=== PATIENT | female | born 1955 | race Caucasian/White ===

== ENCOUNTER 2016-05-02 14:08 | Outpatient (RCR) | payer MEDICARE, MEDICAID ==
--- OUTSIDE RECORDS SUMMARY | 2016-04-11 14:13 | XMS REPORT ---
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 Problem Chest pain, unspecified R07.9 Active Problem Dislocation of left elbow, subsequent encounter V58.89 Active Problem Counseling on substance use and abuse Z71.89 Active Problem Obstructive chronic bronchitis J44.9 Active Medications Medication Code System Code Instructions Start Date End Date Status Dosage Omeprazole [facility] [address]-32 20 MG Orally Once a day May 16, 2015 1 tablet Symbicort [facility] 50133191055 160-4.5 Twice a day INHALE TWO PUFFS BY MOUTH TWICE A DAY IN THE MORNING AND EVENING Sertraline HCl [facility] 27114987739 50 TAKE ONE TABLET BY MOUTH DAILY Aspirin [facility] [address]-93 81 MG Orally Once a day 1 tablet Singulair [facility] 31168193121 10 TAKE ONE TABLET BY MOUTH DAILY Albuterol Sulfate [facility] [address]-14 (2.5 MG/3ML) 0.083% Inhalation Three times a day September 19, 2015 3 ml Ventolin HFA [facility] [address]-82 108 (90 Base) MCG/ACT Inhalation every 4 hrs September 19, 2015 2 puffs as needed Zyrtec Allergy [facility] [address]-43 10 mg Orally Once a day October 24, 2015 1 tablet Procedures Procedure Coding System Code Date Office Visit, Est Pt., Level 3 CPT-4 37140 October 24, 2015 [facility] VISIT ESTABLISHED PATIENT CPT-4 G0467 October 24, 2015 Vital Signs Date/Time: October 24, 2015 Cardiac Monitoring Heart Rate 100 bpm Weight 147 lbs Height 65 in BMI 24.46 Index Blood Pressure Diastolic 70 mmHg Blood Pressure Systolic 100 mmHg Results No Known Results Summary Purpose eClinicalWorks Submission
[~2016-05-02 14:08] MED LIST: AC500T PO; ALB0.5V INH; ALBU0.632 IH; ASP81TEC PO; BENZ200C3 PO; BUDE6HFA IH; CEFD300C3 PO; DOXY100C2 PO; ESTR0.5T PO; FLC150T PO; FLUT1DIS26 IH; GFN600TCR PO; HYDR-3874 PO; LEVO750T6 PO; LORA10CA PO; MNTL10T PO; PRD10T PO; PRD20T PO; PRD50T PO; PREDNISONE; RT-COMBINH IH; SERT100T8 PO; SERT25TA PO; SERT50TA PO; TIOT18CA IH
== END 2016-05-21 09:38 | disposition home or self-care (01) ==
PROVIDERS: ATTEND Nurse Practitioner
DX: M75.42 Impingement syndrome of left shoulder (principal)

== ENCOUNTER 2017-01-08 21:35 | Inpatient (IN) | payer MEDICARE, MEDICAID ==
[~2017-01-08] VITALS: Ht 165.1 cm; Wt 66.3 kg
[2017-01-08] MEDS ORDERED: RT-SODIUM CHL INHALATION 3 ML VIAL ONE (21:37)
[2017-01-08] MEDS ORDERED: RT-ALBUTEROL SULF 2.5 MG/3 ML PRE-MIX VIAL ONE (21:37)
[2017-01-08] MEDS ORDERED: RT-ALBUTEROL SULF 2.5 MG/3 ML PRE-MIX VIAL INH STA (21:42)
[2017-01-08] MEDS ORDERED: NS IV 500 ML 500 ML IV ONE (21:42)
[2017-01-08] MEDS ORDERED: methylPREDNISolone 125 MG (Solu-MEDROL) VIAL IVP ONE (21:45)
[2017-01-08] MEDS ORDERED: AZITHROMYCIN INJECTION 500 MG in NS (IVPB) 250 ML IV ONE (21:45)
[2017-01-08 21:54] LABS: BASOPHILS % (AUTO) 0 % (0-10); EOSINOPHILS # (AUTO) 0.4 10^3/uL (0.0-0.3); EOSINOPHILS % (AUTO) 5 % (0-10); LYMPHOCYTES # (AUTO) 4.5 X 10^3 (1.0-4.0); LYMPHOCYTES % (AUTO) 59 % (12-44); MEAN CORPUSCULAR HEMOGLOBIN 35 PG (25-34); MEAN CORPUSCULAR HGB CONC 35 G/DL (32-36); MEAN CORPUSCULAR VOLUME 99 FL (80-99); MONOCYTES # (AUTO) 0.5 X 10^3 (0.0-1.0); MONOCYTES % (AUTO) 7 % (0-12); NEUTROPHILS # (AUTO) 2.2 X 10^3 (1.8-7.8); NEUTROPHILS % (AUTO) 29 % (42-75); PLATELET COUNT 258 10^3/uL (130-400); RED BLOOD COUNT 4.06 10^6/uL (4.35-5.85); RED CELL DISTRIBUTION WIDTH 13.4 % (10.0-14.5); WHITE BLOOD COUNT 7.6 10^3/uL (4.3-11.0)
--- NOTE | 2017-01-08 21:54 | ED Respiratory ---
General Stated Complaint: RESPIRATORY DISTRESS Source: patient, EMS Exam Limitations: no limitations History of Present Illness Time seen by provider: 21:35 Initial Comments Patient presents to ER by EMS with a chief complaint of shortness of breath presently worsening over the past 3 days. She has a history of asthma, COPD, emphysema. She still smokes a pack-a-day. She's had no fever but she has had some hot flashes recently. She has been coughing and does not recall the last time she had have antibiotics or steroids. She is very short of breath wearing 2 L per nasal cannula 94% at home per EMS and 92-93% on room air after arrival. She's had no nausea vomiting chest pain, diarrhea or rash. No sick contacts. Allergies and Home Medications Allergies Coded Allergies: codeine (Verified Allergy, Severe, Hives and swelling., 09/22/12) Home Medications Albuterol 2.5 Mg/0.5 Ml Nebu, 2.5 MG INH Q4H PRN, (Reported) PRN SOB Aspirin 81 Mg Tabec, 81 MG PO DAILY, (Reported) Budesonide/Formoterol Fumarate 10.2 Gm Hfa.aer.ad, 2 PUFF IH BID, (Reported) Hydrocodone/Acetaminophen 1 Each Tablet, 1-2 EACH PO Q6H PRN for PAIN, #14 Ref 0 Prescribed by: DEJA PERDOMO on 10/05/14 0300 Montelukast Sodium 10 Mg Tab, 10 MG PO HS, (Reported) Sertraline Hcl 25 Mg Tablet, 50 MG PO DAILY, (Reported) Constitutional: No chills, No diaphoresis, No fever EENTM: No ear discharge, No ear pain, No eye pain Respiratory: cough, phlegm, short of breath, No stridor, wheezing Cardiovascular: No chest pain, No palpitations Gastrointestinal: No abdominal pain, No constipation, No diarrhea, No nausea, No vomiting Genitourinary: No discharge, No dysuria : No Musculoskeletal: No back pain, No joint pain Skin: No pruritus, No rash Psychiatric/Neurological: Denies Headache, Denies Numbness, Denies Paresthesia Past Fgjmsvu-Jzxjui-Uwisdk Hx Patient Social History Alcohol Use: Denies Use Smoking Status: Current Everyday Smoker Type Used: Cigarettes (1 ppd) Immunizations Up To Date Tetanus Booster (TDap): Unknown PED Vaccines UTD: No Date of Pneumonia Vaccine: Dec 14, 2009 Date of Influenza Vaccine: Jan 10, 2012 Respiratory Respiratory Disorders: Asthma, COPD Reproductive System Hx Reproductive Disorders: No Musculoskeletal Musculoskeletal Disorders: Arthritis HEENT HEENT Disorders: Cataract Psychosocial Behavioral Health Disorders: Anxiety, Depression Family Medical History Significant Family History: No Pertinent Family Hx Physical Exam Vital Signs Vital Sign - Last 12Hours 01/08/17 01/08/17 21:35 21:50 Temp 96.4 Pulse 83 Resp 20 B/P (MAP) 107/63 Pulse Ox 91 O2 Delivery Room Air O2 Flow Rate 1.50 Capillary Refill : General Appearance: moderate distress, thin Eyes: Bilateral Eye Normal Inspection, Bilateral Eye PERRL, Bilateral Eye EOMI HEENT: PERRL/EOMI, normal ENT inspection, TMs normal, pharyngeal erythema Neck: non-tender, full range of motion, supple Respiratory: chest non-tender, respiratory distress (moderate), decreased breath sounds, accessory muscle use, crackles (bilateral), rales, rhonchi, wheezing, expiration Cardiovascular: normal peripheral pulses, regular rate, rhythm, no edema, no JVD Gastrointestinal: normal bowel sounds, non tender, soft Extremities: non-tender, normal inspection, no pedal edema, no calf tenderness , normal capillary refill Neurologic/Psychiatric: no motor/sensory deficits, alert, normal mood/affect, oriented x 3 Skin: normal color, warm/dry Patient Education: Explained Benefits, Explained Risks Breath Sounds per Auscultation: Clear Heart Sounds per Auscultation: Regular Airway Exam: Mouth opens >2 fingers, Neck Full Range of Motion, Visulation of Uvula Sedation Adminstration Time: 0220 Re-examination Time: 024 Progress/Results/Core Measures Results/Orders Lab Results Laboratory Tests Test 01/08/17 21:45 Range/Units White Blood Count 7.6 4.3-11.0 10^3/uL Red Blood Count 4.06 L 4.35-5.85 10^6/uL Hemoglobin 14.2 11.5-16.0 G/DL Hematocrit 40 35-52 % Mean Corpuscular Volume 99 80-99 FL Mean Corpuscular Hemoglobin 35 H 25-34 PG Mean Corpuscular Hemoglobin Concent 35 32-36 G/DL Red Cell Distribution Width 13.4 10.0-14.5 % Platelet Count 258 130-400 10^3/uL Mean Platelet Volume 10.0 7.4-10.4 FL Neutrophils (%) (Auto) 29 L 42-75 % Lymphocytes (%) (Auto) 59 H 12-44 % Monocytes (%) (Auto) 7 0-12 % Eosinophils (%) (Auto) 5 0-10 % Basophils (%) (Auto) 0 0-10 % Neutrophils # (Auto) 2.2 1.8-7.8 X 10^3 Lymphocytes # (Auto) 4.5 H 1.0-4.0 X 10^3 Monocytes # (Auto) 0.5 0.0-1.0 X 10^3 Eosinophils # (Auto) 0.4 H 0.0-0.3 10^3/uL Basophils # (Auto) 0.0 0.0-0.1 10^3/uL My Orders Orders - GOVIND PALAFOX Sodium Chl Inhalation (Rt-Sodium Chl Inh (01/08/17 21:37) Albuterol Pre-Mix Nebs (Rt) (Proventil P (01/08/17 21:37) Cbc With Automated Diff (01/08/17 21:42) Comprehensive Metabolic Panel (01/08/17 21:42) Lactic Acid Analyzer (01/08/17 21:42) Magnesium (01/08/17 21:42) Rapid Strep A Screen (01/08/17 21:42) Troponin I (01/08/17 21:42) Ua Culture If Indicated (01/08/17 21:42) Blood Culture (01/08/17 21:42) Influenza A And B Antigens (01/08/17 21:42) Sputum Culture (01/08/17 21:42) Chest 1 View, Ap/Pa Only (01/08/17 21:42) Albuterol Pre-Mix Nebs (Rt) (Proventil P (01/08/17 21:42) Saline Lock/Iv-Start (01/08/17 21:42) Ns Iv 500 Ml (Sodium Chloride 0.9%) (01/08/17 21:42) Methylprednisolone Sod Succ (Solu-Medrol (01/08/17 21:45) Azithromycin Injection (Zithromax Inject (01/08/17 21:45) Svn Sm Volume Nebulizer Rt-Rfs (01/08/17 21:42) Ekg Tracing (01/08/17 21:56) Medications Given in ED Current Medications Medications Dose Ordered Sig/Antwon Route Start Time Stop Time Status Last Admin Dose Admin Sodium Chloride 3 ml STK-MED ONCE .ROUTE 01/08/17 21:37 01/08/17 21:46 DC 01/08/17 21:53 3 ML Vital Signs/I&O Vital Sign - Last 12Hours 01/08/17 01/08/17 21:35 21:50 Temp 96.4 Pulse 83 Resp 20 B/P (MAP) 107/63 Pulse Ox 91 93 O2 Delivery Room Air Nasal Cannula O2 Flow Rate 1.50 Progress Note : Time: 21:54 Progress Note Blood and sputum cultures, lactate, chest x-ray, azithromycin 500 mg IV, Solu- Medrol 125 mg IV, one hour, 15 mg albuterol in addition to the EMSs DuoNeb 1. Diagnostic Imaging Diagonstic Imaging: Xray Plain Films/CT/US/NM/MRI: chest Comments No acute cardiopulmonary processes. COPD evident. Reviewed: Reviewed by Me Departure Communication (Admissions) Time/Spoke to Admitting Phy: 22:[address] Britt Hernandez discussed the clinical findings, imaging and laboratory and she is okay with admitting the patient for rest for distress and COPD exacerbation. She'll see the patient the morning. Impression Impression: Primary Impression: Acute exacerbation of COPD with asthma Additional Impression: Acute respiratory distress Disposition: ADMITTED INPATIENT Condition: Stable Admissions Decision to Admit Reason: Admit from ER (General) Decision to Admit/Date: Jan 08, 2017 Time/Decision to Admit Time: 22:19 Departure-Patient Inst. Referrals: ALMA ALLEN (PCP) Primary Care Physician [facility] (Family) Primary Care Physician Copy Copies To 1: SHIRA MOSES TITUS J Jan 08, 2017 21:54
[2017-01-08 22:19] LABS: ALANINE AMINOTRANSFERASE 19 U/L (0-55); ALBUMIN 4.2 GM/DL (3.2-4.5); ANION GAP 13 MMOL/L (5-14); ASPARTATE AMINO TRANSFERASE 24 U/L (5-34); BILIRUBIN,TOTAL 0.3 MG/DL (0.1-1.0); BLOOD UREA NITROGEN 6 MG/DL (7-18); BUN/CREATININE RATIO 9; CALCIUM 8.8 MG/DL (8.5-10.1); CARBON DIOXIDE 19 MMOL/L (21-32); CHLORIDE 102 MMOL/L (98-107); CREATININE SERUM 0.64 MG/DL (0.60-1.30); GFR ESTIMATED > 60; GLUCOSE 67 MG/DL (70-105); MAGNESIUM 2.6 MG/DL (1.8-2.4); POTASSIUM 3.8 MMOL/L (3.6-5.0); SODIUM 134 MMOL/L (135-145); TOTAL PROTEIN 7.7 GM/DL (6.4-8.2)
[2017-01-08 22:26] LABS: TROPONIN I < 0.30 NG/ML (<0.30)
--- OUTSIDE RECORDS SUMMARY | 2017-01-08 23:03 | XMS REPORT ---
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 360699213 Problem Counseling on substance use and abuse Z71.89 Active 375277085 Problem Obstructive chronic bronchitis J44.9 Active 046134176 Problem H/O esophageal reflux Z87.19 Active 937761561 Problem H/O benign neoplasm of colon Z86.018 Active 280984963 ALLERGIES No Known Allergies SOCIAL HISTORY No smoking Hx information available PLAN OF CARE Activity Details Follow Up 8 weeks Reason: VITAL SIGNS Height 65 in 2016-03-22 Blood pressure systolic 112 mmHg 2016-03-22 Blood pressure diastolic 70 mmHg 2016-03-22 MEDICATIONS No Known Medications RESULTS No Results PROCEDURES Procedure Date Ordered Related Diagnosis Body Site [facility] VISIT ESTABLISHED PATIENT Mar 22, 2016 Office Visit, Est Pt., Level 3 Mar 22, 2016 IMMUNIZATIONS No Known Immunizations
--- OUTSIDE RECORDS SUMMARY | 2017-01-08 23:03 | XMS REPORT ---
Author ANDRES Andino [facility] eClinicalWorks Address Unknown Phone Unavailable Care Team Providers Care Cook Restaurant Name Role Phone ANDRES KAUFFMAN CP Unavailable [...] Start Date End Date Status Dosage Omeprazole [facility] [address]-95 20 MG Orally Once a day May 16, [address] [facility] 25412583414 160-4.5 Twice a day INHALE TWO PUFFS BY MOUTH TWICE A DAY IN THE MORNING AND EVENING Sertraline HCl [facility] 80886454726 50 TAKE ONE TABLET BY MOUTH DAILY Aspirin [facility] [address]-77 81 MG Orally Once a day [address] [facility] 72265289608 10 TAKE ONE TABLET BY MOUTH DAILY Albuterol Sulfate [facility] [address]-82 (2.5 MG/3ML) 0.083% Inhalation Three times a day September 19, 2015 3 ml Ventolin HFA [facility] [address]-78 108 (90 Base) MCG/ACT Inhalation every 4 hrs September 19, 2015 2 puffs as needed Zyrtec Allergy [facility] [address]-29 10 mg Orally Once a day October 24, 2015 1 tablet Procedures Procedure Coding System Code Date Office Visit, Est Pt., Level 3 CPT-4 62688 October 24, 2015 [facility] VISIT ESTABLISHED PATIENT CPT-4 G0467 October 24, 2015 Vital Signs Date/Time: October 24, 2015 Cardiac Monitoring Heart Rate 100 bpm Weight 147 lbs Height 65 in BMI 24.46 Index Blood Pressure Diastolic 70 mmHg Blood Pressure Systolic 100 mmHg Results No Known Results Summary Purpose eClinicalWorks Submission
--- OUTSIDE RECORDS SUMMARY | 2017-01-08 23:03 | XMS REPORT ---
Author Author ANDRES KAUFFMAN [facility] eClinicalWorks Address Unknown Phone Unavailable Care Team Providers Care Warehouse Team Leader Name Role Phone ANDRES KAUFFMAN Unavailable Allergies, Adverse Reactions, Alerts Substance Reaction Event Type Codeine Sulfate Info Not Available Drug Allergy Problems Problem Type Condition Code Onset Dates Condition Status Assessment Left arm pain M79.602 Active Assessment Acute pain of left shoulder M25.512 Active Problem H/O esophageal reflux Z87.19 Active [...] Instructions Start Date End Date Status Dosage Zyrtec Allergy [facility] [place] [address]-40 10 mg Orally Once a day October 24, 2015 1 tablet Zanaflex [facility] [place] [place] [address]-88 2 MG Orally Once a day at bedtime Jan 26, 2016 1 capsule as needed Ventolin HFA [facility] [place] [address]-39 108 (90 Base) MCG/ACT Inhalation every 4 hrs September 19, 2015 2 puffs as needed Albuterol Sulfate [facility] [place] [address]-72 (2.5 MG/3ML) 0.083% Inhalation Three times a day September 19, 2015 3 ml Sertraline HCl [facility] [place] 72030646097 50 TAKE ONE TABLET BY MOUTH DAILY Aspirin [facility] [place] [address]-14 81 MG Orally Once a day 1 tablet Singulair [facility] [place] [place] 86122521004 10 TAKE ONE TABLET BY MOUTH DAILY Symbicort [facility] [place] 55058085905 160-4.5 Twice a day INHALE TWO PUFFS BY MOUTH TWICE A DAY IN THE MORNING AND EVENING Procedures Procedure Coding System Code Date X-RAY EXAM OF SHOULDER CPT-4 74649 Jan 26, 2016 [facility] VISIT ESTABLISHED PATIENT CPT-4 G0467 Jan 26, 2016 X-RAY EXAM OF HUMERUS CPT-4 60878 Jan 26, 2016 Office Visit, Est Pt., Level 3 CPT-4 25817 Jan 26, 2016 Vital Signs Date/Time: Jan 26, 2016 Cardiac Monitoring Heart Rate 88 bpm Weight 145.9 lbs Height 65 in BMI 24.28 Index Blood Pressure Diastolic 62 mmHg Blood Pressure Systolic 90 mmHg Results Name Result Date Reference Range Unit Abnormality Flag Xray : Shoulder, Left 2 view (IN HOUSE) Xray : Humerus, Left (IN HOUSE) Summary Purpose eClinicalWorks Submission
--- OUTSIDE RECORDS SUMMARY | 2017-01-08 23:04 | XMS REPORT ---
Author MARIA FERNANDA [facility] eClinicalWorks Address Unknown Phone Unavailable Care Team Providers Care Dean Of Men Name Role Phone MARIA FERNANDA SORIA CP Unavailable Allergies, Adverse Reactions, Alerts Substance Reaction Event Type Codeine Sulfate Info Not Available Drug Allergy Problems Problem Type Condition Code Onset Dates Condition Status Assessment Muscle spasm M62.838 Active Assessment Cervicalgia M54.2 Active Problem H/O esophageal reflux Z87.19 Active [...] Start Date End Date Status Dosage Omeprazole [facility] [address]-48 20 MG Orally Once a day May 16, 2015 1 tablet Sertraline HCl [facility] 06320633355 50 TAKE ONE TABLET BY MOUTH DAILY Zyrtec Allergy [facility] [address]-98 10 mg Orally Once a day October 24, 2015 1 tablet Symbicort [facility] 86390412647 160-4.5 Twice a day INHALE TWO PUFFS BY MOUTH TWICE A DAY IN THE MORNING AND EVENING Ventolin HFA [facility] [address]-86 108 (90 Base) MCG/ACT Inhalation every 4 hrs September 19, 2015 2 puffs as needed Singulair [facility] 15688914406 10 TAKE ONE TABLET BY MOUTH DAILY Albuterol Sulfate [facility] [address]-47 (2.5 MG/3ML) 0.083% Inhalation Three times a day September 19, 2015 3 ml PredniSONE [facility] [address]-70 20 mg Orally Once a day Dec 17, 2015Dec 1 tablet Cyclobenzaprine HCl [facility] [address]-34 10 mg Orally 2 times a day prn Dec 17, 2015 Dec 20, 2015 1 tablet Aspirin [facility] [address]-16 81 MG Orally Once a day 1 tablet Procedures Procedure Coding System Code Date Office Visit, Est Pt., Level 3 CPT-4 43149 Dec 17, 2015 [facility] VISIT ESTABLISHED PATIENT CPT-4 G0467 Dec 17, 2015 Vital Signs Date/Time: Dec 17, 2015 Cardiac Monitoring Heart Rate 88 bpm Weight 153 lbs Height 65 in BMI 25.46 Index Blood Pressure Diastolic 62 mmHg Blood Pressure Systolic 98 mmHg Results No Known Results Summary Purpose eClinicalWorks Submission
--- OUTSIDE RECORDS SUMMARY | 2017-01-08 23:04 | XMS REPORT ---
Author SHIRA [facility] eClinicalWorks Address Unknown Phone Unavailable Care Team Providers Care Senior Hydrogeologist Name Role Phone SHIRA MOSES CP Unavailable Allergies, Adverse Reactions, Alerts Substance Reaction Event Type Codeine Sulfate Info Not Available Drug Allergy Problems Problem Type Condition Code Onset Dates Condition Status Assessment Sebaceous cyst L72.3 Active Problem H/O esophageal reflux Z87.19 Active [...] Instructions Start Date End Date Status Dosage Albuterol Sulfate [facility] [address]-55 2.5 mg /3 mL (0.083 %) Apr 28, 2013 1 Each by Inhalation route every 6 hours for cough and wheeze PRN for wheezing or cough Sertraline HCl [facility] 74219044750 50 Once a day TAKE ONE TABLET BY MOUTH DAILY Symbicort [facility] 62787550067 160-4.5 Twice a day INHALE TWO PUFFS BY MOUTH TWICE A DAY IN THE MORNING AND EVENING Singulair [facility] [address]-23 10 mg 1 TAB orally once a day (in the evening) Jun 02, 2014 1 tablet by Oral route 1 time per day Procedures Procedure Coding System Code Date DRAINAGE OF SKIN ABSCESS CPT-4 12367 Mar 21, 2015 Vital Signs Date/Time: Mar 21, 2015 Temperature 97.4 F Weight 150.3 lbs Height 65 in BMI 25.01 Index Blood Pressure Diastolic 64 mmHg Blood Pressure Systolic 110 mmHg Cardiac Monitoring Heart Rate 76 bpm Results Name Result Date Reference Range Unit Abnormality Flag I/D SIMPLE ABSCESS Summary Purpose eClinicalWorks Submission
--- OUTSIDE RECORDS SUMMARY | 2017-01-08 23:04 | XMS REPORT | Continuity of Care Document ---
Author Author [facility] Organization [facility] Address [facility] [address] [place] [address] Phone Unavailable Care Team Providers Care Microelectronics Assembler Name Role Phone Katlyn Grullon M.D. PCP Insurance Providers Payer Name Policy Number Subscriber Name Relationship Medicare [id number] Char Juarez 18 Self / Same As Patient Medicaid [id number] Char Juarez 18 Self / Same As Patient Advance Directives Directive Response Recorded Date/Time Do you have an Advanced Directive? No 07/09/99 9:56pm Advance Directives No 08/19/07 12:57pm Living Will No 08/19/07 12:57pm Power of Landscape Artist for Health Care No 08/19/07 12:57pm Organ, Tissue, or Eye Donor No 08/19/07 12:57pm Do you have a signed organ donor card? No 07/09/99 9:56pm Chief Complaint and Reason for Visit Chief Complaint RESPIRATORY DISTRESS Reason for Visit [id number] Bronchitis Problems Active Problems Medical Problem Onset Date Status Bronchitis Unknown Acute COPD (chronic obstructive pulmonary disease) Unknown Acute Medications Current Home Medications Medication Dose Units Route Directions Days/Qty Instructions Start Date Budesonide/Formoterol Fumarate 6 Gm 2 Puff Inhalation Twice A Day Albuterol Sulfate (Proair Hfa) 8.5 Gm 1-2 Puff Inhalation Every 4-6 Hours As Needed 10/01/14 Montelukast Sodium 10 Mg 10 Mg Oral Daily 30 10/01/14 Sertraline Hcl 50 Mg 50 Mg Oral Daily 30 10/01/14 Aspirin 81 Mg 81 Mg Oral Daily 30 10/01/14 Azithromycin 500 Mg 500 Mg Oral Daily 5 10/01/14 Benzonatate 100 Mg 100-200 Mg Oral Three Times Daily As Needed as needed for Cough 30 as needed for cough. 10/01/14 Social History No social history. Hospital Discharge Instructions No hospital discharge instructions. Plan of Care Discharge Date 10/01/14 2:46am Condition at Discharge Stable Instructions/Education Provided Acute Bronchitis (ED) Prescriptions See Medication Section Functional Status Query Response Date Recorded Manjit Coma Scale Total 15 October 01, 2014 1:30am Patient Behavior Cooperative Appropriate October 01, 2014 1:10am Allergies, Adverse Reactions, Alerts Allergen Type Severity Reaction Status Last Updated Codeine Allergy Unknown Active 10/01/14 Ibuprofen Allergy Unknown Active 10/01/14 Immunizations Name Given Type Hx Diphtheria, Pertussis, Tetanus Vaccination Patient staes "doesnt remember" Historical Hx Influenza Vaccination N PT states doesnt remember Historical Vital Signs Acute Vital Signs Vital Response Date/Time Temperature (Fahrenheit) 100.0 degrees F (97.6 - 99.5) 10/01/2014 1:10am Temperature Source Temporal Artery 10/01/2014 1:10am Pulse Rate (adult) 76 bpm (60 - 90) 10/01/2014 2:30am Respiratory Rate 16 bpm (12 - 24) 10/01/2014 2:30am Blood Pressure 107/51 mm Hg 10/01/2014 2:30am O2 Sat by Pulse Oximetry 94 % (90 - 100) 10/01/2014 2:30am Oxygen Delivery Method 10/01/2014 2:30am Oxygen Flow Rate 2 L/min 10/01/2014 2:07am Pain Intensity 6 10/01/2014 2:46am Height 5 ft 4 in Weight 152 lb Body Mass Index 26.0 kg/m^2 Results Laboratory Results Test Name Result Units Flags Reference Collection Date/Time Result Date/ Time Comments White Blood Count 8.2 K/uL 4.8-10.8 10/01/2014 12:45am 10/01/2014 1: 30am Red Blood Count 4.32 M/uL 4.20-5.40 10/01/2014 12:45am 10/01/2014 1: 30am Hemoglobin 14.5 gm/dL 12.0-16.0 10/01/2014 12:10/01/2014 1:30am Hematocrit 42.4 % 37.0-47.0 10/01/2014 12:10/01/2014 1:30am Mean Corpuscular Volume 98.3 fL 81.0-99.0 10/01/2014 12:2014 1:30am Mean Corpuscular Hemoglobin 33.6 pg H 27.0-31.0 10/01/2014 12:10/01 1:30am Mean Corpuscular Hemoglobin Concent 34.2 g/dL 30.0-37.0 10/01/2014 12: 10/01/2014 1:30am Red Cell Distribution Width 13.2 % 11.5-14.5 10/01/2014 12:2014 1:30am Platelet Count 251 K/uL 130-400 10/01/2014 12:10/01/2014 1:30am Mean Platelet Volume 7.8 fL 7.4-10.4 10/01/2014 12:10/01/2014 1: 30am Neutrophils (%) (Auto) 62.9 % 42.2-75.2 10/01/2014 12:10/01/2014 1 :30am Lymphocytes (%) (Auto) 29.4 % 20.5-51.1 10/01/2014 12:10/01/2014 1 :30am Monocytes (%) (Auto) 4.8 % 1.7-9.3 10/01/2014 12:10/01/2014 1: 30am Eosinophils (%) (Auto) 2.7 % 0-3 10/01/2014 12:10/01/2014 1:30am Basophils (%) (Auto) 0.3 % 0.0-1.0 10/01/2014 12:10/01/2014 1: 30am Neutrophils # (Auto) 5.2 K/uL 2.0-6.9 10/01/2014 12:10/01/2014 1: 30am Lymphocytes # (Auto) 2.4 K/uL 1.2-3.4 10/01/2014 12:10/01/2014 1: 30am Monocytes # (Auto) 0.4 K/uL 0.1-0.6 10/01/2014 12:45am 10/01/2014 1: 30am Eosinophils # (Auto) 0.2 K/uL 0.0-0.7 10/01/2014 12:45am 10/01/2014 1: 30am Basophils # (Auto) 0.0 K/uL 0.0-0.2 10/01/2014 12:45am 10/01/2014 1: 30am Random Glucose 105 mg/dL 70-110 10/01/2014 12:45am 10/01/2014 1:29am Blood Urea Nitrogen 15 mg/dL 7-18 10/01/2014 12:45am 10/01/2014 1:29am Creatinine 0.8 mg/dL 0.6-1.0 10/01/2014 12:45am 10/01/2014 1:29am Sodium Level 139 mEq/L 136-145 10/01/2014 12:45am 10/01/2014 1:29am Potassium Level 3.8 mEq/L 3.5-5.0 10/01/2014 12:45am 10/01/2014 1:29am Chloride Level 102 mEq/L 98-107 10/01/2014 12:45am 10/01/2014 1:29am Carbon Dioxide Level 25.7 mEq/L 21-32 10/01/2014 12:45am 10/01/2014 1: 29am Calcium Level 8.5 mg/dL L 8.8-10.5 10/01/2014 12:45am 10/01/2014 1:29am Glomerular Filtration Rate Calc 77.8 mL/min 10/01/2014 12:45am 2014 1:29am Procedures Procedure Status Date Provider(s) Portable x-ray of chest Completed 10/01/14 ROMI DUMONT D.O. Encounters Encounter Location Arrival/Admit Date Discharge/Depart Date Attending Provider Departed Emergency Room [place] 10/01/14 1:09am 10/01/14 2:46am ROMI DUMONT D.O. Recent Diagnosis
--- OUTSIDE RECORDS SUMMARY | 2017-01-08 23:04 | XMS REPORT ---
Author ANDRES Andino Organization [employer] Address Unknown Phone Unavailable Care Team Providers Care Soda Dialyzer Name Role Phone ANDRES KAUFFMAN CP Unavailable Allergies, Adverse Reactions, Alerts Substance Reaction Event Type Codeine Sulfate Info Not Available Drug Allergy Problems Problem Type Condition Code Onset Dates Condition Status Assessment Screening, lipid Z13.220 Active Problem H/O esophageal reflux Z87.19 Active [...] Instructions Start Date End Date Status Dosage Sertraline HCl [facility] 90829251223 50 Once a day TAKE ONE TABLET BY MOUTH DAILY Albuterol Sulfate [facility] [address]-14 2.5 mg /3 mL (0.083 %) Apr 28, 2013 1 Each by Inhalation route every 6 hours for cough and wheeze PRN for wheezing or cough Symbicort [facility] 31201249150 160-4.5 Twice a day INHALE TWO PUFFS BY MOUTH TWICE A DAY IN THE MORNING AND EVENING Singulair [facility] [address]-55 10 mg 1 TAB orally once a day (in the evening) Jun 02, 2014 1 tablet by Oral route 1 time per day Procedures Procedure Coding System Code Date Office Visit, Est Pt., Level 2 CPT-4 25013 Mar 22, 2015 COUNTS INCLUDE 234 BEDS AT THE [facility] VISIT ESTABLISHED PATIENT CPT-4 G0467 Mar 22, 2015 Vital Signs Date/Time: Mar 22, 2015 Temperature 98.1 F Weight 149.4 lbs Height 65 in BMI 24.86 Index Blood Pressure Diastolic 68 mmHg Blood Pressure Systolic 98 mmHg Cardiac Monitoring Heart Rate 96 bpm Results No Known Results Summary Purpose [employer] Submission
--- OUTSIDE RECORDS SUMMARY | 2017-01-08 23:04 | XMS REPORT ---
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 697205246 Problem Dislocation of left elbow, subsequent encounter V58.89 Active 006030139 Problem Chronic obstructive pulmonary disease, unspecified COPD type J44.9 Active 55820729 Problem Counseling on substance use and abuse Z71.89 Active 965868117 Problem Obstructive chronic bronchitis J44.9 Active 319289904 Problem Chest pain, unspecified R07.9 Active 94569249 Problem H/O esophageal reflux Z87.19 Active 298539959 Problem H/O benign neoplasm of colon Z86.018 Active 974477439 ALLERGIES No Information SOCIAL HISTORY Never Assessed PLAN OF CARE Activity Details Follow Up prn Reason: VITAL SIGNS Height 65 in 2016-05-17 Blood pressure systolic 110 mmHg 2016-05-17 Blood pressure diastolic 74 mmHg 2016-05-17 MEDICATIONS No Known Medications RESULTS No Results PROCEDURES Procedure Date Ordered Result Body Site [facility] VISIT ESTABLISHED PATIENT May 17, 2016 IMMUNIZATIONS No Known Immunizations MEDICAL (GENERAL) HISTORY Type Description Date Medical History Fx dislocation of left elbow 09/2014 Medical History Dislocation of left elbow, subsequent encounter Medical History COPD Surgical History c- section x 4 Surgical History left ear surgery 1971 Hospitalization History copd Hospitalization History collapsed right lung
--- OUTSIDE RECORDS SUMMARY | 2017-01-08 23:04 | XMS REPORT ---
Author ANDRES Andino Organization [employer] Address Unknown Phone Unavailable Care Team Providers Care Orchestra Musician Name Role Phone ANDRES KAUFFMAN CP Unavailable Allergies No Known Allergies Problems Problem Type Condition Code Onset Dates Condition Status Problem H/O esophageal reflux Z87.19 Active Problem [...] Instructions Start Date End Date Status Dosage Tizanidine HCl [facility] [address]-07 2 MG Orally Once a day at Jan 27, 2016 1 tablet as needed Results No Known Results Summary Purpose [employer] Submission
--- OUTSIDE RECORDS SUMMARY | 2017-01-08 23:04 | XMS REPORT ---
Author ANDRES Andino Organization [employer] Address Unknown Phone Unavailable Care Team Providers Care Boat Canvas Installer Name Role Phone ANDRES KAUFFMAN CP Unavailable Allergies, Adverse Reactions, Alerts Substance Reaction Event Type Codeine Sulfate Info Not Available Drug Allergy Problems Problem Type Condition Code Onset Dates Condition Status Assessment Encounter for immunization Z23 Active Assessment Left arm pain M79.602 Active Assessment Breast cancer screening Z12.39 Active Assessment Lipid screening Z13.220 Active Assessment Chronic obstructive pulmonary disease, unspecified COPD type J44.9 Active Assessment Gastroesophageal reflux disease, esophagitis presence not specified K21.9 Active Medications Medication Code System Code Instructions Start Date End Date Status Dosage Sertraline HCl [facility] 82365973550 50 Once a day TAKE ONE TABLET BY MOUTH DAILY Singulair [facility] [address]-37 10 mg 1 TAB orally once a day (in the evening) Jun 02, 2014 1 tablet by Oral route 1 time per day Symbicort [facility] 93082508951 160-4.5 Twice a day INHALE TWO PUFFS BY MOUTH TWICE A DAY IN THE MORNING AND EVENING Albuterol Sulfate [facility] [address]-26 2.5 mg /3 mL (0.083 %) Apr 28, 2013 1 Each by Inhalation route every 6 hours for cough and wheeze PRN for wheezing or cough Procedures Procedure Coding System Code Date Office Visit, Est Pt., Level 4 CPT-4 93004 Mar 08, 2015 FLUARIX QUAD (3 & UP)-GSK-2014 CPT-4 28491 Mar 08, 2015 [facility] VISIT ESTABLISHED PATIENT CPT-4 G0467 Mar 08, 2015 SINGLE IMMUNIZATION ADMIN CPT-4 42236 Mar 08, 2015 TDAP (BOOSTRIX) CPT-4 69928 Mar 08, 2015 IMMUNIZATION ADMIN, EACH ADD (please include units) CPT-4 37396 Mar 08, 2015 Vital Signs Date/Time: Mar 08, 2015 Temperature 98.5 F Weight 154.2 lbs Height 65 in BMI 25.66 Index Blood Pressure Diastolic 74 mmHg Blood Pressure Systolic 130 mmHg Cardiac Monitoring Heart Rate 78 bpm Results No Known Results Immunizations Vaccine Administration Date FLUARIX QUAD (3 & UP)-GSK-2014Mar 08, 2015 TDAP (BOOSTRIX) Mar 08, 2015 Summary Purpose [employer] Submission
--- OUTSIDE RECORDS SUMMARY | 2017-01-08 23:04 | XMS REPORT ---
Author Author ANDRES KAUFFMAN [facility] [employer] Address Unknown Phone Unavailable Care Team Providers Care Credit Union Manager Name Role Phone ANDRES KAUFFMAN CP Unavailable Allergies, Adverse Reactions, Alerts Substance Reaction Event Type Codeine Sulfate Info Not Available Drug Allergy Problems Problem Type Condition Code Onset Dates Condition Status Assessment Left arm pain M79.602 Active Problem H/O esophageal reflux Z87.19 Active [...] Instructions Start Date End Date Status Dosage Aspirin [facility] [address]-70 81 MG Orally Once a day 1 tablet Singulair [facility] 65320602074 10 TAKE ONE TABLET BY MOUTH DAILY Zyrtec Allergy [facility] [address]-00 10 mg Orally Once a day October 24, 2015 1 tablet Sertraline HCl [facility] 11714682553 50 TAKE ONE TABLET BY MOUTH DAILY Symbicort [facility] 59460922684 160-4.5 Twice a day INHALE TWO PUFFS BY MOUTH TWICE A DAY IN THE MORNING AND EVENING Albuterol Sulfate [facility] [address]-13 (2.5 MG/3ML) 0.083% Inhalation Three times a day September 19, 2015 3 ml Ventolin HFA [facility] [address]-65 108 (90 Base) MCG/ACT Inhalation every 4 hrs September 19, 2015 2 puffs as needed Procedures Procedure Coding System Code Date Office Visit, Est Pt., Level 2 CPT-4 44081 Feb 20, 2016 [facility] ESTABL[facility] PATIENT CPT-4 G0467 Feb 20, 2016 Vital Signs Date/Time: Feb 20, 2016 Cardiac Monitoring Heart Rate 86 bpm Weight 145.4 lbs Height 65 in BMI 24.19 Index Blood Pressure Diastolic 68 mmHg Blood Pressure Systolic 112 mmHg Results No Known Results Summary Purpose [employer] Submission
--- OUTSIDE RECORDS SUMMARY | 2017-01-08 23:04 | XMS REPORT ---
Author DARRELL Napier [facility] [employer] Address Unknown Phone Unavailable Care Team Providers Care Track Subway Repair Supervisor Name Role Phone DARRELL GOLDBERG Unavailable Allergies, Adverse Reactions, Alerts Substance Reaction Event Type Codeine Sulfate Info Not Available Drug Allergy Problems Problem Type Condition Code Onset Dates Condition Status Assessment History of chest pain Z87.898 Active Assessment Well woman exam Z01.419 Active Assessment Depression F32.9 Active Problem H/O esophageal reflux Z87.19 Active Problem H/O benign neoplasm of colon Z86.018 Active Problem 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 Problem Chest pain, unspecified R07.9 Active Assessment Encounter for screening for malignant neoplasm of cervix Z12.4 Active Problem Counseling on substance use and abuse Z71.89 Active Problem Obstructive chronic bronchitis J44.9 Active Assessment Vaginal lesion N89.8 Active Assessment Lipid screening Z13.220 Active Assessment Dense breast tissue R92.2 Active Assessment BMI 25.0-25.9,adult Z68.25 Active Medications Medication Code System Code Instructions Start Date End Date Status Dosage Albuterol Sulfate [facility] [address]-27 2.5 mg /3 mL (0.083 %) Apr 28, 2013 1 Each by Inhalation route every 6 hours for cough and wheeze PRN for wheezing or cough Symbicort [facility] 04726691543 160-4.5 Twice a day INHALE TWO PUFFS BY MOUTH TWICE A DAY IN THE MORNING AND EVENING Sertraline HCl [facility] 97994980990 50 Once a day TAKE ONE TABLET BY MOUTH DAILY Singulair [facility] [address]-91 10 mg 1 TAB orally once a day (in the evening) Jun 02, 2014 1 tablet by Oral route 1 time per day Procedures Procedure Coding System Code Date SPECIMEN HANDLING CPT-4 92577 Mar 14, 2015 LAB NOT BILLED BY [facility] CPT-4 NOBLL Mar 14, 2015 GLYCATED HEMOGLOBIN TEST CPT-4 15357 Mar 14, 2015 Preventive Care Est Pt. Age 40-64 CPT-4 12316 Mar 14, 2015 VENIPUNCT, ROUTINE* CPT-4 89387 Mar 14, 2015 Vital Signs Date/Time: Mar 14, 2015 Temperature 97.6 F Weight 152.2 lbs Height 65 in BMI 25.32 Index Blood Pressure Diastolic 76 mmHg Blood Pressure Systolic 112 mmHg Cardiac Monitoring Heart Rate 74 bpm Results No Known Results Summary Purpose [employer] Submission
--- OUTSIDE RECORDS SUMMARY | 2017-01-08 23:05 | XMS REPORT | Continuity of Care Document ---
Author Author [facility] Address Unknown Phone Unavailable Allergies Active Description Code Type Severity Reaction Onset Reported/Identified Relationship to Patient Clinical Status Yes codeine Drug Allergy 10/11/2008 Yes codeine Drug Allergy N/A N/A 10/11/2008 Yes codeine [id number] Drug Allergy Severe Hives and swell 09/22/2012 Medications Problems Date Dx Coded Attending Type Code Diagnosis Diagnosed By 10/11/2008 PAULINA URBINA MD 300.4 DYSTHYMIC DISORDER 10/11/2008 PAULINA URBINA MD 49Enrique CHRONIC OBSTRUCTIVE PULMONARY DISEASE 10/11/2008 PAULINA URBINA MD 300.4 DYSTHYMIC DISORDER 10/11/2008 PAULINA URBINA MD 49Enrique CHRONIC OBSTRUCTIVE PULMONARY DISEASE 10/11/2008 300.4 DYSTHYMIC DISORDER 10/11/2008 496 CHRONIC OBSTRUCTIVE PULMONARY DISEASE 10/11/2008 300.4 DYSTHYMIC DISORDER 10/11/2008 496 CHRONIC OBSTRUCTIVE PULMONARY DISEASE 10/11/2008 PAULINA URBINA MD 300.4 DYSTHYMIC DISORDER 10/11/2008 PAULINA URBINA MD 49Enrique CHRONIC OBSTRUCTIVE PULMONARY DISEASE 10/11/2008 GRICEL KAUFFMAN APRNA S 300.4 DYSTHYMIC DISORDER 10/11/2008 FRANSISCO KAUFFMAN APRNNDA S 496 CHRONIC OBSTRUCTIVE PULMONARY DISEASE 10/11/2008 FRANSISCO KAUFFMAN APRNNDA S 300.4 DYSTHYMIC DISORDER 10/11/2008 JAMARI HACK SAW OPERATOR, ANDRES S 496 CHRONIC OBSTRUCTIVE PULMONARY DISEASE 10/11/2008 NELLY HACK SAW OPERATOR, BARBARA A 300.4 DYSTHYMIC DISORDER 10/11/2008 NELLY HACK SAW OPERATOR, BARBARA A 496 CHRONIC OBSTRUCTIVE PULMONARY DISEASE 10/11/2008 FRANSISCO KAUFFMAN APRNNDA S 300.4 DYSTHYMIC DISORDER 10/11/2008 JAMARI LOZA ANDRES S 496 CHRONIC OBSTRUCTIVE PULMONARY DISEASE 10/11/2008 FRANSISCO KAUFFMAN APRNNDA S 300.4 DYSTHYMIC DISORDER 10/11/2008 JAMARI HACK SAW OPERATOR, ANDRES S 496 CHRONIC OBSTRUCTIVE PULMONARY DISEASE 10/11/2008 JAMARI HACK SAW OPERATOR, ANDRES S 300.4 DYSTHYMIC DISORDER 10/11/2008 JAMARI HACK SAW OPERATOR, ANDRES S 496 CHRONIC OBSTRUCTIVE PULMONARY DISEASE 10/11/2008 JAMARI HACK SAW OPERATOR, ANDRES S 300.4 DYSTHYMIC DISORDER 10/11/2008 JAMARI HACK SAW OPERATOR, ANDRES S 496 CHRONIC OBSTRUCTIVE PULMONARY DISEASE 01/11/2009 PAULINA URBINA MD 372.00 Acute Conjunctivitis Unspecified 01/11/2009 PAULINA URBINA MD 372.00 Acute Conjunctivitis Unspecified 01/11/2009 372.00 Acute Conjunctivitis Unspecified 01/11/2009 372.00 Acute Conjunctivitis Unspecified 01/11/2009 PAULINA URBINA MD 372.00 Acute Conjunctivitis Unspecified 01/11/2009 JAMARI HACK SAW OPERATOR, ANDRES S 372.00 Acute Conjunctivitis Unspecified 01/11/2009 JAMARI HACK SAW OPERATOR, ANDRES S 372.00 Acute Conjunctivitis Unspecified 01/11/2009 NELLY HACK SAW OPERATOR, BARBARA A 372.00 Acute Conjunctivitis Unspecified 01/11/2009 JAMARI HACK SAW OPERATOR, ANDRES S 372.00 Acute Conjunctivitis Unspecified 01/11/2009 JAMARI TEEN, ANDRES S 372.00 Acute Conjunctivitis Unspecified 01/11/2009 JAMARI HACK SAW OPERATOR, ANDRES S 372.00 Acute Conjunctivitis Unspecified 01/11/2009 JAMARI HACK SAW OPERATOR, ANDRES S 372.00 Acute Conjunctivitis Unspecified 01/26/2009 PAULINA URBINA MD 272.4 HYPERLIPIDEMIA HYPERLIPOPROTEINEMIAS (Old Classification) 01/26/2009 PAULINA URBINA MD 300.9 Psychiatric Disorder Requiring Hospitalization 01/26/2009 PAULINA URBINA MD 477.0 Allergic Rhinitis - Pollen 01/26/2009 PAULINA URBINA MD 494.0 Bronchiectasis 01/26/2009 PAULINA URBINA MD 272.4 HYPERLIPIDEMIA HYPERLIPOPROTEINEMIAS (Old Classification) 01/26/2009 PAULINA URBINA MD 300.9 Psychiatric Disorder Requiring Hospitalization 01/26/2009 PAULINA URBINA MD 477.0 Allergic Rhinitis - Pollen 01/26/2009 PAULINA URBINA MD 494.0 Bronchiectasis 01/26/2009 272.4 HYPERLIPIDEMIA HYPERLIPOPROTEINEMIAS (Old Classification) 01/26/2009 300.9 Psychiatric Disorder Requiring Hospitalization 01/26/2009 477.0 Allergic Rhinitis - Pollen 01/26/2009 494.0 Bronchiectasis 01/26/2009 272.4 HYPERLIPIDEMIA HYPERLIPOPROTEINEMIAS (Old Classification) 01/26/2009 300.9 Psychiatric Disorder Requiring Hospitalization 01/26/2009 477.0 Allergic Rhinitis - Pollen 01/26/2009 494.0 Bronchiectasis 01/26/2009 PAULINA URBINA MD 272.4 HYPERLIPIDEMIA HYPERLIPOPROTEINEMIAS (Old Classification) 01/26/2009 PAULINA URBINA MD 300.9 Psychiatric Disorder Requiring Hospitalization 01/26/2009 PAULINA URBINA MD 477.0 Allergic Rhinitis - Pollen 01/26/2009 PAULINA URBINA MD 494.0 Bronchiectasis 01/26/2009 JAMARI HACK SAW OPERATOR, ANDRES S 272.4 HYPERLIPIDEMIA HYPERLIPOPROTEINEMIAS ( Old Classification) 01/26/2009 JAMARI LOZA ANDRES S 300.9 Psychiatric Disorder Requiring Hospitalization 01/26/2009 JAMARI LOZA, ANDRES S 477.0 Allergic Rhinitis - Pollen 01/26/2009 JAMARITESFAYE LOZA, ANDRES S 494.0 Bronchiectasis 01/26/2009 JAMARI LOZA, ANDRES S 272.4 HYPERLIPIDEMIA HYPERLIPOPROTEINEMIAS ( Old Classification) 01/26/2009 JAMARI HACK SAW OPERATOR, ANDRES S 300.9 Psychiatric Disorder Requiring Hospitalization 01/26/2009 JAMARI HACK SAW OPERATOR, ANDRES S 477.0 Allergic Rhinitis - Pollen 01/26/2009 JAMARI HACK SAW OPERATOR, ANDRES S 494.0 Bronchiectasis 01/26/2009 NELLY HACK SAW OPERATOR, BARBARA A 272.4 HYPERLIPIDEMIA HYPERLIPOPROTEINEMIAS (Old Classification) 01/26/2009 NELLY HACK SAW OPERATOR, BARBARA A 300.9 Psychiatric Disorder Requiring Hospitalization 01/26/2009 NELLY HACK SAW OPERATOR, BARBARA A 477.0 Allergic Rhinitis - Pollen 01/26/2009 NELLY HACK SAW OPERATOR, BARBARA A 494.0 Bronchiectasis 01/26/2009 JAMARITESFAYE TEEN, ANDRES S 272.4 HYPERLIPIDEMIA HYPERLIPOPROTEINEMIAS ( Old Classification) 01/26/2009 JAMARI HACK SAW OPERATOR, ANDRES S 300.9 Psychiatric Disorder Requiring Hospitalization 01/26/2009 JAMARI HACK SAW OPERATOR, ANDRES S 477.0 Allergic Rhinitis - Pollen 01/26/2009 JAMARI HACK SAW OPERATOR, ANDRES S 494.0 Bronchiectasis 01/26/2009 JAMARI HACK SAW OPERATOR, ANDRES S 272.4 HYPERLIPIDEMIA HYPERLIPOPROTEINEMIAS ( Old Classification) 01/26/2009 JAMARI HACK SAW OPERATOR, ANDRES S 300.9 Psychiatric Disorder Requiring Hospitalization 01/26/2009 JAMARI HACK SAW OPERATOR, ANDRES S 477.0 Allergic Rhinitis - Pollen 01/26/2009 JAMARI HACK SAW OPERATOR, ANDRES S 494.0 Bronchiectasis 01/26/2009 JAMARI HACK SAW OPERATOR, ANDRES S 272.4 HYPERLIPIDEMIA HYPERLIPOPROTEINEMIAS ( Old Classification) 01/26/2009 JAMARI HACK SAW OPERATOR, ANDRES S 300.9 Psychiatric Disorder Requiring Hospitalization 01/26/2009 JAMARI HACK SAW OPERATOR, ANDRES S 477.0 Allergic Rhinitis - Pollen 01/26/2009 JAMARI HACK SAW OPERATOR, ANDRES S 494.0 Bronchiectasis 01/26/2009 JAMARI HACK SAW OPERATOR, ANDRES S 272.4 HYPERLIPIDEMIA HYPERLIPOPROTEINEMIAS ( Old Classification) 01/26/2009 JAMARI HACK SAW OPERATOR, ANDRES S 300.9 Psychiatric Disorder Requiring Hospitalization 01/26/2009 JAMARI HACK SAW OPERATOR, ANDRES S 477.0 Allergic Rhinitis - Pollen 01/26/2009 JAMARI HACK SAW OPERATOR, ANDRES S 494.0 Bronchiectasis 08/29/2009 PAULINA URBINA MD 692.6 Contact Dermatitis And Other Eczema, Due To Plants [except Food] 08/29/2009 PAULINA URBINA MD 692.6 Contact Dermatitis And Other Eczema, Due To Plants [except Food] 08/29/2009 692.6 Contact Dermatitis And Other Eczema, Due To Plants [except Food] 08/29/2009 692.6 Contact Dermatitis And Other Eczema, Due To Plants [except Food] 08/29/2009 PAULINA URBINA MD 692.6 Contact Dermatitis And Other Eczema, Due To Plants [except Food] 08/29/2009 FRANSISCO KAUFFMAN APRNNDA S 692.6 Contact Dermatitis And Other Eczema, Due To Plants [except Food] 08/29/2009 JAMARI HACK SAW OPERATOR, ANDRES S 692.6 Contact Dermatitis And Other Eczema, Due To Plants [except Food] 08/29/2009 NOEMY VILLEGAS APRNIDI A 692.6 Contact Dermatitis And Other Eczema, Due To Plants [except Food] 08/29/2009 JAMARI HACK SAW OPERATOR, ANDRES S 692.6 Contact Dermatitis And Other Eczema, Due To Plants [except Food] 08/29/2009 JAMARI HACK SAW OPERATOR, ANDRES S 692.6 Contact Dermatitis And Other Eczema, Due To Plants [except Food] 08/29/2009 JAMARI HACK SAW OPERATOR, ANDRES S 692.6 Contact Dermatitis And Other Eczema, Due To Plants [except Food] 08/29/2009 JAMARI HACK SAW OPERATOR, ANDRES S 692.6 Contact Dermatitis And Other Eczema, Due To Plants [except Food] 10/19/2009 PAULINA URBINA MD V70.0 General Medical Exam, Routine, At Health Care Facility 10/19/2009 PAULINA URBINA MD V70.0 General Medical Exam, Routine, At Health Care Facility 10/19/2009 V70.0 General Medical Exam, Routine, At Health Care Facility 10/19/2009 V70.0 General Medical Exam, Routine, At Health Care Facility 10/19/2009 PAULINA URBINA MD V70.0 General Medical Exam, Routine, At Health Care Facility 10/19/2009 FRANSISCO KAUFFMAN APRNNDA S V70.0 General Medical Exam, Routine, At Health Care Facility 10/19/2009 JAMARI HACK SAW OPERATOR, ANDRES S V70.0 General Medical Exam, Routine, At Health Care Facility 10/19/2009 NOEMY VILLEGAS APRNIDI A V70.0 General Medical Exam, Routine, At Health Care Facility 10/19/2009 JAMARI HACK SAW OPERATOR, ANDRES S V70.0 General Medical Exam, Routine, At Health Care Facility 10/19/2009 JAMARI HACK SAW OPERATOR, ANDRES S V70.0 General Medical Exam, Routine, At Health Care Facility 10/19/2009 JAMARI HACK SAW OPERATOR, ANDRES S V70.0 General Medical Exam, Routine, At Health Care Facility 10/19/2009 JAMARI HACK SAW OPERATOR, ANDRES S V70.0 General Medical Exam, Routine, At Health Care Facility 07/10/2010 Ot 491.21 07/10/2010 Ot 790.29 07/10/2010 Ot 799.02 07/10/2010 Ot E932.0 07/10/2010 Ot V15.82 07/10/2010 Ot V46.2 07/17/2010 CARLITOS COON, PAULINA 726.32 Epicondylitis 07/17/2010 CARLITOS COON, PAULINA 726.32 Epicondylitis 07/17/2010 726.32 Epicondylitis 07/17/2010 726.32 Epicondylitis 07/17/2010 CARLITOS COON, PAULINA 726.32 Epicondylitis 07/17/2010 JAMARI LOZA ANDRES S 726.32 Epicondylitis 07/17/2010 JAMARI LOZA ANDRES S 726.32 Epicondylitis 07/17/2010 BARBARA VILLEGAS APRN A 726.32 Epicondylitis 07/17/2010 JAMARI LOZA ANDRES S 726.32 Epicondylitis 07/17/2010 JAMARI LOZA ANDRES S 726.32 Epicondylitis 07/17/2010 JAMARI LOZA ANDRES S 726.32 Epicondylitis 07/17/2010 JAMARI LOZA ANDRES S 726.32 Epicondylitis 10/30/2010 PAULINA URBINA MD V74.1 Screening Examination For Pulmonary Tuberculosis 10/30/2010 PAULINA URBINA MD V74.1 Screening Examination For Pulmonary Tuberculosis 10/30/2010 V74.1 Screening Examination For Pulmonary Tuberculosis 10/30/2010 V74.1 Screening Examination For Pulmonary Tuberculosis 10/30/2010 PAULINA URBINA MD V74.1 Screening Examination For Pulmonary Tuberculosis 10/30/2010 GRICEL KAUFFMAN APRNA S V74.1 Screening Examination For Pulmonary Tuberculosis 10/30/2010 FRANSISCO KAUFFMAN APRNNDA S V74.1 Screening Examination For Pulmonary Tuberculosis 10/30/2010 BARBARA VILLEGAS APRN A V74.1 Screening Examination For Pulmonary Tuberculosis 10/30/2010 GRICEL KAUFFMAN APRNA S V74.1 Screening Examination For Pulmonary Tuberculosis 10/30/2010 FRANSISCO KAUFFMAN APRNNDA S V74.1 Screening Examination For Pulmonary Tuberculosis 10/30/2010 JAMARI HACK SAW OPERATOR, ANDRES S V74.1 Screening Examination For Pulmonary Tuberculosis 10/30/2010 JAMARI HACK SAW OPERATOR, ANDRES S V74.1 Screening Examination For Pulmonary Tuberculosis 11/08/2010 CARLITOS COON, PAULINA V70.3 Sports/school Exam 11/08/2010 CARLITOS COON, PAULINA V70.3 Sports/school Exam 11/08/2010 V70.3 Sports/school Exam 11/08/2010 V70.3 Sports/school Exam 11/08/2010 CARLITOS COON, PAULINA V70.3 Sports/school Exam 11/08/2010 JAMARI HACK SAW OPERATOR, ANDRES S V70.3 Sports/school Exam 11/08/2010 JAMARI HACK SAW OPERATOR, ANDRES S V70.3 Sports/school Exam 11/08/2010 BARBARA VILLEGAS APRN A V70.3 Sports/school Exam 11/08/2010 JAMARI HACK SAW OPERATOR, ANDRES S V70.3 Sports/school Exam 11/08/2010 JAMARI LOZA, ANDRES S V70.3 Sports/school Exam 11/08/2010 JAMARI HACK SAW OPERATOR, ANDRES S V70.3 Sports/school Exam 11/08/2010 JAMARI HACK SAW OPERATOR, ANDRES S V70.3 Sports/school Exam 11/20/2010 Ot 373.11 HORDEOLUM EXTERNUM 11/20/2010 Ot 379.91 PAIN IN OR AROUND EYE 11/30/2010 CARLITOS COON, PAULINA V72.31 Rod Finisher Exam, Routine 11/30/2010 PAULINA URBINA MD V72.31 Rod Finisher Exam, Routine 11/30/2010 V72.31 Rod Finisher Exam, Routine 11/30/2010 V72.31 Rod Finisher Exam, Routine 11/30/2010 PAULINA URBINA MD V72.31 Rod Finisher Exam, Routine 11/30/2010 JAMARI LOZA ANDRES S V72.31 Rod Finisher Exam, Routine 11/30/2010 JAMARI LOZA ANDRES S V72.31 Rod Finisher Exam, Routine 11/30/2010 BARBARA VILLEGAS APRN A V72.31 Rod Finisher Exam, Routine 11/30/2010 JAMARI LOZA ANDRES S V72.31 Rod Finisher Exam, Routine 11/30/2010 JAMARI LOZA ANDRES S V72.31 Rod Finisher Exam, Routine 11/30/2010 ANDRES KAUFFMAN APRN S V72.31 Rod Finisher Exam, Routine 11/30/2010 ANDRES KAUFFMAN APRN S V72.31 Rod Finisher Exam, Routine 03/22/2011 Ot 112.0 THRUSH 03/22/2011 Ot 305.1 TOBACCO USE DISORDER 03/22/2011 Ot 491.21 OBSTR CHRONIC BRONCHITIS, W (ACUTE) EXAC 03/22/2011 Ot 799.02 HYPOXEMIA 03/29/2011 PAULINA URBINA MD 305.1 NONDEPENDENT TOBACCO USE DISORDER 03/29/2011 PAULINA URBINA MD 305.1 NONDEPENDENT TOBACCO USE DISORDER 03/29/2011 305.1 NONDEPENDENT TOBACCO USE DISORDER 03/29/2011 305.1 NONDEPENDENT TOBACCO USE DISORDER 03/29/2011 PAULINA URBINA MD 305.1 NONDEPENDENT TOBACCO USE DISORDER 03/29/2011 GRICEL KAUFFMAN APRNA S 305.1 NONDEPENDENT TOBACCO USE DISORDER 03/29/2011 GRICEL KAUFFMAN APRNA S 305.1 NONDEPENDENT TOBACCO USE DISORDER 03/29/2011 NELLY LOZA BARBARA A 305.1 NONDEPENDENT TOBACCO USE DISORDER 03/29/2011 GRICEL KAUFFMAN APRNA S 305.1 NONDEPENDENT TOBACCO USE DISORDER 03/29/2011 GRICEL KAUFFMAN APRNA S 305.1 NONDEPENDENT TOBACCO USE DISORDER 03/29/2011 GRICEL KAUFFMAN APRNA S 305.1 NONDEPENDENT TOBACCO USE DISORDER 03/29/2011 GRICEL KAUFFMAN APRNA S 305.1 NONDEPENDENT TOBACCO USE DISORDER 06/07/2011 Ot 300.00 ANXIETY STATE NOS 06/07/2011 Ot 305.1 TOBACCO USE DISORDER 06/07/2011 Ot 311 DEPRESSIVE DISORDER NEC 06/07/2011 Ot 491.21 OBSTR CHRONIC BRONCHITIS, W (ACUTE) EXAC 06/07/2011 Ot 799.02 HYPOXEMIA 06/07/2011 Ot V46.2 SUPPLEMENTAL OXYGEN 06/14/2011 PAULINA URBINA MD 307.42 PERSISTENT DISORDER OF INITIATING OR MAINTAINING SLEEP 06/14/2011 PAULINA URBINA MD 530.81 ESOPHAGEAL REFLUX 06/14/2011 PAULINA URBINA MD 786.2 COUGH 06/14/2011 PAULINA URBINA MD 307.42 PERSISTENT DISORDER OF INITIATING OR MAINTAINING SLEEP 06/14/2011 PAULINA URBINA MD 530.81 ESOPHAGEAL REFLUX 06/14/2011 PAULINA URBINA MD 786.2 COUGH 06/14/2011 307.42 PERSISTENT DISORDER OF INITIATING OR MAINTAINING SLEEP 06/14/2011 530.81 ESOPHAGEAL REFLUX 06/14/2011 786.2 COUGH 06/14/2011 307.42 PERSISTENT DISORDER OF INITIATING OR MAINTAINING SLEEP 06/14/2011 530.81 ESOPHAGEAL REFLUX 06/14/2011 786.2 COUGH 06/14/2011 PAULINA URBINA MD 307.42 PERSISTENT DISORDER OF INITIATING OR MAINTAINING SLEEP 06/14/2011 PAULINA URBINA MD 530.81 ESOPHAGEAL REFLUX 06/14/2011 PAULINA URBINA MD 786.2 COUGH 06/14/2011 JAMARI HACK SAW OPERATOR, ANDRES S 307.42 PERSISTENT DISORDER OF INITIATING OR MAINTAINING SLEEP 06/14/2011 JAMARI HACK SAW OPERATOR, ANDRES S 530.81 ESOPHAGEAL REFLUX 06/14/2011 JAMARI LOZA, ANDRES S 786.2 COUGH 06/14/2011 JAMARI HACK SAW OPERATOR, ANDRES S 307.42 PERSISTENT DISORDER OF INITIATING OR MAINTAINING SLEEP 06/14/2011 JAMARI LOZA, ANDRES S 530.81 ESOPHAGEAL REFLUX 06/14/2011 JAMARI LOZA, ANDRES S 786.2 COUGH 06/14/2011 NELLY HACK SAW OPERATOR, BARBARA A 307.42 PERSISTENT DISORDER OF INITIATING OR MAINTAINING SLEEP 06/14/2011 NELLY HACK SAW OPERATOR, BARBARA A 530.81 ESOPHAGEAL REFLUX 06/14/2011 NELLY HACK SAW OPERATOR, BARBARA A 786.2 COUGH 06/14/2011 JAMARI HACK SAW OPERATOR, ANDRES S 307.42 PERSISTENT DISORDER OF INITIATING OR MAINTAINING SLEEP 06/14/2011 JAMARI HACK SAW OPERATOR, ANDRES S 530.81 ESOPHAGEAL REFLUX 06/14/2011 JAMARI HACK SAW OPERATOR, ANDRES S 786.2 COUGH 06/14/2011 JAMARI HACK SAW OPERATOR, ANDRES S 307.42 PERSISTENT DISORDER OF INITIATING OR MAINTAINING SLEEP 06/14/2011 JAMARI HACK SAW OPERATOR, ANDRES S 530.81 ESOPHAGEAL REFLUX 06/14/2011 JAMARI HACK SAW OPERATOR, ANDRES S 786.2 COUGH 06/14/2011 JAMARI HACK SAW OPERATOR, ANDRES S 307.42 PERSISTENT DISORDER OF INITIATING OR MAINTAINING SLEEP 06/14/2011 JAMARI LOZA, ANDRES S 530.81 ESOPHAGEAL REFLUX 06/14/2011 ANDRES KAUFFMAN APRN S 786.2 COUGH 06/14/2011 ANDRES KAUFFMAN APRN S 307.42 PERSISTENT DISORDER OF INITIATING OR MAINTAINING SLEEP 06/14/2011 GRICEL KAUFFMAN APRNA S 530.81 ESOPHAGEAL REFLUX 06/14/2011 ANDRES KAUFFMAN APRN S 786.2 COUGH 08/28/2011 Ot 300.00 ANXIETY STATE NOS 08/28/2011 Ot 311 DEPRESSIVE DISORDER NEC 08/28/2011 Ot 491.21 OBSTR CHRONIC BRONCHITIS, W (ACUTE) EXAC 08/28/2011 Ot 786.59 CHEST PAIN NEC 08/28/2011 Ot 799.02 HYPOXEMIA 08/28/2011 Ot V12.69 PERSONAL HISTORY, OTHER DISEASES OF RESP 08/28/2011 Ot V15.82 HISTORY OF TOBACCO USE 09/12/2011 Ot 300.00 ANXIETY STATE NOS 09/12/2011 Ot 305.1 TOBACCO USE DISORDER 09/12/2011 Ot 311 DEPRESSIVE DISORDER NEC 09/12/2011 Ot 491.21 OBSTR CHRONIC BRONCHITIS, W (ACUTE) EXAC 09/12/2011 Ot 799.02 HYPOXEMIA 09/12/2011 Ot V15.81 HX OF PAST NONCOMPLIANCE 01/02/2012 Ot 491.21 OBSTR CHRONIC BRONCHITIS, W (ACUTE) EXAC 01/02/2012 Ot 786.05 SHORTNESS OF BREATH 01/02/2012 Ot V15.82 HISTORY OF TOBACCO USE 01/13/2012 Ot 300.00 ANXIETY STATE NOS 01/13/2012 Ot 311 DEPRESSIVE DISORDER NEC 01/13/2012 Ot 491.21 OBSTR CHRONIC BRONCHITIS, W (ACUTE) EXAC 01/13/2012 Ot V04.81 ND FOR PROPHYLACTIC VACCIN AND INOCULATI 02/12/2012 PAULINA URBINA MD 491.21 CHRONIC BRONCHITIS - WITH ACUTE EXACERBATION 02/12/2012 PAULINA URBINA MD 786.50 chest pain or discomfort 02/12/2012 PAULINA URBINA MD 491.21 CHRONIC BRONCHITIS - WITH ACUTE EXACERBATION 02/12/2012 PAULINA URBINA MD 786.50 chest pain or discomfort 02/12/2012 491.21 CHRONIC BRONCHITIS - WITH ACUTE EXACERBATION 02/12/2012 786.50 chest pain or discomfort 02/12/2012 491.21 CHRONIC BRONCHITIS - WITH ACUTE EXACERBATION 02/12/2012 786.50 chest pain or discomfort 02/12/2012 PAULINA URBINA MD 491.21 CHRONIC BRONCHITIS - WITH ACUTE EXACERBATION 02/12/2012 PAULINA URBINA MD 786.50 chest pain or discomfort 02/12/2012 GRICEL KAUFFMAN APRNA S 491.21 CHRONIC BRONCHITIS - WITH ACUTE EXACERBATION 02/12/2012 FRANSISCO KAUFFMAN APRNNDA S 786.50 chest pain or discomfort 02/12/2012 GRICEL KAUFFMAN APRNA S 491.21 CHRONIC BRONCHITIS - WITH ACUTE EXACERBATION 02/12/2012 FRANSISCO KAUFFMAN APRNNDA S 786.50 CHEST PAIN OR DISCOMFORT 02/12/2012 NELLY HACK SAW OPERATOR, BARBARA A 491.21 CHRONIC BRONCHITIS - WITH ACUTE EXACERBATION 02/12/2012 NELLY APRN, BARBARA A 786.50 CHEST PAIN OR DISCOMFORT 02/12/2012 FRANSISCO KAUFFMAN APRNNDA S 491.21 CHRONIC BRONCHITIS - WITH ACUTE EXACERBATION 02/12/2012 FRANSISCO KAUFFMAN APRNNDA S 786.50 CHEST PAIN OR DISCOMFORT 02/12/2012 FRANSISCO KAUFFMAN APRNNDA S 491.21 CHRONIC BRONCHITIS - WITH ACUTE EXACERBATION 02/12/2012 FRANSISCO KAUFFMAN APRNNDA S 786.50 CHEST PAIN OR DISCOMFORT 02/12/2012 FRANSISCO KAUFFMAN APRNNDA S 491.21 CHRONIC BRONCHITIS - WITH ACUTE EXACERBATION 02/12/2012 FRANSISCO KAUFFMAN APRNNDA S 786.50 CHEST PAIN OR DISCOMFORT 02/12/2012 FRANSISCO KAUFFMAN APRNNDA S 491.21 CHRONIC BRONCHITIS - WITH ACUTE EXACERBATION 02/12/2012 FRANSISCO KAUFFMAN APRNNDA S 786.50 CHEST PAIN OR DISCOMFORT 02/15/2012 Ot 296.90 UNSPECIFIED EPISODIC MOOD DISORDER 02/15/2012 Ot 447.1 STRICTURE OF ARTERY 02/15/2012 Ot 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 ASTHMA, W (ACUTE) EX 02/15/2012 Ot 786.59 CHEST PAIN NEC 02/15/2012 Ot V15.82 HISTORY OF TOBACCO USE 02/15/2012 Ot V46.2 SUPPLEMENTAL OXYGEN 04/15/2012 Ot 496 CHR AIRWAY OBSTRUCT NEC 08/05/2012 V74.1 TB SCREENING 08/05/2012 PAULINA URBINA MD V74.1 TB SCREENING 08/05/2012 JAMARI HACK SAW OPERATOR, ANDRES S V74.1 TB SCREENING 08/05/2012 FRANSISCO KAUFFMAN APRNNDA S V74.1 TB SCREENING 08/05/2012 NOEMY VILLEGAS APRNIDI A V74.1 TB SCREENING 08/05/2012 FRANSISCO KAUFFMAN APRNNDA S V74.1 TB SCREENING 08/05/2012 FRANSISCO KAUFFMAN APRNNDA S V74.1 TB SCREENING 08/05/2012 FRANSISCO KAUFFMAN APRNNDA S V74.1 TB SCREENING 08/05/2012 FRANSISCO KAUFFMAN APRNNDA S V74.1 TB SCREENING 08/13/2012 Ot 496 CHR AIRWAY OBSTRUCT NEC 09/24/2012 MATT COON, MARTINE Escobar Ot 311 DEPRESSIVE DISORDER NEC 09/24/2012 MATT COON, MARTINE Escobar Ot 491.21 OBSTR CHRONIC BRONCHITIS, W (ACUTE) EXAC 09/24/2012 MATT COON, MARTINE Escobar Ot V15.82 HISTORY OF TOBACCO USE 04/28/2013 FRANSISCO KAUFFMAN APRNNDA S V04.81 FLU SHOT 04/28/2013 GRICEL KAUFFMAN APRNA S V04.81 FLU SHOT 04/28/2013 NELLY LOZA BARBARA A V04.81 FLU SHOT 04/28/2013 FRANSISCO KAUFFMAN APRNNDA S V04.81 FLU SHOT 04/28/2013 FRANSISCO KAUFFMAN APRNNDA S V04.81 FLU SHOT 04/28/2013 FRANSISCO KAUFFMAN APRNNDA S V04.81 FLU SHOT 04/28/2013 FRANSISCO KAUFFMAN APRNNDA S V04.81 FLU SHOT 01/05/2014 NELLY LOZA BARBARA A V65.42 COUNSELING - SMOKING CESSATION 01/05/2014 BARBARA VILLEGAS APRN A V65.49 OTHER SPECIFIED COUNSELING 01/05/2014 NELLY LOZA BARBARA A V72.31 HAT SIZER EXAM, ROUTINE 01/05/2014 NELLY LOZA BARBARA A V76.10 BREAST CANCER SCREENING 01/05/2014 NOEMY VILLEGAS APRNIDI A V76.51 COLON CANCER SCREENING 01/05/2014 GRICEL KAUFFMAN APRNA S V65.42 COUNSELING - SMOKING CESSATION 01/05/2014 JAMARI HACK SAW OPERATOR, ANDRES S V65.49 OTHER SPECIFIED COUNSELING 01/05/2014 JAMARI HACK SAW OPERATOR, ANDRES S V72.31 HAT SIZER EXAM, ROUTINE 01/05/2014 JAMARI HACK SAW OPERATOR, ANDRES S V76.10 BREAST CANCER SCREENING 01/05/2014 JAMARI HACK SAW OPERATOR, ANDRES S V76.51 COLON CANCER SCREENING 01/05/2014 JAMARI HACK SAW OPERATOR, ANDRES S V65.42 COUNSELING - SMOKING CESSATION 01/05/2014 JAMARI HACK SAW OPERATOR, ANDRES S V65.49 OTHER SPECIFIED COUNSELING 01/05/2014 JAMARI HACK SAW OPERATOR, ANDRES S V72.31 HAT SIZER EXAM, ROUTINE 01/05/2014 JAMARI HACK SAW OPERATOR, ANDRES S V76.10 BREAST CANCER SCREENING 01/05/2014 JAMARI HACK SAW OPERATOR, ANDRES S V76.51 COLON CANCER SCREENING 01/05/2014 JAMARI HACK SAW OPERATOR, ANDRES S V65.42 COUNSELING - SMOKING CESSATION 01/05/2014 JAMARI HACK SAW OPERATOR, ANDRES S V65.49 OTHER SPECIFIED COUNSELING 01/05/2014 JAMARI HACK SAW OPERATOR, ANDRES S V72.31 HAT SIZER EXAM, ROUTINE 01/05/2014 JAMARI HACK SAW OPERATOR, ANDRES S V76.10 BREAST CANCER SCREENING 01/05/2014 JAMARI HACK SAW OPERATOR, ANDRES S V76.51 COLON CANCER SCREENING 01/05/2014 JAMARI HACK SAW OPERATOR, ANDRES S V65.42 COUNSELING - SMOKING CESSATION 01/05/2014 JAMARI HACK SAW OPERATOR, ANDRES S V65.49 OTHER SPECIFIED COUNSELING 01/05/2014 JAMARI HACK SAW OPERATOR, ANDRES S V72.31 HAT SIZER EXAM, ROUTINE 01/05/2014 JAMARI HACK SAW OPERATOR, ANDRES S V76.10 BREAST CANCER SCREENING 01/05/2014 JAMARI HACK SAW OPERATOR, ANDRES S V76.51 COLON CANCER SCREENING 03/01/2014 JAMARI HACK SAW OPERATOR, ANDRES S 211.9 POLYP- GI 03/01/2014 JAMARI HACK SAW OPERATOR, ANDRES S 211.9 POLYP- GI 03/01/2014 JAMARI HACK SAW OPERATOR, ANDRES S 211.9 POLYP- GI 03/01/2014 JESSICA COON, KWAKU Mcguire Ot 211.3 BENIGN NEOPLASM LG BOWEL 03/01/2014 JESSICA COON, KWAKU Mcguire Ot 211.4 BENIGN NEOPL RECTUM/ANUS 03/03/2014 BARBARA VILLEGAS APRN Ot V76.12 06/02/2014 ANDRES KAUFFMAN APRN 465.9 UPPER RESPIRATORY INFECTION 10/05/2014 DEJA PERDOMO MD Ot 305.00 ALCOHOL ABUSE-UNSPEC 10/05/2014 DEJA PERDOMO MD Ot 496 CHR AIRWAY OBSTRUCT NEC 10/05/2014 DEJA PERDOMO MD Ot 832.00 DISLOCAT ELBOW NOS-CLOSE 10/05/2014 DEJA PERDOMO MD Ot 959.3 ELB/FOREARM/WRST INJ NOS 10/05/2014 DEJA PERDOMO MD Ot E000.8 OTHER EXTERNAL CAUSE STATUS 10/05/2014 DEJA PERDOMO MD Ot E849.0 ACCIDENT IN HOME 10/05/2014 DEJA PERDOMO MD Ot E885.9 FALL FROM SLIPPING, TRIPPING, OR STUMBLI 03/22/2015 Ot 496 03/22/2015 Ot V76.12 03/22/2015 BARBARA VILLEGAS APRN Ot V76.12 03/22/2015 JESSICA COON, KWAKU Mcguire Ot V72.84 03/22/2015 JESSICA COON, KWAKU Mcguire Ot V72.84 03/22/2015 Ot 496 03/22/2015 Ot V76.12 03/22/2015 BARBARA VILLEGAS APRN Ot V76.12 03/22/2015 JESSICA COON, KWAKU Mcguire Ot V72.84 03/22/2015 JESSICA COON, KWAKU Mcguire Ot V72.84 03/22/2015 Ot 496 03/22/2015 Ot V76.12 03/22/2015 BARBARA VILLEGAS APRN Ot V76.12 03/22/2015 JESSICA COON, KWAKU Mcguire Ot V72.84 03/22/2015 JESSICA COON, KWAKU Mcguire Ot V72.84 04/14/2015 DARRELL GOLDBERG APRN Ot Z12.31 04/19/2015 DARRELL GOLDBERG APRN Ot Z12.31 04/19/2015 DARRELL GOLDBERG APRN Ot Z12.31 04/11/2016 DARRELL GOLDBERG APRN Ot Z12.31 ENCNTR SCREEN MAMMOGRAM FOR MALIGNANT NE 04/11/2016 Ot V76.12 OTH SCREEN MAMMO-MALIGN NEOPLASM OF TARA 04/11/2016 BARBARA VILLEGAS Ana Cristina LOZA Ot V76.12 OTH SCREEN MAMMO-MALIGN NEOPLASM OF TARA 04/11/2016 JESSICA COON, KWAKU Mcguire Ot V72.84 EXAM PRE-OPERATIVE NOS 04/11/2016 JESSICA COON, KWAKU Mcguire Ot V72.84 EXAM PRE-OPERATIVE NOS 04/11/2016 ADRRELL GOLDBERG APRN Ot Z12.31 ENCNTR SCREEN MAMMOGRAM FOR MALIGNANT NE 05/09/2016 ALMA ALLEN Ot M75.42 IMPINGEMENT SYNDROME OF LEFT SHOULDER 05/21/2016 ALMA ALLEN Ot M75.42 IMPINGEMENT SYNDROME OF LEFT SHOULDER Procedures Code Description Performed By Performed On 37.22 LEFT HEART CARDIAC CATH 02/13/2012 88.53 LT HEART ANGIOCARDIOGRAM 02/13/2012 88.56 CORONAR ARTERIOGR-2 CATH 02/13/2012 76660 TB TEST INTRADERMAL 08/05/2012 85159 ROUTINE VENIPUNCTURE 12/22/2013 76889 CBC 12/22/2013 66360 CMP 12/22/2013 53350 LIPID PANEL 12/22 6298215 GFR CALC (RESULT ONLY) 12/22/2013 16433 MAMMOGRAM, SCREENING 01/05/2014 General S Kwaku Lopez 01/19/2014 50964 HEMOCCULT 2013 56767 HEMOCCULT 2013 60263 OXIMETRY 2013 Results Encounters ACCT No. Visit Date/Time Discharge Status Pt. Type Provider Facility Loc./Unit Complaint [id number] 06/02/2014 14:37:00 06/02/2014 23: 59:59 CLS Outpatient ANDRES KAUFFMAN APRN [id number] 04/06/2014 13:56:00 04/06/2014 23: 59:59 CLS Outpatient ANDRES KAUFFMAN APRN [id number] 01/19/2014 09:15:00 01/19/2014 23: 59:59 CLS Outpatient ANDRES KAUFFMAN APRN [id number] 01/19/2014 09:15:00 01/19/2014 23: 59:59 CLS Outpatient ANDRES KAUFFMAN APRN Natasha [id number] 01/05/2014 10:49:00 01/05/2014 23: 59:59 CLS Outpatient BARBARA VILLEGAS APRN [id number] 12/22/2013 08:36:00 12/22/2013 23: 59:59 CLS Outpatient JAMARI TEENANDRES Natasha [id number] 04/28/2013 14:11:00 04/28/2013 23: 59:59 CLS Outpatient JAMARI TEENANDRES Natasha [id number] 10/14/2012 17:32:00 10/14/2012 23: 59:59 [place] [id number] 02/12/2012 10:45:00 02/12/2012 23: 59:59 CLS Outpatient PAULINA URBINA MD [id number] 02/11/2012 00:00:00 02/11/2012 23: 59:59 CLS Outpatient PAULINA URBINA MD [id number] 02/13/2011 16:04:00 02/13/2011 23: 59:59 CLS Outpatient [id number] 08/05/2012 11:36:00 Document Registration [id number] 05/02/2016 14:08:00 2016 09:38:00 DIS Outpatient ALMA ALLEN [facility] IMPINGEMENT SYNDROME, SHOULDER, LEFT [id number] 03/22/2015 13:04:00 2014 23:59:59 CLS Outpatient DARRELL GOLDBERG APRN [facility] RAD ROUTINE SCREENING MAMMOGRAM [id number] 10/05/2014 01:57:00 2014 04:11:00 DIS Emergency DEJA PERDOMO MD [facility] ER ETOH,FALL,ARM PAIN [id number] 03/01/2014 08:02:00 2013 10:20:00 DIS Outpatient KWAKU LOPEZ MD [facility] BLO[facility] IN STOOL [id number] 02/24/2014 07:12:00 2013 23:59:59 CLS Outpatient KWAKU LOPEZ MD [facility] PREOP POSITIVE OCCULT BLOOD IN STOOLS [id number] 02/03/2014 07:26:00 2013 23:59:59 CLS Outpatient KWKAU LOPEZ MD [facility] PREOP BLOOD IN STOOL [id number] 01/29/2014 10:45:00 2013 23:59:59 CLS Outpatient BARBARA VILLEGAS APRN [facility] RAD ROUTINE [id number] 09/22/2012 03:08:00 2012 16:15:00 DIS Inpatient MARTINE GUTIERREZ MD [facility] 4TH ACUTE COPD EXACERBATION [id number] 05/15/2012 15:00:00 Document Registration [id number] 04/10/2012 13:00:00 Document Registration [id number] 02/12/2012 12:30:00 Document Registration [id number] 01/09/2012 19:16:00 Document Registration [id number] 01/02/2012 20:18:00 Document Registration [id number] 09/11/2011 00:30:00 Document Registration [id number] 08/27/2011 23:54:00 Document Registration [id number] 06/05/2011 20:05:00 Document Registration [id number] 03/21/2011 01:05:00 Document Registration [id number] 12/07/2010 14:03:00 Document Registration [id number] 11/20/2010 21:28:00 Document Registration [id number] 07/13/2010 14:24:00 Document Registration [id number] 07/07/2010 01:20:00 Document Registration
[2017-01-08 23:30] VITALS: BP 91/65
[2017-01-09] VITALS (7 sets, daily range): BP systolic 96–115; BP diastolic 50–70
[2017-01-09] MEDS ORDERED: RT-ALBUTEROL SULF 2.5 MG/3 ML PRE-MIX VIAL IH PRN (00:30)
[2017-01-09] MEDS ORDERED: ONDANSETRON 4 MG/2 ML (SDV) Z0FRAN IV PRN (00:30)
[2017-01-09] MEDS ORDERED: ACETAMINOPHEN 500 MG TAB (TYLENOL) PO PRN (00:30)
[2017-01-09] MEDS ORDERED: AZITHROMYCIN 250 MG TAB (ZITHROMAX) PO SCH (00:30)
[2017-01-09] MEDS: RT-ALBUTEROL/IPRATROPIUM 3 ML (DUONEB) VIAL IH SCH ×4 (03:23→19:31)
[2017-01-09 06:09] LABS: BASOPHILS % (AUTO) 0 % (0-10); EOSINOPHILS % (AUTO) 0 % (0-10); LYMPHOCYTES # (AUTO) 0.5 X 10^3 (1.0-4.0); LYMPHOCYTES % (AUTO) 12 % (12-44); MEAN CORPUSCULAR HEMOGLOBIN 35 PG (25-34); MEAN CORPUSCULAR HGB CONC 35 G/DL (32-36); MEAN CORPUSCULAR VOLUME 100 FL (80-99); MEAN PLATELET VOLUME 10.3 FL (7.4-10.4); MONOCYTES # (AUTO) 0.1 X 10^3 (0.0-1.0); MONOCYTES % (AUTO) 2 % (0-12); NEUTROPHILS # (AUTO) 3.5 X 10^3 (1.8-7.8); NEUTROPHILS % (AUTO) 86 % (42-75); PLATELET COUNT 259 10^3/uL (130-400); RED BLOOD COUNT 3.77 10^6/uL (4.35-5.85); RED CELL DISTRIBUTION WIDTH 13.6 % (10.0-14.5); WHITE BLOOD COUNT 4.1 10^3/uL (4.3-11.0)
[2017-01-09 06:17] LABS: ANION GAP 11 MMOL/L (5-14); BLOOD UREA NITROGEN 9 MG/DL (7-18); BUN/CREATININE RATIO 13; CALCIUM 8.8 MG/DL (8.5-10.1); CARBON DIOXIDE 22 MMOL/L (21-32); CHLORIDE 107 MMOL/L (98-107); CREATININE SERUM 0.67 MG/DL (0.60-1.30); GFR ESTIMATED > 60; GLUCOSE 159 MG/DL (70-105); POTASSIUM 4.2 MMOL/L (3.6-5.0); SODIUM 140 MMOL/L (135-145)
[2017-01-09] MEDS ORDERED: CATHETER FLUSH 10 ML SYR IV PRN (07:00)
--- NOTE | 2017-01-09 07:49 | Diagnostic Imaging Report ---
INDICATION: Shortness of breath. History of COPD. COMPARISON: 09/22/2012. FINDINGS: Mild air trapping present today though less air trapping noted when compared with previous exam. No infiltrates are present. The heart is mildly enlarged. Upper lungs are clear with no evidence of pulmonary edema. No pneumothorax or pleural effusion. IMPRESSION: 1. Obstructive interstitial lung disease present today, though there is less air trapping on today's study than on previous study. 2. Cardiomegaly without evidence of pulmonary edema. Dictated by: Dictated on workstation # [id number]
[2017-01-09] MEDS: AZITHROMYCIN 250 MG TAB (ZITHROMAX) PO SCH (08:37)
[2017-01-09] MEDS: methylPREDNISolone 125 MG (Solu-MEDROL) VIAL IVP SCH ×2 (08:37→20:30)
--- NOTE | 2017-01-09 08:47 | Diagnostic Imaging Report ---
INDICATION: Respiratory distress. Compared 01/08 FINDINGS: Air trapping and COPD are chronic findings. There is flattening of the diaphragms and expansion of the retrosternal airspace. Some mild right greater than left biapical pleural-parenchymal scarring chronic. There is superimposition of hypertrophied osseous structures posteriorly in the lateral radiograph. Hilar and mediastinal contours normal. No acute infiltrate. IMPRESSION: Air trapping and COPD chronic. Biapical scarring chronic. No acute appearing abnormality. Dictated by: Dictated on workstation # [id number]
[2017-01-09] MEDS ORDERED: MONT10TA24 PO (11:06)
[2017-01-09] MEDS ORDERED: ASPI-983 PO (11:06)
[2017-01-09] MEDS ORDERED: ALBU18HF2 INH (11:06)
[2017-01-09] MEDS ORDERED: SERT50TA9 PO (11:06)
[2017-01-09] MEDS ORDERED: BUDE10.2 INH (11:06)
[2017-01-09] MEDS ORDERED: ALBU2.5V4 NEB (11:07)
[2017-01-09 13:23] LABS: BILIRUBIN,URINE NEGATIVE (NEGATIVE); KETONES,URINE NEGATIVE (NEGATIVE); LEUKOCYTE ESTERASE ,URINE 1+ (NEGATIVE); NITRITE,URINE NEGATIVE (NEGATIVE); PH,URINE 6 (5-9); PROTEIN,URINE NEGATIVE (NEGATIVE); UROBILINOGEN,URINE NORMAL (NORMAL)
[2017-01-09 13:30] LABS: SQUAMOUS EPITHELIAL CELL,UR 0-2 /HPF
[2017-01-09] MEDS: CATHETER FLUSH 10 ML SYR IV SCH ×2 (14:10→22:06)
[2017-01-09] MEDS ORDERED: ENOXAPARIN 40 MG/0.4 ML (LOVENOX) SYR SC SCH (16:15)
--- NOTE | 2017-01-09 18:04 | History & Physicial (CHS) ---
HPI History of Present Illness: Patient presents to ER by EMS with a chief complaint of shortness of breath presently worsening over the past 3 days. She has a history of asthma, COPD, emphysema. She still smokes a pack-a-day. She's had no fever but she has had some hot flashes recently. She has been coughing and does not recall the last time she had have antibiotics or steroids. She is very short of breath wearing 2 L per nasal cannula 94% at home per EMS and 92-93% on room air after arrival. She's had no nausea vomiting chest pain, diarrhea or rash. No sick contacts. Source: patient, EMS notes reviewed Exam Limitations: no limitations Date seen by provider: Jan 09, 2017 Time Seen by Provider: 10:30 Attending Physician Britt Hernandez MD PCP Rufino Slade Consult Date of Admission Jan 08, 2017 at 22:59 Home Medications Home Medications Reviewed patient Home Medication Reconciliation Form Allergies Coded Allergies: codeine (Verified Allergy, Severe, Hives and swelling., 09/22/12) [id number]-[id number]-Nsjzin Hx Patient Social History Employed/Student: retired Alcohol Use: Denies Use Recreational Drug Use: No Smoking Status: Current Everyday Smoker Type Used: Cigarettes 2nd Hand Smoke Exposure: Yes Recent Foreign Travel: No Contact w/other who traveled: No Recent Hopitalizations: No Recent Infectious Disease Expo: No Immunizations Up To Date Tetanus Booster (TDap): Unknown Date of Pneumonia Vaccine: Dec 14, 2009 Date of Influenza Vaccine: Jan 10, 2012 Past Medical History Asthma COPD Emphysema Dependence on Supplemental Oxygen Arthritis Cataracts Anxiety Depression Family Medical History Significant Family History: No Pertinent Family Hx Review of Systems (CHC) Constitutional: see HPI, malaise, weakness EENTM: see HPI Respiratory: see HPI, cough, dyspnea on exertion, orthopnea, short of breath, wheezing Cardiovascular: no symptoms reported, No edema, No palpitations Gastrointestinal: no symptoms reported, No abdominal pain Genitourinary: no symptoms reported : No Musculoskeletal: joint pain, No muscle pain Skin: no symptoms reported Psychiatric/Neurological: Anxiety, Depressed, Denies Numbness, Denies Seizure Reviewed Test Results Reviewed Test Results Lab Laboratory Tests Test 01/08/17 13:10 01/08/17 21:45 01/08/17 22:15 01/08/17 22:19 Range/Units Urine Color YELLOW Urine Clarity CLEAR Urine pH 6 5-9 Urine Specific [place] 1.005 L 1.016-1.022 Urine Protein NEGATIVE NEGATIVE Urine Glucose (UA) 2+ H NEGATIVE Urine Ketones NEGATIVE NEGATIVE Urine Nitrite NEGATIVE NEGATIVE Urine Bilirubin NEGATIVE NEGATIVE Urine Urobilinogen NORMAL NORMAL MG/DL Urine Leukocyte Esterase 1+ H NEGATIVE Urine RBC (Auto) 2+ H NEGATIVE Urine RBC RARE /HPF Urine WBC NONE /HPF Urine Squamous Epithelial Cells 0-2 /HPF Urine Crystals NONE /LPF Urine Bacteria NEGATIVE /HPF Urine Casts NONE /LPF Urine Mucus NEGATIVE /LPF Urine Culture Indicated NO White Blood Count 7.6 4.3-11.0 10^3/uL Red Blood Count 4.06 L 4.35-5.85 10^6/uL Hemoglobin 14.2 11.5-16.0 G/DL Hematocrit 40 35-52 % Mean Corpuscular Volume 99 80-99 FL Mean Corpuscular Hemoglobin 35 H 25-34 PG Mean Corpuscular Hemoglobin Concent 35 32-36 G/DL Red Cell Distribution Width 13.4 10.0-14.5 % Platelet Count 258 130-400 10^3/uL Mean Platelet Volume 10.0 7.4-10.4 FL Neutrophils (%) (Auto) 29 L 42-75 % Lymphocytes (%) (Auto) 59 H 12-44 % Monocytes (%) (Auto) 7 0-12 % Eosinophils (%) (Auto) 5 0-10 % Basophils (%) (Auto) 0 0-10 % Neutrophils # (Auto) 2.2 1.8-7.8 X 10^3 Lymphocytes # (Auto) 4.5 H 1.0-4.0 X 10^3 Monocytes # (Auto) 0.5 0.0-1.0 X 10^3 Eosinophils # (Auto) 0.4 H 0.0-0.3 10^3/uL Basophils # (Auto) 0.0 0.0-0.1 10^3/uL Sodium Level 134 L 135-145 MMOL/L Potassium Level 3.8 3.6-5.0 MMOL/L Chloride Level 102 98-107 MMOL/L Carbon Dioxide Level 19 L 21-32 MMOL/L Anion Gap 13 5-14 MMOL/L Blood Urea Nitrogen 6 L 7-18 MG/DL Creatinine 0.64 0.60-1.30 MG/DL Estimat Glomerular Filtration Rate > 60 BUN/Creatinine Ratio 9 Glucose Level 67 L 70-105 MG/DL Calcium Level 8.8 8.5-10.1 MG/DL Magnesium Level 2.6 H 1.8-2.4 MG/DL Total Bilirubin 0.3 0.1-1.0 MG/DL Aspartate Amino Transf (AST/SGOT) 24 5-34 U/L Alanine Aminotransferase (ALT/SGPT) 19 0-55 U/L Alkaline Phosphatase 61 40-136 U/L Troponin I < 0.30 <0.30 NG/ML Total Protein 7.7 6.4-8.2 GM/DL Albumin 4.2 3.2-4.5 GM/DL Lactic Acid Level 1.34 0.50-2.00 MMOL/L Group A Streptococcus Screen NEGATIVE NEGATIVE Test 01/09/17 05:10 Range/Units White Blood Count 4.1 L 4.3-11.0 10^3/uL Red Blood Count 3.77 L 4.35-5.85 10^6/uL Hemoglobin 13.3 11.5-16.0 G/DL Hematocrit 38 35-52 % Mean Corpuscular Volume 100 H 80-99 FL Mean Corpuscular Hemoglobin 35 H 25-34 PG Mean Corpuscular Hemoglobin Concent 35 32-36 G/DL Red Cell Distribution Width 13.6 10.0-14.5 % Platelet Count 259 130-400 10^3/uL Mean Platelet Volume 10.3 7.4-10.4 FL Neutrophils (%) (Auto) 86 H 42-75 % Lymphocytes (%) (Auto) 12 12-44 % Monocytes (%) (Auto) 2 0-12 % Eosinophils (%) (Auto) 0 0-10 % Basophils (%) (Auto) 0 0-10 % Neutrophils # (Auto) 3.5 1.8-7.8 X 10^3 Lymphocytes # (Auto) 0.5 L 1.0-4.0 X 10^3 Monocytes # (Auto) 0.1 0.0-1.0 X 10^3 Eosinophils # (Auto) 0.0 0.0-0.3 10^3/uL Basophils # (Auto) 0.0 0.0-0.1 10^3/uL Sodium Level 140 135-145 MMOL/L Potassium Level 4.2 3.6-5.0 MMOL/L Chloride Level 107 98-107 MMOL/L Carbon Dioxide Level 22 21-32 MMOL/L Anion Gap 11 5-14 MMOL/L Blood Urea Nitrogen 9 7-18 MG/DL Creatinine 0.67 0.60-1.30 MG/DL Estimat Glomerular Filtration Rate > 60 BUN/Creatinine Ratio 13 Glucose Level 159 H 70-105 MG/DL Calcium Level 8.8 8.5-10.1 MG/DL Physical Exam-(CHC) Physical Exam Vital Signs VS - Last 72 Hours, by Label 01/08/17 01/08/17 01/08/17 01/08/17 21:35 21:50 23:01 23:30 Temp 96.4 96.4 97.6 Pulse 83 89 89 Resp 20 19 28 B/P (MAP) 107/63 91/65 Pulse Ox 91 93 99 88 O2 Delivery Room Air Nasal Cannula Nasal Cannula Room Air O2 Flow Rate 1.50 2.00 01/08/17 01/08/17 01/09/17 01/09/17 23:40 23:40 00:05 02:47 Temp 97.6 Pulse 89 89 Resp 24 B/P (MAP) 105/51 Pulse Ox 94 94 94 94 O2 Delivery Nasal Cannula Nasal Cannula Nasal Cannula O2 Flow Rate 2.00 2.00 FiO2 28 01/09/17 01/09/17 01/09/17 01/09/17 03:23 04:00 08:58 09:00 Temp 97.6 97.5 Pulse 92 78 Resp 22 B/P (MAP) 96/50 102/54 Pulse Ox 97 96 97 97 O2 Delivery Nasal Cannula Nasal Cannula Nasal Cannula Nasal Cannula O2 Flow Rate 2.00 2.00 3.00 3.00 01/09/17 01/09/17 01/09/17 01/09/17 10:12 11:30 15:30 16:00 Temp 98.6 98.9 Pulse 89 65 Resp 20 B/P (MAP) 115/55 114/70 Pulse Ox 94 98 98 98 O2 Delivery Nasal Cannula Nasal Cannula Nasal Cannula Nasal Cannula O2 Flow Rate 3.00 3.00 3.00 3.00 Capillary Refill : Less Than 3 Seconds General Appearance: mild distress HEENT: PERRL/EOMI, normal ENT inspection, No scleral icterus (R), No scleral icterus (L) Neck: full range of motion, supple, normal inspection Respiratory: no accessory muscle use, respiratory distress (mild increased work of breathing, currently on 3L NC), decreased breath sounds, wheezing Cardiovascular: normal peripheral pulses, regular rate, rhythm, no edema, no gallop Gastrointestinal: normal bowel sounds, non tender, soft, no organomegaly, no pulsatile mass Back: normal inspection, no CVA tenderness, no vertebral tenderness Extremities: normal range of motion, normal inspection, no calf tenderness Neurologic/Psychiatric: rand cementer II-XII nml as tested, alert, normal mood/affect, oriented x 3 Skin: normal color, warm/dry Lymphatic: no adenopathy Assessment/Plan Assessment/Plan Admission Dx Acute Respiratory Distress Acute exacerbation of COPD Dependence on Supplemental Oxygen Emphysema Anxiety Depression Plan Nebulizers, treat with azithromycin, titrate O2 as needed - pt baseline is 2L, pt currently on 3L and maintaining sats 94%. Will continue steroids. Will resume home meds other than inhalers; will use nebulizers while inpatient. Anticipate that pt will require a two midnight stay based on her severity of illness and chronic comorbid conditions. Diagnosis/Problems: Clinical Quality Measures DVT/VTE Risk/Contraindication: Risk Factor Score Per Nursin RFS Level Per Nursing on Admit: 4+=Very High KADEN LEARY DO Jan 09, 2017 18:04
[2017-01-09] MEDS ORDERED: ASPIRIN E.C. 81 MG (ECOTRIN) TAB PO SCH (21:00)
[2017-01-09] MEDS ORDERED: SERTRALINE 50 MG (ZOLOFT) TABLET PO SCH (21:00)
[2017-01-09] MEDS ORDERED: MONTELUKAST 10 MG (SINGULAIR) TAB PO SCH (21:00)
[2017-01-10] VITALS: BP 107/63
[2017-01-10] MEDS: RT-ALBUTEROL/IPRATROPIUM 3 ML (DUONEB) VIAL IH SCH ×2 (02:00→07:29)
[2017-01-10] MEDS: CATHETER FLUSH 10 ML SYR IV SCH ×2 (05:46→08:06)
[2017-01-10 06:45] LABS: BASOPHILS % (AUTO) 0 % (0-10); EOSINOPHILS % (AUTO) 0 % (0-10); LYMPHOCYTES % (AUTO) 12 % (12-44); MEAN CORPUSCULAR HEMOGLOBIN 34 PG (25-34); MEAN CORPUSCULAR HGB CONC 34 G/DL (32-36); MEAN CORPUSCULAR VOLUME 102 FL (80-99); MEAN PLATELET VOLUME 10.9 FL (7.4-10.4); MONOCYTES # (AUTO) 0.2 X 10^3 (0.0-1.0); MONOCYTES % (AUTO) 2 % (0-12); NEUTROPHILS # (AUTO) 7.5 X 10^3 (1.8-7.8); NEUTROPHILS % (AUTO) 86 % (42-75); PLATELET COUNT 270 10^3/uL (130-400); RED BLOOD COUNT 3.82 10^6/uL (4.35-5.85); RED CELL DISTRIBUTION WIDTH 13.7 % (10.0-14.5); WHITE BLOOD COUNT 8.7 10^3/uL (4.3-11.0)
[2017-01-10 07:07] LABS: ANION GAP 11 MMOL/L (5-14); BLOOD UREA NITROGEN 8 MG/DL (7-18); BUN/CREATININE RATIO 13; CALCIUM 8.9 MG/DL (8.5-10.1); CARBON DIOXIDE 22 MMOL/L (21-32); CHLORIDE 107 MMOL/L (98-107); CREATININE SERUM 0.61 MG/DL (0.60-1.30); GFR ESTIMATED > 60; GLUCOSE 130 MG/DL (70-105); MAGNESIUM 2.4 MG/DL (1.8-2.4); POTASSIUM 3.8 MMOL/L (3.6-5.0); SODIUM 140 MMOL/L (135-145)
[2017-01-10 08:00] VITALS: BP 104/55
[2017-01-10] MEDS: AZITHROMYCIN 250 MG TAB (ZITHROMAX) PO SCH (08:06)
[2017-01-10] MEDS: methylPREDNISolone 125 MG (Solu-MEDROL) VIAL IVP SCH (08:06)
[2017-01-10] MEDS ORDERED: AZIT250T5 PO (11:23)
[2017-01-10] MEDS ORDERED: PRD20T PO (11:23)
--- NOTE | 2017-01-10 11:26 | Discharge Instructions ---
Discharge [facility] Discharge Medications New, Converted or Re-Newed RX: Transmitted to Pharmacy New Medications: Prednisone (Prednisone) 20 Mg Tab 40 MG PO DAILY for 9 Days, #12 TAB 0 Refills 2 tabs daily x3 days, 1 tab daily x3 days, 1/2 tab daily x3 days Azithromycin (Azithromycin) 250 Mg Tablet 250 MG PO DAILY for 2 Days, #2 TAB Continued Medications: Albuterol Sulfate (Ventolin Hfa) 18 Gm Hfa.aer.ad 2 PUFF INH Q4H PRN for SHORTNESS OF BREATH, INHALER Albuterol Sulfate (Albuterol Sulfate) 2.5 Mg/3 Ml Vial.neb 2.5 MG NEB Q4H PRN for SHORTNESS OF BREATH, EA Aspirin (Aspirin EC) 81 Mg Tablet.dr 81 MG PO HS, TAB Budesonide/Formoterol Fumarate (Symbicort 160-4.5 Mcg Inhaler) 10.2 Gm Hfa.aer.ad 2 PUFF INH BID, INHALER Montelukast Sodium (Montelukast Sodium) 10 Mg Tablet 10 MG PO HS, TAB Sertraline HCl (Sertraline HCl) 50 Mg Tablet 50 MG PO HS, TAB Patient Instructions Patient Instructions Keep follow up appt with Ngoc ALCANTARA 01/16/17 at 11:20 am Activity & Diet Discharge Diet: Regular Diet Activity as Tolerated: Yes Orders-Post D/C & Referrals Follow up with Jones Cadena 01/16/17 at 11:20 am KADEN LEARY DO Jan 10, 2017 11:26
[2017-01-10 13:15] VITALS: BP 128/88
== END 2017-01-10 13:15 | disposition home or self-care (01) | DRG 192 ==
LOC: EDUNIT# 21:35 → ER 21:36 → 4TH 22:59
PROVIDERS: ADMIT Pediatrics; ATTEND Pediatrics
DX: J44.1 Chronic obstructive pulmonary disease with (acute) exacerbation (principal); F17.210 Nicotine dependence, cigarettes, uncomplicated; F41.9 Anxiety disorder, unspecified; F32.9 Major depressive disorder, single episode, unspecified; M19.91 Primary osteoarthritis, unspecified site; Z99.81 Dependence on supplemental oxygen
CPT/HCPCS: 36415; 71010; 71020; 80048; 80053; 81000; 83605; 83735; 84484; 85025; 87040; 87070; 87205; 87430; 87804; 93005; 94640; 94760; 96365; 96375

== ENCOUNTER 2017-09-09 19:41 | Emergency (ER) | payer MEDICARE, MEDICAID ==
[~2017-09-09] VITALS: Ht 165.1 cm; Wt 49.9 kg
[~2017-09-09 19:41] MED LIST changes: +ALBU18HF2 INH; +ALBU2.5V4 NEB; +ASPI-983 PO; +AZIT250T12 PO; +BUDE10.2 INH; +FLUC200T5 PO; +GUAI400T71 PO; +MONT10TA24 PO; +SERT50TA9 PO; +UMEC62.5 IH
[2017-09-09] MEDS ORDERED: RT-ALBUTEROL/IPRATROPIUM 3 ML (DUONEB) VIAL ONE (19:53)
[2017-09-09] MEDS ORDERED: methylPREDNISolone 125 MG (Solu-MEDROL) VIAL IM ONE (20:00)
--- NOTE | 2017-09-09 20:06 | Diagnostic Imaging Report ---
INDICATION: Short of breath and cough FINDINGS: Upright chest shows normal heart size and vascularity. There is flattening of the diaphragm consistent with COPD. No mass or infiltrate is seen. There is no effusion or pneumothorax. IMPRESSION: COPD. The chest is similar to a prior study from 01/23/2017. Dictated by: Dictated on workstation # [id number]
[2017-09-09 20:16] LABS: BASOPHILS % (AUTO) 0 % (0-10); EOSINOPHILS # (AUTO) 0.2 10^3/uL (0.0-0.3); EOSINOPHILS % (AUTO) 3 % (0-10); HEMATOCRIT 41 % (35-52); HEMOGLOBIN 13.8 G/DL (11.5-16.0); LYMPHOCYTES # (AUTO) 2.7 X 10^3 (1.0-4.0); LYMPHOCYTES % (AUTO) 35 % (12-44); MEAN CORPUSCULAR HEMOGLOBIN 35 PG (25-34); MEAN CORPUSCULAR HGB CONC 34 G/DL (32-36); MEAN CORPUSCULAR VOLUME 102 FL (80-99); MEAN PLATELET VOLUME 9.9 FL (7.4-10.4); MONOCYTES # (AUTO) 0.5 X 10^3 (0.0-1.0); MONOCYTES % (AUTO) 6 % (0-12); NEUTROPHILS # (AUTO) 4.2 X 10^3 (1.8-7.8); NEUTROPHILS % (AUTO) 56 % (42-75); PLATELET COUNT 242 10^3/uL (130-400); RED CELL DISTRIBUTION WIDTH 13.3 % (10.0-14.5); WHITE BLOOD COUNT 7.5 10^3/uL (4.3-11.0)
[2017-09-09 20:36] LABS: ALANINE AMINOTRANSFERASE 20 U/L (0-55); ALBUMIN 4.6 GM/DL (3.2-4.5); ALKALINE PHOSPHATASE 58 U/L (40-136); BILIRUBIN,TOTAL 0.4 MG/DL (0.1-1.0); BUN/CREATININE RATIO 12; CALCIUM 9.5 MG/DL (8.5-10.1); CARBON DIOXIDE 25 MMOL/L (21-32); CHLORIDE 102 MMOL/L (98-107); CREATININE SERUM 0.77 MG/DL (0.60-1.30); GFR ESTIMATED > 60; GLUCOSE 91 MG/DL (70-105); MAGNESIUM 2.5 MG/DL (1.8-2.4); POTASSIUM 3.9 MMOL/L (3.6-5.0); SODIUM 141 MMOL/L (135-145); TOTAL PROTEIN 7.9 GM/DL (6.4-8.2)
--- NOTE | 2017-09-09 20:50 | ED Respiratory ---
General Chief Complaint: Respiratory Problems Stated Complaint: SOB Nursing Triage Note: PT TO ED 6 W/ C/O SOB ONSET X4 DAYS, WORSE X3 DAYS BUT PER DAUGHTER PT DID NOT SEEK TREATMENT "SHE (THE PT) COULD TAKE CARE OF IT HERSELF". PT PRESENTLY ON O2 AT 3L PER NC FROM HOME. NO OTHER C/O VOICED History of Present Illness Date Seen by Provider: September 09, 2017 Time Seen by Provider: 19:50 Initial Comments 62-year-old female presents for shortness of air. Initial SaO2 on arrival was 78%, she was using her home portable oxygen. She was immediately switched to our oxygen per nasal cannula 4 L and her SaO2 improved to 92%. She reports approximately one pack of cigarettes a day however today she only reports smoking 4-6 cigarettes. She last used her albuterol inhaler at approximately 1700. She does have a nebulizer machine at home and albuterol to be used. She has never been evaluated by pulmonology. She is not currently on any steroids. She reports less fluid intake today than normal however she did have approximately 2 alcoholic beverages today. Timing/Duration: getting worse Severity: moderate Prior Episodes/Possible Cause: frequent episodes Modifying Factors: Improves With Albuterol Inhaler, Improves With Albuterol Nebulizer, Improves With Oxygen, Improves With Rest Associated Symptoms: cough (productive), shortness of breath, wheezing Allergies and Home Medications Allergies Coded Allergies: codeine (Verified Allergy, Severe, Hives and swelling., 09/22/12) Home Medications Albuterol Sulfate 18 Gm Hfa.aer.ad, 2 PUFF INH Q4H PRN for SHORTNESS OF BREATH, (Reported) Albuterol Sulfate 2.5 Mg/3 Ml Vial.neb, 2.5 MG NEB Q4H PRN for SHORTNESS OF BREATH, (Reported) Aspirin 81 Mg Tablet.dr, 81 MG PO HS, (Reported) Budesonide/Formoterol Fumarate 10.2 Gm Hfa.aer.ad, 2 PUFF INH BID, (Reported) Fluconazole 200 Mg Tablet, PO UD, (Reported) TAKE 2 (200MG) TABLETS DAY 1 THEN TAKE 1 (200MG) TABLET DAILY X 9 MORE DAYS Guaifenesin 400 Mg Tablet, 200 MG PO BID, (Reported) TAKES 1/2 (400MG) TABLET Montelukast Sodium 10 Mg Tablet, 10 MG PO HS, (Reported) Prednisone 10 Mg Tab, 0 PO UD Take 5 tabs(50mg)daily, decrease by 1 tab(10mg) every other day. Prescribed by: TERESA HERNANDEZ on 01/25/171132 Prednisone 20 Mg Tab, 60 MG PO DAILY Take 60 mg once daily for 3 days, then take 40 mg once daily for 3 days, then take 20 mg once daily for 3 days. Prescribed by: MARCO A PETE on 09/09/172216 Sertraline HCl 100 Mg Tablet, 100 MG PO HS, (Reported) Sulfamethoxazole/Trimethoprim 1 Each Tablet, 1 EACH PO BID Prescribed by: MARCO A PETE on 09/09/172216 Umeclidinium [place] 62.5 Mcg Blst.w.dev, 1 PUFF IH DAILY@0800 Prescribed by: TERESA HERNANDEZ on 01/25/171132 Patient Home Medication List Home Medication List Reviewed: Yes Review of Systems Constitutional: no symptoms reported, see HPI Respiratory: see HPI, cough, dyspnea on exertion; No hemoptysis; phlegm, short of breath, wheezing Cardiovascular: no symptoms reported, see HPI Gastrointestinal: no symptoms reported, see HPI Genitourinary: see HPI, dysuria All Other Systems Reviewed Negative Unless Noted: Yes Past Qxfroml-Fpoqaq-Nserod Hx Past Med/Social Hx: Reviewed Nursing Past Med/Soc Hx Patient Social History Alcohol Use: Occasionally Uses Number of Drinks Today: BB Alcohol Beverage of Choice: Beer, [place] Recreational Drug Use: No Smoking Status: Current Everyday Smoker Type Used: Cigarettes 2nd Hand Smoke Exposure: Yes Recent Foreign Travel: No Contact w/Someone Who Travel: No Recent Infectious Disease Expo: No Recent Hopitalizations: No Physical Abuse: No Sexual Abuse: No Mistreated: No Fear: No Immunizations Up To Date Tetanus Booster (TDap): Unknown PED Vaccines UTD: No Date of Pneumonia Vaccine: Dec 14, 2009 Date of Influenza Vaccine: Jan 13, 2017 Seasonal Allergies Seasonal Allergies: No Past Medical History Surgeries: Yes (c-sections and ear, teeth removed) Respiratory: Yes (COPD;ASTHMA, EMPHYSEMA) Asthma, COPD, Emphysema Currently Using CPAP: No Currently Using BIPAP: No Cardiac: Yes Neurological: No Reproductive Disorders: No Female Reproductive Disorders: Denies Sexually Transmitted Disease: No HIV/AIDS: No Genitourinary: No Gastrointestinal: No Musculoskeletal: Yes (ARTHRITIS) Arthritis Endocrine: No Cataract Hearing Impairment: Hard of Hearing Cancer: No Psychosocial: Yes Anxiety, Depression Nursing Suicide Risk Score: 0 Integumentary: No Blood Disorders: No Family Medical History No Pertinent Family Hx Physical Exam Vital Signs Vital Signs - First Documented Capillary Refill : Less Than 3 Seconds General Appearance: WD/WN, mild distress Eyes: Bilateral Eye Normal Inspection, Bilateral Eye PERRL, Bilateral Eye EOMI HEENT: PERRL/EOMI, normal ENT inspection, TMs normal, pharynx normal Neck: non-tender, full range of motion, supple, normal inspection Respiratory: chest non-tender, respiratory distress, decreased breath sounds, wheezing Cardiovascular: normal peripheral pulses, regular rate, rhythm Gastrointestinal: normal bowel sounds, non tender, soft Neurologic/Psychiatric: no motor/sensory deficits, alert, normal mood/affect, oriented x 3 Skin: normal color, warm/dry Focused Exam Lactate Level 09/09/17 20:02: Lactic Acid Level 1.38 Lactic Acid Level Laboratory Tests Test 09/09/17 20:02 Lactic Acid Level 1.38 MMOL/L (0.50-2.00) Procedures/Interventions Patient Education: Explained Benefits, Explained Risks Breath Sounds per Auscultation: Clear Heart Sounds per Auscultation: Regular Airway Exam: Mouth opens >2 fingers, Neck Full Range of Motion, Visulation of Uvula Sedation Adminstration Time: 0220 Re-examination Time: 0245 Progress/Results/Core Measures Suspected Sepsis Recent Fever Within 48 Hours: No Infection Criteria Present: None New/Unexplained Altered Menta: No Sepsis Screen: No Definite Risk SIRS Temperature:97.1 Pulse: 106 Respiratory Rate: 24 Laboratory Tests 09/09/17 20:02: White Blood Count 7.5 Blood Pressure 98 /85 Mean: 89 09/09/17 20:02: Lactic Acid Level 1.38 Laboratory Tests 09/09/17 20:02: Creatinine 0.77, Platelet Count 242, Total Bilirubin 0.4 Results/Orders Lab Results Laboratory Tests Test 09/09/17 20:02 09/09/17 20:52 Range/Units White Blood Count 7.5 4.3-11.0 10^3/uL Red Blood Count 4.00 L 4.35-5.85 10^6/uL Hemoglobin 13.8 11.5-16.0 G/DL Hematocrit 41 35-52 % Mean Corpuscular Volume 102 H 80-99 FL Mean Corpuscular Hemoglobin 35 H 25-34 PG Mean Corpuscular Hemoglobin Concent 34 32-36 G/DL Red Cell Distribution Width 13.3 10.0-14.5 % Platelet Count 242 130-400 10^3/uL Mean Platelet Volume 9.9 7.4-10.4 FL Neutrophils (%) (Auto) 56 42-75 % Lymphocytes (%) (Auto) 35 12-44 % Monocytes (%) (Auto) 6 0-12 % Eosinophils (%) (Auto) 3 0-10 % Basophils (%) (Auto) 0 0-10 % Neutrophils # (Auto) 4.2 1.8-7.8 X 10^3 Lymphocytes # (Auto) 2.7 1.0-4.0 X 10^3 Monocytes # (Auto) 0.5 0.0-1.0 X 10^3 Eosinophils # (Auto) 0.2 0.0-0.3 10^3/uL Basophils # (Auto) 0.0 0.0-0.1 10^3/uL Sodium Level 141 135-145 MMOL/L Potassium Level 3.9 3.6-5.0 MMOL/L Chloride Level 102 98-107 MMOL/L Carbon Dioxide Level 25 21-32 MMOL/L Anion Gap 14 5-14 MMOL/L Blood Urea Nitrogen 9 7-18 MG/DL Creatinine 0.77 0.60-1.30 MG/DL Estimat Glomerular Filtration Rate > 60 BUN/Creatinine Ratio 12 Glucose Level 91 70-105 MG/DL Lactic Acid Level 1.38 0.50-2.00 MMOL/L Calcium Level 9.5 8.5-10.1 MG/DL Magnesium Level 2.5 H 1.8-2.4 MG/DL Total Bilirubin 0.4 0.1-1.0 MG/DL Aspartate Amino Transf (AST/SGOT) 24 5-34 U/L Alanine Aminotransferase (ALT/SGPT) 20 0-55 U/L Alkaline Phosphatase 58 40-136 U/L C-Reactive Protein High Sensitivity 0.30 0.00-0.50 MG/DL B-Type Natriuretic Peptide 89.3 <100.0 PG/ML Total Protein 7.9 6.4-8.2 GM/DL Albumin 4.6 H 3.2-4.5 GM/DL Urine Color YELLOW Urine Clarity CLEAR Urine pH 6 5-9 Urine Specific [place] 1.010 L 1.016-1.022 Urine Protein NEGATIVE NEGATIVE Urine Glucose (UA) NEGATIVE NEGATIVE Urine Ketones NEGATIVE NEGATIVE Urine Nitrite NEGATIVE NEGATIVE Urine Bilirubin NEGATIVE NEGATIVE Urine Urobilinogen NORMAL NORMAL MG/DL Urine Leukocyte Esterase 3+ H NEGATIVE Urine RBC (Auto) 4+ H NEGATIVE Urine RBC 0-2 /HPF Urine WBC 5-10 H /HPF Urine Squamous Epithelial Cells 2-5 /HPF Urine Crystals NONE /LPF Urine Bacteria TRACE /HPF Urine Casts NONE /LPF Urine Mucus NEGATIVE /LPF Urine Culture Indicated YES My Orders Orders - MARCO A PETE Cbc With Automated Diff (09/09/17 19:56) Comprehensive Metabolic Panel (09/09/17 19:56) BNP (09/09/17 19:56) Blood Culture (09/09/17 19:56) Chest 1 View, Ap/Pa Only (09/09/17 19:56) Hs C Reactive Protein (09/09/17 19:56) Magnesium (09/09/17 19:56) Ekg Tracing (09/09/17 19:56) O2 (09/09/17 19:56) Saline Lock/Iv-Start (09/09/17 19:56) Sputum Culture (09/09/17 19:56) Monitor-Rhythm Ecg Trace Only (09/09/17 19:56) Lactic Acid Analyzer (09/09/17 19:56) Albuterol/Ipra Inhalation Soln (Duoneb I (09/09/17 19:53) Methylprednisolone Sod Succ (Solu-Medrol (09/09/17 20:00) Ua Culture If Indicated (09/09/17 20:47) Urine Culture (09/09/17 20:52) Ketorolac Injection (Toradol Injection) (09/09/17 21:42) Saline Lock/Iv-Start (09/09/17 21:52) Ns Iv 500 Ml (Sodium Chloride 0.9%) (09/09/17 21:52) Albuterol/Ipra Inhalation Soln (Duoneb I (09/09/17 22:15) Svn Small Volume Nebulizer (09/09/17 22:11) Ceftriaxone Injection (Rocephin Injectio (09/09/17 22:15) Medications Given in ED Current Medications Medications Dose Ordered Sig/Antwon Route Start Time Stop Time Status Last Admin Dose Admin Albuterol/ Ipratropium 3 ml ONCE ONCE INH 09/09/17 22:15 09/09/17 22:16 DC 09/09/17 22:21 3 ML Albuterol/ Ipratropium 3 ml STK-MED ONCE .ROUTE 09/09/17 19:53 09/09/17 19:58 DC 09/09/17 20:01 3 ML Ceftriaxone Sodium 1000 mg/ Sodium Chloride 50 ml @ 100 mls/hr ONCE ONCE IV 09/09/17 22:15 09/09/17 22:44 DC 09/09/17 22:27 100 MLS/HR Ketorolac Tromethamine 30 mg STK-MED ONCE .ROUTE 09/09/17 21:42 09/09/17 21:47 DC 09/09/17 21:47 30 MG Methylprednisolone Sodium Succinate 125 mg ONCE ONCE IM 09/09/17 20:00 09/09/17 20:01 DC 09/09/17 20:12 125 MG Sodium Chloride 500 ml @ 0 mls/hr Q0M ONCE IV 09/09/17 21:52 09/09/17 21:53 DC 09/09/17 22:02 500 MLS/HR Vital Signs/I&O 09/09/17 09/09/17 09/09/17 09/09/17 19:47 19:47 20:03 22:22 Temp 97.1 Pulse 106 Resp 24 B/P (MAP) 98/85 (89) Pulse Ox 78 86 92 95 O2 Delivery Nasal Cannula Nasal Cannula Nasal Cannula Nasal Cannula O2 Flow Rate 3.00 4.00 3.00 2.00 Capillary Refill : Less Than 3 Seconds Blood Pressure Mean: 89 Progress Note : Time: 19:50 Progress Note Initial evaluation completed, recommended oxygen 2-3 L per nasal cannula to maintain greater than 90%. Patient is currently maintaining 90-92% on 3 L per nasal cannula. We'll give Solu-Medrol 125 mg IV, DuoNeb treatment per RT, labs and chest x-ray. 2030 improved air movement with wheezing noted after first breathing treatment. Patient maintaining 90% on 2 L per nasal cannula. 2100 all labs and chest x-ray essentially normal 2129 patient complaining of mild headache, will give Toradol 30 mg IV and normal saline 500 mils IV. 2215 UA shows urinary tract infection, we'll give Rocephin 1 g IV. Will repeat an additional DuoNeb breathing treatment per RT. 2229 lungs sounds improved after second breathing treatment. 2244 patient reports headache and SOA have improved. Discharge instructions and return precautions reviewed with the patient and her daughter, they agreed with this and all questions were answered. ECG Initial ECG Impression Date: September 09, 2017 Initial ECG Impression Time: 20:10 Initial ECG Rate: 91 Initial ECG Rhythm: Normal Sinus Initial ECG Intervals: Normal Initial ECG Intervals [place] 172, QRSD 94, QT 368, QTc 453. [place] P 95, QRS 85, T0 Initial ECG Impression: Normal Initial ECG Comparisson: Unchanged Diagnostic Imaging Diagonstic Imaging: Xray Plain Films/CT/US/NM/MRI: chest Comments NAME: CHAR WILSON [facility] REC#: [id number] PT STATUS: REG ER : 1955 PHYSICIAN: MARCO A PETE ADMIT DATE: 09/09/17/ER Signed Date of Exam: 09/09/17 CHEST 1 VIEW, AP/PA ONLY INDICATION: Short of breath and cough FINDINGS: Upright chest shows normal heart size and vascularity. There is flattening of the diaphragm consistent with COPD. No mass or infiltrate is seen. There is no effusion or pneumothorax. IMPRESSION: COPD. The chest is similar to a prior study from 01/23/2017. Dictated by: Dictated on workstation # [id number] Dict: 09/09/172003 Trans: 09/09/172010 Interpreted by: ROMI BOGGS MD Electronically signed by: ROMI BOGGS MD 09/09/172010 Departure Impression Primary Impression: COPD, frequent exacerbations Additional Impression: UTI (urinary tract infection) Qualified Codes: N30.01 - Acute cystitis with hematuria Disposition: HOME, SELF-CARE Condition: Improved Departure-Patient Inst. Decision time for Depature: 22:45 Referrals: NGOC KAUFFMAN (PCP) Primary Care Physician [facility] (Family) Primary Care Physician Patient Instructions: Chronic Obstructive Pulmonary Disease (COPD), Including Emphysema, Urinary Tract Infection, Adult (DC) Add. Discharge Instructions: Take medication as prescribed, Prednisone and Bactrim. Follow up with Ngoc Kauffman APRN this week for referral to Dr. Giang. Use Oxygen per nasal cannula 2-3 liters at all times. Use your albuterol nebulizer every 4 hours. Return to emergency department for increased difficulty breathing, fever greater than 101 not relieved by Tylenol or ibuprofen, new problems or concerns. All discharge instructions reviewed with patient and/or family. Voiced understanding. Scripts Prednisone (Prednisone) 20 Mg Tab 60 MG PO DAILY, #18 TAB 0 Refills Take 60 mg once daily for 3 days, then take 40 mg once daily for 3 days, then take 20 mg once daily for 3 days. Prov: MARCO A PETE 09/09/17 Sulfamethoxazole/Trimethoprim (Bactrim Ds Tablet) 1 Each Tablet 1 EACH PO BID, #14 TAB 0 Refills Prov: MARCO A PETE 09/09/17 Copy Copies To 1: CAROLE BYRNE MD, AMY ARNP September 09, 2017 20:50
[2017-09-09 21:01] LABS: BILIRUBIN,URINE NEGATIVE (NEGATIVE); CLARITY,URINE CLEAR; COLOR,URINE YELLOW; GLUCOSE, URINE (UA) NEGATIVE (NEGATIVE); KETONES,URINE NEGATIVE (NEGATIVE); LEUKOCYTE ESTERASE ,URINE 3+ (NEGATIVE); NITRITE,URINE NEGATIVE (NEGATIVE); PH,URINE 6 (5-9); PROTEIN,URINE NEGATIVE (NEGATIVE); UROBILINOGEN,URINE NORMAL (NORMAL)
[2017-09-09 21:16] LABS: RBC,URINE 0-2 /HPF
[2017-09-09 21:17] LABS: BACTERIA,URINE TRACE /HPF
[2017-09-09] MEDS ORDERED: KETOROLAC 30 MG/ML VIAL ONE (21:42)
[2017-09-09] MEDS ORDERED: NS IV 500 ML 500 ML IV ONE (21:52)
[2017-09-09] MEDS ORDERED: cefTRIAXone INJECTION 1,000 MG in NS (IVPB) 50 ML IV ONE (22:15)
[2017-09-09] MEDS ORDERED: RT-ALBUTEROL/IPRATROPIUM 3 ML (DUONEB) VIAL INH ONE (22:15)
[2017-09-09] MEDS ORDERED: PRD20T PO (22:17)
[2017-09-09] MEDS ORDERED: SULF1TAB35 PO (22:17)
[2017-09-09 23:17] VITALS: BP 102/65
[2017-09-19] MEDS ORDERED: AMOX-358 PO (07:38)
== END 2017-09-09 23:17 | disposition home or self-care (01) ==
LOC: EDUNIT# 19:41 → ER 19:42
DX: J44.1 Chronic obstructive pulmonary disease with (acute) exacerbation (principal); N39.0 Urinary tract infection, site not specified; F41.9 Anxiety disorder, unspecified; F32.9 Major depressive disorder, single episode, unspecified; F17.210 Nicotine dependence, cigarettes, uncomplicated; Z79.82 Long term (current) use of aspirin; Z87.59 Personal history of other complications of pregnancy, childbirth and the puerperium; Z88.5 Allergy status to narcotic agent; Z99.81 Dependence on supplemental oxygen
CPT/HCPCS: 36415; 71045; 80053; 81000; 83605; 83735; 83880; 85025; 86141; 87040; 87070; 87077; 87088; 87205; 93005; 93041; 94640; 96365; 96375

== ENCOUNTER → 2017-10-11 | Outpatient (CLI) | payer MEDICARE, MEDICAID ==
[~2017-10-11] MED LIST changes: +AMOX-358 PO; +SULF1TAB35 PO
--- NOTE | 2017-10-11 12:41 | Diagnostic Imaging Report ---
PROCEDURE: CT chest without contrast. TECHNIQUE: Multiple contiguous axial images were obtained through the chest without the use of intravenous contrast. INDICATION: COPD, asthma, and dyspnea. COMPARISON: No priors for direct comparison. The study, however, is correlated with frontal chest radiograph of 09/09/2017. FINDINGS: Symmetrical air trapping is a stable chronic finding. There is a right basilar peridiaphragmatic lipoma. This fatty nodule is a benign finding. There is no evidence for hilar or mediastinal lymphadenopathy. The aorta is nonaneurysmal. There is some mild biapical pleural-parenchymal scarring unchanged from prior radiograph. No suspicious lung nodule or dominant mass. No findings of pneumonia or aspiration. No acute soft tissue or osseous chest wall abnormality. The visualized upper abdomen appears nonacute. IMPRESSION: Chronic air trapping. Benign lipoma. Nonaneurysmal atherosclerosis with no acute-appearing abnormality, effusion, suspicious mass, or infiltrate. Dictated by: Dictated on workstation # [id number]
== END ==
LOC: RAD 11:14
PROVIDERS: ATTEND Internal Medicine Critical Care Medicine
DX: D17.4 Benign lipomatous neoplasm of intrathoracic organs (principal); J44.9 Chronic obstructive pulmonary disease, unspecified; I70.0 Atherosclerosis of aorta; F17.200 Nicotine dependence, unspecified, uncomplicated
CPT/HCPCS: 71250

== ENCOUNTER → 2017-10-14 | Outpatient (CLI) | payer MEDICARE ==
[~2017-10-14] MED LIST changes: +RT-ALBUTEROL SULF 2.5 MG/3 ML PRE-MIX VIAL INH ONE
== END ==
LOC: RT 15:20
PROVIDERS: ATTEND Nurse Practitioner Family
DX: J45.909 Unspecified asthma, uncomplicated (principal); J44.9 Chronic obstructive pulmonary disease, unspecified; R06.00 Dyspnea, unspecified
CPT/HCPCS: 94060; 94726; 94729

== ENCOUNTER 2018-03-03 22:23 | Inpatient (IN) | payer MEDICARE, MEDICAID ==
[~2018-03-03] VITALS: Ht 165.1 cm; Wt 60.8 kg
[~2018-03-03 22:23] MED LIST changes: -RT-ALBUTEROL SULF 2.5 MG/3 ML PRE-MIX VIAL INH ONE
[2018-03-03] MEDS ORDERED: RT-ALBUTEROL SULF 2.5 MG/3 ML PRE-MIX VIAL INH STA (22:35)
--- NOTE | 2018-03-03 22:37 | ED Respiratory ---
General Chief Complaint: Respiratory Problems Stated Complaint: SOB Nursing Triage Note: PT BROUHGT IN BY EMS WITH COMPLAINT OF SOA. PT HAS COPD AND EMPHYSEMA. PT HAS BEEN DRINKING TONIGHT WITH NEIGHBOR. AT LEAST 3-4 DRINKS CONSUMED Source: patient, EMS Exam Limitations: intoxication History of Present Illness Date Seen by Provider: Mar 03, 2018 Time Seen by Provider: 22:29 Initial Comments Patient presents to ER by EMS with chief complaint that she's having shortness of breath. She says she's had 2 or 3 drinks tonight with a neighbor. Neighbor reports EMS she's had multiple drinks. She has a history of COPD. She denies any pain nausea vomiting fevers chills but she does have productive sputum cough. She says she went home and take her nightly inhaler/orders: The past when she started feeling very short of breath having difficulty catching her wind. EMS gave her a DuoNeb on route and put her on high flow oxygen she was saying that she was however they noted when she picked her up she was on her chronic 2 L of oxygen by nasal cannula and satting in the 96-98% range. Allergies and Home Medications Allergies Coded Allergies: codeine (Verified Allergy, Severe, Hives and swelling., 09/22/12) Home Medications Albuterol Sulfate 18 Gm Hfa.aer.ad, 2 PUFF INH Q4H PRN for SHORTNESS OF BREATH, (Reported) Albuterol Sulfate 2.5 Mg/3 Ml Vial.neb, 2.5 MG NEB Q4H PRN for SHORTNESS OF BREATH, (Reported) Aspirin 81 Mg Tablet.dr, 81 MG PO HS, (Reported) Budesonide/Formoterol Fumarate 10.2 Gm Hfa.aer.ad, 2 PUFF INH BID, (Reported) Guaifenesin 400 Mg Tablet, 200 MG PO BID, (Reported) TAKES 1/2 (400MG) TABLET Montelukast Sodium 10 Mg Tablet, 10 MG PO HS, (Reported) Sertraline HCl 100 Mg Tablet, 100 MG PO HS, (Reported) Umeclidinium [place] 62.5 Mcg Blst.w.dev, 1 PUFF IH DAILY@0800 Prescribed by: TERESA HERNANDEZ on 01/25/17 1133 Patient Home Medication List Home Medication List Reviewed: Yes Review of Systems Review of Systems Constitutional: No chills, No diaphoresis, No fever; malaise EENTM: No ear discharge, No ear pain Respiratory: cough, phlegm, short of breath, wheezing Cardiovascular: No edema Gastrointestinal: No abdominal pain, No nausea, No vomiting Genitourinary: No discharge, No dysuria Past Skezauj-Kfnyni-Ebvhil Hx Patient Social History Alcohol Use: Regular Use Number of Drinks Today: BB Alcohol Beverage of Choice: Beer, [place] Recreational Drug Use: No Smoking Status: Current Everyday Smoker Type Used: Cigarettes 2nd Hand Smoke Exposure: Yes Recent Foreign Travel: No Contact w/Someone Who Travel: No Recent Infectious Disease Expo: No Recent Hopitalizations: No Immunizations Up To Date Tetanus Booster (TDap): Unknown PED Vaccines UTD: No Date of Pneumonia Vaccine: Dec 14, 2009 Date of Influenza Vaccine: Jan 13, 2017 Seasonal Allergies Seasonal Allergies: No Past Medical History Surgeries: Yes (c-sections and ear, teeth removed) Respiratory: Yes (COPD;ASTHMA, EMPHYSEMA) Asthma, COPD, Emphysema Currently Using CPAP: No Currently Using BIPAP: No Cardiac: Yes Neurological: No Reproductive Disorders: No Female Reproductive Disorders: Denies Sexually Transmitted Disease: No HIV/AIDS: No Genitourinary: No Gastrointestinal: No Musculoskeletal: Yes (ARTHRITIS) Arthritis Endocrine: No Cataract Hearing Impairment: Hard of Hearing Cancer: No Psychosocial: Yes Anxiety, Depression Integumentary: No Blood Disorders: No Family Medical History No Pertinent Family Hx Physical Exam Vital Signs - First Documented 03/03/18 22:25 Temp 96.0 Pulse 84 Resp 20 B/P (MAP) 112/75 (87) Pulse Ox 96 O2 Delivery Nasal Cannula O2 Flow Rate 2.00 Capillary Refill : Less Than 3 Seconds Height: 5'5.00" Weight: 120lbs. 6.0oz. [id number]; 25.6 BMI Method:Stated General Appearance: WD/WN, no apparent distress Eyes: Bilateral Eye Normal Inspection, Bilateral Eye PERRL, Bilateral Eye EOMI HEENT: PERRL/EOMI, normal ENT inspection, pharynx normal Neck: non-tender, full range of motion, supple, normal inspection Respiratory: chest non-tender, respiratory distress (mild to mod), decreased breath sounds; No rales; expiration (prolonged) Cardiovascular: normal peripheral pulses (Heart rate in the 90-100 range), regular rate, rhythm, no edema Gastrointestinal: normal bowel sounds, non tender, soft Extremities: normal range of motion, normal inspection, no pedal edema, normal capillary refill Neurologic/Psychiatric: alert, oriented x 3, other (Anxious affect) Focused Exam Lactate Level 03/03/18 22:35: Lactic Acid Level 1.32 Lactic Acid Level Laboratory Tests Test 03/03/18 22:35 Lactic Acid Level 1.32 MMOL/L (0.50-2.00) Procedures/Interventions Lumen: triple Central Line Procedure: betadine prep (chlorhexidine prep), sterile drapes applied, sterile dressing applied Position: internal jugular (R) Anesthesia: local (1% without epinephrine) Volume Anesthetic (ccs): 2 Complications: none Post Position: sutured, good blood return, position confirmed w/ CXR Risks, benefits and alternatives were explained the patient and she gave verbal consent. We had the patient already in Trendelenburg position, positioned her appropriately and cleaned the site using car exiting preps. We then donned sterile gowns, Lasix and gloves as well as headgear. Patient was draped in usual sterile fashion and using a sterile probe cover we ascertain the location of the right internal jugular and infiltrated the site under the skin over that with 2 cc of 1% lidocaine without epinephrine. The patient then had a introducer needle placed into the right IJ with good blood return. The guidewire was easily fed without resistance into the introducer needle. No ectopy was noticed on the telemetry. A small jake was made in the skin using the up supplied 11 blade scalpel and then the needle was removed from the patient. We then threaded the dilator over the guidewire passed it easily and removed it. We then flushed the triple-lumen catheter and threaded over the central lumen over the guidewire easily to 13 cm. Within stitched it in place in 3 different places put a Biopatch and place and put a sterile dressing. The central lumen withdrew and flushed easily dark red blood. On else sound the right IJ appeared to be plump. Chest x-ray was obtained concerning good position. Patient Education: Explained Benefits, Explained Risks Breath Sounds per Auscultation: Clear Heart Sounds per Auscultation: Regular Airway Exam: Mouth opens >2 fingers, Neck Full Range of Motion, Visulation of Uvula Sedation Adminstration Time: 219 Re-examination Time: 244 Progress/Results/Core Measures Suspected Sepsis Recent Fever Within 48 Hours: No Infection Criteria Present: None New/Unexplained Altered Menta: No Sepsis Screen: No Definite Risk SIRS Temperature:96.0 Pulse: 84 Respiratory Rate: 20 Laboratory Tests 03/03/18 22:35: White Blood Count 7.0 Blood Pressure 112 /75 Mean: 87 03/03/18 22:35: Lactic Acid Level 1.32 Laboratory Tests 03/03/18 22:35: Creatinine 0.60, INR Comment 0.9, Platelet Count 250, Total Bilirubin 0.2 Results/Orders Lab Results Laboratory Tests Test 03/03/18 22:35 03/03/18 22:50 03/04/18 00:16 Range/Units White Blood Count 7.0 4.3-11.0 10^3/uL Red Blood Count 3.83 L 4.35-5.85 10^6/uL Hemoglobin 12.8 11.5-16.0 G/DL Hematocrit 39 35-52 % Mean Corpuscular Volume 101 H 80-99 FL Mean Corpuscular Hemoglobin 33 25-34 PG Mean Corpuscular Hemoglobin Concent 33 32-36 G/DL Red Cell Distribution Width 12.8 10.0-14.5 % Platelet Count 250 130-400 10^3/uL Mean Platelet Volume 9.7 7.4-10.4 FL Neutrophils (%) (Auto) 28 L 42-75 % Lymphocytes (%) (Auto) 62 H 12-44 % Monocytes (%) (Auto) 8 0-12 % Eosinophils (%) (Auto) 1 0-10 % Basophils (%) (Auto) 0 0-10 % Neutrophils # (Auto) 2.0 1.8-7.8 X 10^3 Lymphocytes # (Auto) 4.4 H 1.0-4.0 X 10^3 Monocytes # (Auto) 0.6 0.0-1.0 X 10^3 Eosinophils # (Auto) 0.1 0.0-0.3 10^3/uL Basophils # (Auto) 0.0 0.0-0.1 10^3/uL Prothrombin Time 12.3 12.2-14.7 SEC INR Comment 0.9 0.8-1.4 Activated Partial Thromboplast Time 28 24-35 SEC Sodium Level 134 L 135-145 MMOL/L Potassium Level 3.8 3.6-5.0 MMOL/L Chloride Level 100 98-107 MMOL/L Carbon Dioxide Level 22 21-32 MMOL/L Anion Gap 12 5-14 MMOL/L Blood Urea Nitrogen 5 L 7-18 MG/DL Creatinine 0.60 0.60-1.30 MG/DL Estimat Glomerular Filtration Rate > 60 BUN/Creatinine Ratio 8 Glucose Level 77 70-105 MG/DL Lactic Acid Level 1.32 0.50-2.00 MMOL/L Calcium Level 8.4 L 8.5-10.1 MG/DL Corrected Calcium 8.4 L 8.5-10.1 MG/DL Total Bilirubin 0.2 0.1-1.0 MG/DL Aspartate Amino Transf (AST/SGOT) 21 5-34 U/L Alanine Aminotransferase (ALT/SGPT) 14 0-55 U/L Alkaline Phosphatase 47 40-136 U/L Troponin I < 0.30 <0.30 NG/ML Total Protein 6.9 6.4-8.2 GM/DL Albumin 4.0 3.2-4.5 GM/DL Serum Alcohol 207 H <10 MG/DL Blood Gas Puncture Site RIGHT RADIAL Blood Gas Patient Temperature 96.0 Arterial Blood pH 7.38 7.37-7.43 Arterial Blood Partial Pressure CO2 39 35-45 MMHG Arterial Blood Partial Pressure O2 89 79-93 MMHG Arterial Blood HCO3 23 23-27 MMOL/L Arterial Blood Total CO2 24.1 21.0-31.0 MMOL/L Arterial Blood Oxygen Saturation 98 94-100 % Arterial Blood Base Excess -1.9 -2.5-2.5 MMOL/L Kendrick Test POSITIVE Blood Gas Ventilator Setting NO Blood Gas Inspired Oxygen 2L Urine Color YELLOW Urine Clarity CLEAR Urine pH 5 5-9 Urine Specific [place] 1.010 L 1.016-1.022 Urine Protein NEGATIVE NEGATIVE Urine Glucose (UA) NEGATIVE NEGATIVE Urine Ketones NEGATIVE NEGATIVE Urine Nitrite NEGATIVE NEGATIVE Urine Bilirubin NEGATIVE NEGATIVE Urine Urobilinogen NORMAL NORMAL MG/DL Urine Leukocyte Esterase 1+ H NEGATIVE Urine RBC (Auto) 2+ H NEGATIVE Urine RBC 0-2 /HPF Urine WBC 0-2 /HPF Urine Squamous Epithelial Cells 0-2 /HPF Urine Crystals NONE /LPF Urine Bacteria MODERATE H /HPF Urine Casts NONE /LPF Urine Mucus NEGATIVE /LPF Urine Culture Indicated NO Micro Results Microbiology 03/03/18 Influenza Types A,B Antigen ([facility]) - Final, Complete My Orders Orders - GOVIND PALAFOX Ana Cbc With Automated Diff (03/03/18:) Comprehensive Metabolic Panel (03/03/18:) Blood Culture (03/03/18:) Sputum Culture (03/03/18:) Urinalysis (03/03/18:) Urine Culture (03/03/18:) Protime With Inr (03/03/18:) Partial Thromboplastin Time (03/03/18:) Chest 1 View, Ap/Pa Only (03/03/18:) Saline Lock/Iv-Start (03/03/18:) Saline Lock/Iv-Start (03/03/18) Troponin I (03/03/18:) Vital Signs Adult Sepsis Patie Q15M (03/03/18:31) O2 (03/03/18:) Remove Rings In Anticipation O (03/03/18:) Lactic Acid Analyzer (03/03/18:) Influenza A And B Antigens (03/03/18:) Ns Iv 1000 Ml (Sodium Chloride 0.9%) (03/03/18 22:45) Cefepime Injection (Maxipime Injection) (03/03/18 22:45) Ekg Tracing (03/03/18 22:35) Continuous Ekg Monitoring (03/03/18 22:35) Albuterol Pre-Mix Nebs (Rt) (Proventil (03/03/18 22:35) Albuterol/Ipra Inhalation Soln (Duoneb I (03/03/18 22:45) Svn Small Volume Nebulizer (03/03/18 22:35) Alcohol (03/03/18 22:35) Arterial Blood Gas (03/03/18 22:35) Saline Lock/Iv-Start (03/03/18 23:34) Ns Iv 1000 Ml (Sodium Chloride 0.9%) (03/03/18 23:34) Methylprednisolone Sod Succ (Solu-Medrol (03/03/18 23:45) Chest 1 View, Ap/Pa Only (03/04/18 02:46) Norepinephrine (Levophed) (03/04/18 03:00) Medications Given in ED Current Medications Medications Dose Ordered Sig/Antwon Route Start Time Stop Time Status Last Admin Dose Admin Albuterol/ Ipratropium 3 ml ONCE ONCE INH 03/03/18 22:45 03/03/18 22:46 DC 03/03/18 22:59 3 ML Cefepime HCl 1000 mg/Sodium Chloride 50 ml @ 100 mls/hr ONCE ONCE IV 03/03/18 22:45 03/03/18 23:14 DC 03/03/18 22:58 100 MLS/HR Sodium Chloride 1,000 ml @ 1,000 mls/hr ONCE ONCE IV 03/03/18 22:45 03/03/18 23:44 DC 03/03/18 22:58 1,000 MLS/HR Vital Signs/I&O 03/03/18 03/03/18 22:25 22:59 Temp 96.0 Pulse 84 Resp 20 B/P (MAP) 112/75 (87) Pulse Ox 96 99 O2 Delivery Nasal Cannula Nasal Cannula O2 Flow Rate 2.00 2.00 Capillary Refill : Less Than 3 Seconds Blood Pressure Mean: 87 Progress Note #1: Time: 23:38 Progress Note The patient was very diminished despite a DuoNeb from EMS so we've her on an hour-long she is about complete. ABG is unremarkable. We thought about other possible causes of her shortness of breath and got a troponin and EKG which were unremarkable. It's possible because of the alcohol and her chronic COPD she is having an anxiety attack. She's already feeling much better and much more relaxed, sitting up, talking to her daughter in the room and stating that she would like to go home. Unfortunately her in another room managing a different patient andthat her last 3 blood pressures were low in the 90s systolic range. She's got most of her first liter fluids and a reposition the blood pressure cuff and it still in the low 90 systolic. We'll give her another liter of fluids via IV. Rest of her blood works fairly unremarkable. Alcohol levels 204. Solu-Medrol and after her hour-long we'll discuss whether we should observe her for her borderline blood pressure or she is adamant about going home. She has received her cefepime. Progress Note #2: Time: 02:02 Progress Note Tried multiple times speaking with the daughter and patient about the wisdom of putting a central line in. I don't know exactly why her blood pressure is going low but suspect since it came right after the antibiotics were started that it is in reaction to some kind of bacterial infection. Unilateral see anything on chest x-ray one view it's possible there could be a pneumonia given her history of COPD, shortness of breath and productive cough. We've already given her more than 30 mL/kg bolus and I have tried multiple ways to explain to her the benefits of having a central catheter but her feet are needles apparently has kept her from consenting to do this. However now her mean arterial pressure has dipped down to 60 mmHg and I have explained to her at this time it's becoming more urgent that we put the line in unless she is okay with allowing a natural to occur. She has given us consent to proceed. Diagnostic Imaging Diagonstic Imaging: Xray Plain Films/CT/US/NM/MRI: chest (1v) Comments No acute infiltrates seen. COPD. No acute cardiopulmonary processes noted. Reviewed: Reviewed by Me Diagonstic Imaging: Xray Plain Films/CT/US/NM/MRI: chest Comments No interval changes except for a central line to the right side in good position just above the right atria. Does not cross the midline and runs over the shadow of the superior vena cava. Reviewed: Reviewed by Me Departure Communication (Admissions) Time/Spoke to Admitting Phy: 02:40 Discussed the case lab imaging findings and plan for ICU with the eICU, fluids, Levophed, cefepime azithromycin with Dr. Sinclair as well as steroids and she agrees. Impression Primary Impression: Septic shock Additional Impressions: COPD (chronic obstructive pulmonary disease) Qualified Codes: J44.1 - Chronic obstructive pulmonary disease with (acute) exacerbation Pneumonia Qualified Codes: J18.9 - Pneumonia, unspecified organism Disposition: ADMITTED INPATIENT Condition: Critical Admissions Decision to Admit Reason: Admit from ER (General) Decision to Admit/Date: Mar 04, 2018 Time/Decision to Admit Time: 01:47 Departure-Patient Inst. Referrals: ANDRES KAUFFMAN (PCP) Primary Care Physician [facility] (Family) Primary Care Physician Copy Copies To 1: SHIRA MOSES TITUS J Mar 03, 2018 22:37
[2018-03-03] MEDS ORDERED: RT-ALBUTEROL/IPRATROPIUM 3 ML (DUONEB) VIAL INH ONE (22:45)
[2018-03-03] MEDS ORDERED: CEFEPIME INJECTION 1,000 MG in NS (IVPB) 50 ML IV ONE (22:45)
[2018-03-03] MEDS ORDERED: NS IV 1000 ML 1,000 ML IV ONE (22:45)
[2018-03-03 22:49] LABS: BASOPHILS % (AUTO) 0 % (0-10); EOSINOPHILS # (AUTO) 0.1 10^3/uL (0.0-0.3); EOSINOPHILS % (AUTO) 1 % (0-10); HEMATOCRIT 39 % (35-52); HEMOGLOBIN 12.8 G/DL (11.5-16.0); LYMPHOCYTES # (AUTO) 4.4 X 10^3 (1.0-4.0); LYMPHOCYTES % (AUTO) 62 % (12-44); MEAN CORPUSCULAR HEMOGLOBIN 33 PG (25-34); MEAN CORPUSCULAR HGB CONC 33 G/DL (32-36); MEAN CORPUSCULAR VOLUME 101 FL (80-99); MEAN PLATELET VOLUME 9.7 FL (7.4-10.4); MONOCYTES # (AUTO) 0.6 X 10^3 (0.0-1.0); MONOCYTES % (AUTO) 8 % (0-12); NEUTROPHILS % (AUTO) 28 % (42-75); PLATELET COUNT 250 10^3/uL (130-400); RED BLOOD COUNT 3.83 10^6/uL (4.35-5.85); RED CELL DISTRIBUTION WIDTH 12.8 % (10.0-14.5)
[2018-03-03 22:59] LABS: ABG BASE EXCESS -1.9 MMOL/L (-2.5-2.5); ABG OXYGEN SATURATION 98 % (94-100); ABG PCO2 39 MMHG (35-45); ABG PH 7.38 (7.37-7.43); ABG PO2 89 MMHG (79-93); ABG TCO2 24.1 MMOL/L (21.0-31.0)
[2018-03-03 23:00] LABS: ALLENS TEST POSITIVE; INSPIRED O2 2L; VENTILATOR NO
[2018-03-03 23:01] LABS: INR 0.9 (0.8-1.4); PROTHROMBIN TIME PATIENT 12.3 SEC (12.2-14.7)
[2018-03-03 23:11] LABS: ALANINE AMINOTRANSFERASE 14 U/L (0-55); ALKALINE PHOSPHATASE 47 U/L (40-136); BILIRUBIN,TOTAL 0.2 MG/DL (0.1-1.0); BUN/CREATININE RATIO 8; CALCIUM 8.4 MG/DL (8.5-10.1); CARBON DIOXIDE 22 MMOL/L (21-32); CHLORIDE 100 MMOL/L (98-107); GFR ESTIMATED > 60; GLUCOSE 77 MG/DL (70-105); POTASSIUM 3.8 MMOL/L (3.6-5.0); SODIUM 134 MMOL/L (135-145); TOTAL PROTEIN 6.9 GM/DL (6.4-8.2)
[2018-03-03] MEDS ORDERED: NS IV 1000 ML 1,000 ML IV SCH (23:34)
[2018-03-03] MEDS ORDERED: methylPREDNISolone 125 MG (Solu-MEDROL) VIAL IVP ONE (23:45)
[2018-03-04] VITALS (9 sets, daily range): BP systolic 104–131; BP diastolic 52–72
[2018-03-04 00:27] LABS: BILIRUBIN,URINE NEGATIVE (NEGATIVE); CLARITY,URINE CLEAR; COLOR,URINE YELLOW; GLUCOSE, URINE (UA) NEGATIVE (NEGATIVE); KETONES,URINE NEGATIVE (NEGATIVE); LEUKOCYTE ESTERASE ,URINE 1+ (NEGATIVE); NITRITE,URINE NEGATIVE (NEGATIVE); PH,URINE 5 (5-9); PROTEIN,URINE NEGATIVE (NEGATIVE); UROBILINOGEN,URINE NORMAL (NORMAL)
[2018-03-04 00:45] LABS: BACTERIA,URINE MODERATE /HPF; RBC,URINE 0-2 /HPF; SQUAMOUS EPITHELIAL CELL,UR 0-2 /HPF; WBC,URINE 0-2 /HPF
[2018-03-04] MEDS ORDERED: NOREPINEPHRINE 4 MG in NS (IVPB) 250 ML IV SCH ×2 (03:00→07:08)
--- OUTSIDE RECORDS SUMMARY | 2018-03-04 03:06 | XMS REPORT ---
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 423305033 Problem Chest pain, unspecified R07.9 Active 98838038 Problem Dislocation of left elbow, subsequent encounter V58.89 Active 332755895 Problem H/O benign neoplasm of colon Z86.018 Active 992578814 Problem H/O esophageal reflux Z87.19 Active 885384484 Problem Nicotine dependence, cigarettes, uncomplicated F17.210 Active 406419169 Problem Chronic obstructive pulmonary disease with (acute) exacerbation J44.1 Active 268703655 Problem Anxiety F41.9 Active 04354790 Problem Chronic obstructive pulmonary disease, unspecified COPD type J44.9 Active 34613662 Problem 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 Active 918017855751 Problem Pulmonary emphysema, unspecified emphysema type J43.9 Active 14490583 ALLERGIES No Information ENCOUNTERS Encounter Location Date Diagnosis [facility] [id number] [address] Dec, [facility] [address], [place] [address] Nov, [place] [id number] [place] [address] Sep, Chronic obstructive pulmonary disease, unspecified COPD type J44.9 ; Financial problems Z59.8 and Nicotine dependence, cigarettes, uncomplicated F17.210 [place] [id number] [place] [address] August, Chronic obstructive pulmonary disease with (acute) exacerbation J44.1 ; Nicotine dependence, cigarettes, uncomplicated F17.210 and 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 [facility] [address] [address] Jun, COPD exacerbation J44.1 [place] [address] [address] Mar, Flu-like symptoms R68.89 and Chronic obstructive pulmonary disease, unspecified COPD type J44.9 [place] [address] [address] Jan, Pulmonary emphysema, unspecified emphysema type J43.9 [place] [address] [id number] Jan, [place] [address] [address] Jan, Chronic obstructive pulmonary disease, unspecified COPD type J44.9 ; Encounter for immunization Z23 ; Thrush B37.0 and Anxiety F41.9 [place] [address] [id number] Dec, [place] [address] [address] Dec, [place] [id number] [place] [address]- [address] Sep, Chronic obstructive pulmonary disease, unspecified COPD type J44.9 and Erysipelas A46 [facility] [id number] [place] [address] Sep, Irritant contact dermatitis due to other agents L24.89 [facility] [address] [address] Jun, Allergic dermatitis L23.9 and Bug bite, initial encounter W57.XXXA [address] [address] May, Shoulder impingement, right M75.41 [place] [id number] [place] [address] 69[address] Mar, Impingement syndrome, shoulder, left M75.42 [place] [id number] [place] [address]- [address] Feb, Left arm pain M79.602 [place] [address] [address] Jan, [place] [address] [address] Jan, Left arm pain M79.602 and Acute pain of left shoulder M25.512 [facility] [address] [address] Dec, Muscle spasm M62.838 and Cervicalgia M54.2 [place] [address] [address] Oct, COPD (chronic obstructive pulmonary disease) J44.9 [place] [address] [address] Sep, Chronic obstructive pulmonary disease, unspecified COPD type J44.9 [place] [id number] [place] [address]- 5[address] Jun, COPD (chronic obstructive pulmonary disease) J44.9 [facility] [address] [address] May, Chest pain R07.9 ; Epigastric burning sensation R10.13 and Gastritis K29.[address] [address] Mar, Screening, lipid Z13.220 [place] [address] [address] Mar, Sebaceous cyst L72.3 [place] [id number] [place] [address] [id number]- 4[address] 30 Feb, 2015 Encounter for screening for malignant neoplasm of cervix Z12.4 ; Well woman exam Z01.419 ; Depression F32.9 ; History of chest pain Z87.898 ; BMI 25.0-25.9,adult Z68.25 ; Dense breast tissue R92.2 ; Lipid screening Z13.220 and Vaginal lesion N89.8 [facility] [address] [id number]- [address] 24 Feb, 2015 Breast cancer screening Z12.39 ; Encounter for immunization Z23 ; Left arm pain M79.602 ; Chronic obstructive pulmonary disease, unspecified COPD type J44.9 ; Gastroesophageal reflux disease, esophagitis presence not specified K21.9 and Lipid screening Z13.220 [facility] [id number] [place] [id number]- 8[address] 14 Jul, 2014 [facility] [id number] [place] [address]- 3[address] Jul, [facility] [id number] [place] [address]- 6629 18 May, 2014 [facility] [id number] [place] [address]45- [address] May, [facility] [id number] [place] [address]- 136[address] Mar, [facility] [id number] [place] [address] [id number]- 1653 Mar, [facility] [id number] [place] [address]- 4079 Mar, [facility] [id number] [place] [address] 11417- 2346 Mar, [facility] [id number] [place] [address]- 8176 Feb, [facility] [id number] [place] [address]65- 5145 Feb, [facility] [place] [facility] [address] [id number] [place] [address]- [address] 24 Jan, 2014 [facility] [place] [facility] [address] [id number] [place] [address]- [address] Jan, [facility] [place] [facility] [address] [id number] [place] [address]- 9660 23 Jan, 2014 [facility] [place] [facility] [address] [id number] [place] [address]- 8[address] 15 Jan, 2014 [facility] [place] [facility] [address] [id number] [place] [address]- 7910 15 Jan, 2014 [facility] [place] [facility] [address] [id number] [place] [address]- 1743 14 Jan, 2014 [facility] [place] [facility] [address] [id number] [place] [address]- 9746 14 Jan, 2014 [facility] [place] [facility] [address] [id number] [place] [address]- 2271 14 Jan, 2014 [facility] [place] [facility] [address] [id number] [place] [address]- 0182 14 Jan, 2014 [facility] [place] [facility] [address] [id number], [place] [address] Jan, [facility] [place] [facility] [address] [id number], [place] [address] Jan, [facility] [place] [facility] [address] [id number], [place] [address]- 4527 24 Dec, 2013 [facility] [place] [facility] [address] [id number] [place] [address]- 4185 24 Dec, 2013 [facility] [place] [facility] [address] [id number], [place] [address]- [address] 23 Dec, 2013 [facility] [place] [facility] [address] [id number] [place] [address]- 9995 Dec, [facility] [place] [facility] [address] [id number] [place] [address]- 2299 12 Dec, 2013 [facility] [place] [facility] [address] [id number] [place] [address]- 3984 Dec, [facility] [place] [facility] [address] [id number] [place] [address]- 9121 Dec, [facility] [place] [facility] [address] [id number] [place] [address]- 3406 Dec, [facility] [place] [facility] [address] [id number] [place] [address]- 7773 August, [facility] [place] [facility] [address] [id number] [place] [address]- 7894 August, [facility] [place] [facility] [address] [id number] [place] [address]- 2171 Jun, [facility] [place] [facility] [address] [id number] [place] [address]- 4046 Jun, [facility] [place] [facility] [address] [id number] [place] [address]- 3764 Apr, [facility] [place] [facility] [address] [id number] [place] [address]- 5456 Apr, [facility] [place] [facility] [address] [id number] [place] [address]- 2345 Apr, [facility] [place] [facility] [address] [id number] [place] [address]- 9320 Apr, [facility] [place] [facility] [address] [id number] [place] [address]- 9222 Apr, [facility] [place] [facility] [address] [id number] [place] [address]- 9538 Apr, [facility] [place] [facility] [address] [id number] [place] [address]- 4513 Jan, [facility] [place] [facility] [address] [id number] [place] [address]- 0879 Jan, [facility] [place] [facility] [address] [id number] [place] [address]- 1972 Jan, [facility] [place] [facility] [address] [id number] [place] [address]- 4077 Nov, [facility] [place] [facility] [address] [id number] [place] [address]- 1270 Oct, [facility] [place] [facility] [address] [id number] [place] [address]- 5804 Sep, [facility] [place] [facility] [address] [id number] [place] [address]- 9470 Sep, [facility] [place] [facility] [address] [id number] [place] [address]- 0655 Sep, [facility] [place] [facility] [address] [id number] [place] [address]- 3944 Sep, [facility] [place] [facility] [address] [id number] [place] [address]- 4538 Sep, [facility] [place] [facility] [address] [id number] [place] [address]- 8902 August, [facility] [place] [facility] [address] [id number] [place] [address]- 6428 Jul, [facility] [place] [facility] [address] [id number] [place] [address]- 6440 Jul, [facility] [place] [facility] [address] [id number] [place] [address]- 5145 May, [facility] [place] [facility] [address] [id number] [place] [address]- 2564 Apr, [facility] [place] [facility] [address] [id number] [place] [address]- 7023 Mar, [facility] [place] [facility] [address] [id number] [place] [address]- 8648 Mar, [facility] [place] [facility] [address] [id number] [place] [address]- 0046 Feb, [facility] [place] [facility] [address] [id number] [place] [address]- 4060 Feb, [facility] [place] [facility] [address] [id number] [place] [address]- 3023 Feb, [facility] [place] [facility] [address] [id number] [place] [address]- 4063 Feb, [facility] [place] [facility] [address] [id number] [place] [address]- 4822 Jan, [facility] [place] [facility] [address] [id number] [place] [address]- 2102 Jan, [facility] [place] [facility] [address] [id number] [place] [address] Jan, [facility] [place] [facility] [address] [id number] [place] [address]- 5584 Jan, [facility] [place] [facility] [address] [id number] [place] [address]- 6165 Dec, [facility] [place] [facility] [address] [id number] [place] [address]- 8974 Sep, [facility] [place] [facility] [address] [id number] [place] [address]- 0420 August, [facility] [place] [facility] [address] [id number], [place] [address]- 2689 August, [facility] [place] [facility] [address] [id number], [place] [address]- 4735 Jul, [facility] [place] [facility] [address] [id number] [place] [address]- 7109 Jun, [facility] [place] [facility] [address] [id number] [place] [address]- 9349 Jun, [facility] [place] [facility] [address] [facility] [id number] [place] [address]- 4276 May, [facility] [place] [facility] [address] [id number] [place] [address]- 4903 15 Mar, 2011 [facility] [address] [id number] [place] [address]- 2163 15 Mar, 2011 [facility] [place] [facility] [address] [id number] [place] [address] 2546 06 Mar, 2011 [facility] [address] [id number] [place] [address]- 4699 Feb, [facility] [place] [facility] [address] [id number] [place] [address]- 1668 Feb, [facility] [address] [id number] [place] [address]- 4259 Feb, [facility] [address] [id number] [place] [address]- 0201 Feb, [facility] [address] [id number] [place] [address]- 5621 Nov, [facility] [address] [id number] [place] [address]- 4411 14 Mar, 2010 [facility] [address] [id number] [place] [address]- 4258 Feb, [facility] [address] [id number] [place] [address]- 9623 18 Jan, 2010 [facility] [place] [facility] [address] [id number] [place] [address]- 7103 August, [facility] [address] [id number] [place] [address]- 1335 14 Mar, 2009 [facility] [place] [facility] [address] [id number] [place] [address]- 2518 04 Mar, 2009 [facility] [place] [facility] [address] [id number] [place] [address]- 8404 14 Jan, 2009 [facility] [place] [facility] [address] [id number] [place] [address]- 4991 Jan, [facility] [address] [facility] [id number] [id number] [address] Jan, [facility] [address] [facility] [id number] [place] [address] Jan, IMMUNIZATIONS No Known Immunizations SOCIAL HISTORY Never Assessed REASON FOR VISIT Refill request PLAN OF CARE VITAL SIGNS MEDICATIONS Medication Instructions Dosage Frequency Start Date End Date Duration Status Symbicort 160-4.5 mcg/act INHALE 2 PUFFS BY MOUTH EVERY MORNING AND EVERY EVENING 90 Active RESULTS No Results PROCEDURES No Known procedures INSTRUCTIONS MEDICATIONS ADMINISTERED No Known Medications MEDICAL (GENERAL) HISTORY Type Description Date Medical History Fx dislocation of left elbow 09/2014 Medical History Dislocation of left elbow, subsequent encounter Medical History COPD Surgical History c- section x 4 Surgical History left ear surgery 1971 Hospitalization History copd Hospitalization History collapsed right lung Hospitalization History Acute resp distress, COPD exacerbation-[facility] 01/08/17 Hospitalization History COPD exacerbation-[facility] 01/22/17 Hospitalization History [facility] [place]- SOB 09/09/2017
--- OUTSIDE RECORDS SUMMARY | 2018-03-04 03:06 | XMS REPORT ---
Author Author ANDRES KAUFFMAN Organization 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 524779208 Problem Chest pain, unspecified R07.9 Active 01382732 Problem Dislocation of left elbow, subsequent encounter V58.89 Active 061134137 Problem H/O benign neoplasm of colon Z86.018 Active 645059291 Problem H/O esophageal reflux Z87.19 Active 076377883 Problem Nicotine dependence, cigarettes, uncomplicated F17.210 Active 341193701 Problem Chronic obstructive pulmonary disease with (acute) exacerbation J44.1 Active 427663432 Problem Anxiety F41.9 Active 12694303 Problem Chronic obstructive pulmonary disease, unspecified COPD type J44.9 Active 60607225 Problem 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 [id number] [address] Dec, [facility] [id number] [address] Dec, [facility] [id number] [address] Nov, [facility] [id number] [address] Sep, Chronic obstructive pulmonary disease, unspecified COPD type J44.9 ; Financial problems Z59.8 and Nicotine dependence, cigarettes, uncomplicated F17.210 [place] [id number] [place] [address] August, Chronic obstructive pulmonary disease with (acute) exacerbation J44.1 ; Nicotine dependence, cigarettes, uncomplicated F17.210 and 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 [facility] [place] [id number] [place] [address] Jun, COPD exacerbation J44.1 [place] [address] [address] Mar, Flu-like symptoms R68.89 and Chronic obstructive pulmonary disease, unspecified COPD type J44.[address] [address] Jan, Pulmonary emphysema, unspecified emphysema type J43.[address] [id number] Jan, [address] [address] Jan, Encounter for immunization Z23 ; Chronic obstructive pulmonary disease, unspecified COPD type J44.9 ; Thrush B37.0 and Anxiety F41.9 [place] [place] [id number] [place] [id number] Dec, [place] [id number] [place] [address] Dec, [address] [address] Sep, Chronic obstructive pulmonary disease, unspecified COPD type J44.9 and Erysipelas A46 [facility] [address] [address] Sep, Irritant contact dermatitis due to other agents L24.89 [facility] [address] [address] Jun, Allergic dermatitis L23.9 and Bug bite, initial encounter W57.XXXA [address] [address] May, Shoulder impingement, right M75.[address] [address] 08 Mar, 2016 Impingement syndrome, shoulder, left M75.[address] [address] Feb, Left arm pain M79.[address] [address] Jan, [place] [address] [address] Jan, Left arm pain M79.602 and Acute pain of left shoulder M25.512 [facility] [address] [place] [address] Dec, Muscle spasm M62.838 and Cervicalgia M54.[address] [address] Oct, COPD (chronic obstructive pulmonary disease) J44.[address] [address] Sep, Chronic obstructive pulmonary disease, unspecified COPD type J44.[address] [address] Jun, COPD (chronic obstructive pulmonary disease) J44.9 [facility] [address] [place] [address] May, Chest pain R07.9 ; Epigastric burning sensation R10.13 and Gastritis K29.[address] [address] Mar, Screening, lipid Z13.220 [place] [address] [place] [id number] [place] [address] 07 Mar, 2015 Sebaceous cyst L72.3 [facility] [id number] [place] [address]- [address] 30 Feb, 2015 Encounter for screening for malignant neoplasm of cervix Z12.4 ; Well woman exam Z01.419 ; Depression F32.9 ; History of chest pain Z87.898 ; BMI 25.0-25.9,adult Z68.25 ; Dense breast tissue R92.2 ; Lipid screening Z13.220 and Vaginal lesion N89.8 [facility] [id number] [place] [address] 24 Feb, 2015 Encounter for immunization Z23 ; Breast cancer screening Z12.39 ; Left arm pain M79.602 ; Chronic obstructive pulmonary disease, unspecified COPD type J44.9 ; Gastroesophageal reflux disease, esophagitis presence not specified K21.9 and Lipid screening Z13.220 [facility] [id number] [place] [address]- [address] 14 Jul, 2014 [facility] [id number] [place] [address]- [address] Jul, [facility] [id number] [place] [address]- [address] 18 May, 2014 [facility] [id number] [place] [address]- [address] May, [facility] [id number] [place] [address]- [address] Mar, [facility] [id number] [place] [address]- [address] Mar, [facility] [id number] [place] [address] 896884- [address] Mar, [facility] [id number] [place] [address] 63[address]- [address] Mar, [facility] [address] [address] [place] [address] 17 Feb, 2014 [facility] [place] [facility] [address] [id number] [place] [address]- [address] 17 Feb, 2014 [facility] [place] [facility] [address] [id number] [place] [address]- [address]60 24 Jan, 2014 [facility] [place] [facility] [address] [id number] [place] [address]- [address] Jan, [facility] [place] [facility] [address] [id number] [place] [address]- [address] 23 Jan, 2014 [facility] [place] [facility] [address] [id number] [place] [address]- 3926 15 Jan, 2014 [facility] [place] [facility] [address] [id number] [place] [address]- 9073 15 Jan, 2014 [facility] [place] [facility] [address] [id number] [place] [address]- 2729 14 Jan, 2014 [facility] [place] [facility] [address] [id number] [place] [address]- 8395 14 Jan, 2014 [facility] [place] [facility] [address] [id number] [place] [address]- 4987 14 Jan, 2014 [facility] [place] [facility] [address] [id number] [place] [address]- [address] 14 Jan, 2014 [facility] [place] [facility] [address] [id number] [place] [address]- 5538 07 Jan, 2014 [facility] [place] [facility] [address] [id number] [place] [address]- 8848 07 Jan, 2014 [facility] [place] [facility] [address] [id number] [place] [address]- 1310 24 Dec, 2013 [facility] [place] [facility] [address] [id number] [place] [address]- 9408 24 Dec, 2013 [facility] [place] [facility] [address] [id number] [place] [address]- 4[address] Dec, [facility] [place] [facility] [address] [id number] [place] [address]- 9679 Dec, [facility] [place] [facility] [address] [id number] [place] [address]- 3592 Dec, [facility] [place] [facility] [address] [id number] [place] [address]- 5747 Dec, [facility] [place] [facility] [address] [id number] [place] [address]- 0853 Dec, [facility] [place] [facility] [address] [id number] [place] [address]- 4[address] Dec, [facility] [place] [facility] [address] [id number] [place] [address]- 6[address] August, [facility] [place] [facility] [address] [id number] [place] [address]- 0895 August, [facility] [place] [facility] [address] [id number] [place] [address]- 6153 Jun, [facility] [place] [facility] [address] [id number] [place] [address]- 2854 Jun, [facility] [place] [facility] [address] [id number] [place] [address]- 6830 Apr, [facility] [place] [facility] [address] [id number] [place] [address]- 6[address] Apr, [facility] [place] [facility] [address] [id number] [place] [address]- 6142 Apr, [facility] [place] [facility] [address] [id number] [place] [address]- 0923 Apr, [facility] [place] [facility] [address] [id number] [place] [address]- 4737 Apr, [facility] [place] [facility] [address] [id number] [place] [address]- 2003 Apr, [facility] [place] [facility] [address] [id number] [place] [address]- 3182 Jan, [facility] [address] [id number] [place] [address]- 7141 Jan, [facility] [place] [facility] [address] [id number] [place] [address] Jan, [facility] [place] [facility] [address] [id number] [place] [address]- 0934 Nov, [facility] [place] [facility] [address] [id number] [place] [address]- 5464 Oct, [facility] [place] [facility] [address] [id number] [place] [address]- 8588 Sep, [facility] [place] [facility] [address] [id number] [place] [address]- 5615 Sep, [facility] [place] [facility] [address] [id number] [place] [address]- 7096 Sep, [facility] [place] [facility] [address] [id number] [place] [address]- 9236 Sep, [facility] [place] [facility] [address] [id number] [place] [address]- 3712 Sep, [facility] [place] [facility] [address] [id number] [place] [address]- 3761 August, [facility] [place] [facility] [address] [id number] [place] [address]- 7237 Jul, [facility] [place] [facility] [address] [id number] [place] [address]- 6529 Jul, [facility] [place] [facility] [address] [id number] [place] [address]- 6470 May, [facility] [place] [facility] [address] [id number] [place] [address] Apr, [facility] [place] [facility] [address] [id number] [place] [address]- 4130 Mar, [facility] [place] [facility] [address] [id number] [place] [address]- 0606 Mar, [facility] [place] [facility] [address] [id number] [place] [address]- 5553 Feb, [facility] [place] [facility] [address] [id number] [place] [address]- 2546 Feb, [facility] [place] [facility] [address] [id number] [place] [address]- 8936 Feb, [facility] [place] [facility] [address] [id number] [place] [address]- 4242 Feb, [facility] [place] [facility] [address] [id number] [place] [address]- 3937 Jan, [facility] [place] [facility] [address] [id number] [place] [address]- 2381 Jan, [facility] [place] [facility] [address] [id number] [place] [address]- 4602 Jan, [facility] [place] [facility] [address] [id number] [place] [address]- 9520 Jan, [facility] [place] [facility] [address] [id number] [place] [address]- 6274 Dec, [facility] [place] [facility] [address] [id number] [place] [address]- 2691 Sep, [facility] [place] [facility] [address] [id number] [place] [address]- 3276 August, [facility] [place] [facility] [address] [id number] [place] [address]- 8196 August, [facility] [place] [facility] [address] [id number] [place] [address]- 7516 Jul, [facility] [place] [facility] [address] [id number] [place] [address]- 2546 Jun, [facility] [place] [facility] [address] [id number] [place] [address] 2546 Jun, [facility] [address] [id number] [place] [address]- 6167 May, [facility] [place] [facility] [address] [id number] [place] [address]- 5897 Mar, [facility] [place] [facility] [address] [id number] [place] [address]- 4907 Mar, [facility] [place] [facility] [address] [id number] [place] [address]- 4703 Mar, [facility] [place] [facility] [address] [id number] [place] [address]- 8110 Feb, [facility] [place] [facility] [address] [id number] [place] [address]- 6762 Feb, [facility] [place] [facility] [address] [id number] [place] [address]- 0281 Feb, [facility] [place] [facility] [address] [id number] [place] [address]- 5304 Feb, [facility] [place] [facility] [address] [id number] [place] [address]- 4398 Nov, [facility] [place] [facility] [address] [id number] [place] [address]- 5522 Mar, [facility] [place] [facility] [address] [id number] [address]- 7765 Feb, [facility] [place] [facility] [address] [id number] [place] [address]- 0326 Jan, [facility] [place] [facility] [address] [id number] [place] [address]- 0978 August, [facility] [place] [facility] [address] [id number] [place] [address]- 2976 Mar, [facility] [place] [facility] [address] [id number] [place] [address]- 9530 Mar, [facility] [place] [facility] [address] [facility] [id number] [address]- [address] 14 Jan, 2009 [facility] [address] [facility] [id number] [address]- [address] Jan, [facility] [address] [facility] [id number] [place] [address]- [address] Jan, [facility] [address] [facility] [id number] [place] [address]- [address] Jan, IMMUNIZATIONS No Known Immunizations SOCIAL HISTORY Never Assessed REASON FOR VISIT [facility] Follow up. Discuss referral to Dr Giang. [employer] QUAN PLAN OF CARE Activity Details Follow Up 6 Weeks Reason:smoking cessation VITAL SIGNS Height 65 in 2017-09-11 Weight 146 lbs 2017-09-11 Temperature 98.6 degrees Fahrenheit 2017-09-11 Heart Rate 86 bpm 2017-09-11 Respiratory Rate 24 2017-09-11 Oximetry on room air:92 % 2017-09-11 BMI 24.29 kg/m2 2017-09-11 Blood pressure systolic 110 mmHg 2017-09-11 Blood pressure diastolic 70 mmHg 2017-09-11 MEDICATIONS Medication Instructions Dosage Frequency Start Date End Date Duration Status BuPROPion HCl 100 mg Orally twice a day 1 tablet 12h August, 30 day(s) Active Ipratropium-Albuterol 0.5-2.5 (3) MG/3ML Inhalation every 6 hrs 3 ml 6h August, 30 days Active Umeclidinium [place] 62.5 MCG/INH Inhalation Once a day 1 puff 24h Not-Taking Mucinex Active Aspirin 81 MG Orally Once a day 1 tablet 24h Active Symbicort 160-4.5 INHALE 2 PUFFS BY MOUTH EVERY MORNING AND EVERY EVENING 90 Active Sulfamethoxazole 800-160 by oral route 2 times a day 1 tablet 12h Active Singulair 10 TAKE ONE TABLET BY MOUTH DAILY 90 Active Sertraline HCl 100 MG Orally Once a day TAKE ONE TABLET BY MOUTH DAILY 24h 30 Active PredniSONE 20 MG Orally 3 times a day 3 capsule 8h Active Ventolin HFA 108 (90 Base) MCG/ACT Inhalation every 4 hrs 2 puffs as needed 4h Sep, Active Albuterol Sulfate (2.5 MG/3ML) 0.083% Inhalation Three times a day 3 ml 8h Sep, Active RESULTS No Results PROCEDURES Procedure Date Ordered Result Body Site [facility] VISIT ESTABLISHED PATIENT September 11, 2017 INSTRUCTIONS MEDICATIONS ADMINISTERED No Known Medications MEDICAL (GENERAL) HISTORY Type Description Date Medical History Fx dislocation of left elbow 09/2014 Medical History Dislocation of left elbow, subsequent encounter Medical History COPD Surgical History c- section x 4 Surgical History left ear surgery 1971 Hospitalization History copd Hospitalization History collapsed right lung Hospitalization History Acute resp distress, COPD exacerbation-[facility] 01/08/17 Hospitalization History COPD exacerbation-[facility] 01/22/17 Hospitalization History [facility]- SOB 09/09/2017
--- OUTSIDE RECORDS SUMMARY | 2018-03-04 03:06 | XMS REPORT ---
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 412825082 Problem Chest pain, unspecified R07.9 Active 69541010 Problem Dislocation of left elbow, subsequent encounter V58.89 Active 686784371 Problem H/O benign neoplasm of colon Z86.018 Active 706570428 Problem H/O esophageal reflux Z87.19 Active 939683972 Problem Nicotine dependence, cigarettes, uncomplicated F17.210 Active 106022222 Problem Chronic obstructive pulmonary disease with (acute) exacerbation J44.1 Active 636952511 Problem Anxiety F41.9 Active 70356760 Problem Chronic obstructive pulmonary disease, unspecified COPD type J44.9 Active 57796046 Problem 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 Active 556210542313 Problem Pulmonary emphysema, unspecified emphysema type J43.9 Active 06748735 ALLERGIES Substance Reaction Event Type Date Status Codeine Sulfate Unknown Drug Allergy Sep, Active ENCOUNTERS Encounter Location Date Diagnosis [facility] [address] [id number], [place] [address] Dec, [facility] [address] [id number], [place] [address] Dec, [facility] [address] [id number], [place] [address] Nov, [facility] [address] [id number], [place] [address] Sep, Chronic obstructive pulmonary disease, unspecified COPD type J44.9 ; Financial problems Z59.8 and Nicotine dependence, cigarettes, uncomplicated F17.210 [place] [address] [id number] [place] [address] August, Chronic obstructive pulmonary disease with (acute) exacerbation J44.1 ; Nicotine dependence, cigarettes, uncomplicated F17.210 and 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 [facility] [place] [id number] [place] [address] Jun, COPD exacerbation J44.1 [place] [address] [address] Mar, Flu-like symptoms R68.89 and Chronic obstructive pulmonary disease, unspecified COPD type J44.[address] [address] Jan, Pulmonary emphysema, unspecified emphysema type J43.[address] [id number] Jan, [address] [address] Jan, Chronic obstructive pulmonary disease, unspecified COPD type J44.9 ; Encounter for immunization Z23 ; Thrush B37.0 and Anxiety F41.9 [address] [place] [id number] [place] [id number] Dec, [place] [id number] [place] [address] Dec, [address] [address] Sep, Chronic obstructive pulmonary disease, unspecified COPD type J44.9 and Erysipelas A46 [facility] [address] [address] Sep, Irritant contact dermatitis due to other agents L24.89 [facility] [address] [address] Jun, Allergic dermatitis L23.9 and Bug bite, initial encounter W57.XXXA [address] [address] May, Shoulder impingement, right M75.[address] [address] 08 Mar, 2016 Impingement syndrome, shoulder, left M75.[address] [address] Feb, Left arm pain M79.[address] [address] Jan, [place] [address] [address] Jan, Left arm pain M79.602 and Acute pain of left shoulder M25.512 [facility] [address] [place] [address] Dec, Muscle spasm M62.838 and Cervicalgia M54.[address] [address] Oct, COPD (chronic obstructive pulmonary disease) J44.[address] [address] Sep, Chronic obstructive pulmonary disease, unspecified COPD type J44.[address] [address] Jun, COPD (chronic obstructive pulmonary disease) J44.9 [facility] [address] [place] [address] May, Chest pain R07.9 ; Epigastric burning sensation R10.13 and Gastritis K29.[address] [address] Mar, Screening, lipid Z13.220 [place] [id number] [place] [address] 07 Mar, 2015 Sebaceous cyst L72.3 [facility] [id number] [place] [address] 30 Feb, 2015 Encounter for screening for malignant neoplasm of cervix Z12.4 ; Well woman exam Z01.419 ; Depression F32.9 ; History of chest pain Z87.898 ; BMI 25.0-25.9,adult Z68.25 ; Dense breast tissue R92.2 ; Lipid screening Z13.220 and Vaginal lesion N89.8 [facility] [id number] [place] [address] 24 Feb, 2015 Breast cancer screening Z12.39 ; Encounter for immunization Z23 ; Left arm pain M79.602 ; Chronic obstructive pulmonary disease, unspecified COPD type J44.9 ; Gastroesophageal reflux disease, esophagitis presence not specified K21.9 and Lipid screening Z13.220 [facility] [id number] [place] [address] 14 Jul, 2014 [facility] [id number] [place] [address] Jul, [facility] [id number] [place] [address] 18 May, 2014 [facility] [id number] [place] [address] May, [facility] [id number] [place] [address]- [address] Mar, [facility] [id number] [place] [address] 0[address]193- 1878 Mar, [facility] [id number] [place] [address] 922096- [address] Mar, [facility] [id number] [place] [address] 912799- [address] Mar, [facility] [address] [id number] [place] [address] 17 Feb, 2014 [facility] [place] [facility] [address] [id number] [place] [address] 17 Feb, 2014 [facility] [place] [facility] [address] [id number] [place] [address]- [address] 24 Jan, 2014 [facility] [place] [facility] [address] [id number] [place] [address] Jan, [facility] [place] [facility] [address] [id number] [place] [address] 23 Jan, 2014 [facility] [place] [facility] [address] [id number] [place] [address]- [address] 15 Jan, 2014 [facility] [place] [facility] [address] [id number] [place] [address]- 8[address] 15 Jan, 2014 [facility] [place] [facility] [address] [id number] [place] [address]- [address] 14 Jan, 2014 [facility] [place] [facility] [address] [id number] [place] [address]- 1588 14 Jan, 2014 [facility] [place] [facility] [address] [id number] [place] [address]- 9942 14 Jan, 2014 [facility] [place] [facility] [address] [id number] [place] [address]- 8339 14 Jan, 2014 [facility] [place] [facility] [address] [id number] [place] [address]- 28[address] 07 Jan, 2014 [facility] [place] [facility] [address] [id number] [place] [address]- 9234 07 Jan, 2014 [facility] [place] [facility] [address] [id number] [place] [address]- 1896 24 Dec, 2013 [facility] [place] [facility] [address] [id number] [place] [address]- 8909 24 Dec, 2013 [facility] [place] [facility] [address] [id number] [place] [address]- 6396 Dec, [facility] [place] [facility] [address] [id number] [place] [address]- 3770 Dec, [facility] [place] [facility] [address] [id number] [place] [address]- 0566 Dec, [facility] [place] [facility] [address] [id number] [place] [address]- 0515 Dec, [facility] [place] [facility] [address] [id number] [place] [address]- 0463 Dec, [facility] [place] [facility] [address] [id number] [place] [address]- 4[address] Dec, [facility] [place] [facility] [address] [id number] [place] [address]- 4[address] August, [facility] [place] [facility] [address] [id number] [place] [address]- 6084 August, [facility] [place] [facility] [address] [id number] [place] [address]- 7787 Jun, [facility] [place] [facility] [address] [id number] [place] [address]- 8419 Jun, [facility] [place] [facility] [address] [id number] [place] [address]- 7564 Apr, [facility] [place] [facility] [address] [id number] [place] [address]- 118[address] Apr, [facility] [place] [facility] [address] [id number] [place] [address]- 6925 Apr, [facility] [place] [facility] [address] [id number] [place] [address]- 3653 Apr, [facility] [place] [facility] [address] [id number] [place] [address]- 0379 Apr, [facility] [place] [facility] [address] [id number] [place] [address]- 5530 Apr, [facility] [place] [facility] [address] [id number] [place] [address]- 0521 Jan, [facility] [address] [id number] [place] [address]- 5180 Jan, [facility] [place] [facility] [address] [id number] [place] [address] Jan, [facility] [place] [facility] [address] [id number] [place] [address]- 3187 Nov, [facility] [place] [facility] [address] [id number] [place] [address]- 3674 Oct, [facility] [place] [facility] [address] [id number] [place] [address]- 1293 Sep, [facility] [place] [facility] [address] [id number] [place] [address]- 4970 Sep, [facility] [place] [facility] [address] [id number] [place] [address]- 2219 Sep, [facility] [place] [facility] [address] [id number] [place] [address]- 2543 Sep, [facility] [place] [facility] [address] [id number] [place] [address]- 8299 Sep, [facility] [place] [facility] [address] [id number] [place] [address]- 4297 August, [facility] [place] [facility] [address] [id number] [place] [address]- 2399 Jul, [facility] [place] [facility] [address] [id number] [place] [address]- 9708 Jul, [facility] [place] [facility] [address] [id number] [place] [address]- 9184 May, [facility] [place] [facility] [address] [id number] [place] [address] Apr, [facility] [place] [facility] [address] [id number] [place] [address]- 3826 Mar, [facility] [place] [facility] [address] [id number] [place] [address]- 5446 Mar, [facility] [place] [facility] [address] [id number] [place] [address]- 6499 Feb, [facility] [place] [facility] [address] [id number] [place] [address]- 2546 Feb, [facility] [place] [facility] [address] [id number] [place] [address]- 2846 Feb, [facility] [place] [facility] [address] [id number] [place] [address]- 7772 Feb, [facility] [place] [facility] [address] [id number] [place] [address]- 6203 Jan, [facility] [place] [facility] [address] [id number] [place] [address]- 6195 Jan, [facility] [place] [facility] [address] [id number] [place] [address]- 1789 Jan, [facility] [place] [facility] [address] [id number] [place] [address]- 3901 Jan, [facility] [place] [facility] [address] [id number] [place] [address]- 5493 Dec, [facility] [place] [facility] [address] [id number] [place] [address]- 9892 Sep, [facility] [place] [facility] [address] [id number] [place] [address]- 7396 August, [facility] [place] [facility] [address] [id number] [place] [address]- 6766 August, [facility] [place] [facility] [address] [id number] [place] [address]- 7366 Jul, [facility] [place] [facility] [address] [id number] [place] [address]- 2546 Jun, [facility] [place] [facility] [address] [id number] [place] [address] 2546 Jun, [facility] [address] [id number] [place] [address]- 2158 May, [facility] [place] [facility] [address] [id number] [place] [address]- 9209 Mar, [facility] [place] [facility] [address] [id number] [place] [address]- 7039 Mar, [facility] [place] [facility] [address] [id number] [place] [address]- 1339 Mar, [facility] [place] [facility] [address] [id number] [place] [address]- 8882 Feb, [facility] [place] [facility] [address] [id number] [place] [address]- 1711 Feb, [facility] [place] [facility] [address] [id number] [place] [address]- 0719 Feb, [facility] [place] [facility] [address] [id number] [place] [address]- 8750 Feb, [facility] [place] [facility] [address] [id number] [place] [address]- 5499 Nov, [facility] [place] [facility] [address] [id number] [place] [address]- 1480 Mar, [facility] [place] [facility] [address] [id number], [place] [address]- [address] Feb, [facility] [place] [facility] [address] [id number], [place] [address]- 3635 Jan, [facility] [place] [facility] [address] [id number] [place] [address]- 7047 August, [facility] [place] [facility] [address] [id number] [place] [address]- 3803 Mar, [facility] [place] [facility] [address] [id number] [place] [address]- 5419 Mar, [facility] [place] [facility] [address] [facility] [id number] [place] [address]- [address] 14 Jan, 2009 [facility] [address] [facility] [id number] [address]- [address] 14 Jan, 2009 [facility] [address] [facility] [id number], [place] [address]- [address] 14 Jan, 2009 [facility] [address] [facility] [id number], [place] [address]- [address] Jan, IMMUNIZATIONS No Known Immunizations SOCIAL HISTORY Never Assessed REASON FOR VISIT COPD. PT states she can no longer afford her medications-Clif QUAN PLAN OF CARE Activity Details Follow Up 3 Months Reason:COPD VITAL SIGNS Height 65 in 2017-10-09 Weight 140.7 lbs 2017-10-09 Temperature 98.4 degrees Fahrenheit 2017-10-09 Heart Rate 90 bpm 2017-10-09 Respiratory Rate 20 2017-10-09 Oximetry on room air:96 % 2017-10-09 BMI 23.41 kg/m2 2017-10-09 Blood pressure systolic 104 mmHg 2017-10-09 Blood pressure diastolic 68 mmHg 2017-10-09 MEDICATIONS Medication Instructions Dosage Frequency Start Date End Date Duration Status Sertraline HCl 100 mg Orally Once a day TAKE ONE TABLET BY MOUTH DAILY 24h 90 days Active Ventolin HFA 108 (90 Base) MCG/ACT Inhalation every 4 hrs 2 puffs as needed 4h Sep, Active Symbicort 160-4.5 INHALE 2 PUFFS BY MOUTH EVERY MORNING AND EVERY EVENING 90 Active Albuterol Sulfate (2.5 MG/3ML) 0.083% Inhalation Three times a day 3 ml 8h Sep, Active Singulair 10 TAKE ONE TABLET BY MOUTH DAILY 90 Active Aspirin 81 MG Orally Once a day 1 tablet 24h Active Mucinex Active RESULTS No Results PROCEDURES Procedure Date Ordered Result Body Site [facility] VISIT ESTABLISHED PATIENT October 09, 2017 INSTRUCTIONS MEDICATIONS ADMINISTERED No Known Medications MEDICAL (GENERAL) HISTORY Type Description Date Medical History Fx dislocation of left elbow 09/2014 Medical History Dislocation of left elbow, subsequent encounter Medical History COPD Surgical History c- section x 4 Surgical History left ear surgery 1971 Hospitalization History copd Hospitalization History collapsed right lung Hospitalization History Acute resp distress, COPD exacerbation-[facility] 01/08/17 Hospitalization History COPD exacerbation-[facility] 01/22/17 Hospitalization History [facility] [place]- SOB 09/09/2017
--- OUTSIDE RECORDS SUMMARY | 2018-03-04 03:07 | XMS REPORT ---
Author Author ANDRES KAUFFMAN Organization [facility] Address [address] [place] [address] Care Team Providers Care Manugrapher Name Role Phone ANDRES KAUFFMAN Unavailable PROBLEMS Type Condition ICD9-CM Code RPU07-XP Code Onset Dates Condition Status SNOMED Code Problem H/O benign neoplasm of colon Z86.018 Active 404065609 Problem Counseling on substance use and abuse Z71.89 Active 853120686 Problem H/O esophageal reflux Z87.19 Active 990530230 Problem Dislocation of left elbow, subsequent encounter V58.89 Active 436433285 Problem COPD exacerbation J44.1 Active 967703956 Problem Pulmonary emphysema, unspecified emphysema type J43.9 Active 48460179 Problem Chest pain, unspecified R07.9 Active 97961940 Problem 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 255942043 Problem Anxiety F41.9 Active 61127096 Problem Chronic obstructive pulmonary disease, unspecified COPD type J44.9 Active 20973357 ALLERGIES Substance Reaction Event Type Date Status Codeine Sulfate Unknown Drug Allergy Jan, Active ENCOUNTERS Encounter Location Date Diagnosis [facility] [id number] [place] [address]- [address]398 Sep, [facility] [id number] [place] [address] -[address]26 Jun, COPD exacerbation J44.1 [facility] [id number] [place] [address] 9[address]92- 3205 Mar, Flu-like symptoms R68.89 and Chronic obstructive pulmonary disease, unspecified COPD type J44.9 [facility] [id number] [place] [address]46- 9405 Jan, Pulmonary emphysema, unspecified emphysema type J43.9 [facility] [id number] [place] [id number] Jan, [place] [address] [address] Jan, Chronic obstructive pulmonary disease, unspecified COPD type J44.9 ; Encounter for immunization Z23 ; Thrush B37.0 and Anxiety F41.9 [place] [id number] [place] [address] [id number] Dec, [place] [address] [address] Dec, [place] [address] [address]- [address] Sep, Chronic obstructive pulmonary disease, unspecified COPD type J44.9 and Erysipelas A46 [facility] [address] [place] [address]3294 Sep, Irritant contact dermatitis due to other agents L24.89 [facility] [place] [address] [address] Jun, Allergic dermatitis L23.9 and Bug bite, initial encounter W57.XXXA [place] [address] [address]- [address] 02 May, 2016 Shoulder impingement, right M75.41 [place] [address] [address]- 5481 08 Mar, 2016 Impingement syndrome, shoulder, left M75.42 [place] [address] [id number] [place] [address] 97171- 1225 07 Feb, 2016 Left arm pain M79.602 [place] [address] [address]- 5753 14 Jan, 2016 [place] [address] [id number] [place] [address] 27540- 8002 13 Jan, 2016 Left arm pain M79.602 and Acute pain of left shoulder M25.512 [facility] [id number] [place] [address] Dec, Muscle spasm M62.838 and Cervicalgia M54.2 [place] [address] 8[address]- 5381 Oct, COPD (chronic obstructive pulmonary disease) J44.9 [place] [address] 244[address]- 2216 Sep, Chronic obstructive pulmonary disease, unspecified COPD type J44.9 [place] [address] [address]- [address]147 Jun, COPD (chronic obstructive pulmonary disease) J44.9 [facility] [address] [address] May, Chest pain R07.9 ; Epigastric burning sensation R10.13 and Gastritis K29.70 [place] [address] [address]- [address] Mar, Screening, lipid Z13.[address] 248100- 1699 Mar, Sebaceous cyst L72.[address] 19884- 2285 Feb, Encounter for screening for malignant neoplasm of cervix Z12.4 ; Well woman exam Z01.419 ; Depression F32.9 ; History of chest pain Z87.898 ; BMI 25.0-25.9,adult Z68.25 ; Dense breast tissue R92.2 ; Lipid screening Z13.220 and Vaginal lesion N89.[address] [address]- [address]32 24 Feb, 2015 Breast cancer screening Z12.39 ; Encounter for immunization Z23 ; Left arm pain M79.602 ; Chronic obstructive pulmonary disease, unspecified COPD type J44.9 ; Gastroesophageal reflux disease, esophagitis presence not specified K21.9 and Lipid screening Z13.220 [facility] [place] [facility] [address] [id number] [place] [address] 8252 14 Jul, 2014 [facility] [place] [facility] [address] [id number] [place] [address] 0258 Jul, [facility] [place] [facility] [address] [id number] [place] [address]- 0531 May, [facility] [place] [facility] [address] [id number] [address] 76[address] May, [facility] [place] [facility] [address] [id number] [place] [address]- 4176 Mar, [facility] [place] [facility] [address] [id number] [address] 0522 Mar, [facility] [place] [facility] [address] [id number] [place] [address]- 3146 Mar, [facility] [place] [facility] [address] [id number] [place] [address] 1196 Mar, [facility] [place] [facility] [address] [id number] [place] [address]- 9524 Feb, [facility] [place] [facility] [address] [id number] [address] 8669 Feb, [facility] [place] [facility] [address] [id number] [place] [address]- 2602 24 Jan, 2014 [facility] [place] [facility] [address] [id number] [place] [address]- 9170 Jan, [facility] [place] [facility] [address] [id number] [place] [address]- 4447 Jan, [facility] [place] [facility] [address] [id number] [place] [address]- 3655 Jan, [facility] [place] [facility] [address] [id number] [place] [address]- 7225 Jan, [facility] [place] [facility] [address] [id number] [place] [address]- 8929 14 Jan, 2014 [facility] [place] [facility] [address] [id number] [place] [address]- 3313 14 Jan, 2014 [facility] [place] [facility] [address] [id number] [place] [address]- 3513 14 Jan, 2014 [facility] [place] [facility] [address] [id number] [place] [address]- 9177 14 Jan, 2014 [facility] [place] [facility] [address] [id number] [place] [address]- 5130 07 Jan, 2014 [facility] [place] [facility] [address] [id number] [place] [address]- 0020 07 Jan, 2014 [facility] [place] [facility] [address] [id number] [place] [address]- 4238 24 Dec, 2013 [facility] [place] [facility] [address] [id number] [place] [address]- 2324 24 Dec, 2013 [facility] [place] [facility] [address] [id number] [place] [address]- 7409 23 Dec, 2013 [facility] [place] [facility] [address] [id number] [place] [address]- 5172 23 Dec, 2013 [facility] [place] [facility] [address] [id number] [place] [address]- 4914 12 Dec, 2013 [facility] [place] [facility] [address] [id number] [place] [address]- 8139 Dec, [facility] [place] [facility] [address] [id number] [place] [address]- 2814 Dec, [facility] [place] [facility] [address] [id number] [place] [address]- 3846 Dec, [facility] [place] [facility] [address] [id number] [place] [address]- 4800 August, [facility] [place] [facility] [address] [id number] [place] [address]- 8532 August, [facility] [place] [facility] [address] [id number] [place] [address]- 1682 Jun, [facility] [place] [facility] [address] [id number] [place] [address]- 2057 Jun, [facility] [place] [facility] [address] [id number] [place] [address]- 2711 Apr, [facility] [place] [facility] [address] [id number] [place] [address]- 6264 Apr, [facility] [place] [facility] [address] [id number] [place] [address]- 4589 Apr, [facility] [place] [facility] [address] [id number] [place] [address]- 2687 Apr, [facility] [place] [facility] [address] [id number] [place] [address]- 5430 Apr, [facility] [place] [facility] [address] [id number] [place] [address]- 7088 Apr, [facility] [place] [facility] [address] [id number] [place] [address]- 4568 Jan, [facility] [place] [facility] [address] [id number] [place] [address]- 1249 Jan, [facility] [place] [facility] [address] [id number] [place] [address]- 8979 Jan, [facility] [place] [facility] [address] [id number] [place] [address]- 8101 Nov, [facility] [place] [facility] [address] [id number] [place] [address]- 8817 Oct, [facility] [place] [facility] [address] [id number] [place] [address]- 7162 Sep, [facility] [place] [facility] [address] [id number] [place] [address]- 5342 Sep, [facility] [place] [facility] [address] [id number] [place] [address]- 4343 Sep, [facility] [place] [facility] [address] [id number] [place] [address]- 0658 Sep, [facility] [place] [facility] [address] [id number] [place] [address]- 4752 Sep, [facility] [place] [facility] [address] [id number] [place] [address]- 0856 August, [facility] [place] [facility] [address] [id number] [place] [address]- 5730 Jul, [facility] [place] [facility] [address] [id number] [place] [address]- 0328 Jul, [facility] [place] [facility] [address] [id number] [place] [address]- 6523 May, [facility] [place] [facility] [address] [id number] [place] [address]- 4391 Apr, [facility] [place] [facility] [address] [id number] [place] [address]- 6017 Mar, [facility] [place] [facility] [address] [id number] [place] [address]- 9291 Mar, [facility] [place] [facility] [address] [id number] [place] [address]- 3717 Feb, [facility] [place] [facility] [address] [id number] [place] [address]- 5433 Feb, [facility] [place] [facility] [address] [id number] [place] [address]- 1288 Feb, [facility] [place] [facility] [address] [id number] [place] [address]65 Feb, [facility] [place] [facility] [address] [id number] [place] [address]- 5305 Jan, [facility] [place] [facility] [address] [id number] [place] [address]- 1653 Jan, [facility] [place] [facility] [address] [id number] [place] [address]- 2817 Jan, [facility] [address] [id number] [place] [address]- 1677 Jan, [facility] [place] [facility] [address] [id number] [place] [address]- 8656 Dec, [facility] [address] [id number] [place] [address]- 0122 Sep, [facility] [address] [id number] [place] [address]- 8442 August, [facility] [address] [id number] [place] [address]- 3365 August, [facility] [address] [id number] [place] [address]- 7462 Jul, [facility] [address] [id number] [place] [address]- 3786 Jun, [facility] [address] [id number] [place] [address]- 8200 Jun, [facility] [address] [id number] [place] [address]- 8679 May, [facility] [address] [id number] [place] [address]- 1168 Mar, [facility] [address] [id number] [place] [address]- 0866 Mar, [facility] [address] [id number] [place] [address]- 9694 Mar, [facility] [place] [facility] [address] [id number] [place] [address]- 9542 Feb, [facility] [place] [facility] [address] [id number] [place] [address] 2546 Feb, [facility] [address] [id number] [place] [address]- 5385 Feb, [facility] [address] [address]- 4268 Feb, [facility] [address] [address]- 8828 Nov, [facility] [address] [address] 14 Mar, 2010 [facility] [address] [facility] [id number] [place] [address]- 1903 Feb, [facility] [address] [facility] [id number] [place] [address]- 5859 Jan, [facility] [id number] [place] [address]- 4725 August, [facility] [address] [address]- 9935 Mar, [facility] [address] [address]- 2794 Mar, [facility] [address] [address]- 8413 Jan, [facility] [address] [address]- 5599 Jan, [facility] [address] [address]- 3533 Jan, [facility] [address] [address]- 1474 Jan, IMMUNIZATIONS No Known Immunizations SOCIAL HISTORY Never Assessed REASON FOR VISIT [facility] follow up--Denisse Juarez MA PLAN OF CARE Activity Details Follow Up 4 Weeks Reason:COPD VITAL SIGNS Height 65 in 2017-01-30 Weight 139.8 lbs 2017-01-30 Temperature 98.3 degrees Fahrenheit 2017-01-30 Heart Rate 86 bpm 2017-01-30 Respiratory Rate 22 2017-01-30 Oximetry 95 % 2017-01-30 BMI 23.26 kg/m2 2017-01-30 Blood pressure systolic 104 mmHg 2017-01-30 Blood pressure diastolic 74 mmHg 2017-01-30 MEDICATIONS Medication Instructions Dosage Frequency Start Date End Date Duration Status Sertraline HCl 100 MG Orally Once a day TAKE ONE TABLET BY MOUTH DAILY 24h 30 Active Aspirin 81 MG Orally Once a day 1 tablet 24h Active PredniSONE 10 mg Orally Once a day 5 tabs daily and decrease by 1 tab every other day. 24h 13 Jan, 2017 23 Jan, 2017 Active Albuterol Sulfate (2.5 MG/3ML) 0.083% Inhalation Three times a day 3 ml 8h Sep, Active Ventolin HFA 108 (90 Base) MCG/ACT Inhalation every 4 hrs 2 puffs as needed 4h Sep, Active Symbicort 160-4.5 INHALE TWO PUFFS BY MOUTH EVERY MORNING AND EVENING 30 Active Singulair 10 Orally at bedtime 1 tablet Active Umeclidinium [place] 62.5 MCG/INH Inhalation Once a day 1 puff 24h Active RESULTS No Results PROCEDURES Procedure Date Ordered Result Body Site MEASURE BLOOD OXYGEN LEVEL Jan 30, 2017 [facility] VISIT ESTABLISHED PATIENT Jan 30, 2017 INSTRUCTIONS MEDICATIONS ADMINISTERED No Known Medications MEDICAL (GENERAL) HISTORY Type Description Date Medical History Fx dislocation of left elbow 09/2014 Medical History Dislocation of left elbow, subsequent encounter Medical History COPD Surgical History c- section x 4 Surgical History left ear surgery 1971 Hospitalization History copd Hospitalization History collapsed right lung Hospitalization History Acute resp distress, COPD exacerbation-[facility] 01/08/17 Hospitalization History COPD exacerbation-[facility] 01/22/17
--- OUTSIDE RECORDS SUMMARY | 2018-03-04 03:07 | XMS REPORT ---
Author Author ANUEL CHUNG 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 412149239 Problem Chest pain, unspecified R07.9 Active 27014279 Problem Dislocation of left elbow, subsequent encounter V58.89 Active 493069054 Problem H/O benign neoplasm of colon Z86.018 Active 824163712 Problem H/O esophageal reflux Z87.19 Active 825294861 Problem Nicotine dependence, cigarettes, uncomplicated F17.210 Active 977901530 Problem Chronic obstructive pulmonary disease with (acute) exacerbation J44.1 Active 789313451 Problem Anxiety F41.9 Active 75076618 Problem Chronic obstructive pulmonary disease, unspecified COPD type J44.9 Active 77470258 Problem 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 Active 354006564736 Problem Pulmonary emphysema, unspecified emphysema type J43.9 Active 74142106 ALLERGIES Substance Reaction Event Type Date Status Codeine Sulfate Unknown Drug Allergy Jun, Active ENCOUNTERS Encounter Location Date Diagnosis [facility] [id number] [address] Sep, Chronic obstructive pulmonary disease, unspecified COPD type J44.9 ; Financial problems Z59.8 and Nicotine dependence, cigarettes, uncomplicated F17.210 [facility] [id number] [address] August, Chronic obstructive pulmonary disease with (acute) exacerbation J44.1 ; Nicotine dependence, cigarettes, uncomplicated F17.210 and 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 [facility] [address] [place] [place] [id number] [place] [address] Jun, COPD exacerbation J44.1 [place] [address] [address] Mar, Flu-like symptoms R68.89 and Chronic obstructive pulmonary disease, unspecified COPD type J44.9 [place] [address] [id number] [place] [address] Jan, Pulmonary emphysema, unspecified emphysema type J43.9 [place] [address] [id number] Jan, [address] [address] Jan, Chronic obstructive pulmonary disease, unspecified COPD type J44.9 ; Encounter for immunization Z23 ; Thrush B37.0 and Anxiety F41.9 [place] [address] [id number] Dec, [place] [address] [id number] [place] [address] Dec, [address] [address] Sep, Chronic obstructive pulmonary disease, unspecified COPD type J44.9 and Erysipelas A46 [facility] [address] [place], [place] [id number] [place] [address] Sep, Irritant contact dermatitis due to other agents L24.89 [facility] [address] [place] [id number] [place] [address] Jun, Allergic dermatitis L23.9 and Bug bite, initial encounter W57.[place] [id number] [place] [address] May, Shoulder impingement, right M75.[address] [address] Mar, Impingement syndrome, shoulder, left M75.42 [facility] [id number] [place] [address]- [address]99 Feb, Left arm pain M79.602 [facility] [id number] [place] [address] 14 Jan, 2016 [place] [address] [address] Jan, Left arm pain M79.602 and Acute pain of left shoulder M25.512 [facility] [address] [address] Dec, Muscle spasm M62.838 and Cervicalgia M54.2 [place] [address] [address] Oct, COPD (chronic obstructive pulmonary disease) J44.9 [place] [address] [address] Sep, Chronic obstructive pulmonary disease, unspecified COPD type J44.9 [place] [address] [address] Jun, COPD (chronic obstructive pulmonary disease) J44.9 [facility] [id number] [place] [address] May, Chest pain R07.9 ; Epigastric burning sensation R10.13 and Gastritis K29.70 [place] [address] [place] [id number] [place] [address]- [address] Mar, Screening, lipid Z13.[address] [address] Mar, Sebaceous cyst L72.3 [place] [address] [id number] [place] [address] Feb, Encounter for screening for malignant neoplasm of cervix Z12.4 ; Well woman exam Z01.419 ; Depression F32.9 ; History of chest pain Z87.898 ; BMI 25.0-25.9,adult Z68.25 ; Dense breast tissue R92.2 ; Lipid screening Z13.220 and Vaginal lesion N89.8 [facility] [id number] [place] [address]- 7807 24 Feb, 2015 Breast cancer screening Z12.39 ; Encounter for immunization Z23 ; Left arm pain M79.602 ; Chronic obstructive pulmonary disease, unspecified COPD type J44.9 ; Gastroesophageal reflux disease, esophagitis presence not specified K21.9 and Lipid screening Z13.220 [facility] [id number] [place] [address]- [address] 14 Jul, 2014 [facility] [id number] [place] [address]79- [address] Jul, [facility] [id number] [place] [address]83- 7204 18 May, 2014 [facility] [id number] [place] [address]- 5597 May, [facility] [id number] [place] [address]83- [address] Mar, [facility] [id number] [place] [address]- [address] Mar, [facility] [id number] [place] [address]74- 08[address] Mar, [facility] [id number] [place] [address] 89916- 8[address] Mar, [facility] [id number] [place] [address]- 17[address] Feb, [facility] [id number] [place] [address] 6[address]65- 125[address] Feb, [facility] [id number] [place] [address] 90773- 2958 Jan, [facility] [address] [id number] [place] [address] 23 Jan, 2013 [facility] [place] [facility] [address] [id number] [place] [address] 23 Jan, 2014 [facility] [place] [facility] [address] [id number] [place] [address] 15 Jan, 2014 [facility] [place] [facility] [address] [id number] [place] [address]- 89[address] 15 Jan, 2014 [facility] [place] [facility] [address] [id number] [place] [address]- 7918 14 Jan, 2014 [facility] [place] [facility] [address] [id number] [place] [address]- 2482 14 Jan, 2014 [facility] [place] [facility] [address] [id number] [place] [address] 14 Jan, 2014 [facility] [place] [facility] [address] [id number] [place] [address]- 8200 14 Jan, 2013 [facility] [place] [facility] [address] [id number] [place] [address]- 9417 07 Jan, 2014 [facility] [place] [facility] [address] [id number] [place] [address]- 3796 07 Jan, 2014 [facility] [place] [facility] [address] [id number] [place] [address]- 2002 24 Dec, 2013 [facility] [place] [facility] [address] [id number] [place] [address]- 5283 24 Dec, 2013 [facility] [place] [facility] [address] [id number] [place] [address]- 3178 23 Dec, 2013 [facility] [place] [facility] [address] [id number] [place] [address]- 7853 23 Dec, 2013 [facility] [place] [facility] [address] [id number] [place] [address]- 2881 12 Dec, 2013 [facility] [place] [facility] [address] [id number] [place] [address]- 3607 Dec, [facility] [place] [facility] [address] [id number] [place] [address] 1994 Dec, [facility] [place] [facility] [address] [id number] [place] [address]- 7858 Dec, [facility] [place] [facility] [address] [id number] [place] [address]- 2969 August, [facility] [place] [facility] [address] [id number] [place] [address]- 0992 August, [facility] [place] [facility] [address] [id number] [place] [address]- 9415 Jun, [facility] [place] [facility] [address] [id number] [place] [address]- 7644 Jun, [facility] [place] [facility] [address] [id number] [place] [address]- 7829 Apr, [facility] [place] [facility] [address] [id number] [place] [address]- 8860 Apr, [facility] [place] [facility] [address] [id number] [place] [address]- 1101 Apr, [facility] [place] [facility] [address] [id number] [place] [address]- 4481 Apr, [facility] [place] [facility] [address] [id number] [place] [address]- 0481 Apr, [facility] [place] [facility] [address] [id number] [address]- 65[address] Apr, [facility] [place] [facility] [address] [id number] [place] [address]- 6890 Jan, [facility] [place] [facility] [address] [id number] [place] [address]- 3215 Jan, [facility] [place] [facility] [address] [id number] [place] [address]- 7878 Jan, [facility] [place] [facility] [address] [id number] [place] [address]- 8665 Nov, [facility] [address] [id number] [place] [address]- 2504 Oct, [facility] [place] [facility] [address] [id number] [place] [address]- 2834 Sep, [facility] [address] [id number] [place] [address]- 1297 Sep, [facility] [place] [facility] [address] [id number] [place] [address]- 7264 Sep, [facility] [address] [id number] [place] [address]- 5798 Sep, [facility] [address] [id number] [place] [address]- 3125 Sep, [facility] [address] [id number] [place] [address]- 0205 August, [facility] [address] [id number] [place] [address]- 8807 Jul, [facility] [address] [id number] [place] [address]- 5977 Jul, [facility] [address] [id number] [place] [address]- 7160 May, [facility] [address] [id number] [place] [address]- 3605 Apr, [facility] [place] [facility] [address] [id number] [place] [address]- 8270 Mar, [facility] [place] [facility] [address] [id number] [place] [address]- 6804 Mar, [facility] [place] [facility] [address] [id number] [place] [address]- 7305 Feb, [facility] [address] [id number] [place] [address]- 0178 Feb, [facility] [place] [facility] [address] [id number] [place] [address]- 6635 Feb, [facility] [place] [facility] [address] [id number] [place] [address]- 0841 Feb, [facility] [place] [facility] [address] [id number] [place] [address]- 6305 Jan, [facility] [place] [facility] [address] [id number] [place] [address], [place] [address]- 7162 Jan, [facility] [place] [facility] [address] [id number] [place] [address]- 0358 Jan, [facility] [place] [facility] [address] [id number] [place] [address], [place] [address]- 3359 Jan, [facility] [place] [facility] [address] [id number] [place] [address]- 9591 Dec, [facility] [place] [facility] [address] [id number] [place] [address]- 4978 Sep, [facility] [place] [facility] [address] [id number] [place] [address]- 7785 August, [facility] [place] [facility] [address] [id number] [place] [address]- 8697 August, [facility] [place] [facility] [address] [id number] [place] [address]- 8816 Jul, [facility] [place] [facility] [address] [id number] [place] [address]- 7137 Jun, [facility] [place] [facility] [address] [id number] [place] [address]- 0262 Jun, [facility] [place] [facility] [address] [id number] [place] [address]- 0221 May, [facility] [place] [facility] [address] [id number] [place] [address]- 4006 Mar, [facility] [place] [facility] [address] [id number] [address]- 5736 15 Mar, 2011 [facility] [place] [facility] [address] [id number] [place] [address]- 8616 06 Mar, 2011 [facility] [place] [facility] [address] [id number] [place] [address]- 0321 Feb, [facility] [place] [facility] [address] [id number] [place] [address]- 6544 Feb, [facility] [place] [facility] [address] [id number] [place] [address]- 9380 Feb, [facility] [place] [facility] [address] [id number] [place] [address]- 9286 Feb, [facility] [place] [facility] [address] [id number] [place] [address]- 2939 Nov, [facility] [place] [facility] [address] [id number] [place] [address]- 9324 14 Mar, 2010 [facility] [place] [facility] [address] [id number] [place] [address]- 1298 Feb, [facility] [place] [facility] [address] [id number] [place] [address]- 9003 18 Jan, 2010 [facility] [place] [facility] [address] [id number] [place] [address]- 9104 August, [facility] [place] [facility] [address] [id number] [place] [address]- 5350 14 Mar, 2009 [facility] [place] [facility] [address] [id number] [place] [address]- 9971 04 Mar, 2009 [facility] [place] [facility] [address] [id number] [place] [address]- 0207 14 Jan, 2009 [facility] [place] [facility] [address] [id number] [place] [address]- 8351 14 Jan, 2009 [facility] [place] [facility] [address] [id number] [place] [address]- 2743 14 Jan, 2009 [facility] [place] [facility] [address] [facility] [id number] [place] [address] Jan, IMMUNIZATIONS Vaccine Route Administration Date Status DEXAMETHASONE 4MG/ML (PER 1 MG) IM Intramuscular June 29, 2017 Administered DEPO MEDROL 40 MG/ML IM Intramuscular June 29, 2017 Administered SOCIAL HISTORY Never Assessed REASON FOR VISIT cough, SOB, fever. been sick for 2 days. [email or web address] PLAN OF CARE Activity Details Follow Up prn Reason: VITAL SIGNS Height 65 in 2017-06-29 Weight 147.4 lbs 2017-06-29 Temperature 98.6 degrees Fahrenheit 2017-06-29 Heart Rate 102 bpm 2017-06-29 Respiratory Rate 24 2017-06-29 Oximetry on room air:97 % 2017-06-29 BMI 24.53 kg/m2 2017-06-29 Blood pressure systolic 106 mmHg 2017-06-29 Blood pressure diastolic 74 mmHg 2017-06-29 MEDICATIONS Medication Instructions Dosage Frequency Start Date End Date Duration Status Azithromycin 250 MG Orally Once a day 2 tablets on the first day, then 1 tablet daily for 4 days 24h Jun, Jun, 5 day(s) Active Aspirin 81 MG Orally Once a day 1 tablet 24h Active Ventolin HFA 108 (90 Base) MCG/ACT Inhalation every 4 hrs 2 puffs as needed 4h Sep, Active Sertraline HCl 100 MG Orally Once a day TAKE ONE TABLET BY MOUTH DAILY 24h 30 Active Symbicort 160-4.5 INHALE 2 PUFFS BY MOUTH EVERY MORNING AND EVERY EVENING 90 Active Umeclidinium [place] 62.5 MCG/INH Inhalation Once a day 1 puff 24h Not-Taking Albuterol Sulfate (2.5 MG/3ML) 0.083% Inhalation Three times a day 3 ml 8h Sep, Active Singulair 10 TAKE ONE TABLET BY MOUTH DAILY 90 Active RESULTS No Results PROCEDURES Procedure Date Ordered Result Body Site [facility] VISIT ESTABLISHED PATIENT June 29, 2017 THER/PROPH/DIAG INJ, SC/IM June 29, 2017 DEPO MEDROL 40 MG/ML June 29, 2017 DEXAMETHASONE 4MG/ML (PER 1 MG) June 29, 2017 INSTRUCTIONS MEDICATIONS ADMINISTERED No Known Medications MEDICAL (GENERAL) HISTORY Type Description Date Medical History Fx dislocation of left elbow 09/2014 Medical History Dislocation of left elbow, subsequent encounter Medical History COPD Surgical History c- section x 4 Surgical History left ear surgery 1971 Hospitalization History copd Hospitalization History collapsed right lung Hospitalization History Acute resp distress, COPD exacerbation-[facility] 01/08/17 Hospitalization History COPD exacerbation-[facility] 01/22/17 Hospitalization History [facility] [place]- SOB 09/09/2017
--- OUTSIDE RECORDS SUMMARY | 2018-03-04 03:07 | XMS REPORT ---
Author Author DAVID TEERSA Organization [facility] Address [address] [place] [address] Care Team Providers Care Torpedo Specialist Name Role Phone DAVIDBETTE NIETOHANY Unavailable PROBLEMS Type Condition ICD9-CM Code IUT12-KP Code Onset Dates Condition Status SNOMED Code Problem H/O benign neoplasm of colon Z86.018 Active 370825904 Problem Counseling on substance use and abuse Z71.89 Active 523072806 Problem H/O esophageal reflux Z87.19 Active 877746747 Problem Dislocation of left elbow, subsequent encounter V58.89 Active 198545055 Problem COPD exacerbation J44.1 Active 292435192 Problem Pulmonary emphysema, unspecified emphysema type J43.9 Active 66032493 Problem Chest pain, unspecified R07.9 Active 24556362 Problem 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 357280254 Problem Anxiety F41.9 Active 50041214 Problem Chronic obstructive pulmonary disease, unspecified COPD type J44.9 Active 65427706 ALLERGIES No Information ENCOUNTERS Encounter Location Date Diagnosis [facility] [id number] [place] [address] Sep, [facility] [address] [place] [address] Jun, COPD exacerbation J44.1 [facility] [id number] [place] [address]- [address]407 Mar, Flu-like symptoms R68.89 and Chronic obstructive pulmonary disease, unspecified COPD type J44.9 [facility] [id number] [place] [address]- 4948 Jan, Pulmonary emphysema, unspecified emphysema type J43.9 [facility] [id number] [place] [id number] Jan, [place] [id number] [place] [address]3949- 6634 Jan, Chronic obstructive pulmonary disease, unspecified COPD type J44.9 ; Encounter for immunization Z23 ; Thrush B37.0 and Anxiety F41.9 [facility] [address] [id number] Dec, [address] [address] Dec, [address] [address] Sep, Chronic obstructive pulmonary disease, unspecified COPD type J44.9 and Erysipelas A46 [facility] [address] [address] Sep, Irritant contact dermatitis due to other agents L24.89 [facility] [address] [address] Jun, Allergic dermatitis L23.9 and Bug bite, initial encounter W57.XXXA [address] [address] May, Shoulder impingement, right M75.[address] [address]- [address] Mar, Impingement syndrome, shoulder, left M75.42 [place] [address] [address] Feb, Left arm pain M79.[address] [address]- [address] 14 Jan, 2016 [place] [address] [address] Jan, Left arm pain M79.602 and Acute pain of left shoulder M25.512 [facility] [address] [place] [address] Dec, Muscle spasm M62.838 and Cervicalgia M54.2 [place] [address] [address]- [address] Oct, COPD (chronic obstructive pulmonary disease) J44.9 [facility] [address] [address] Sep, Chronic obstructive pulmonary disease, unspecified COPD type J44.9 [facility] [address] [address]- [address] Jun, COPD (chronic obstructive pulmonary disease) J44.9 [facility] [address] [place] [address] May, Chest pain R07.9 ; Epigastric burning sensation R10.13 and Gastritis K29.[address] [address] Mar, Screening, lipid Z13.[address] [address]- [address] Mar, Sebaceous cyst L72.[address] [address]- [address] Feb, Encounter for screening for malignant neoplasm of cervix Z12.4 ; Well woman exam Z01.419 ; Depression F32.9 ; History of chest pain Z87.898 ; BMI 25.0-25.9,adult Z68.25 ; Dense breast tissue R92.2 ; Lipid screening Z13.220 and Vaginal lesion N89.[address] [address]- [address] 24 Feb, 2015 Breast cancer screening Z12.39 ; Encounter for immunization Z23 ; Left arm pain M79.602 ; Chronic obstructive pulmonary disease, unspecified COPD type J44.9 ; Gastroesophageal reflux disease, esophagitis presence not specified K21.9 and Lipid screening Z13.220 [place] [address] [place] [address] 14 Jul, 2014 [facility] [place] [facility] [address] [id number] [place] [address]- 2843 13 Jul, 2014 [facility] [place] [facility] [address] [id number] [place] [address]- 0658 18 May, 2014 [facility] [place] [facility] [address] [id number] [place] [address]- 6398 May, [facility] [place] [facility] [address] [id number] [place] [address]- 3190 Mar, [facility] [place] [facility] [address] [id number] [place] [address]- 6469 Mar, [facility] [place] [facility] [address] [id number] [place] [address]- 4911 Mar, [facility] [place] [facility] [address] [id number] [place] [address]- 0453 Mar, [facility] [place] [facility] [address] [id number] [place] [address]- 378[address] Feb, [facility] [place] [facility] [address] [id number] [place] [address]- 0921 Feb, [facility] [place] [facility] [address] [facility] [id number] [place] [address]- 9375 24 Jan, 2014 [facility] [place] [facility] [address] [id number] [place] [address]- 4103 Jan, [facility] [place] [facility] [address] [id number] [place] [address]- 6031 Jan, [facility] [place] [facility] [address] [id number] [place] [address]- 4211 15 Jan, 2014 [facility] [place] [facility] [address] [id number] [place] [address]- 0530 15 Jan, 2014 [facility] [place] [facility] [address] [id number] [place] [address]- 3341 14 Jan, 2014 [facility] [place] [facility] [address] [id number] [place] [address]- 1964 14 Jan, 2014 [facility] [place] [facility] [address] [id number] [place] [address]- 6490 14 Jan, 2014 [facility] [place] [facility] [address] [id number] [place] [address]- 0780 14 Jan, 2014 [facility] [place] [facility] [address] [id number] [place] [address]- 8319 Jan, [facility] [place] [facility] [address] [id number] [place] [address]- 4046 07 Jan, 2014 [facility] [place] [facility] [address] [id number] [place] [address]- [address]303 24 Dec, 2013 [facility] [place] [facility] [address] [id number] [place] [address]- 5417 24 Dec, 2013 [facility] [place] [facility] [address] [id number] [place] [address]- 6997 Dec, [facility] [place] [facility] [address] [id number] [place] [address]- 3445 Dec, [facility] [place] [facility] [address] [id number] [place] [address]- 5188 Dec, [facility] [place] [facility] [address] [id number], [place] [address] Dec, [facility] [place] [facility] [address] [id number], [place] [address] Dec, [facility] [place] [facility] [address] [id number] [place] [address]- 4319 Dec, [facility] [place] [facility] [address] [id number], [place] [address] August, [facility] [place] [facility] [address] [id number], [place] [address] August, [facility] [place] [facility] [address] [id number], [place] [address]154 Jun, [facility] [place] [facility] [address] [id number] [place] [address]- 1476 Jun, [facility] [place] [facility] [address] [id number] [place] [address]- 0410 Apr, [facility] [place] [facility] [address] [id number] [place] [address]- 2667 Apr, [facility] [place] [facility] [address] [id number] [place] [address]- 0725 Apr, [facility] [place] [facility] [address] [id number] [place] [address]- 0574 Apr, [facility] [place] [facility] [address] [id number] [place] [address]- 1412 Apr, [facility] [place] [facility] [address] [id number] [place] [address]- 9936 Apr, [facility] [place] [facility] [address] [id number] [place] [address]- 8364 Jan, [facility] [place] [facility] [address] [id number] [place] [address]- 8663 Jan, [facility] [place] [facility] [address] [id number] [place] [address]- 7796 Jan, [facility] [place] [facility] [address] [id number] [place] [address]- 2740 Nov, [facility] [place] [facility] [address] [id number] [place] [address]- 2146 Oct, [facility] [place] [facility] [address] [id number] [place] [address]- 5691 Sep, [facility] [place] [facility] [address] [id number] [place] [address]- 6931 Sep, [facility] [place] [facility] [address] [id number] [place] [address]- 7290 Sep, [facility] [place] [facility] [address] [id number] [place] [address]- 2838 Sep, [facility] [place] [facility] [address] [id number] [place] [address]- 3694 Sep, [facility] [place] [facility] [address] [id number] [place] [address]- 8576 August, [facility] [place] [facility] [address] [id number] [place] [address]- 8272 Jul, [facility] [place] [facility] [address] [id number] [place] [address]- 6785 Jul, [facility] [place] [facility] [address] [id number] [place] [address]- 1860 May, [facility] [place] [facility] [address] [id number] [place] [address]- 6191 Apr, [facility] [place] [facility] [address] [id number] [place] [address]- 4863 Mar, [facility] [place] [facility] [address] [id number] [place] [address]- 1810 Mar, [facility] [place] [facility] [address] [id number] [place] [address]- 7216 Feb, [facility] [place] [facility] [address] [id number] [place] [address]- 3293 Feb, [facility] [place] [facility] [address] [id number] [place] [address]- 6223 Feb, [facility] [place] [facility] [address] [id number] [place] [address]- 8279 Feb, [facility] [place] [facility] [address] [id number] [place] [address]- 4917 Jan, [facility] [place] [facility] [address] [id number] [place] [address]- 4456 Jan, [facility] [place] [facility] [address] [id number] [place] [address]- 0877 Jan, [facility] [address] [id number] [place] [address]- 6349 Jan, [facility] [place] [facility] [address] [id number] [place] [address]- 0474 Dec, [facility] [place] [facility] [address] [id number] [place] [address]- 9593 Sep, [facility] [place] [facility] [address] [id number] [place] [address]- 5257 August, [facility] [place] [facility] [address] [id number] [place] [address]- 0805 August, [facility] [place] [facility] [address] [id number] [place] [address]- 0498 Jul, [facility] [place] [facility] [address] [id number] [place] [address]- 1229 Jun, [facility] [place] [facility] [address] [id number] [place] [address]- 4973 Jun, [facility] [place] [facility] [address] [id number] [place] [address]- 8128 May, [facility] [place] [facility] [address] [facility] [id number] [place] [address]- 0770 Mar, [facility] [place] [facility] [address] [id number], [place] [address]- 3610 Mar, [facility] [place] [facility] [address] [id number], [place] [address]- 6900 Mar, [facility] [place] [facility] [address] [id number] [place] [address]- 5276 Feb, [facility] [place] [facility] [address] [facility] [id number] [place] [address]- 4209 Feb, [facility] [place] [facility] [address] [facility] [id number] [place] [address] 2546 Feb, [facility] [place] [facility] [address] [address] Feb, [facility] [address] [address] Nov, [facility] [address], [place] [address]- 8426 Mar, [facility] [address], [place] [address] 2546 Feb, [facility] [address], [place] [address] 2546 Jan, [facility] [address], [place] [address]- [address] August, [facility] [address] [place] [address]- 1186 Mar, [facility] [address] [place] [address]- [address] Mar, [facility] [address], [place] [address]- 3009 Jan, [facility] [address], [place] [address]- 6162 Jan, [facility] [address] [place] [address]- [address] Jan, [facility] [id number] [address]- [address] Jan, IMMUNIZATIONS No Known Immunizations SOCIAL HISTORY Never Assessed REASON FOR VISIT Hospital admit/DC PLAN OF CARE VITAL SIGNS MEDICATIONS Medication Instructions Dosage Frequency Start Date End Date Duration Status Sertraline HCl 100 MG Orally Once a day TAKE ONE TABLET BY MOUTH DAILY 24h 30 Active Singulair 10 Orally at bedtime 1 tablet Active Albuterol Sulfate (2.5 MG/3ML) 0.083% Inhalation Three times a day 3 ml 8h Sep, Active Aspirin 81 MG Orally Once a day 1 tablet 24h Active Fluconazole 200 mg Orally today then 1 tab a day for 9 more days 2 tablets Jan, Jan, 10 day(s) Active Umeclidinium [place] 62.5 MCG/INH Inhalation Once a day 1 puff 24h Active PredniSONE 10 mg Orally Once a day 5 tabs daily and decrease by 1 tab every other day. 24h Jan, Jan, Active Guaifenesin 200 mg Orally 2 times a day 1 tablet 12h 04 Jan, 2017 Jan, 10 days Active Symbicort 160-4.5 INHALE TWO PUFFS BY MOUTH EVERY MORNING AND EVENING 30 Active Ventolin HFA 108 (90 Base) MCG/ACT Inhalation every 4 hrs 2 puffs as needed 4h Sep, Active RESULTS No Results PROCEDURES No Known [...] lung Hospitalization History Acute resp distress, COPD exacerbation-[facility] 01/08/17 Hospitalization History COPD exacerbation-[facility] 01/22/17
--- OUTSIDE RECORDS SUMMARY | 2018-03-04 03:07 | XMS REPORT ---
Author Author SALVATORE KAPOOR Organization [facility] Address [address] [place] [address] Care Team Providers Care Energy And Sustainability Manager Name Role Phone SALVATORE KAPOOR Unavailable PROBLEMS Type Condition ICD9-CM Code DKC15-AB Code Onset Dates Condition Status SNOMED Code Problem Chest pain, unspecified R07.9 Active 96678002 Problem Dislocation of left elbow, subsequent encounter V58.89 Active 526451811 Problem Anxiety F41.9 Active 94683251 Problem Chronic obstructive pulmonary disease, unspecified COPD type J44.9 Active 57389713 Problem H/O benign neoplasm of colon Z86.018 Active 672265340 Problem 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 093605770 Problem Counseling on substance use and abuse Z71.89 Active 100047224 Problem H/O esophageal reflux Z87.19 Active 656939854 ALLERGIES Substance Reaction Event Type Date Status Codeine Sulfate Unknown Drug Allergy Jun, Active SOCIAL HISTORY Never Assessed PLAN OF CARE Activity Details Follow Up prn Reason: VITAL SIGNS Height 65 in 2016-07-02 Weight 149.8 lbs 2016-07-02 Temperature 98.5 degrees Fahrenheit 2016-07-02 Heart Rate 80 bpm 2016-07-02 Respiratory Rate 20 2016-07-02 BMI 24.93 kg/m2 2016-07-02 Blood pressure systolic 128 mmHg 2016-07-02 Blood pressure diastolic 72 mmHg 2016-07-02 MEDICATIONS Medication Instructions Dosage Frequency Start Date End Date Duration Status Symbicort 160-4.5 INHALE TWO PUFFS BY MOUTH TWICE A DAY IN THE MORNING AND EVENING 12h 30 Active Zyrtec Allergy 10 mg Orally Once a day 1 tablet 24h Oct, Active Singulair 10 TAKE ONE TABLET BY MOUTH DAILY 30 Active PredniSONE 20 MG Orally Once a day 2 tablet 24h Jun, Jun, 5 days Active Aspirin 81 MG Orally Once a day 1 tablet 24h Active Ventolin HFA 108 (90 Base) MCG/ACT Inhalation every 4 hrs 2 puffs as needed 4h Sep, Active Sertraline HCl 50 TAKE ONE TABLET BY MOUTH DAILY 30 Active Albuterol Sulfate (2.5 MG/3ML) 0.083% Inhalation Three times a day 3 ml 8h Sep, Active Triamcinolone Acetonide 0.1 % Externally Twice a day 1 application to affected area 12h Jun, 5 days Active RESULTS No Results PROCEDURES Procedure Date Ordered Result Body Site [facility] VISIT ESTABLISHED PATIENT July 02, 2016 IMMUNIZATIONS No Known Immunizations MEDICAL (GENERAL) HISTORY Type Description Date Medical History Fx dislocation of left elbow 09/2014 Medical History Dislocation of left elbow, subsequent encounter Medical History COPD Surgical History c- section x 4 Surgical History left ear surgery 1971 Hospitalization History copd Hospitalization History collapsed right lung Hospitalization History Acute resp distress, COPD exacerbation-[facility] 01/08/17
--- OUTSIDE RECORDS SUMMARY | 2018-03-04 03:08 | XMS REPORT ---
Author Author ANDRES KAUFFMAN Organization [facility] Address [address] [place] [address] Care Team Providers Care Labeling Specialist Name Role Phone ANDRES KAUFFMAN Unavailable PROBLEMS Type Condition ICD9-CM Code EJU03-YD Code Onset Dates Condition Status SNOMED Code Problem H/O benign neoplasm of colon Z86.018 Active 533578524 Problem Counseling on substance use and abuse Z71.89 Active 682127074 Problem H/O esophageal reflux Z87.19 Active 330015732 Problem Dislocation of left elbow, subsequent encounter V58.89 Active 033280406 Problem COPD exacerbation J44.1 Active 579353953 Problem Pulmonary emphysema, unspecified emphysema type J43.9 Active 13503124 Problem Chest pain, unspecified R07.9 Active 86993383 Problem 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 800449051 Problem Anxiety F41.9 Active 28600013 Problem Chronic obstructive pulmonary disease, unspecified COPD type J44.9 Active 93032630 ALLERGIES Substance Reaction Event Type Date Status Codeine Sulfate Unknown Drug Allergy Jan, Active ENCOUNTERS Encounter Location Date Diagnosis [facility] [address] [address] Jun, COPD exacerbation J44.1 [facility] [address] [place] [id number] [place] [address] Mar, Flu-like symptoms R68.89 and Chronic obstructive pulmonary disease, unspecified COPD type J44.9 [facility] [id number] [place] [address] Jan, Pulmonary emphysema, unspecified emphysema type J43.9 [facility] [id number] [id number] Jan, [facility] [address] [address] Jan, Chronic obstructive pulmonary disease, unspecified COPD type J44.9 ; Encounter for immunization Z23 ; Thrush B37.0 and Anxiety F41.9 [place] [address] [id number] Dec, [place] [address] [address] Dec, [place] [address] [address] Sep, Chronic obstructive pulmonary disease, unspecified COPD type J44.9 and Erysipelas A46 [facility] [address] [address] Sep, Irritant contact dermatitis due to other agents L24.89 [facility] [address] [address] Jun, Allergic dermatitis L23.9 and Bug bite, initial encounter W57.XXXA [address] [address] May, Shoulder impingement, right M75.[address] [address] Mar, Impingement syndrome, shoulder, left M75.42 [place] [address] [address] Feb, Left arm pain M79.602 [place] [address] [address] Jan, [address] [address] Jan, Left arm pain M79.602 and Acute pain of left shoulder M25.512 [facility] [address] [address] Dec, Muscle spasm M62.838 and Cervicalgia M54.2 [facility] [id number] [place] [address] Oct, COPD (chronic obstructive pulmonary disease) J44.9 [facility] [id number] [place] [address] Sep, Chronic obstructive pulmonary disease, unspecified COPD type J44.9 [place] [address] [address] Jun, COPD (chronic obstructive pulmonary disease) J44.9 [facility] [address] [address] May, Chest pain R07.9 ; Epigastric burning sensation R10.13 and Gastritis K29.[address] [address] Mar, Screening, lipid Z13.[address] [address] Mar, Sebaceous cyst L72.[address] [address] 30 Feb, 2015 Encounter for screening for malignant neoplasm of cervix Z12.4 ; Well woman exam Z01.419 ; Depression F32.9 ; History of chest pain Z87.898 ; BMI 25.0-25.9,adult Z68.25 ; Dense breast tissue R92.2 ; Lipid screening Z13.220 and Vaginal lesion N89.8 [place] [address] [id number] [place] [address] 24 Feb, 2015 Breast cancer screening Z12.39 ; Encounter for immunization Z23 ; Left arm pain M79.602 ; Chronic obstructive pulmonary disease, unspecified COPD type J44.9 ; Gastroesophageal reflux disease, esophagitis presence not specified K21.9 and Lipid screening Z13.220 [place] [address] [address] 14 Jul, 2014 [facility] [place] [facility] [address] [id number] [place] [address] Jul, [facility] [place] [facility] [address] [id number] [place] [address] May, [facility] [place] [facility] [address] [id number] [place] [address] May, [facility] [place] [facility] [address] [id number] [place] [address] Mar, [facility] [place] [facility] [address] [id number] [place] [address] Mar, [facility] [place] [facility] [address] [id number] [place] [address] Mar, [facility] [place] [facility] [address] [id number] [place] [address] Mar, [facility] [place] [facility] [address] [id number], [place] [address] Feb, [facility] [place] [facility] [address] [id number] [place] [address] Feb, [facility] [place] [facility] [address] [id number] [place] [address] 24 Jan, 2014 [facility] [place] [facility] [address] [id number], [place] [address] Jan, [facility] [place] [facility] [address] [id number], [place] [address] Jan, [facility] [place] [facility] [address] [id number] [place] [address] 15 Jan, 2014 [facility] [place] [facility] [address] [id number], [place] [address] 15 Jan, 2014 [facility] [place] [facility] [address] [id number], [place] [address] 14 Jan, 2014 [facility] [place] [facility] [address] [id number] [place] [address] 14 Jan, 2014 [facility] [place] [facility] [address] [id number] [place] [address] 14 Jan, 2014 [facility] [place] [facility] [address] [id number] [place] [address] 14 Jan, 2014 [facility] [place] [facility] [address] [id number] [place] [address] 07 Jan, 2014 [facility] [place] [facility] [address] [id number] [place] [address] 07 Jan, 2014 [facility] [place] [facility] [address] [id number] [place] [address] 24 Dec, 2013 [facility] [place] [facility] [address] [id number] [place] [address] 24 Dec, 2013 [facility] [place] [facility] [address] [id number] [place] [address]- [address] 23 Dec, 2013 [facility] [place] [facility] [address] [id number] [place] [address] 23 Dec, 2013 [facility] [place] [facility] [address] [id number] [place] [address] Dec, [facility] [place] [facility] [address] [id number] [place] [address] Dec, [facility] [place] [facility] [address] [id number] [place] [address] Dec, [facility] [place] [facility] [address] [id number] [place] [address] Dec, [facility] [place] [facility] [address] [id number] [place] [address]- [address] August, [facility] [place] [facility] [address] [id number] [place] [address] August, [facility] [place] [facility] [address] [id number] [place] [address] Jun, [facility] [place] [facility] [address] [id number] [place] [address] Jun, [facility] [place] [facility] [address] [id number] [place] [address]- [address] Apr, [facility] [place] [facility] [address] [id number] [place] [address]- [address] Apr, [facility] [place] [facility] [address] [id number] [place] [address]- [address] Apr, [facility] [place] [facility] [address] [id number] [place] [address]- 2[address] Apr, [facility] [place] [facility] [address] [id number] [place] [address]- [address] Apr, [facility] [place] [facility] [address] [id number] [place] [address] Apr, [facility] [place] [facility] [address] [id number] [place] [address] Jan, [facility] [place] [facility] [address] [id number] [place] [address] Jan, [facility] [place] [facility] [address] [id number] [place] [address]- 5[address] Jan, [facility] [place] [facility] [address] [id number] [place] [address]- [address] Nov, [facility] [place] [facility] [address] [id number] [place] [address]- [address] Oct, [facility] [place] [facility] [address] [id number] [place] [address]- [address] Sep, [facility] [place] [facility] [address] [id number] [place] [address] Sep, [facility] [place] [facility] [address] [id number] [place] [address]- [address] Sep, [facility] [place] [facility] [address] [id number] [place] [address]- [address] Sep, [facility] [place] [facility] [address] [id number] [place] [address]- 1683 Sep, [facility] [place] [facility] [address] [id number] [place] [address]- 7607 August, [facility] [place] [facility] [address] [id number] [place] [address]- [address] Jul, [facility] [place] [facility] [address] [id number] [place] [address]- 8[address] Jul, [facility] [place] [facility] [address] [id number] [place] [address]- [address] May, [facility] [place] [facility] [address] [id number] [place] [address]- 29[address] Apr, [facility] [place] [facility] [address] [id number] [place] [address]- 7296 Mar, [facility] [place] [facility] [address] [id number] [place] [address]- 1488 Mar, [facility] [place] [facility] [address] [id number] [place] [address]- 9[address] Feb, [facility] [place] [facility] [address] [id number] [place] [address]- 3534 Feb, [facility] [place] [facility] [address] [id number], [place] [address] Feb, [facility] [place] [facility] [address] [id number], [place] [address] Feb, [facility] [place] [facility] [address] [id number] [place] [address]- 6[address] Jan, [facility] [place] [facility] [address] [id number] [place] [address] 40[address] Jan, [facility] [place] [facility] [address] [id number] [place] [address] Jan, [facility] [place] [facility] [address] [id number] [place] [address]- 0047 Jan, [facility] [address] [id number] [place] [address]- [address] Dec, [facility] [place] [facility] [address] [id number] [place] [address]- 96[address] Sep, [facility] [address] [id number] [place] [address]- 45[address] August, [facility] [address] [id number] [place] [address]- 77[address] August, [facility] [address] [id number] [place] [address]- 4[address] Jul, [facility] [address] [id number] [place] [address]- 8451 Jun, [facility] [address] [id number] [place] [address]- 8557 Jun, [facility] [address] [id number] [place] [address]- [address] May, [facility] [address] [id number] [place] [address]- [address] Mar, [facility] [address] [id number] [place] [address] Mar, [facility] [address] [id number] [place] [address]- 1878 Mar, [facility] [address] [id number] [place] [address]- 57[address] Feb, [facility] [place] [facility] [address] [id number] [place] [address]- 2849 Feb, [facility] [place] [facility] [address] [id number] [place] [address]- 25[address] Feb, [facility] [address] [id number] [place] [address]- 2687 Feb, [facility] [address] [address] Nov, [facility] [address] [address] Mar, [facility] [address] Feb, [facility] [id number] Jan, [facility] [address] [address] August, [facility] [id number] [place] [address] Mar, [facility] [id number] Mar, [facility] [address] [address] Jan, [facility] [address] [address]- [address] Jan, [facility] [address] [address] Jan, [facility] [address], [place] [address]- 14[address] Jan, IMMUNIZATIONS Vaccine Route Administration Date Status FLUARIX QUAD (3 AND UP) 2017 IM Intramuscular Jan 16, 2017 Administered SOCIAL HISTORY Never Assessed REASON FOR VISIT [facility] follow up, unable to catch her breath-Clif QUAN PLAN OF CARE Activity Details Follow Up 1 Week Reason:COPD VITAL SIGNS Height 65 in 2017-01-16 Weight 142.3 lbs 2017-01-16 Temperature 98.6 degrees Fahrenheit 2017-01-16 Heart Rate 110 bpm 2017-01-16 Respiratory Rate 22 2017-01-16 Oximetry on room air:95 % 2017-01-16 BMI 23.68 kg/m2 2017-01-16 Blood pressure systolic 98 mmHg 2017-01-16 Blood pressure diastolic 70 mmHg 2017-01-16 MEDICATIONS Medication Instructions Dosage Frequency Start Date End Date Duration Status Ventolin HFA 108 (90 Base) MCG/ACT Inhalation every 4 hrs 2 puffs as needed 4h Sep, Active Albuterol Sulfate (2.5 MG/3ML) 0.083% Inhalation Three times a day 3 ml 8h Sep, Active Guaifenesin 200 mg Orally 2 times a day 1 tablet 12h Jan, Jan, 10 days Active PredniSONE 20 mg Orally Once a day 2 tabs x3 days, 1 tab x3 days, 1/2 tab x3 days 24h Dec, Jan, 9 days Active Aspirin 81 MG Orally Once a day 1 tablet 24h Active Symbicort 160-4.5 INHALE TWO PUFFS BY MOUTH EVERY MORNING AND EVENING 30 Active Fluconazole 200 mg Orally today then 1 tab a day for 9 more days 2 tablets Jan, Jan, 10 day(s) Active Sertraline HCl 100 MG Orally Once a day TAKE ONE TABLET BY MOUTH DAILY 24h 30 Active Singulair 10 TAKE ONE TABLET BY MOUTH DAILY 90 Active RESULTS No Results PROCEDURES Procedure Date Ordered Result Body Site MEASURE BLOOD OXYGEN LEVEL Jan 16, 2017 [facility] VISIT ESTABLISHED PATIENT Jan 16, 2017 FLUARIX QUAD (3 & UP)--2014Jan 16, 2017 SINGLE IMMUNIZATION ADMIN Jan 16, 2017 INSTRUCTIONS MEDICATIONS ADMINISTERED No Known Medications MEDICAL (GENERAL) HISTORY Type Description Date Medical History Fx dislocation of left elbow 09/2014 Medical History Dislocation of left elbow, subsequent encounter Medical History COPD Surgical History c- section x 4 Surgical History left ear surgery 1971 Hospitalization History copd Hospitalization History collapsed right lung Hospitalization History Acute resp distress, COPD exacerbation-[facility] 01/08/17 Hospitalization History COPD exacerbation-[facility] 01/22/17
--- OUTSIDE RECORDS SUMMARY | 2018-03-04 03:08 | XMS REPORT ---
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 174319096 Problem Chest pain, unspecified R07.9 Active 65189378 Problem Dislocation of left elbow, subsequent encounter V58.89 Active 110977848 Problem H/O benign neoplasm of colon Z86.018 Active 941829211 Problem H/O esophageal reflux Z87.19 Active 506326676 Problem Nicotine dependence, cigarettes, uncomplicated F17.210 Active 517298036 Problem Chronic obstructive pulmonary disease with (acute) exacerbation J44.1 Active 246601736 Problem Anxiety F41.9 Active 59639896 Problem Chronic obstructive pulmonary disease, unspecified COPD type J44.9 Active 58968030 Problem 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 Active 653229748118 Problem Pulmonary emphysema, unspecified emphysema type J43.9 Active 32868598 ALLERGIES Substance Reaction Event Type Date Status Codeine Sulfate Unknown Drug Allergy Mar, Active ENCOUNTERS Encounter Location Date Diagnosis [facility] [id number] [address] Sep, [facility] [id number] [address] August, Chronic obstructive pulmonary disease with (acute) exacerbation J44.1 ; Nicotine dependence, cigarettes, uncomplicated F17.210 and 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 [facility] [address] [facility] [id number] [address] Jun, COPD exacerbation J44.1 [facility] [id number] [place] [address] Mar, Flu-like symptoms R68.89 and Chronic obstructive pulmonary disease, unspecified COPD type J44.9 [id number] [place] [address] Jan, Pulmonary emphysema, unspecified emphysema type J43.[address] [id number] Jan, [address] [address] Jan, Encounter for immunization Z23 ; Chronic obstructive pulmonary disease, unspecified COPD type J44.9 ; Thrush B37.0 and Anxiety F41.[address] [id number] Dec, [address] [address] Dec, [address] [address] Sep, Chronic obstructive pulmonary disease, unspecified COPD type J44.9 and Erysipelas A46 [facility] [address] [address] Sep, Irritant contact dermatitis due to other agents L24.89 [facility] [address] [address] Jun, Allergic dermatitis L23.9 and Bug bite, initial encounter W57.XXXA [address] [address] May, Shoulder impingement, right M75.[address] [address] 08 Mar, 2016 Impingement syndrome, shoulder, left M75.[address] [address] Feb, Left arm pain M79.602 [id number] [place] [address] Jan, [address] [address] Jan, Left arm pain M79.602 and Acute pain of left shoulder M25.512 [facility] [address] [address] Dec, Muscle spasm M62.838 and Cervicalgia M54.[address] [address] Oct, COPD (chronic obstructive pulmonary disease) J44.[address] [address] Sep, Chronic obstructive pulmonary disease, unspecified COPD type J44.9 [address] [address] [address] Jun, COPD (chronic obstructive pulmonary disease) J44.9 [facility] [address] [address] May, Chest pain R07.9 ; Epigastric burning sensation R10.13 and Gastritis K29.[address] [address] Mar, Screening, lipid Z13.[address] [address] Mar, Sebaceous cyst L72.[address] [address] Feb, Encounter for screening for malignant neoplasm of cervix Z12.4 ; Well woman exam Z01.419 ; Depression F32.9 ; History of chest pain Z87.898 ; BMI 25.0-25.9,adult Z68.25 ; Dense breast tissue R92.2 ; Lipid screening Z13.220 and Vaginal lesion N89.8 [facility] [address] [address] Feb, Encounter for immunization Z23 ; Breast cancer screening Z12.39 ; Left arm pain M79.602 ; Chronic obstructive pulmonary disease, unspecified COPD type J44.9 ; Gastroesophageal reflux disease, esophagitis presence not specified K21.9 and Lipid screening Z13.220 [facility] [id number] [place] [address] 14 Jul, 2014 [facility] [id number] [place] [address] Jul, [facility] [id number] [place] [address] May, [facility] [id number] [place] [address]- [address] May, [facility] [id number] [place] [address]- [address] Mar, [facility] [id number] [place] [address] Mar, [facility] [id number] [place] [address] Mar, [facility] [address] [address] Mar, [facility] [address] [address] Feb, [facility] [address] [address] Feb, [facility] [id number] [place] [address] Jan, [facility] [address] [address] Jan, [facility] [id number] [place] [address], [place] [address] 23 Jan, 2013 [facility] [place] [facility] [address] [id number] [place] [address] 15 Jan, 2014 [facility] [place] [facility] [address] [id number] [place] [address] 15 Jan, 2013 [facility] [place] [facility] [address] [id number] [place] [address] 14 Jan, 2013 [facility] [place] [facility] [address] [id number] [place] [address] 14 Jan, 2013 [facility] [place] [facility] [address] [id number] [place] [address] 14 Jan, 2014 [facility] [place] [facility] [address] [id number] [place] [address] 14 Jan, 2013 [facility] [place] [facility] [address] [id number] [place] [address] 07 Jan, 2013 [facility] [place] [facility] [address] [id number] [place] [address] 07 Jan, 2014 [facility] [place] [facility] [address] [id number] [place] [address] 24 Dec, 2013 [facility] [place] [facility] [address] [id number] [place] [address] 24 Sep, 2013 [facility] [place] [facility] [address] [id number] [place] [address]- 14[address] 23 Dec, 2013 [facility] [place] [facility] [address] [id number] [place] [address]- [address] 23 Sep, 2013 [facility] [place] [facility] [address] [id number] [place] [address]- [address]647 12 Dec, 2013 [facility] [place] [facility] [address] [id number] [place] [address] 12 Dec, 2013 [facility] [place] [facility] [address] [id number] [place] [address]- 3[address] 09 Sep, 2013 [facility] [place] [facility] [address] [id number] [place] [address] 7[address] Dec, [facility] [place] [facility] [address] [id number] [place] [address] August, [facility] [place] [facility] [address] [id number] [place] [address] 12[address] August, [facility] [place] [facility] [address] [id number] [place] [address]- [address] Jun, [facility] [place] [facility] [address] [id number] [place] [address] 8[address] Jun, [facility] [place] [facility] [address] [id number] [place] [address] Apr, [facility] [place] [facility] [address] [id number] [place] [address]- 79[address] Apr, [facility] [place] [facility] [address] [id number] [place] [address]- 28[address] Apr, [facility] [place] [facility] [address] [id number] [place] [address]- 77[address] Apr, [facility] [place] [facility] [address] [id number] [place] [address]- 3[address] Apr, [facility] [place] [facility] [address] [id number] [place] [address]- 277[address] Apr, [facility] [place] [facility] [address] [id number] [place] [address]- 2[address] Jan, [facility] [place] [facility] [address] [id number] [place] [address]- 1090 Jan, [facility] [place] [facility] [address] [id number] [place] [address]- 75[address] Jan, [facility] [place] [facility] [address] [id number] [place] [address] Nov, [facility] [place] [facility] [address] [id number] [place] [address]- 14[address] Oct, [facility] [place] [facility] [address] [id number] [place] [address]- 3[address] Sep, [facility] [place] [facility] [address] [id number] [place] [address]- 68[address] Sep, [facility] [place] [facility] [address] [id number] [place] [address]- 8[address] Sep, [facility] [place] [facility] [address] [id number] [place] [address]- 75[address] Sep, [facility] [place] [facility] [address] [id number] [place] [address]- 9814 Sep, [facility] [place] [facility] [address] [id number] [place] [address]- 15[address] August, [facility] [place] [facility] [address] [id number] [place] [address]- 1493 Jul, [facility] [place] [facility] [address] [id number] [place] [address]- 2817 Jul, [facility] [place] [facility] [address] [id number] [place] [address]- 0[address] May, [facility] [place] [facility] [address] [id number] [place] [address]- 20[address] Apr, [facility] [place] [facility] [address] [id number] [place] [address]- 8[address] Mar, [facility] [place] [facility] [address] [id number] [place] [address]- 1409 Mar, [facility] [place] [facility] [address] [id number] [place] [address]- 1396 Feb, [facility] [place] [facility] [address] [id number] [place] [address]- 3372 Feb, [facility] [place] [facility] [address] [facility] [id number] [place] [address]- 95[address] Feb, [facility] [place] [facility] [address] [id number] [place] [address]- 5188 Feb, [facility] [address] [id number] [place] [address]- 2472 Jan, [facility] [address] [id number] [place] [address]- 6[address] Jan, [facility] [address] [id number] [place] [address]- 9996 Jan, [facility] [address] [id number] [place] [address]- 1456 Jan, [facility] [address] [id number] [place] [address], [place] [address]- [address] Dec, [facility] [address] [id number] [place] [address]- 8483 Sep, [facility] [address] [id number] [place] [address]- 7[address] August, [facility] [address] [id number] [place] [address]- 6068 August, [facility] [id number] [address] Jul, [facility] [address] [facility] [id number] [place] [address]- 96[address] Jun, [facility] [address] [id number] [place] [address]- 8956 Jun, [facility] [address] [id number] [place] [address]- 4[address] May, [facility] [place] [facility] [address] [id number] [place] [address]- 53[address] Mar, [facility] [place] [facility] [address] [facility] [id number] [place] [address]- 1756 Mar, [facility] [address] [facility] [id number] [place] [address]- 3006 Mar, [facility] [address] [id number] [place] [address]- 0756 Feb, [facility] [address] [id number] [place] [address]- 0605 Feb, [facility] [address] [facility] [id number] [place] [address]- 5359 Feb, [facility] [address] [id number] [place] [address]- 1819 Feb, [facility] [address] [id number] [place] [address] Nov, [facility] [address] [facility] [id number] [place] [address] Mar, [facility] [address] [facility] [id number] [place] [address]- 8952 Feb, [facility] [address] [facility] [id number] [address]- 7[address] Jan, [facility] [address] [facility] [id number] [place] [address] August, [facility] [address] [facility] [id number] [place] [address]- 86[address] Mar, [facility] [address] [facility] [id number] [place] [address]- 49[address] Mar, [facility] [address] [facility] [id number] [place] [address]- [address] 14 Jan, 2009 [facility] [address] [facility] [id number] [place] [address] 14 Jan, 2009 [facility] [address] [facility] [id number] [place] [address] 14 Jan, 2009 [facility] [address] [facility] [id number] [place] [address] Jan, IMMUNIZATIONS No Known Immunizations SOCIAL HISTORY Never Assessed REASON FOR VISIT Pain (acute), PT has been around multiple people who are sick and she comes intoday with body aches and weakness-Clif QUAN PLAN OF CARE Activity Details Follow Up 3 Months Reason: VITAL SIGNS Height 65 in 2017-04-11 Weight 135.0 lbs 2017-04-11 Temperature 98.8 degrees Fahrenheit 2017-04-11 Heart Rate 112 bpm 2017-04-11 Respiratory Rate 20 2017-04-11 Oximetry on room air:96 % 2017-04-11 BMI 22.46 kg/m2 2017-04-11 Blood pressure systolic 102 mmHg 2017-04-11 Blood pressure diastolic 68 mmHg 2017-04-11 MEDICATIONS Medication Instructions Dosage Frequency Start Date End Date Duration Status Umeclidinium [place] 62.5 MCG/INH Inhalation Once a day 1 puff 24h Not-Taking Albuterol Sulfate (2.5 MG/3ML) 0.083% Inhalation Three times a day 3 ml 8h Sep, Active Singulair 10 TAKE ONE TABLET BY MOUTH DAILY 90 Active Symbicort 160-4.5 INHALE 2 PUFFS BY MOUTH EVERY MORNING AND EVERY EVENING 30 Active Sertraline HCl 100 MG Orally Once a day TAKE ONE TABLET BY MOUTH DAILY 24h 30 Active Aspirin 81 MG Orally Once a day 1 tablet 24h Active Ventolin HFA 108 (90 Base) MCG/ACT Inhalation every 4 hrs 2 puffs as needed 4h Sep, Active RESULTS Name Result Date Reference Range INFLUENZA A & B (IN HOUSE) 2017-04-11 INFLUENZA A negative INFLUENZA B negative Control + Lot # [id number] Exp date 03/2018 PROCEDURES Procedure Date Ordered Result Body Site MEASURE BLOOD OXYGEN LEVEL Apr 11, 2017 [facility] VISIT ESTABLISHED PATIENT Apr 11, 2017 INFLUENZA ASSAY W/OPTIC Apr 11, 2017 INSTRUCTIONS MEDICATIONS ADMINISTERED No Known Medications MEDICAL (GENERAL) HISTORY Type Description Date Medical History Fx dislocation of left elbow 09/2014 Medical History Dislocation of left elbow, subsequent encounter Medical History COPD Surgical History c- section x 4 Surgical History left ear surgery 1971 Hospitalization History copd Hospitalization History collapsed right lung Hospitalization History Acute resp distress, COPD exacerbation-[facility] 01/08/17 Hospitalization History COPD exacerbation-[facility] 01/22/17 Hospitalization History [facility] [place]- SOB 09/09/2017
--- OUTSIDE RECORDS SUMMARY | 2018-03-04 03:09 | XMS REPORT ---
Author Author ANDRES KAUFFMAN Organization [facility] Address [address] [place] [address] Care Team Providers Care Psychologist Engineering Name Role Phone ANDRES KAUFFMAN Unavailable PROBLEMS Type Condition ICD9-CM Code EMS69-UX Code Onset Dates Condition Status SNOMED Code Problem H/O benign neoplasm of colon Z86.018 Active 771359666 Problem Counseling on substance use and abuse Z71.89 Active 769485471 Problem H/O esophageal reflux Z87.19 Active 546575988 Problem Dislocation of left elbow, subsequent encounter V58.89 Active 570564721 Problem COPD exacerbation J44.1 Active 741782673 Problem Pulmonary emphysema, unspecified emphysema type J43.9 Active 29569137 Problem Chest pain, unspecified R07.9 Active 04242041 Problem 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 650887039 Problem Anxiety F41.9 Active 48708200 Problem Chronic obstructive pulmonary disease, unspecified COPD type J44.9 Active 22828778 ALLERGIES Substance Reaction Event Type Date Status Codeine Sulfate Unknown Drug Allergy Sep, Active ENCOUNTERS Encounter Location Date Diagnosis [facility] [address] [address] Jun, COPD exacerbation J44.1 [facility] [address] [place] [id number] [place] [address] Mar, Flu-like symptoms R68.89 and Chronic obstructive pulmonary disease, unspecified COPD type J44.9 [facility] [id number] [place] [address] Jan, Pulmonary emphysema, unspecified emphysema type J43.9 [facility] [id number] [id number] Jan, [facility] [address] [address] Jan, Chronic obstructive pulmonary disease, unspecified COPD type J44.9 ; Encounter for immunization Z23 ; Thrush B37.0 and Anxiety F41.9 [place] [address] [id number] Dec, [place] [address] [address] Dec, [place] [address] [address] Sep, Chronic obstructive pulmonary disease, unspecified COPD type J44.9 and Erysipelas A46 [facility] [address] [address] Sep, Irritant contact dermatitis due to other agents L24.89 [facility] [address] [address] Jun, Allergic dermatitis L23.9 and Bug bite, initial encounter W57.XXXA [address] [address] May, Shoulder impingement, right M75.[address] [address] Mar, Impingement syndrome, shoulder, left M75.42 [place] [address] [address] Feb, Left arm pain M79.602 [place] [address] [address] Jan, [address] [address] Jan, Left arm pain M79.602 and Acute pain of left shoulder M25.512 [facility] [address] [address] Dec, Muscle spasm M62.838 and Cervicalgia M54.2 [facility] [address] [address] [id number] [place] [address] Oct, COPD (chronic obstructive pulmonary disease) J44.9 [facility] [address] [address] [id number] [place] [address] Sep, Chronic obstructive pulmonary disease, unspecified COPD type J44.9 [place] [address] [address] Jun, COPD (chronic obstructive pulmonary disease) J44.9 [facility] [address] [address] May, Chest pain R07.9 ; Epigastric burning sensation R10.13 and Gastritis K29.[address] [address] Mar, Screening, lipid Z13.[address] [address] Mar, Sebaceous cyst L72.[address] [address] 30 Feb, 2015 Encounter for screening for malignant neoplasm of cervix Z12.4 ; Well woman exam Z01.419 ; Depression F32.9 ; History of chest pain Z87.898 ; BMI 25.0-25.9,adult Z68.25 ; Dense breast tissue R92.2 ; Lipid screening Z13.220 and Vaginal lesion N89.8 [place] [address] [place] [id number] [place] [address] 24 Feb, 2015 Breast cancer screening Z12.39 ; Encounter for immunization Z23 ; Left arm pain M79.602 ; Chronic obstructive pulmonary disease, unspecified COPD type J44.9 ; Gastroesophageal reflux disease, esophagitis presence not specified K21.9 and Lipid screening Z13.220 [place] [address] [address] 14 Jul, 2014 [facility] [place] [facility] [address] [id number] [place] [address] Jul, [facility] [place] [facility] [address] [id number] [place] [address] May, [facility] [place] [facility] [address] [id number] [place] [address] May, [facility] [place] [facility] [address] [id number] [place] [address] Mar, [facility] [place] [facility] [address] [id number] [place] [address] Mar, [facility] [place] [facility] [address] [id number] [place] [address] Mar, [facility] [place] [facility] [address] [id number] [place] [address] Mar, [facility] [place] [facility] [address] [id number], [place] [address] Feb, [facility] [place] [facility] [address] [id number] [place] [address] Feb, [facility] [place] [facility] [address] [id number] [place] [address] 24 Jan, 2014 [facility] [place] [facility] [address] [id number], [place] [address] Jan, [facility] [place] [facility] [address] [id number], [place] [address] Jan, [facility] [place] [facility] [address] [id number] [place] [address] 15 Jan, 2014 [facility] [place] [facility] [address] [id number], [place] [address] 15 Jan, 2014 [facility] [place] [facility] [address] [id number], [place] [address] 14 Jan, 2014 [facility] [place] [facility] [address] [id number] [place] [address] 14 Jan, 2014 [facility] [place] [facility] [address] [id number] [place] [address]- [address] 14 Jan, 2014 [facility] [place] [facility] [address] [id number] [place] [address]- [address] 14 Jan, 2014 [facility] [place] [facility] [address] [id number] [place] [address] 07 Jan, 2014 [facility] [place] [facility] [address] [id number] [place] [address] 07 Jan, 2014 [facility] [place] [facility] [address] [id number] [place] [address] 24 Dec, 2013 [facility] [place] [facility] [address] [id number] [place] [address] 24 Dec, 2013 [facility] [place] [facility] [address] [id number] [place] [address]- [address] 23 Dec, 2013 [facility] [place] [facility] [address] [id number] [place] [address] 23 Dec, 2013 [facility] [place] [facility] [address] [id number] [place] [address] Dec, [facility] [place] [facility] [address] [id number] [place] [address] Dec, [facility] [place] [facility] [address] [id number] [place] [address] 9[address] Dec, [facility] [place] [facility] [address] [id number] [place] [address] Dec, [facility] [place] [facility] [address] [id number] [place] [address]- [address] August, [facility] [place] [facility] [address] [id number] [place] [address] August, [facility] [place] [facility] [address] [id number] [place] [address] Jun, [facility] [place] [facility] [address] [id number] [place] [address] Jun, [facility] [place] [facility] [address] [id number] [place] [address] Apr, [facility] [place] [facility] [address] [id number] [place] [address]- 5[address] Apr, [facility] [place] [facility] [address] [id number] [place] [address] 134[address] Apr, [facility] [place] [facility] [address] [id number] [place] [address]- 27[address] Apr, [facility] [place] [facility] [address] [id number] [place] [address]- 1473 Apr, [facility] [place] [facility] [address] [id number] [place] [address] 3247 Apr, [facility] [place] [facility] [address] [id number] [place] [address]- 4289 Jan, [facility] [place] [facility] [address] [id number] [place] [address] Jan, [facility] [place] [facility] [address] [id number] [place] [address] 9[address] Jan, [facility] [place] [facility] [address] [id number] [place] [address] Nov, [facility] [place] [facility] [address] [id number] [place] [address] Oct, [facility] [place] [facility] [address] [id number] [place] [address]- [address] Sep, [facility] [place] [facility] [address] [id number] [place] [address] Sep, [facility] [place] [facility] [address] [id number] [place] [address]- 2399 Sep, [facility] [place] [facility] [address] [id number] [place] [address] 5868 Sep, [facility] [place] [facility] [address] [id number] [place] [address]- 4365 Sep, [facility] [place] [facility] [address] [id number] [place] [address] 9892 August, [facility] [place] [facility] [address] [id number] [place] [address]- 9272 Jul, [facility] [place] [facility] [address] [id number] [place] [address]- 6961 Jul, [facility] [place] [facility] [address] [id number] [place] [address]- 9[address] May, [facility] [place] [facility] [address] [id number] [place] [address]- 9032 Apr, [facility] [place] [facility] [address] [id number] [place] [address]- 9918 Mar, [facility] [place] [facility] [address] [id number] [place] [address]- [address] Mar, [facility] [place] [facility] [address] [id number] [place] [address]- 2413 Feb, [facility] [place] [facility] [address] [id number] [place] [address]- 2712 Feb, [facility] [place] [facility] [address] [id number], [place] [address] Feb, [facility] [place] [facility] [address] [id number], [place] [address] Feb, [facility] [place] [facility] [address] [id number] [place] [address]- 0188 Jan, [facility] [place] [facility] [address] [id number] [place] [address]- [address] Jan, [facility] [place] [facility] [address] [id number] [place] [address] Jan, [facility] [place] [facility] [address] [id number] [place] [address]- 7354 Jan, [facility] [address] [id number] [place] [address]- 1568 Dec, [facility] [place] [facility] [address] [id number] [place] [address]- 1965 Sep, [facility] [address] [id number] [place] [address]- 9188 August, [facility] [address] [id number] [place] [address]- 4313 August, [facility] [address] [id number] [place] [address]- 6226 Jul, [facility] [address] [id number] [place] [address]- 2439 Jun, [facility] [address] [id number] [place] [address]- 9597 Jun, [facility] [address] [id number] [place] [address]- [address] May, [facility] [address] [id number] [place] [address]- 3887 Mar, [facility] [address] [id number] [place] [address] Mar, [facility] [address] [id number] [place] [address]- [address] Mar, [facility] [address] [id number] [place] [address]- 1485 Feb, [facility] [place] [facility] [address] [id number] [place] [address]- [address]805 Feb, [facility] [place] [facility] [address] [id number] [place] [address]- 2546 Feb, [facility] [address] [id number] [place] [address]- 3177 Feb, [facility] [address], [place] [address] Nov, [facility] [address] [address] Mar, [facility] [address], [place] [address]99 Feb, [facility] [id number] [place] [address]- [address] Jan, [facility] [address] [place] [address]- 8938 August, [facility] [id number] [place] [address]- 0873 Mar, [facility] [id number] [place] [address]- 7056 Mar, [facility] [id number] [place] [address]- 0[address] Jan, [facility] [address], [place] [address]- 5679 Jan, [facility] [address], [place] [address]- [address] Jan, [facility] [address] Jan, IMMUNIZATIONS No Known Immunizations SOCIAL HISTORY Never Assessed REASON FOR VISIT Rash (arm), was seen in walk-in x 1-2 weeks and took prednisone but it made her sick. Moe PLAN OF CARE Activity Details Follow Up prn Reason: VITAL SIGNS Height 65 in 2016-10-10 Weight 147.4 lbs 2016-10-10 Temperature 98.4 degrees Fahrenheit 2016-10-10 Heart Rate 96 bpm 2016-10-10 Respiratory Rate 20 2016-10-10 BMI 24.53 kg/m2 2016-10-10 Blood pressure systolic 108 mmHg 2016-10-10 Blood pressure diastolic 72 mmHg 2016-10-10 MEDICATIONS Medication Instructions Dosage Frequency Start Date End Date Duration Status Singulair 10 TAKE ONE TABLET BY MOUTH DAILY 30 Active Triamcinolone Acetonide 0.1 % Externally Twice a day 1 application to affected area 12h Jun, 5 days Active Claritin 10 mg Orally Once a day as needed for itching 1 tablet Sep, Oct, 30 day(s) Active Albuterol Sulfate (2.5 MG/3ML) 0.083% Inhalation Three times a day 3 ml 8h Sep, Active Amoxicillin 500 mg Orally every 12 hrs 2 tablet 12h Sep, Oct, 10 day(s) Active Zyrtec Allergy 10 mg Orally Once a day 1 tablet 24h Oct, Active Sertraline HCl 50 TAKE ONE TABLET BY MOUTH DAILY 30 Active Aspirin 81 MG Orally Once a day 1 tablet 24h Active Symbicort 160-4.5 INHALE TWO PUFFS BY MOUTH EVERY MORNING AND EVENING 30 Active Ventolin HFA 108 (90 Base) MCG/ACT Inhalation every 4 hrs 2 puffs as needed 4h Sep, Active RESULTS No Results PROCEDURES Procedure Date Ordered Result Body Site [facility] VISIT ESTABLISHED PATIENT October 10, 2016 INSTRUCTIONS MEDICATIONS ADMINISTERED No Known Medications MEDICAL (GENERAL) HISTORY Type Description Date Medical History Fx dislocation of left elbow 09/2014 Medical History Dislocation of left elbow, subsequent encounter Medical History COPD Surgical History c- section x 4 Surgical History left ear surgery 1971 Hospitalization History copd Hospitalization History collapsed right lung Hospitalization History Acute resp distress, COPD exacerbation-[facility] 01/08/17 Hospitalization History COPD exacerbation-[facility] 01/22/17
--- OUTSIDE RECORDS SUMMARY | 2018-03-04 03:09 | XMS REPORT ---
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 Name Role Phone KADEN LEARY Unavailable PROBLEMS Type Condition ICD9-CM Code OJW42-YW Code Onset Dates Condition Status SNOMED Code Problem H/O benign neoplasm of colon Z86.018 Active 154289040 Problem Counseling on substance use and abuse Z71.89 Active 703464847 Problem H/O esophageal reflux Z87.19 Active 814022446 Problem Dislocation of left elbow, subsequent encounter V58.89 Active 813501057 Problem COPD exacerbation J44.1 Active 748196171 Problem Pulmonary emphysema, unspecified emphysema type J43.9 Active 81305114 Problem Chest pain, unspecified R07.9 Active 80633188 Problem 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 775254925 Problem Anxiety F41.9 Active 97335641 Problem Chronic obstructive pulmonary disease, unspecified COPD type J44.9 Active 80673812 ALLERGIES No Information ENCOUNTERS Encounter Location Date Diagnosis [facility] [id number] [place] [address] Jun, COPD exacerbation J44.1 [facility] [id number] [place] [address] Mar, Flu-like symptoms R68.89 and Chronic obstructive pulmonary disease, unspecified COPD type J44.9 [facility] [address] [address] Jan, Pulmonary emphysema, unspecified emphysema type J43.9 [facility] [id number] [place] [id number] Jan, [facility] [address] [address] Jan, Encounter for immunization Z23 ; Chronic obstructive pulmonary disease, unspecified COPD type J44.9 ; Thrush B37.0 and Anxiety F41.9 [place] [address] [id number] Dec, [place] [address] [address] Dec, [place] [address] [address] Sep, Chronic obstructive pulmonary disease, unspecified COPD type J44.9 and Erysipelas A46 [facility] [address] [address] Sep, Irritant contact dermatitis due to other agents L24.89 [facility] [address] [address] Jun, Allergic dermatitis L23.9 and Bug bite, initial encounter W57.XXXA [place] [address] [address] May, Shoulder impingement, right M75.[address] [address] 08 Mar, 2016 Impingement syndrome, shoulder, left M75.42 [place] [address] [address] Feb, Left arm pain M79.602 [place] [address] [address] 14 Jan, 2016 [place] [address] [address] 13 Jan, 2016 Left arm pain M79.602 and Acute pain of left shoulder M25.512 [facility] [address] [address] 03 Dec, 2015 Muscle spasm M62.838 and Cervicalgia M54.2 [place] [id number] [place] [address] Oct, COPD (chronic obstructive pulmonary disease) J44.9 [facility] [address] [address] Sep, Chronic obstructive pulmonary disease, unspecified COPD type J44.9 [place] [address] [address] Jun, COPD (chronic obstructive pulmonary disease) J44.9 [facility] [address] [address] May, Chest pain R07.9 ; Epigastric burning sensation R10.13 and Gastritis K29.70 [place] [address] [address] Mar, Screening, lipid Z13.220 [place] [address] [address] Mar, Sebaceous cyst L72.3 [place] [address] [address] Feb, Encounter for screening for malignant neoplasm of cervix Z12.4 ; Well woman exam Z01.419 ; Depression F32.9 ; History of chest pain Z87.898 ; BMI 25.0-25.9,adult Z68.25 ; Dense breast tissue R92.2 ; Lipid screening Z13.220 and Vaginal lesion N89.8 [place] [id number] [place] [address]- 1662 Feb, Encounter for immunization Z23 ; Breast cancer screening Z12.39 ; Left arm pain M79.602 ; Chronic obstructive pulmonary disease, unspecified COPD type J44.9 ; Gastroesophageal reflux disease, esophagitis presence not specified K21.9 and Lipid screening Z13.220 [place] [address] [address]- [address] 14 Jul, 2014 [facility] [place] [facility] [address] [id number] [place] [address] Jul, [facility] [place] [facility] [address] [id number] [place] [address] 9125 May, [facility] [place] [facility] [address] [id number] [place] [address] 1647 May, [facility] [place] [facility] [address] [id number] [place] [address]- 9692 Mar, [facility] [place] [facility] [address] [id number] [place] [address]- 4684 Mar, [facility] [place] [facility] [address] [id number] [place] [address]- 2716 Mar, [facility] [place] [facility] [address] [id number] [place] [address]- 3734 Mar, [facility] [place] [facility] [address] [id number] [place] [address]- 9053 Feb, [facility] [place] [facility] [address] [id number] [place] [address]- 3144 Feb, [facility] [place] [facility] [address] [id number] [place] [address]- 3969 Jan, [facility] [place] [facility] [address] [id number] [place] [address]- 4639 Jan, [facility] [place] [facility] [address] [id number] [place] [address]- 3462 Jan, [facility] [place] [facility] [address] [id number] [place] [address]- 0292 15 Jan, 2014 [facility] [place] [facility] [address] [id number] [place] [address]- 5369 15 Jan, 2014 [facility] [place] [facility] [address] [id number] [place] [address]- 8612 14 Jan, 2014 [facility] [place] [facility] [address] [id number] [place] [address]- 2075 14 Jan, 2014 [facility] [place] [facility] [address] [id number] [place] [address]- 6705 14 Jan, 2014 [facility] [place] [facility] [address] [id number] [place] [address]- 8744 14 Jan, 2014 [facility] [place] [facility] [address] [id number] [place] [address]- 2169 Jan, [facility] [place] [facility] [address] [id number] [place] [address]- 1967 Jan, [facility] [place] [facility] [address] [id number] [place] [address]- 3189 24 Dec, 2013 [facility] [place] [facility] [address] [id number] [place] [address]- 9601 24 Dec, 2013 [facility] [place] [facility] [address] [id number] [place] [address]- 7484 Dec, [facility] [place] [facility] [address] [id number] [place] [address]- 1866 Dec, [facility] [place] [facility] [address] [id number] [place] [address]- 2365 Dec, [facility] [place] [facility] [address] [id number] [place] [address]- 5014 Dec, [facility] [place] [facility] [address] [id number] [place] [address]- 7407 Dec, [facility] [place] [facility] [address] [id number] [place] [address]- 1725 Dec, [facility] [place] [facility] [address] [id number] [place] [address]- 7096 August, [facility] [place] [facility] [address] [id number] [place] [address]- 8460 August, [facility] [place] [facility] [address] [id number] [place] [address]- 9852 Jun, [facility] [place] [facility] [address] [id number] [place] [address]- 5832 Jun, [facility] [address] [id number] [place] [address]- 2437 Apr, [facility] [place] [facility] [address] [id number] [place] [address]- 4589 Apr, [facility] [address] [id number] [place] [address]- 8242 Apr, [facility] [place] [facility] [address] [id number] [place] [address]- 1909 Apr, [facility] [address] [id number] [place] [address]- 8290 Apr, [facility] [place] [facility] [address] [id number] [place] [address]- 3596 Apr, [facility] [address] [id number] [place] [address]- 8788 Jan, [facility] [address] [id number] [place] [address]- 1445 Jan, [facility] [place] [facility] [address] [id number] [place] [address]- 7269 Jan, [facility] [address] [id number] [place] [address]- 8122 Nov, [facility] [place] [facility] [address] [id number] [place] [address]- 1394 Oct, [facility] [place] [facility] [address] [id number] [place] [address]- 6227 Sep, [facility] [place] [facility] [address] [id number] [place] [address]- 0557 Sep, [facility] [place] [facility] [address] [id number] [place] [address]- 7311 Sep, [facility] [place] [facility] [address] [id number] [place] [address]- 4783 Sep, [facility] [place] [facility] [address] [id number] [place] [address]- 2666 Sep, [facility] [place] [facility] [address] [id number] [place] [address]- 6859 August, [facility] [place] [facility] [address] [id number] [place] [address]- 8570 Jul, [facility] [place] [facility] [address] [id number] [place] [address]- 8134 Jul, [facility] [place] [facility] [address] [id number] [place] [address]- 4275 May, [facility] [place] [facility] [address] [id number] [place] [address]- 4284 Apr, [facility] [place] [facility] [address] [facility] [id number] [place] [address]- 0491 Mar, [facility] [place] [facility] [address] [id number] [place] [address]- 6626 Mar, [facility] [place] [facility] [address] [facility] [id number] [place] [address]- 7787 Feb, [facility] [place] [facility] [address] [facility] [id number] [place] [address]- 4008 Feb, [facility] [place] [facility] [address] [facility] [id number] [place] [address]- 4088 Feb, [facility] [place] [facility] [address] [id number] [place] [address]- 8654 Feb, [facility] [place] [facility] [address] [facility] [id number] [place] [address]- 1553 Jan, [facility] [place] [facility] [address] [id number] [place] [address]- 5995 Jan, [facility] [place] [facility] [address] [facility] [id number] [place] [address]- 8045 Jan, [facility] [place] [facility] [address] [id number] [place] [address]- 2187 Jan, [facility] [address] [id number] [place] [address]- 7865 Dec, [facility] [place] [facility] [address] [id number] [place] [address]- 8742 Sep, [facility] [place] [facility] [address] [facility] [id number] [place] [address]- 2653 August, [facility] [place] [facility] [address] [id number] [place] [address]- 4976 August, [facility] [address] [id number] [place] [address]- 5248 Jul, [facility] [place] [facility] [address] [facility] [id number] [place] [address]- 1095 Jun, [facility] [address] [id number] [place] [address]- [address]80 Jun, [facility] [place] [facility] [address] [facility] [id number] [place] [address]- 7422 May, [facility] [address] [id number] [place] [address]- 4630 Mar, [facility] [place] [facility] [address] [facility] [id number] [place] [address]- 5621 Mar, [facility] [place] [facility] [address] [facility] [id number] [place] [address]- 9101 Mar, [facility] [place] [facility] [address] [facility] [id number] [place] [address]- 9086 Feb, [facility] [place] [facility] [address] [id number] [place] [address]- 4506 Feb, [facility] [place] [facility] [address] [facility] [id number] [place] [address] Feb, [facility] [place] [facility] [address] [id number] [address] Feb, [facility] [place] [facility] [address] [facility] [id number] [place] [address]- 4666 Nov, [facility] [address] [facility] [id number] [place] [address]- [address] 14 Mar, 2010 [facility] [address] [facility] [id number] [place] [address]- 3246 Feb, [facility] [address] [facility] [id number] [place] [address]- 7251 Jan, [facility] [address] [facility] [id number] [place] [address]- 5239 August, [facility] [id number] [place] [address]- 3[address] 14 Mar, 2009 [facility] [id number] [address]- 6286 Mar, [facility] [id number] [place] [address]- 4312 14 Jan, 2009 [facility] [address] [id number] [address]- 6939 14 Jan, 2009 [facility] [id number] [place] [address]- 1877 Jan, [facility] [address] [id number] [address] Jan, IMMUNIZATIONS No Known Immunizations SOCIAL HISTORY Never Assessed REASON FOR VISIT Hospital admit/DC PLAN OF CARE VITAL SIGNS MEDICATIONS Medication Instructions Dosage Frequency Start Date End Date Duration Status PredniSONE 20 mg Orally Once a day 2 tabs x3 days, 1 tab x3 days, 1/2 tab x3 days 24h Dec, 7 Jan, 2017 9 days Active Sertraline HCl 50 TAKE ONE TABLET BY MOUTH DAILY 30 Active Symbicort 160-4.5 INHALE TWO PUFFS BY MOUTH EVERY MORNING AND EVENING 30 Active Aspirin 81 MG Orally Once a day 1 tablet 24h Active Azithromycin 250 MG Orally Once a day 1 tablet 24h Dec, Dec, 2 days Active Singulair 10 TAKE ONE TABLET BY MOUTH DAILY 90 Active Ventolin HFA 108 (90 Base) MCG/ACT Inhalation every 4 hrs 2 puffs as needed 4h Sep, Active Albuterol Sulfate (2.5 MG/3ML) 0.083% Inhalation Three times a day 3 ml 8h Sep, Active RESULTS No Results PROCEDURES No [...] lung Hospitalization History Acute resp distress, COPD exacerbation-[facility] 01/08/17 Hospitalization History COPD exacerbation-[facility] 01/22/17
--- OUTSIDE RECORDS SUMMARY | 2018-03-04 03:13 | XMS REPORT | Continuity of Care Document ---
Author Author [facility] Address Unknown Phone Unavailable Allergies Active Description Code Type Severity Reaction Onset Reported/Identified Relationship to Patient Clinical Status Yes codeine Drug Allergy 10/11/2008 Yes codeine Drug Allergy N/A N/A 10/11/2008 Yes codeine [id number] Drug Allergy Severe Hives and swell 09/22/2012 Medications There is no data. Problems Date Dx Coded Attending Type Code [...] APRNNDA S 300.4 DYSTHYMIC DISORDER 10/11/2008 JAMARI PRE FABRICATOR, ANDRES S 496 CHRONIC OBSTRUCTIVE PULMONARY DISEASE 10/11/2008 NELLY PRE FABRICATOR, BARBARA A 300.4 DYSTHYMIC DISORDER 10/11/2008 NELLY PRE FABRICATOR, BARBARA A 496 CHRONIC OBSTRUCTIVE PULMONARY DISEASE 10/11/2008 FRANSISCO KAUFFMAN APRNNDA S 300.4 DYSTHYMIC DISORDER 10/11/2008 JAMARI LOZA ANDRES S 496 CHRONIC OBSTRUCTIVE PULMONARY DISEASE 10/11/2008 JAMARI PRE FABRICATOR, ANDRES S 300.4 DYSTHYMIC DISORDER 10/11/2008 JAMARI PRE FABRICATOR, ANDRES S 496 CHRONIC OBSTRUCTIVE PULMONARY DISEASE 10/11/2008 JAMARI PRE FABRICATOR, ANDRES S 300.4 DYSTHYMIC DISORDER 10/11/2008 JAMARI PRE FABRICATOR, ANDRES S 496 CHRONIC OBSTRUCTIVE PULMONARY DISEASE 10/11/2008 JAMARI PRE FABRICATOR, ANDRES S 300.4 DYSTHYMIC DISORDER 10/11/2008 JAMARI PRE FABRICATOR, ANDRES S 496 CHRONIC OBSTRUCTIVE PULMONARY DISEASE 01/11/2009 PAULINA URBINA MD 372.00 Acute Conjunctivitis Unspecified 01/11/2009 PAULINA URBINA MD 372.00 Acute Conjunctivitis Unspecified 01/11/2009 372.00 Acute Conjunctivitis Unspecified 01/11/2009 372.00 Acute Conjunctivitis Unspecified 01/11/2009 PAULINA URBINA MD 372.00 Acute Conjunctivitis Unspecified 01/11/2009 JAMARI PRE FABRICATOR, ANDRES S 372.00 Acute Conjunctivitis Unspecified 01/11/2009 JAMARI PRE FABRICATOR, ANDRES S 372.00 Acute Conjunctivitis Unspecified 01/11/2009 NELLY PRE FABRICATOR, BARBARA A 372.00 Acute Conjunctivitis Unspecified 01/11/2009 JAMARI PRE FABRICATOR, ANDRES S 372.00 Acute Conjunctivitis Unspecified 01/11/2009 JAMARI PRE FABRICATOR, ANDRES S 372.00 Acute Conjunctivitis Unspecified 01/11/2009 JAMARI PRE FABRICATOR, ANDRES S 372.00 Acute Conjunctivitis Unspecified 01/11/2009 JAMARI PRE FABRICATOR, ANDRES S 372.00 Acute Conjunctivitis Unspecified 01/26/2009 [...] PAULINA URBINA MD 494.0 Bronchiectasis 01/26/2009 JAMARI LOZA, ANDRES S 272.4 HYPERLIPIDEMIA HYPERLIPOPROTEINEMIAS (Old Classification) 01/26/2009 JAMARI LOZA ANDRES S 300.9 Psychiatric Disorder Requiring Hospitalization 01/26/2009 JAMARI LOZA, ANDRES S 477.0 Allergic Rhinitis - Pollen 01/26/2009 JAMRAI LOZA, ANDRES S 494.0 Bronchiectasis 01/26/2009 JAMARI LOZA ANDRES S 272.4 HYPERLIPIDEMIA HYPERLIPOPROTEINEMIAS (Old Classification) 01/26/2009 JAMARI LOZA, ANDRES S 300.9 Psychiatric Disorder Requiring Hospitalization 01/26/2009 JAMARI LOZA, ANDRES S 477.0 Allergic Rhinitis - Pollen 01/26/2009 JAMARI PRE FABRICATOR, ANDRES S 494.0 Bronchiectasis 01/26/2009 NELLY PRE FABRICATOR, BARBARA A 272.4 HYPERLIPIDEMIA HYPERLIPOPROTEINEMIAS (Old Classification) 01/26/2009 NELLY PRE FABRICATOR, BARBARA A 300.9 Psychiatric Disorder Requiring Hospitalization 01/26/2009 NELLY PRE FABRICATOR, BARBARA A 477.0 Allergic Rhinitis - Pollen 01/26/2009 NELLY PRE FABRICATOR, BARBARA A 494.0 Bronchiectasis 01/26/2009 JAMARITESFAYE LOZA, ANDRES S 272.4 HYPERLIPIDEMIA HYPERLIPOPROTEINEMIAS (Old Classification) 01/26/2009 JAMARI PRE FABRICATOR, ANDRES S 300.9 Psychiatric Disorder Requiring Hospitalization 01/26/2009 JAMARI PRE FABRICATOR, ANDRES S 477.0 Allergic Rhinitis - Pollen 01/26/2009 JAMARI PRE FABRICATOR, ANDRES S 494.0 Bronchiectasis 01/26/2009 JAMARI PRE FABRICATOR, ANDRES S 272.4 HYPERLIPIDEMIA HYPERLIPOPROTEINEMIAS (Old Classification) 01/26/2009 JAMARI PRE FABRICATOR, ANDRSE S 300.9 Psychiatric Disorder Requiring Hospitalization 01/26/2009 JAMARI PRE FABRICATOR, ANDRES S 477.0 Allergic Rhinitis - Pollen 01/26/2009 JAMARI PRE FABRICATOR, ANDRES S 494.0 Bronchiectasis 01/26/2009 JAMARI PRE FABRICATOR, ANDRES S 272.4 HYPERLIPIDEMIA HYPERLIPOPROTEINEMIAS (Old Classification) 01/26/2009 JAMARI PRE FABRICATOR, ANDRES S 300.9 Psychiatric Disorder Requiring Hospitalization 01/26/2009 JAMARI PRE FABRICATOR, ANDRES S 477.0 Allergic Rhinitis - Pollen 01/26/2009 JAMARI PRE FABRICATOR, ANDRES S 494.0 Bronchiectasis 01/26/2009 JAMARI PRE FABRICATOR, ANDRES S 272.4 HYPERLIPIDEMIA HYPERLIPOPROTEINEMIAS (Old Classification) 01/26/2009 JAMARI PRE FABRICATOR, ANDRES S 300.9 Psychiatric Disorder Requiring Hospitalization 01/26/2009 JAMARI PRE FABRICATOR, ANDRES S 477.0 Allergic Rhinitis - Pollen 01/26/2009 JAMARI PRE FABRICATOR, ANDRES S 494.0 Bronchiectasis 08/29/2009 PAULINA URBINA [...] Due To Plants [except Food] 08/29/2009 JAMARI LOZA ANDRES S 692.6 Contact Dermatitis And Other Eczema, Due To Plants [except Food] 08/29/2009 JAMARI PRE FABRICATOR, ANDRES S 692.6 Contact Dermatitis And Other Eczema, Due To Plants [except Food] 08/29/2009 NOEMY VILLEGAS APRNIDI A 692.6 Contact Dermatitis And Other Eczema, Due To Plants [except Food] 08/29/2009 JAMARI PRE FABRICATOR, ANDRES S 692.6 Contact Dermatitis And Other Eczema, Due To Plants [except Food] 08/29/2009 JAMARI PRE FABRICATOR, ANDRES S 692.6 Contact Dermatitis And Other Eczema, Due To Plants [except Food] 08/29/2009 JAMARI PRE FABRICATOR, ANDRES S 692.6 Contact Dermatitis And Other Eczema, Due To Plants [except Food] 08/29/2009 JAMARI PRE FABRICATOR, ANDRES S 692.6 Contact Dermatitis And Other Eczema, Due To Plants [except Food] 10/19/2009 CARLITOS CONO, PAULINA V70.0 General Medical Exam, Routine, At Health [...] Routine, At Health Care Facility 10/19/2009 JAMARI PRE FABRICATOR, ANDRES S V70.0 General Medical Exam, Routine, At Health Care Facility 10/19/2009 JAMARI PRE FABRICATOR, ANDRES S V70.0 General Medical Exam, Routine, At Health Care Facility 10/19/2009 JAMARI PRE FABRICATOR, ANDRES S V70.0 General Medical Exam, Routine, At Health Care Facility 10/19/2009 JAMARI PRE FABRICATOR, ANDRES S V70.0 General Medical Exam, Routine, At Health Care Facility 07/10/2010 Ot 491.21 07/10/2010 Ot 790.29 07/10/2010 Ot 799.02 07/10/2010 Ot E932.0 07/10/2010 Ot V15.82 07/10/2010 Ot V46.2 07/17/2010 CARLITOS COON, PAULINA 726.32 Epicondylitis 07/17/2010 PAULINA URBINA MD 726.32 Epicondylitis 07/17/2010 726.32 Epicondylitis 07/17/2010 726.32 Epicondylitis 07/17/2010 PAULINA URBINA MD 726.32 Epicondylitis 07/17/2010 JAMARI LOZA ANDRES S [...] Screening Examination For Pulmonary Tuberculosis 10/30/2010 JAMARI PRE FABRICATOR, ANDRES S V74.1 Screening Examination For Pulmonary Tuberculosis 10/30/2010 JAMARI PRE FABRICATOR, ANDRES S V74.1 Screening Examination For Pulmonary Tuberculosis 11/08/2010 CARLITOS COON, PAULINA V70.3 Sports/school Exam 11/08/2010 CARLITOS COON, PAULINA V70.3 Sports/school Exam 11/08/2010 V70.3 Sports/school Exam 11/08/2010 V70.3 Sports/school Exam 11/08/2010 CARLITOS COON, PAULINA V70.3 Sports/school Exam 11/08/2010 JAMARI PRE FABRICATOR, ANDRES S V70.3 Sports/school Exam 11/08/2010 JAMARI PRE FABRICATOR, ANDRES S V70.3 Sports/school Exam 11/08/2010 NELLY LOZA, BARBARA A V70.3 Sports/school Exam 11/08/2010 JAMARI PRE FABRICATOR, ANDRES S V70.3 Sports/school Exam 11/08/2010 JAMARI PRE FABRICATOR, ANDRES S V70.3 Sports/school Exam 11/08/2010 JAMARI PRE FABRICATOR, ANDRES S V70.3 Sports/school Exam 11/08/2010 JAMARI PRE FABRICATOR, ANDRES S V70.3 Sports/school Exam 11/20/2010 Ot 373.11 HORDEOLUM EXTERNUM 11/20/2010 Ot 379.91 PAIN IN OR AROUND EYE 11/30/2010 CARLITOS COON, PAULINA V72.31 Supervisor Coil Winding Exam, Routine 11/30/2010 CARLITOS COON, PAULINA V72.31 Supervisor Coil Winding Exam, Routine 11/30/2010 V72.31 Supervisor Coil Winding Exam, Routine 11/30/2010 V72.31 Supervisor Coil Winding Exam, Routine 11/30/2010 PAULINA URBINA MD V72.31 Supervisor Coil Winding Exam, Routine 11/30/2010 JAMARI PRE FABRICATORFRANSISCO EvansNDA S V72.31 Supervisor Coil Winding Exam, Routine 11/30/2010 JAMARI LOZA ANDRES S V72.31 Supervisor Coil Winding Exam, Routine 11/30/2010 BARBARA VILLEGAS APRN A V72.31 Supervisor Coil Winding Exam, Routine 11/30/2010 FRANSISCO KAUFFMAN APRNNDA S V72.31 Supervisor Coil Winding Exam, Routine 11/30/2010 FRANSISCO KAUFFMAN APRNNDA S V72.31 Supervisor Coil Winding Exam, Routine 11/30/2010 ANDRES KAUFFMAN APRN S V72.31 Supervisor Coil Winding Exam, Routine 11/30/2010 ANDRES KAUFFMAN APRN S V72.31 Supervisor Coil Winding Exam, Routine 03/22/2011 Ot 112.0 THRUSH 03/22/2011 [...] MD 305.1 NONDEPENDENT TOBACCO USE DISORDER 03/29/2011 ANDRES KAUFFMAN APRN S 305.1 NONDEPENDENT TOBACCO USE DISORDER 03/29/2011 ANDRES KAUFFMAN APRN S 305.1 NONDEPENDENT TOBACCO USE DISORDER 03/29/2011 BARBARA VILLEGAS APRN A 305.1 NONDEPENDENT TOBACCO USE DISORDER 03/29/2011 GRICEL KAUFFMAN APRNA S 305.1 NONDEPENDENT TOBACCO USE DISORDER 03/29/2011 ANDRES KAUFFMAN APRN S 305.1 NONDEPENDENT TOBACCO USE DISORDER 03/29/2011 [...] PAULINA URBINA MD 786.2 COUGH 06/14/2011 JAMARI LOZA ANDRES S 307.42 PERSISTENT DISORDER OF INITIATING OR MAINTAINING SLEEP 06/14/2011 JAMARI LOZA ANDRES S 530.81 ESOPHAGEAL REFLUX 06/14/2011 JAMARI LOZA ANDRES S 786.2 COUGH 06/14/2011 JAMARI OLZA ANDRES S 307.42 PERSISTENT DISORDER OF INITIATING OR MAINTAINING SLEEP 06/14/2011 JAMARI LOZA ANDRES S 530.81 ESOPHAGEAL REFLUX 06/14/2011 JAMARI LOZA ANDRES S 786.2 COUGH 06/14/2011 NELLY LOZA BARBARA A 307.42 PERSISTENT DISORDER OF INITIATING OR MAINTAINING SLEEP 06/14/2011 NELLY LOZA BARBARA A 530.81 ESOPHAGEAL REFLUX 06/14/2011 NELLY LOZA BARBARA A 786.2 COUGH 06/14/2011 JAMARI LOZA ANDRES S 307.42 PERSISTENT DISORDER OF INITIATING OR MAINTAINING SLEEP 06/14/2011 JAMARI LOZA ANDRES S 530.81 ESOPHAGEAL REFLUX 06/14/2011 JAMARI LOZA, ANDRES S 786.2 COUGH 06/14/2011 JAMARI LOZA, ANDRES S 307.42 PERSISTENT DISORDER OF INITIATING OR MAINTAINING SLEEP 06/14/2011 JAMARI LOZA, ANDRES S 530.81 ESOPHAGEAL REFLUX 06/14/2011 JAMARI LOZA ANDRES S 786.2 COUGH 06/14/2011 JAMARI LOZA ANDRES S 307.42 PERSISTENT DISORDER OF INITIATING OR MAINTAINING SLEEP 06/14/2011 JAMARI LOZA ANDRES S 530.81 ESOPHAGEAL REFLUX 06/14/2011 FRANSISCO KAUFFMAN APRNNDA S 786.2 COUGH 06/14/2011 FRANSISCO KAUFFMAN APRNNDA S 307.42 PERSISTENT DISORDER OF INITIATING OR MAINTAINING SLEEP 06/14/2011 FRANSISCO KAUFFMAN APRNNDA S 530.81 ESOPHAGEAL REFLUX 06/14/2011 FRANSISCO KAUFFMAN APRNNDA S 786.2 COUGH 08/28/2011 Ot 300.00 ANXIETY [...] MD 786.50 chest pain or discomfort 02/12/2012 FRANSISCO KAUFFMAN APRNNDA S 491.21 CHRONIC BRONCHITIS - WITH ACUTE EXACERBATION 02/12/2012 FRANSISCO KAUFFMAN APRNNDA S 786.50 chest pain or discomfort 02/12/2012 FRANSISCO KAUFFMAN APRNNDA S 491.21 CHRONIC BRONCHITIS - WITH ACUTE EXACERBATION 02/12/2012 JAMARI PRE FABRICATOR, ANDRES S 786.50 CHEST PAIN OR DISCOMFORT 02/12/2012 NELLY PRE FABRICATOR, BARBARA A 491.21 CHRONIC BRONCHITIS - WITH ACUTE EXACERBATION 02/12/2012 NELLY PRE FABRICATOR, BARBARA A 786.50 CHEST PAIN OR DISCOMFORT 02/12/2012 FRANSISCO KAUFFMAN APRNNDA S 491.21 CHRONIC BRONCHITIS - WITH ACUTE EXACERBATION 02/12/2012 FRANSISCO KAUFFMAN APRNNDA S 786.50 CHEST PAIN OR DISCOMFORT 02/12/2012 FRANSISCO KAUFFMAN APRNNDA S 491.21 CHRONIC BRONCHITIS - WITH ACUTE EXACERBATION 02/12/2012 JAMARI PRE FABRICATOR, ANDRES S 786.50 CHEST PAIN OR DISCOMFORT 02/12/2012 FRANSISCO KAUFFMAN APRNNDA S 491.21 CHRONIC BRONCHITIS - WITH ACUTE EXACERBATION 02/12/2012 JAMARI LOZA ANDRES S 786.50 CHEST PAIN OR DISCOMFORT 02/12/2012 JAMARI LOZA ANDRES S 491.21 CHRONIC BRONCHITIS - WITH ACUTE [...] URBINA MD V74.1 TB SCREENING 08/05/2012 JAMARI PRE FABRICATOR, ANDRES S V74.1 TB SCREENING 08/05/2012 GRICEL KAUFFMAN APRNA S V74.1 TB SCREENING 08/05/2012 NOEMY VILLEGAS APRNIDI A V74.1 TB SCREENING 08/05/2012 GRICEL KAUFFMAN APRNA S V74.1 TB SCREENING 08/05/2012 FRANSISCO KAUFFMAN [...] Ot V15.82 HISTORY OF TOBACCO USE 04/28/2013 ANDRES KAUFFMAN APRN S V04.81 FLU SHOT 04/28/2013 GRICEL KAUFFMAN APRNA S V04.81 FLU SHOT 04/28/2013 NOEMY VILLEGAS APRNIDI A V04.81 FLU SHOT 04/28/2013 GRICEL KAUFFMAN APRNA S V04.81 FLU SHOT 04/28/2013 GRICEL KAUFFMAN APRNA S V04.81 FLU SHOT 04/28/2013 GRICEL KAUFFMAN APRNA S V04.81 FLU SHOT 04/28/2013 GRICEL KAUFFMAN APRNA S V04.81 FLU SHOT 01/05/2014 BARBARA VILLEGAS APRN A V65.42 COUNSELING - SMOKING CESSATION 01/05/2014 BARBARA VILLEGAS APRN A V65.49 OTHER SPECIFIED COUNSELING 01/05/2014 NOEMY VILLEGAS APRNIDI A V72.31 ONCOLOGIST EXAM, ROUTINE 01/05/2014 NELLY LOZA BARBARA A V76.10 BREAST CANCER SCREENING 01/05/2014 NOEMY VILLEGAS APRNIDI A V76.51 COLON CANCER SCREENING 01/05/2014 ANDRES KAUFFMAN APRN S V65.42 COUNSELING - SMOKING CESSATION 01/05/2014 JAMARI PRE FABRICATOR, ANDRES S V65.49 OTHER SPECIFIED COUNSELING 01/05/2014 JAMARI PRE FABRICATOR, NADRES S V72.31 ONCOLOGIST EXAM, ROUTINE 01/05/2014 JAMARI PRE FABRICATOR, ANDRES S V76.10 BREAST CANCER SCREENING 01/05/2014 JAMARI PRE FABRICATOR, ANDRES S V76.51 COLON CANCER SCREENING 01/05/2014 JAMARI PRE FABRICATOR, ANDRES S V65.42 COUNSELING - SMOKING CESSATION 01/05/2014 JAMARI PRE FABRICATOR, ANDRES S V65.49 OTHER SPECIFIED COUNSELING 01/05/2014 JAMARI PRE FABRICATOR, ANDRES S V72.31 ONCOLOGIST EXAM, ROUTINE 01/05/2014 JAMARI PRE FABRICATOR, ANDRES S V76.10 BREAST CANCER SCREENING 01/05/2014 JAMARI PRE FABRICATOR, ANDRES S V76.51 COLON CANCER SCREENING 01/05/2014 JAMARI PRE FABRICATOR, ANDRES S V65.42 COUNSELING - SMOKING CESSATION 01/05/2014 JAMARI PRE FABRICATOR, ANDRES S V65.49 OTHER SPECIFIED COUNSELING 01/05/2014 JAMARI PRE FABRICATOR, ANDRES S V72.31 ONCOLOGIST EXAM, ROUTINE 01/05/2014 JAMARI PRE FABRICATOR, ANDRES S V76.10 BREAST CANCER SCREENING 01/05/2014 JAMARI PRE FABRICATOR, ANDRES S V76.51 COLON CANCER SCREENING 01/05/2014 JAMARI PRE FABRICATOR, ANDRES S V65.42 COUNSELING - SMOKING CESSATION 01/05/2014 JAMARI PRE FABRICATOR, ANDRES S V65.49 OTHER SPECIFIED COUNSELING 01/05/2014 JAMARI PRE FABRICATOR, ANDRES S V72.31 ONCOLOGIST EXAM, ROUTINE 01/05/2014 JAMARI PRE FABRICATOR, ANDRES S V76.10 BREAST CANCER SCREENING 01/05/2014 JAMARI PRE FABRICATOR, ANDRES S V76.51 COLON CANCER SCREENING 03/01/2014 JAMARI PRE FABRICATOR, ANDRES S 211.9 POLYP- GI 03/01/2014 JAMARI PRE FABRICATOR, ANDRES S 211.9 POLYP- GI 03/01/2014 JAMARI PRE FABRICATOR, ANDRES S 211.9 POLYP- GI 03/01/2014 JESSICA [...] GOLDBERG APRN Ot Z12.31 04/11/2016 DARRELL GOLDBERG PRE FABRICATOR Ot Z12.31 ENCNTR SCREEN MAMMOGRAM FOR MALIGNANT NE 04/11/2016 Ot V76.12 OTH SCREEN MAMMO-MALIGN NEOPLASM OF TARA 04/11/2016 BARBARA VILLEGAS Ana Cristina PRE FABRICATOR Ot V76.12 OTH SCREEN MAMMO-MALIGN NEOPLASM OF TARA 04/11/2016 JESSICA COON, KWAKU M Ot V72.84 EXAM PRE-OPERATIVE NOS 04/11/2016 JESSICA COON, KWAKU Mcguire Ot V72.84 EXAM PRE-OPERATIVE NOS 04/11/2016 DARRELL GOLDBERG PRE FABRICATOR Ot Z12.31 ENCNTR SCREEN MAMMOGRAM FOR MALIGNANT NE 05/09/2016 ALMA ALLEN ENGINEER Ot M75.42 IMPINGEMENT SYNDROME OF LEFT SHOULDER 05/21/2016 ALMA ALLEN ENGINEER Ot M75.42 IMPINGEMENT SYNDROME OF LEFT SHOULDER 01/09/2017 PRABHAKAR BULL MD Ot F17.210 NICOTINE DEPENDENCE, CIGARETTES, UNCOMPL 01/09/2017 PRABHAKAR BULL MD Ot F32.9 MAJOR DEPRESSIVE DISORDER, SINGLE EPISOD 01/09/2017 PRABHAKAR BULL MD Ot F41.9 ANXIETY DISORDER, UNSPECIFIED 01/09/2017 PRABHAKAR BULL MD, Ot J44.1 CHRONIC OBSTRUCTIVE PULMONARY DISEASE W 01/09/2017 PRABHAKAR BULL MD Ot M19.91 PRIMARY OSTEOARTHRITIS, UNSPECIFIED SITE 01/09/2017 PRABHAKAR BULL MD Ot Z99.81 DEPENDENCE ON SUPPLEMENTAL OXYGEN 01/10/2017 PRABHAKAR BULL MD Ot F17.210 NICOTINE DEPENDENCE, CIGARETTES, UNCOMPL 01/10/2017 PRABHAKAR BULL MD Ot F32.9 MAJOR DEPRESSIVE DISORDER, SINGLE EPISOD 01/10/2017 PRABHAKAR BULL MD Ot F41.9 ANXIETY DISORDER, UNSPECIFIED 01/10/2017 PRABHAKAR BULL MD Ot J44.1 CHRONIC OBSTRUCTIVE PULMONARY DISEASE W 01/10/2017 PRABHAKAR BULL MD Ot M19.91 PRIMARY OSTEOARTHRITIS, UNSPECIFIED SITE 01/10/2017 PRABHAKAR BULL MD Ot Z99.81 DEPENDENCE ON SUPPLEMENTAL OXYGEN 01/23/2017 DAVID COON, TERESA Evans Ot F17.210 NICOTINE DEPENDENCE, CIGARETTES, UNCOMPL 01/23/2017 TERESA HERNANDEZ MD Ot F32.9 MAJOR DEPRESSIVE DISORDER, SINGLE EPISOD 01/23/2017 TERESA HERNANDEZ MD Ot F41.9 ANXIETY DISORDER, UNSPECIFIED 01/23/2017 TERESA HERNANDEZ MD Ot H26.9 UNSPECIFIED CATARACT 01/23/2017 TERESA HERNANDEZ MD Ot H91.90 UNSPECIFIED HEARING LOSS, UNSPECIFIED EA 01/23/2017 TERESA HERNANDEZ MD Ot J44.1 CHRONIC OBSTRUCTIVE PULMONARY DISEASE W 01/23/2017 TERESA HERNANDEZ MD Ot M19.91 PRIMARY OSTEOARTHRITIS, UNSPECIFIED SITE 01/23/2017 TERESA HERNANDEZ MD Ot R06.03 ACUTE RESPIRATORY DISTRESS 01/23/2017 TERESA HERNANDEZ MD Ot R06.89 OTHER ABNORMALITIES OF BREATHING 01/23/2017 TERESA HERNANDEZ MD Ot R07.89 OTHER CHEST PAIN 01/23/2017 TERESA HERNANDEZ MD Ot Z99.81 DEPENDENCE ON SUPPLEMENTAL OXYGEN 01/23/2017 TERESA HERNANDEZ MD Ot F17.210 NICOTINE DEPENDENCE, CIGARETTES, UNCOMPL 01/23/2017 TERESA HERNANDEZ MD Ot F32.9 MAJOR DEPRESSIVE DISORDER, SINGLE EPISOD 01/23/2017 TERESA HERNANDEZ MD Ot F41.9 ANXIETY DISORDER, UNSPECIFIED 01/23/2017 TERESA HERNANDEZ MD Ot H26.9 UNSPECIFIED CATARACT 01/23/2017 TERESA HERNANDEZ MD Ot H91.90 UNSPECIFIED HEARING LOSS, UNSPECIFIED EA 01/23/2017 TERESA HERNANDEZ MD Ot J44.1 CHRONIC OBSTRUCTIVE PULMONARY DISEASE W 01/23/2017 TERESA HERNANDEZ MD Ot M19.91 PRIMARY OSTEOARTHRITIS, UNSPECIFIED SITE 01/23/2017 TERESA HERNANDEZ MD Ot R06.03 ACUTE RESPIRATORY DISTRESS 01/23/2017 TERESA HERNANDEZ MD Ot R06.89 OTHER ABNORMALITIES OF BREATHING 01/23/2017 TERESA HERNANDEZ MD Ot R07.89 OTHER CHEST PAIN 01/23/2017 TERESA HERNANDEZ MD Ot Z99.81 DEPENDENCE ON SUPPLEMENTAL OXYGEN 01/24/2017 TERESA HERNANDEZ MD Ot F17.210 NICOTINE DEPENDENCE, CIGARETTES, UNCOMPL 01/24/2017 TERESA HERNANDEZ MD Ot F32.9 MAJOR DEPRESSIVE DISORDER, SINGLE EPISOD 01/24/2017 TERESA HERNANDEZ MD Ot F41.9 ANXIETY DISORDER, UNSPECIFIED 01/24/2017 TERESA HERNANDEZ MD Ot H26.9 UNSPECIFIED CATARACT 01/24/2017 TERESA HERNANDEZ MD Ot H91.90 UNSPECIFIED HEARING LOSS, UNSPECIFIED EA 01/24/2017 TERESA HERNANDEZ MD Ot J44.1 CHRONIC OBSTRUCTIVE PULMONARY DISEASE W 01/24/2017 TERESA HERNANDEZ MD Ot M19.91 PRIMARY OSTEOARTHRITIS, UNSPECIFIED SITE 01/24/2017 TERESA HERNANDEZ MD Ot R06.03 ACUTE RESPIRATORY DISTRESS 01/24/2017 TERESA HERNANDEZ MD Ot R06.89 OTHER ABNORMALITIES OF BREATHING 01/24/2017 TERESA HERNANDEZ MD Ot R07.89 OTHER CHEST PAIN 01/24/2017 TERESA HERNANDEZ MD Ot Z99.81 DEPENDENCE ON SUPPLEMENTAL OXYGEN 01/25/2017 TERESA HERNANDEZ MD Ot F17.210 NICOTINE DEPENDENCE, CIGARETTES, UNCOMPL 01/25/2017 TERESA HERNANDEZ MD Ot F32.9 MAJOR DEPRESSIVE DISORDER, SINGLE EPISOD 01/25/2017 TERESA HERNANDEZ MD Ot F41.9 ANXIETY DISORDER, UNSPECIFIED 01/25/2017 TERESA HERNANDEZ MD Ot H26.9 UNSPECIFIED CATARACT 01/25/2017 TERESA HERNANDEZ MD Ot H91.90 UNSPECIFIED HEARING LOSS, UNSPECIFIED EA 01/25/2017 TERESA HERNANDEZ MD Ot J44.1 CHRONIC OBSTRUCTIVE PULMONARY DISEASE W 01/25/2017 TERESA HERNANDEZ MD Ot M19.91 PRIMARY OSTEOARTHRITIS, UNSPECIFIED SITE 01/25/2017 TERESA HERNANDEZ MD Ot R06.03 ACUTE RESPIRATORY DISTRESS 01/25/2017 TERESA HERNANDEZ MD Ot R06.89 OTHER ABNORMALITIES OF BREATHING 01/25/2017 TERESA HERNANDEZ MD Ot R07.89 OTHER CHEST PAIN 01/25/2017 TERESA HERNANDEZ MD Ot Z99.81 DEPENDENCE ON SUPPLEMENTAL OXYGEN 01/25/2017 TERESA HERNANDEZ MD Ot F17.210 NICOTINE DEPENDENCE, CIGARETTES, UNCOMPL 01/25/2017 TERESA HERNANDEZ MD Ot F32.9 MAJOR DEPRESSIVE DISORDER, SINGLE EPISOD 01/25/2017 TERESA HERNANDEZ MD Ot F41.9 ANXIETY DISORDER, UNSPECIFIED 01/25/2017 TERESA HERNANDEZ MD Ot H91.90 UNSPECIFIED HEARING LOSS, UNSPECIFIED EA 01/25/2017 TERESA HERNANDEZ MD Ot J44.1 CHRONIC OBSTRUCTIVE PULMONARY DISEASE W 01/25/2017 TERESA HERNANDEZ MD Ot M19.91 PRIMARY OSTEOARTHRITIS, UNSPECIFIED SITE 01/25/2017 TERESA HERNANDEZ MD Ot R06.03 ACUTE RESPIRATORY DISTRESS 01/25/2017 TERESA HERNANDEZ MD Ot R06.89 OTHER ABNORMALITIES OF BREATHING 01/25/2017 TERESA HERNANDEZ MD Ot R07.89 OTHER CHEST PAIN 01/25/2017 TERESA HERNANDEZ MD Ot Z99.81 DEPENDENCE ON SUPPLEMENTAL OXYGEN 09/09/2017 DARRELL GOLDBERG APRN Ot Z12.31 ENCNTR SCREEN MAMMOGRAM FOR MALIGNANT NE 09/09/2017 MARCO A PETE Ot F17.210 NICOTINE DEPENDENCE, CIGARETTES, UNCOMPL 09/09/2017 MARCO A PETE Ot F32.9 MAJOR DEPRESSIVE DISORDER, SINGLE EPISOD 09/09/2017 MARCO A PETEP Ot F41.9 ANXIETY DISORDER, UNSPECIFIED 09/09/2017 MARCO A PETEP Ot J44.1 CHRONIC OBSTRUCTIVE PULMONARY DISEASE W 09/09/2017 MARCO A PETEP Ot N39.0 URINARY TRACT INFECTION, SITE NOT SPECIF 09/09/2017 MARCO A PETEP Ot R06.02 SHORTNESS OF BREATH 09/09/2017 MARCO A PETEP Ot Z79.82 SNF (CURRENT) USE OF ASPIRIN 09/09/2017 MARCO A PETEP Ot Z87.59 PERSONAL HISTORY OF COMP OF PREG, CHLDBR 09/09/2017 MARCO A PETEP Ot Z88.5 ALLERGY STATUS TO NARCOTIC AGENT STATUS 09/09/2017 MARCO A PETE ENGINEER Ot Z99.81 DEPENDENCE ON SUPPLEMENTAL OXYGEN 09/11/2017 MARCO A PETEP Ot F17.210 NICOTINE DEPENDENCE, CIGARETTES, UNCOMPL 09/11/2017 MARCO A PETEP Ot F32.9 MAJOR DEPRESSIVE DISORDER, SINGLE EPISOD 09/11/2017 JUAN RMARCO A Avila Ot F41.9 ANXIETY DISORDER, UNSPECIFIED 09/11/2017 JUAN RMARCO A Avila Ot J44.1 CHRONIC OBSTRUCTIVE PULMONARY DISEASE W 09/11/2017 JUAN R MARCO A ALCANTARA Ot N39.0 URINARY TRACT INFECTION, SITE NOT SPECIF 09/11/2017 JUAN RMARCO A Avila Ot R06.02 SHORTNESS OF BREATH 09/11/2017 JUAN RMARCO A Avila Ot Z79.82 RN DOCUMENTATION (CURRENT) USE OF ASPIRIN 09/11/2017 JUAN RMARCO A Avila Ot Z87.59 PERSONAL HISTORY OF COMP OF PREG, CHLDBR 09/11/2017 JUAN RMARCO A Avila Ot Z88.5 ALLERGY STATUS TO NARCOTIC AGENT STATUS 09/11/2017 JUAN RMARCO A Avila Ot Z99.81 DEPENDENCE ON SUPPLEMENTAL OXYGEN 10/04/2017 DARRELL GOLDBERG APRN Ot Z12.31 ENCNTR SCREEN MAMMOGRAM FOR MALIGNANT NE 10/14/2017 LINDA DELGADO DO Ot 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 10/14/2017 LINDA DELGADO DO Ot F17.200 NICOTINE DEPENDENCE, UNSPECIFIED, UNCOMP 10/14/2017 LINDA DELGADO DO Ot F17.210 NICOTINE DEPENDENCE, CIGARETTES, UNCOMPL 10/14/2017 LINDA DELGADO DO Ot I70.0 ATHEROSCLEROSIS OF AORTA 10/14/2017 LINDA DELGADO DO, Ot J44.9 CHRONIC OBSTRUCTIVE PULMONARY DISEASE, U 10/15/2017 BOB BERNARD APRN Ot J44.9 CHRONIC OBSTRUCTIVE PULMONARY DISEASE, U 10/15/2017 BOB BERNARD APRN Ot J45.909 UNSPECIFIED ASTHMA, UNCOMPLICATED 10/15/2017 BOB BERNARD APRN Ot R06.00 DYSPNEA, UNSPECIFIED 10/31/2017 LINDA DELGADO DO Ot 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 10/31/2017 LINDA DELGADO DO Ot F17.200 NICOTINE DEPENDENCE, UNSPECIFIED, UNCOMP 10/31/2017 LINDA DELGADO DO Ot I70.0 ATHEROSCLEROSIS OF AORTA 10/31/2017 LINDA DELGADO DO Ot J44.9 CHRONIC OBSTRUCTIVE PULMONARY DISEASE, U 11/05/2017 BOB BERNARD APRN Ot J44.9 CHRONIC OBSTRUCTIVE PULMONARY DISEASE, U 11/05/2017 BOB BERNARD APRN Ot J45.909 UNSPECIFIED ASTHMA, UNCOMPLICATED 11/05/2017 BOB BERNARD APRN Ot R06.00 DYSPNEA, UNSPECIFIED 11/08/2017 LINDA DELGADO DO Ot 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 11/08/2017 LINDA DELGADO DO Ot F17.200 NICOTINE DEPENDENCE, UNSPECIFIED, UNCOMP 11/08/2017 LINDA DELGADO DO Ot I70.0 ATHEROSCLEROSIS OF AORTA 11/08/2017 LINDA DELGADO DO Ot J44.9 CHRONIC OBSTRUCTIVE PULMONARY DISEASE, U 11/08/2017 LINDA DELGADO DO Ot 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 11/08/2017 LINDA DELGADO DO Ot F17.200 NICOTINE DEPENDENCE, UNSPECIFIED, UNCOMP 11/08/2017 LINDA DELGADO DO Ot I70.0 ATHEROSCLEROSIS OF AORTA 11/08/2017 LINDA DELGADO DO Ot J44.9 CHRONIC OBSTRUCTIVE PULMONARY DISEASE, U 01/17/2018 DARRELL GOLDBERG APRN Ot Z12.31 ENCNTR SCREEN MAMMOGRAM FOR MALIGNANT NE 01/17/2018 LINDA DELGADO DO Ot 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 01/17/2018 LINDA DELGADO DO Ot F17.200 NICOTINE DEPENDENCE, UNSPECIFIED, UNCOMP 01/17/2018 LINDA DELGADO DO Ot I70.0 ATHEROSCLEROSIS OF AORTA 01/17/2018 LINDA DELGADO DO Ot J44.9 CHRONIC OBSTRUCTIVE PULMONARY DISEASE, U 01/17/2018 BOB BERNARD APRN Ot J44.9 CHRONIC OBSTRUCTIVE PULMONARY DISEASE, U 01/17/2018 BOB BERNARD APRN Ot J45.909 UNSPECIFIED ASTHMA, UNCOMPLICATED 01/17/2018 BOB BERNARD APRN Ot R06.00 DYSPNEA, UNSPECIFIED Procedures Code Description Performed By Performed On 37.22 LEFT HEART CARDIAC CATH 02/13/2012 88.53 LT HEART ANGIOCARDIOGRAM 02/13/2012 88.56 CORONAR ARTERIOGR-2 CATH 02/13/2012 53024 TB TEST INTRADERMAL 08/05/2012 [id number] ROUTINE VENIPUNCTURE 12/22/2013 [id number] CBC 12/22/2013 21900 CMP 12/22/2013 [id number] LIPID PANEL 12/22/2013 [id number] GFR CALC (RESULT ONLY) 12/22/2013 11820 MAMMOGRAM, SCREENING 01/05/2014 General Kwaku Pena 01/19/2014 [id number] HEMOCCULT 01/19/2014 [id number] HEMOCCULT 01/19/2014 [id number] OXIMETRY 04/06/2014 Results Test Result Range Complete urinalysis with reflex to culture - 01/08/17 13:10 Urine color determination YELLOW NRG Urine clarity determination CLEAR NRG Urine pH measurement by test strip 6 5-9 Specific gravity of urine by test strip 1.005 1.016- 1.022 Urine protein assay by test strip, semi-quantitative NEGATIVE NEGATIVE Urine glucose detection by automated test strip 2+ NEGATIVE Erythrocytes detection in urine sediment by light microscopy 2+ NEGATIVE Urine ketones detection by automated test strip NEGATIVE NEGATIVE Urine nitrite detection by test strip NEGATIVE NEGATIVE Urine total bilirubin detection by test strip NEGATIVE NEGATIVE Urine urobilinogen measurement by automated test strip (mass/volume) NORMAL NORMAL Urine leukocyte esterase detection by dipstick 1+ NEGATIVE Automated urine sediment erythrocyte count by microscopy (number/high power field) RARE NRG Automated urine sediment leukocyte count by microscopy (number/high power field ) NONE NRG Bacteria detection in urine sediment by light microscopy NEGATIVE NRG Squamous epithelial cells detection in urine sediment by light microscopy 0-2 NRG Crystals detection in urine sediment by light microscopy NONE NRG Casts detection in urine sediment by light microscopy NONE NRG Mucus detection in urine sediment by light microscopy NEGATIVE NRG Complete urinalysis with reflex to culture NO NRG Complete blood count (CBC) with automated white blood cell (WBC) differential - 01/08/17 21:45 Blood leukocytes automated count (number/volume) 7.6 10*3/uL 4.3-11.0 Blood erythrocytes automated count (number/volume) 4.06 10*6/uL 4.35-5.85 Venous blood hemoglobin measurement (mass/volume) 14.2 g/dL 11.5-16.0 Blood hematocrit (volume fraction) 40 % 35-52 Automated erythrocyte mean corpuscular volume 99 [foz_us] 80-99 Automated erythrocyte mean corpuscular hemoglobin (mass per erythrocyte) 35 pg 25-34 Automated erythrocyte mean corpuscular hemoglobin concentration measurement ( mass/volume) 35 g/dL 32-36 Automated erythrocyte distribution width ratio 13.4 % 10.0-14.5 Automated blood platelet count (count/volume) 258 10*3/uL 130-400 Automated blood platelet mean volume measurement 10.0 [foz_us] 7.4-10.4 Automated blood neutrophils/100 leukocytes 29 % 42-75 Automated blood lymphocytes/100 leukocytes 59 % 12-44 Blood monocytes/100 leukocytes 7 % 0-12 Automated blood eosinophils/100 leukocytes 5 % 0-10 Automated blood basophils/100 leukocytes 0 % 0-10 Blood neutrophils automated count (number/volume) 2.2 10*3 1.8-7.8 Blood lymphocytes automated count (number/volume) 4.5 10*3 1.0-4.0 Blood monocytes automated count (number/volume) 0.5 10*3 0.0-1.0 Automated eosinophil count 0.4 10*3/uL 0.0-0.3 Automated blood basophil count (count/volume) 0.0 10*3/uL 0.0-0.1 Comprehensive metabolic panel - 01/08/17 21:45 Serum or plasma sodium measurement (moles/volume) 134 mmol/L 135-145 Serum or plasma potassium measurement (moles/volume) 3.8 mmol/L 3.6-5.0 Serum or plasma chloride measurement (moles/volume) 102 mmol/L 98-107 Carbon dioxide 19 mmol/L 21-32 Serum or plasma anion gap determination (moles/volume) 13 mmol/L 5-14 Serum or plasma urea nitrogen measurement (mass/volume) 6 mg/dL 7-18 Serum or plasma creatinine measurement (mass/volume) 0.64 mg/dL 0.60-1.30 Serum or plasma urea nitrogen/creatinine mass ratio 9 NRG Serum or plasma creatinine measurement with calculation of estimated glomerular filtration rate > NRG Serum or plasma glucose measurement (mass/volume) 67 mg/dL 70-105 Serum or plasma calcium measurement (mass/volume) 8.8 mg/dL 8.5-10.1 Serum or plasma total bilirubin measurement (mass/volume) 0.3 mg/dL 0.1-1.0 Serum or plasma alkaline phosphatase measurement (enzymatic activity/volume) 61 U/L 40-136 Serum or plasma aspartate aminotransferase measurement (enzymatic activity/ volume) 24 U/L 5-34 Serum or plasma alanine aminotransferase measurement (enzymatic activity/volume ) 19 U/L 0-55 Serum or plasma protein measurement (mass/volume) 7.7 g/dL 6.4-8.2 Serum or plasma albumin measurement (mass/volume) 4.2 g/dL 3.2-4.5 Magnesium - 01/08/17 21:45 Magnesium 2.6 mg/dL 1.8-2.4 Serum or plasma troponin i.cardiac measurement (mass/volume) - 01/08/17 21:45 Serum or plasma troponin i.cardiac measurement (mass/volume) < ng/ mL <0.30 Bacterial blood culture - 01/08/17 22:[address] [facility] Blood lactic acid measurement (moles/volume) - 01/08/17 22:15 Blood lactic acid measurement (moles/volume) 1.34 mmol/L 0.50-2.00 Bacterial blood culture - 01/08/17 22:15 [address] [facility] Streptococcus pyogenes antigen detection - 01/08/17 22:19 Streptococcus pyogenes antigen detection NEGATIVE NEGATIVE Influenza virus A and B antigen detection - 01/08/17 22:19 FLU RESULT NEGATIVE FOR INFLUENZA A AND B ANTIGENS BY IA NR Bacterial throat culture - 01/08/17 22:19 Bacterial throat culture NBS NR Sputum Gram stain - 01/08/17 22:19 GRAM STAIN SPUTUM SCANT GPC NRG Bacterial sputum culture - 01/08/17 22:19 QUANTITY OF GROWTH Moderate Growth NR Bacterial sputum culture [id number] [facility] Complete blood count (CBC) with automated white blood cell (WBC) differential - 01/09/17 05:10 Blood leukocytes automated count (number/volume) 4.1 10*3/uL 4.3-11.0 Blood erythrocytes automated count (number/volume) 3.77 10*6/uL 4.35-5.85 Venous blood hemoglobin measurement (mass/volume) 13.3 g/dL 11.5-16.0 Blood hematocrit (volume fraction) 38 % 35-52 Automated erythrocyte mean corpuscular volume 100 [foz_us] 80-99 Automated erythrocyte mean corpuscular hemoglobin (mass per erythrocyte) 35 pg 25-34 Automated erythrocyte mean corpuscular hemoglobin concentration measurement ( mass/volume) 35 g/dL 32-36 Automated erythrocyte distribution width ratio 13.6 % 10.0-14.5 Automated blood platelet count (count/volume) 259 10*3/uL 130-400 Automated blood platelet mean volume measurement 10.3 [foz_us] 7.4-10.4 Automated blood neutrophils/100 leukocytes 86 % 42-75 Automated blood lymphocytes/100 leukocytes 12 % 12-44 Blood monocytes/100 leukocytes 2 % 0-12 Automated blood eosinophils/100 leukocytes 0 % 0-10 Automated blood basophils/100 leukocytes 0 % 0-10 Blood neutrophils automated count (number/volume) 3.5 10*3 1.8-7.8 Blood lymphocytes automated count (number/volume) 0.5 10*3 1.0-4.0 Blood monocytes automated count (number/volume) 0.1 10*3 0.0-1.0 Automated eosinophil count 0.0 10*3/uL 0.0-0.3 Automated blood basophil count (count/volume) 0.0 10*3/uL 0.0-0.1 Whole blood basic metabolic panel - 01/09/17 05:10 Serum or plasma sodium measurement (moles/volume) 140 mmol/L 135-145 Serum or plasma potassium measurement (moles/volume) 4.2 mmol/L 3.6-5.0 Serum or plasma chloride measurement (moles/volume) 107 mmol/L 98-107 Carbon dioxide 22 mmol/L 21-32 Serum or plasma anion gap determination (moles/volume) 11 mmol/L 5-14 Serum or plasma urea nitrogen measurement (mass/volume) 9 mg/dL 7-18 Serum or plasma creatinine measurement (mass/volume) 0.67 mg/dL 0.60-1.30 Serum or plasma urea nitrogen/creatinine mass ratio 13 NRG Serum or plasma creatinine measurement with calculation of estimated glomerular filtration rate > NRG Serum or plasma glucose measurement (mass/volume) 159 mg/dL 70-105 Serum or plasma calcium measurement (mass/volume) 8.8 mg/dL 8.5-10.1 Complete blood count (CBC) with automated white blood cell (WBC) differential - 01/10/17 05:37 Blood leukocytes automated count (number/volume) 8.7 10*3/uL 4.3-11.0 Blood erythrocytes automated count (number/volume) 3.82 10*6/uL 4.35-5.85 Venous blood hemoglobin measurement (mass/volume) 13.1 g/dL 11.5-16.0 Blood hematocrit (volume fraction) 39 % 35-52 Automated erythrocyte mean corpuscular volume 102 [foz_us] 80-99 Automated erythrocyte mean corpuscular hemoglobin (mass per erythrocyte) 34 pg 25-34 Automated erythrocyte mean corpuscular hemoglobin concentration measurement ( mass/volume) 34 g/dL 32-36 Automated erythrocyte distribution width ratio 13.7 % 10.0-14.5 Automated blood platelet count (count/volume) 270 10*3/uL 130-400 Automated blood platelet mean volume measurement 10.9 [foz_us] 7.4-10.4 Automated blood neutrophils/100 leukocytes 86 % 42-75 Automated blood lymphocytes/100 leukocytes 12 % 12-44 Blood monocytes/100 leukocytes 2 % 0-12 Automated blood eosinophils/100 leukocytes 0 % 0-10 Automated blood basophils/100 leukocytes 0 % 0-10 Blood neutrophils automated count (number/volume) 7.5 10*3 1.8-7.8 Blood lymphocytes automated count (number/volume) 1.0 10*3 1.0-4.0 Blood monocytes automated count (number/volume) 0.2 10*3 0.0-1.0 Automated eosinophil count 0.0 10*3/uL 0.0-0.3 Automated blood basophil count (count/volume) 0.0 10*3/uL 0.0-0.1 Whole blood basic metabolic panel - 01/10/17 05:37 Serum or plasma sodium measurement (moles/volume) 140 mmol/L 135-145 Serum or plasma potassium measurement (moles/volume) 3.8 mmol/L 3.6-5.0 Serum or plasma chloride measurement (moles/volume) 107 mmol/L 98-107 Carbon dioxide 22 mmol/L 21-32 Serum or plasma anion gap determination (moles/volume) 11 mmol/L 5-14 Serum or plasma urea nitrogen measurement (mass/volume) 8 mg/dL 7-18 Serum or plasma creatinine measurement (mass/volume) 0.61 mg/dL 0.60-1.30 Serum or plasma urea nitrogen/creatinine mass ratio 13 NRG Serum or plasma creatinine measurement with calculation of estimated glomerular filtration rate > NRG Serum or plasma glucose measurement (mass/volume) 130 mg/dL 70-105 Serum or plasma calcium measurement (mass/volume) 8.9 mg/dL 8.5-10.1 Magnesium - 01/10/17 05:37 Magnesium 2.4 mg/dL 1.8-2.4 Streptococcus pyogenes antigen detection - 01/22/17 19:45 Streptococcus pyogenes antigen detection NEGATIVE NEGATIVE Bacterial throat culture - 01/22/17 19:45 Bacterial throat culture NBS NRG Blood lactic acid measurement (moles/volume) - 01/22/17 19:46 Blood lactic acid measurement (moles/volume) 0.96 mmol/L 0.50-2.00 Bacterial blood culture - 01/22/17 19:46 Bacterial blood culture NG NRG Arterial blood gas measurement - 01/22/17 19:58 Blood pCO2 53 mm[Hg] 35-45 Blood pO2 83 mm[Hg] 79-93 Arterial blood bicarbonate measurement (moles/volume) 28 mmol/L 23-27 Arterial blood base excess by calculation 2.4 mmol/L -2.5 -2.5 Arterial blood oxygen saturation measurement 96 % 94-100 * Inhaled oxygen flow rate 4L NRG Arterial blood pH measurement with patient temperature correction 7.34 7.37-7.43 Arterial blood carbon dioxide, total measurement (moles/volume) 29.3 mmol/L 21.0-31.0 Body site RIGHT RADIAL NRG Assessment of wrist artery patency prior to arterial puncture YES- POS NRG Setting of ventilation mode NO NRG Measurement of body temperature 98.6 NRG Complete blood count (CBC) with automated white blood cell (WBC) differential - 01/22/17 20:30 Blood leukocytes automated count (number/volume) 10.1 10*3/uL 4.3-11.0 Blood erythrocytes automated count (number/volume) 4.08 10*6/uL 4.35-5.85 Venous blood hemoglobin measurement (mass/volume) 14.4 g/dL 11.5-16.0 Blood hematocrit (volume fraction) 42 % 35-52 Automated erythrocyte mean corpuscular volume 102 [foz_us] 80-99 Automated erythrocyte mean corpuscular hemoglobin (mass per erythrocyte) 35 pg 25-34 Automated erythrocyte mean corpuscular hemoglobin concentration measurement ( mass/volume) 35 g/dL 32-36 Automated erythrocyte distribution width ratio 13.1 % 10.0-14.5 Automated blood platelet count (count/volume) 257 10*3/uL 130-400 Automated blood platelet mean volume measurement 10.0 [foz_us] 7.4-10.4 Automated blood neutrophils/100 leukocytes 41 % 42-75 Automated blood lymphocytes/100 leukocytes 48 % 12-44 Blood monocytes/100 leukocytes 7 % 0-12 Automated blood eosinophils/100 leukocytes 4 % 0-10 Automated blood basophils/100 leukocytes 0 % 0-10 Blood neutrophils automated count (number/volume) 4.1 10*3 1.8-7.8 Blood lymphocytes automated count (number/volume) 4.8 10*3 1.0-4.0 Blood monocytes automated count (number/volume) 0.8 10*3 0.0-1.0 Automated eosinophil count 0.4 10*3/uL 0.0-0.3 Automated blood basophil count (count/volume) 0.0 10*3/uL 0.0-0.1 Fibrin D-dimer FEU measurement in platelet poor plasma (mass/volume) - 20:30 Fibrin D-dimer FEU measurement in platelet poor plasma (mass/volume) 0.27 ug/mL 0.00-0.49 Comprehensive metabolic panel - 01/22/17 20:30 Serum or plasma sodium measurement (moles/volume) 139 mmol/L 135-145 Serum or plasma potassium measurement (moles/volume) 3.8 mmol/L 3.6-5.0 Serum or plasma chloride measurement (moles/volume) 102 mmol/L 98-107 Carbon dioxide 23 mmol/L 21-32 Serum or plasma anion gap determination (moles/volume) 14 mmol/L 5-14 Serum or plasma urea nitrogen measurement (mass/volume) 8 mg/dL 7-18 Serum or plasma creatinine measurement (mass/volume) 0.72 mg/dL 0.60-1.30 Serum or plasma urea nitrogen/creatinine mass ratio 11 NRG Serum or plasma creatinine measurement with calculation of estimated glomerular filtration rate > NRG Serum or plasma glucose measurement (mass/volume) 106 mg/dL 70-105 Serum or plasma calcium measurement (mass/volume) 9.3 mg/dL 8.5-10.1 Serum or plasma total bilirubin measurement (mass/volume) 0.4 mg/dL 0.1-1.0 Serum or plasma alkaline phosphatase measurement (enzymatic activity/volume) 63 U/L 40-136 Serum or plasma aspartate aminotransferase measurement (enzymatic activity/ volume) 24 U/L 5-34 Serum or plasma alanine aminotransferase measurement (enzymatic activity/volume ) 27 U/L 0-55 Serum or plasma protein measurement (mass/volume) 7.7 g/dL 6.4-8.2 Serum or plasma albumin measurement (mass/volume) 4.3 g/dL 3.2-4.5 Magnesium - 01/22/17 20:30 Magnesium 2.4 mg/dL 1.8-2.4 Serum or plasma troponin i.cardiac measurement (mass/volume) - 01/22/17 20:30 Serum or plasma troponin i.cardiac measurement (mass/volume) < ng/ mL <0.30 Bacterial blood culture - 01/22/17 20:30 Bacterial blood culture NG NRG Complete blood count (CBC) with automated white blood cell (WBC) differential - 01/23/17 02:05 Blood leukocytes automated count (number/volume) 9.9 10*3/uL 4.3-11.0 Blood erythrocytes automated count (number/volume) 3.83 10*6/uL 4.35-5.85 Venous blood hemoglobin measurement (mass/volume) 13.1 g/dL 11.5-16.0 Blood hematocrit (volume fraction) 40 % 35-52 Automated erythrocyte mean corpuscular volume 104 [foz_us] 80-99 Automated erythrocyte mean corpuscular hemoglobin (mass per erythrocyte) 34 pg 25-34 Automated erythrocyte mean corpuscular hemoglobin concentration measurement ( mass/volume) 33 g/dL 32-36 Automated erythrocyte distribution width ratio 13.1 % 10.0-14.5 Automated blood platelet count (count/volume) 253 10*3/uL 130-400 Automated blood platelet mean volume measurement 10.1 [foz_us] 7.4-10.4 Automated blood neutrophils/100 leukocytes 94 % 42-75 Automated blood lymphocytes/100 leukocytes 5 % 12-44 Blood monocytes/100 leukocytes 1 % 0-12 Automated blood eosinophils/100 leukocytes 0 % 0-10 Automated blood basophils/100 leukocytes 0 % 0-10 Blood neutrophils automated count (number/volume) 9.3 10*3 1.8-7.8 Blood lymphocytes automated count (number/volume) 0.5 10*3 1.0-4.0 Blood monocytes automated count (number/volume) 0.1 10*3 0.0-1.0 Automated eosinophil count 0.0 10*3/uL 0.0-0.3 Automated blood basophil count (count/volume) 0.0 10*3/uL 0.0-0.1 Whole blood basic metabolic panel - 01/23/17 02:05 Serum or plasma sodium measurement (moles/volume) 139 mmol/L 135-145 Serum or plasma potassium measurement (moles/volume) 3.6 mmol/L 3.6-5.0 Serum or plasma chloride measurement (moles/volume) 104 mmol/L 98-107 Carbon dioxide 23 mmol/L 21-32 Serum or plasma anion gap determination (moles/volume) 12 mmol/L 5-14 Serum or plasma urea nitrogen measurement (mass/volume) 9 mg/dL 7-18 Serum or plasma creatinine measurement (mass/volume) 0.66 mg/dL 0.60-1.30 Serum or plasma urea nitrogen/creatinine mass ratio 14 NRG Serum or plasma creatinine measurement with calculation of estimated glomerular filtration rate > NRG Serum or plasma glucose measurement (mass/volume) 163 mg/dL 70-105 Serum or plasma calcium measurement (mass/volume) 8.7 mg/dL 8.5-10.1 Serum or plasma phosphate measurement (mass/volume) - 01/23/17 02:05 Serum or plasma phosphate measurement (mass/volume) 3.5 mg/dL 2.3-4.7 Magnesium - 01/23/17 02:05 Magnesium 2.1 mg/dL 1.8-2.4 Serum or plasma troponin i.cardiac measurement (mass/volume) - 01/23/17 02:05 Serum or plasma troponin i.cardiac measurement (mass/volume) < ng/ mL <0.30 Lipid 1996 panel - 01/23/17 02:05 Serum or plasma triglyceride measurement (mass/volume) 45 mg/dL <150 Serum or plasma cholesterol measurement (mass/volume) 204 mg/dL < 200 Serum or plasma cholesterol in HDL measurement (mass/volume) 87 mg/ dL 40-60 Cholesterol in LDL [mass/volume] in serum or plasma by direct assay 82 mg/dL 1-129 Serum or plasma cholesterol in VLDL measurement (mass/volume) 9 mg/ dL 5-40 Arterial blood gas measurement - 01/23/17 05:24 Blood pCO2 39 mm[Hg] 35-45 Blood pO2 129 mm[Hg] 79-93 Arterial blood bicarbonate measurement (moles/volume) 25 mmol/L 23-27 Arterial blood base excess by calculation 0.2 mmol/L -2.5 -2.5 Arterial blood oxygen saturation measurement 99 % 94-100 * Inhaled oxygen flow rate 35% NRG Arterial blood pH measurement with patient temperature correction 7.41 7.37-7.43 Arterial blood carbon dioxide, total measurement (moles/volume) 25.8 mmol/L 21.0-31.0 Body site LEFT RADIAL NRG Assessment of wrist artery patency prior to arterial puncture YES- POS NRG Setting of ventilation mode NO NRG Measurement of body temperature 96.3 NRG Serum or plasma troponin i.cardiac measurement (mass/volume) - 01/23/17 07:50 Serum or plasma troponin i.cardiac measurement (mass/volume) < ng/ mL <0.30 Complete blood count (CBC) with automated white blood cell (WBC) differential - 09/09/17 20:02 Blood leukocytes automated count (number/volume) 7.5 10*3/uL 4.3-11.0 Blood erythrocytes automated count (number/volume) 4.00 10*6/uL 4.35-5.85 Venous blood hemoglobin measurement (mass/volume) 13.8 g/dL 11.5-16.0 Blood hematocrit (volume fraction) 41 % 35-52 Automated erythrocyte mean corpuscular volume 102 [foz_us] 80-99 Automated erythrocyte mean corpuscular hemoglobin (mass per erythrocyte) 35 pg 25-34 Automated erythrocyte mean corpuscular hemoglobin concentration measurement ( mass/volume) 34 g/dL 32-36 Automated erythrocyte distribution width ratio 13.3 % 10.0-14.5 Automated blood platelet count (count/volume) 242 10*3/uL 130-400 Automated blood platelet mean volume measurement 9.9 [foz_us] 7.4-10.4 Automated blood neutrophils/100 leukocytes 56 % 42-75 Automated blood lymphocytes/100 leukocytes 35 % 12-44 Blood monocytes/100 leukocytes 6 % 0-12 Automated blood eosinophils/100 leukocytes 3 % 0-10 Automated blood basophils/100 leukocytes 0 % 0-10 Blood neutrophils automated count (number/volume) 4.2 10*3 1.8-7.8 Blood lymphocytes automated count (number/volume) 2.7 10*3 1.0-4.0 Blood monocytes automated count (number/volume) 0.5 10*3 0.0-1.0 Automated eosinophil count 0.2 10*3/uL 0.0-0.3 Automated blood basophil count (count/volume) 0.0 10*3/uL 0.0-0.1 Blood lactic acid measurement (moles/volume) - 09/09/17 20:02 Blood lactic acid measurement (moles/volume) 1.38 mmol/L 0.50-2.00 Comprehensive metabolic panel - 09/09/17 20:02 Serum or plasma sodium measurement (moles/volume) 141 mmol/L 135-145 Serum or plasma potassium measurement (moles/volume) 3.9 mmol/L 3.6-5.0 Serum or plasma chloride measurement (moles/volume) 102 mmol/L 98-107 Carbon dioxide 25 mmol/L 21-32 Serum or plasma anion gap determination (moles/volume) 14 mmol/L 5-14 Serum or plasma urea nitrogen measurement (mass/volume) 9 mg/dL 7-18 Serum or plasma creatinine measurement (mass/volume) 0.77 mg/dL 0.60-1.30 Serum or plasma urea nitrogen/creatinine mass ratio 12 NRG Serum or plasma creatinine measurement with calculation of estimated glomerular filtration rate > NRG Serum or plasma glucose measurement (mass/volume) 91 mg/dL 70-105 Serum or plasma calcium measurement (mass/volume) 9.5 mg/dL 8.5-10.1 Serum or plasma total bilirubin measurement (mass/volume) 0.4 mg/dL 0.1-1.0 Serum or plasma alkaline phosphatase measurement (enzymatic activity/volume) 58 U/L 40-136 Serum or plasma aspartate aminotransferase measurement (enzymatic activity/ volume) 24 U/L 5-34 Serum or plasma alanine aminotransferase measurement (enzymatic activity/volume ) 20 U/L 0-55 Serum or plasma protein measurement (mass/volume) 7.9 g/dL 6.4-8.2 Serum or plasma albumin measurement (mass/volume) 4.6 g/dL 3.2-4.5 Magnesium - 09/09/17 20:02 Magnesium 2.5 mg/dL 1.8-2.4 Serum or plasma C reactive protein measurement (mass/volume) - 09/09/17 20:02 Serum or plasma C reactive protein measurement (mass/volume) 0.30 mg /dL 0.00-0.50 Serum or plasma lithium measurement (moles/volume) - 09/09/17 20:02 BNP level 89.3 pg/mL <100.0 Bacterial blood culture - 09/09/17 20:02 Bacterial blood culture NG NRG Sputum Gram stain - 09/09/17 20:14 Sputum Gram stain negative coccobacilli NRG Bacterial sputum culture - 09/09/17 20:14 FREE TEXT EXTERNAL BETA LACTAMASE POSITIVE NRG QUANTITY OF GROWTH Moderate Growth NRG Bacterial sputum culture [id number] NRG Bacterial blood culture - 09/09/17 20:40 Bacterial blood culture NG NRG Complete urinalysis with reflex to culture - 09/09/17 20:52 Urine color determination YELLOW NRG Urine clarity determination CLEAR NRG Urine pH measurement by test strip 6 5-9 Specific gravity of urine by test strip 1.010 1.016- 1.022 Urine protein assay by test strip, semi-quantitative NEGATIVE NEGATIVE Urine glucose detection by automated test strip NEGATIVE NEGATIVE Erythrocytes detection in urine sediment by light microscopy 4+ NEGATIVE Urine ketones detection by automated test strip NEGATIVE NEGATIVE Urine nitrite detection by test strip NEGATIVE NEGATIVE Urine total bilirubin detection by test strip NEGATIVE NEGATIVE Urine urobilinogen measurement by automated test strip (mass/volume) NORMAL NORMAL Urine leukocyte esterase detection by dipstick 3+ NEGATIVE Automated urine sediment erythrocyte count by microscopy (number/high power field) [HPF] NRG Automated urine sediment leukocyte count by microscopy (number/high power field ) [HPF] NRG Bacteria detection in urine sediment by light microscopy TRACE NRG Squamous epithelial cells detection in urine sediment by light microscopy 2-5 NRG Crystals detection in urine sediment by light microscopy NONE NRG Casts detection in urine sediment by light microscopy NONE NRG Mucus detection in urine sediment by light microscopy NEGATIVE NRG Complete urinalysis with reflex to culture YES NRG Bacterial urine culture - 09/09/17 20:52 Bacterial urine culture SEE COMMEN NRG COLONY COUNT . NRG Influenza virus A and B antigen detection - 03/03/18 22:32 FLU RESULT NEGATIVE FOR INFLUENZA A AND B ANTIGENS BY IA NRG Complete blood count (CBC) with automated white blood cell (WBC) differential - 03/03/18 22:35 Blood leukocytes automated count (number/volume) 7.0 10*3/uL 4.3-11.0 Blood erythrocytes automated count (number/volume) 3.83 10*6/uL 4.35-5.85 Venous blood hemoglobin measurement (mass/volume) 12.8 g/dL 11.5-16.0 Blood hematocrit (volume fraction) 39 % 35-52 Automated erythrocyte mean corpuscular volume 101 [foz_us] 80-99 Automated erythrocyte mean corpuscular hemoglobin (mass per erythrocyte) 33 pg 25-34 Automated erythrocyte mean corpuscular hemoglobin concentration measurement ( mass/volume) 33 g/dL 32-36 Automated erythrocyte distribution width ratio 12.8 % 10.0-14.5 Automated blood platelet count (count/volume) 250 10*3/uL 130-400 Automated blood platelet mean volume measurement 9.7 [foz_us] 7.4-10.4 Automated blood neutrophils/100 leukocytes 28 % 42-75 Automated blood lymphocytes/100 leukocytes 62 % 12-44 Blood monocytes/100 leukocytes 8 % 0-12 Automated blood eosinophils/100 leukocytes 1 % 0-10 Automated blood basophils/100 leukocytes 0 % 0-10 Blood neutrophils automated count (number/volume) 2.0 10*3 1.8-7.8 Blood lymphocytes automated count (number/volume) 4.4 10*3 1.0-4.0 Blood monocytes automated count (number/volume) 0.6 10*3 0.0-1.0 Automated eosinophil count 0.1 10*3/uL 0.0-0.3 Automated blood basophil count (count/volume) 0.0 10*3/uL 0.0-0.1 PT panel in platelet poor plasma by coagulation assay - 03/03/18 22:35 Prothrombin time (PT) in platelet poor plasma by coagulation assay 12.3 s 12.2-14.7 INR in platelet poor plasma or blood by coagulation assay 0.9 0.8-1.4 Activated partial thromboplastin time (aPTT) in platelet poor plasma bycoagulation assay - 03/03/18 22:35 Activated partial thromboplastin time (aPTT) in platelet poor plasma bycoagulation assay 28 s 24-35 Blood lactic acid measurement (moles/volume) - 03/03/18 22:35 Blood lactic acid measurement (moles/volume) 1.32 mmol/L 0.50-2.00 Comprehensive metabolic panel - 03/03/18 22:35 Serum or plasma sodium measurement (moles/volume) 134 mmol/L 135-145 Serum or plasma potassium measurement (moles/volume) 3.8 mmol/L 3.6-5.0 Serum or plasma chloride measurement (moles/volume) 100 mmol/L 98-107 Carbon dioxide 22 mmol/L 21-32 Serum or plasma anion gap determination (moles/volume) 12 mmol/L 5-14 Serum or plasma urea nitrogen measurement (mass/volume) 5 mg/dL 7-18 Serum or plasma creatinine measurement (mass/volume) 0.60 mg/dL 0.60-1.30 Serum or plasma urea nitrogen/creatinine mass ratio 8 NRG Serum or plasma creatinine measurement with calculation of estimated glomerular filtration rate > NRG Serum or plasma glucose measurement (mass/volume) 77 mg/dL 70-105 Serum or plasma calcium measurement (mass/volume) 8.4 mg/dL 8.5-10.1 Serum or plasma total bilirubin measurement (mass/volume) 0.2 mg/dL 0.1-1.0 Serum or plasma alkaline phosphatase measurement (enzymatic activity/volume) 47 U/L 40-136 Serum or plasma aspartate aminotransferase measurement (enzymatic activity/ volume) 21 U/L 5-34 Serum or plasma alanine aminotransferase measurement (enzymatic activity/volume ) 14 U/L 0-55 Serum or plasma protein measurement (mass/volume) 6.9 g/dL 6.4-8.2 Serum or plasma albumin measurement (mass/volume) 4.0 g/dL 3.2-4.5 CALCIUM CORRECTED 8.4 mg/dL 8.5-10.1 Serum or plasma troponin i.cardiac measurement (mass/volume) - 03/03/18 22:35 Serum or plasma troponin i.cardiac measurement (mass/volume) < ng/ mL <0.30 Serum or plasma ethanol measurement (mass/volume) - 03/03/18 22:35 Serum or plasma ethanol measurement (mass/volume) 207 mg/dL <10 Arterial blood gas measurement - 03/03/18 22:50 Blood pCO2 39 mm[Hg] 35-45 Blood pO2 89 mm[Hg] 79-93 Arterial blood bicarbonate measurement (moles/volume) 23 mmol/L 23-27 Arterial blood base excess by calculation -1.9 mmol/L - 2.5-2.5 Arterial blood oxygen saturation measurement 98 % 94-100 * Inhaled oxygen flow rate 2L NRG Arterial blood pH measurement with patient temperature correction 7.38 7.37-7.43 Arterial blood carbon dioxide, total measurement (moles/volume) 24.1 mmol/L 21.0-31.0 Body site RIGHT RADIAL NRG Assessment of wrist artery patency prior to arterial puncture POSITIVE NRG Setting of ventilation mode NO NRG Measurement of body temperature 96.0 NRG Complete urinalysis with reflex to culture - 03/04/18 00:16 Urine color determination YELLOW NRG Urine clarity determination CLEAR NRG Urine pH measurement by test strip 5 5-9 Specific gravity of urine by test strip 1.010 1.016- 1.022 Urine protein assay by test strip, semi-quantitative NEGATIVE NEGATIVE Urine glucose detection by automated test strip NEGATIVE NEGATIVE Erythrocytes detection in urine sediment by light microscopy 2+ NEGATIVE Urine ketones detection by automated test strip NEGATIVE NEGATIVE Urine nitrite detection by test strip NEGATIVE NEGATIVE Urine total bilirubin detection by test strip NEGATIVE NEGATIVE Urine urobilinogen measurement by automated test strip (mass/volume) NORMAL NORMAL Urine leukocyte esterase detection by dipstick 1+ NEGATIVE Automated urine sediment erythrocyte count by microscopy (number/high power field) [HPF] NRG Automated urine sediment leukocyte count by microscopy (number/high power field ) [HPF] NRG Bacteria detection in urine sediment by light microscopy MODERATE NRG Squamous epithelial cells detection in urine sediment by light microscopy 0-2 NRG Crystals detection in urine sediment by light microscopy NONE NRG Casts detection in urine sediment by light microscopy NONE NRG Mucus detection in urine sediment by light microscopy NEGATIVE NRG Complete urinalysis with reflex to culture NO NRG Encounters ACCT No. Visit Date/Time Discharge Status Pt. Type Provider Facility Loc./Unit Complaint [id number] 06/02/2014 14:37:00 06/02/2014 23:59:59 CLS Outpatient ANDRES KAUFFMAN APRN [id number] 04/06/2014 13:56:00 04/06/2014 23:59:59 CLS Outpatient ANDRES KAUFFMAN APRN [id number] 01/19/2014 09:15:00 01/19/2014 23:59:59 CLS Outpatient ANDRES KAUFFMAN APRN [id number] 01/19/2014 09:15:00 01/19/2014 23:59:59 CLS Outpatient ANDRSE KAUFFMAN APRN [id number] 01/05/2014 10:49:00 01/05/2014 23:59:59 CLS Outpatient BARBARA VILLEGAS APRN [id number] 12/22/2013 08:36:00 12/22/2013 23:59:59 CLS Outpatient ANDRES KAUFFMAN APRN [id number] 04/28/2013 14:11:00 04/28/2013 23:59:59 CLS Outpatient JAMARITESFAYE LOZA ANDRES Natasha [id number] 10/14/2012 17:32:00 10/14/2012 23:59:59 [place] [id number] 02/12/2012 10:45:00 02/12/2012 23:59:59 CLS Outpatient PAULINA URBINA MD [id number] 02/11/2012 00:00:00 02/11/2012 23:59:59 CLS Outpatient PAULINA URBINA MD [id number] 02/13/2011 16:04:00 02/13/2011 23:59:59 CLS Outpatient [id number] 08/05/2012 11:36:00 Document Registration [id number] 10/05/2014 01:59:04 ACT Document Registration [id number] 10/09/2017 16:00:00 10/09/2017 23:59:59 CLS Outpatient ANDRES KAUFFMAN APRN [facility] [id number] 10/14/2017 15:20:00 10/14/2017 23:59:59 CLS Outpatient BOB BERNARD APRN [facility] RT COPD [id number] 10/11/2017 11:14:00 10/11/2017 23:59:59 CLS Outpatient LINDA DELGADO DO [facility] RAD SMOKING HISTORY,SOB [id number] 10/07/2017 14:15:00 10/07/2017 23:59:59 CLS Preadmit BOB BERNARD APRN [facility] RT ASTHMA,COPD,DYSPNEA [id number] 09/09/2017 19:42:00 09/09/2017 23:17:00 DIS Emergency JUAN R MARCO A QUINTON [facility] ER SOB [id number] 01/22/2017 21:41:00 01/25/2017 14:22:00 DIS Inpatient TERESA HERNANDEZ MD [facility] 4TH COPD EXACERBATION/ASTHMA EXACERBATION;CP R/O ACS [id number] 01/08/2017 22:59:00 01/10/2017 13:15:00 DIS Inpatient PRABHAKAR BULL MD [facility] 4TH RESPIRATORY DISTRESS [id number] 05/02/2016 14:08:00 05/21/2016 09:38:00 DIS Outpatient ALMA ALLENP [facility] REHAB IMPINGEMENT SYNDROME, SHOULDER, LEFT [id number] 03/22/2015 13:04:00 03/22/2015 23:59:59 CLS Outpatient DARRELL GOLDBERG PRE FABRICATOR [facility] RAD ROUTINE SCREENING MAMMOGRAM [id number] 10/05/2014 01:57:00 10/05/2014 04:11:00 DIS Emergency DEJA PERDOMO MD [facility] ER ETOH,FALL,ARM PAIN [id number] 03/01/2014 08:02:00 03/01/2014 10:20:00 DIS Outpatient KWAKU LOPEZ MD [facility] SDC BLOOD IN STOOL [id number] 02/24/2014 07:12:00 02/24/2014 23:59:59 CLS Outpatient KWAKU LOPEZ MD [facility] PREOP POSITIVE OCCULT BLOOD IN STOOLS [id number] 02/03/2014 07:26:00 02/03/2014 23:59:59 CLS Outpatient KWAKU LOPEZ MD [facility] PREOP BLOOD IN STOOL [id number] 01/29/2014 10:45:00 01/29/2014 23:59:59 CLS Outpatient BARBARA VILLEGAS PRE FABRICATOR [facility] RAD ROUTINE [id number] 09/22/2012 03:08:00 09/24/2012 16:15:00 DIS Inpatient MARTINE GUTIERREZ MD [facility] 4TH ACUTE COPD EXACERBATION [id number] 03/03/2018 22:25:00 ACT Emergency GOVIND PALAFOX MD [facility] ER SOB [id number] 05/15/2012 15:00:00 Document Registration [id number] 04/10/2012 13:00:00 Document Registration [id number] 02/12/2012 12:30:00 Document Registration [id number] 01/09/2012 19:16:00 Document Registration [id number] 01/02/2012 20:18:00 Document Registration [id number] 09/11/2011 00:30:00 Document Registration [id number] 08/27/2011 23:54:00 Document Registration [id number] 06/05/2011 20:05:00 Document Registration [id number] 03/21/2011 01:05:00 Document Registration [id number] 12/07/2010 14:03:00 Document Registration [id number] 11/20/2010 21:28:00 Document Registration [id number] 07/13/2010 14:24:00 Document Registration [id number] 07/07/2010 01:20:00 Document Registration
[2018-03-04] MEDS ORDERED: NS IV 1000 ML 1,000 ML ONE (05:14)
--- NOTE | 2018-03-04 05:30 | Diagnostic Imaging Report ---
INDICATION: Shortness of air COMPARISON: 09/09/2017 FINDINGS: Single frontal view of the chest demonstrates mild prominence of the cardiac silhouette. Pulmonary vasculature is within normal limits. The lungs are well aerated and clear. No large pleural effusion or pneumothorax is seen. The visualized osseous structures show no acute abnormalities. IMPRESSION: 1. Mild prominence of cardiac silhouette, which may be accentuated by portable technique. Otherwise, no evidence of failure or focal infiltrate. Dictated by: Dictated on workstation # [id number]
--- NOTE | 2018-03-04 05:45 | Diagnostic Imaging Report ---
INDICATION: Central line placement. COMPARISON: 03/03/2018 FINDINGS: Single frontal radiographic view of the chest was obtained and demonstrates interval placement of right internal jugular central venous catheter, tip of which terminates in the SVC. Cardiac silhouette is mildly prominent. Pulmonary vasculature is within normal limits. Lungs are clear. There is no focal consolidation, large effusion, nor pneumothorax. Bony structures show no acute abnormalities. IMPRESSION: 1. New right internal jugular central venous catheter with tip in the SVC. 2. Mild prominence of the cardiac silhouette, which may be accentuated by portable technique. No evidence of failure. Dictated by: Dictated on workstation # [id number]
[2018-03-04] MEDS ORDERED: RT-ALBUTEROL SULF 2.5 MG/3 ML PRE-MIX VIAL INH PRN (06:15)
[2018-03-04] MEDS ORDERED: NS IV 1000 ML 1,000 ML IV SCH (07:08)
[2018-03-04] MEDS ORDERED: NS IV ONE (07:15)
[2018-03-04] MEDS ORDERED: VANCOMYCIN 1500 MG/NS 500 ML IVPB IV NR ×2 (07:16)
[2018-03-04] MEDS ORDERED: ONDANSETRON 4 MG/2 ML (SDV) Z0FRAN IV PRN (07:30)
[2018-03-04] MEDS ORDERED: FLU QUADRIvalent (5+ YOA) 2018-2019 (AFLURIA) 0.5 ML IM ONE (07:30)
--- NOTE | 2018-03-04 07:45 | Pulmonary Consultation ---
History of Present Illness History of Present Illness Date of Consultation 03/04/18 07:43 Time Seen by Provider: 09:32 Date of Admission History of Present Illness 62yo with hx of COPD/emphysema and asthma pt has home oxygen presented to ED secondary to worsening SOB and productive cough after going out with a friend and drinking beer. PT took her Symbicort which did not help. While in the ED pt was found to have hypotension. She has no leukocytosis, and no fever. Allergies and Home Medications Allergies Coded Allergies: codeine (Verified Allergy, Severe, Hives and swelling., 09/22/12) Home Medications Albuterol Sulfate 18 Gm Hfa.aer.ad, 2 PUFF INH Q4H PRN for SHORTNESS OF BREATH, (Reported) Albuterol Sulfate 2.5 Mg/3 Ml Vial.neb, 2.5 MG NEB Q4H PRN for SHORTNESS OF BREATH, (Reported) Aspirin 81 Mg Tablet.dr, 81 MG PO HS, (Reported) Budesonide/Formoterol Fumarate 10.2 Gm Hfa.aer.ad, 2 PUFF INH BID, (Reported) Guaifenesin 400 Mg Tablet, 200 MG PO BID, (Reported) TAKES 1/2 (400MG) TABLET Montelukast Sodium 10 Mg Tablet, 10 MG PO HS, (Reported) Sertraline HCl 100 Mg Tablet, 100 MG PO HS, (Reported) Umeclidinium [place] 62.5 Mcg Blst.w.dev, 1 PUFF IH DAILY@0800 Prescribed by: TERESA HERNANDEZ on 01/25/17 1133 Past Hradhtf-Szxlsp-Bkaxdj Hx Patient Social History Alcohol Use: Regular Use Number of Drinks Today: AA Alcohol Beverage of Choice: Beer, [place] Recreational Drug Use: No Smoking Status: Current Everyday Smoker Type Used: Cigarettes 2nd Hand Smoke Exposure: Yes Recent Foreign Travel: No Contact w/Someone Who Travel: No Recent Infectious Disease Expo: No Recent Hopitalizations: No Immunizations Up To Date Tetanus Booster (TDap): Unknown PED Vaccines UTD: No Date of Pneumonia Vaccine: Dec 14, 2013 Date of Influenza Vaccine: Jan 13, 2017 Seasonal Allergies Seasonal Allergies: No Past Medical History Surgeries: Yes (c-sections and ear, teeth removed) Respiratory: Yes (COPD;ASTHMA, EMPHYSEMA) Asthma, COPD, Emphysema Currently Using CPAP: No Currently Using BIPAP: No Cardiac: Yes Neurological: No Reproductive Disorders: No Female Reproductive Disorders: Denies Sexually Transmitted Disease: No HIV/AIDS: No Genitourinary: No Gastrointestinal: No Musculoskeletal: Yes (ARTHRITIS) Arthritis Endocrine: No Cataract Hearing Impairment: Hard of Hearing Cancer: No Psychosocial: Yes Anxiety, Depression Integumentary: No Blood Disorders: No Adverse Reaction/Blood Tranf: No Family Medical History Arthritis 19 FATHER, , Onset:50's - 60 Cardiovascular disease G8 BROTHER, Onset:Unknown Diabetes mellitus G8 BROTHER, Onset:60 years & older FH: COPD (chronic obstructive pulmonary disease) 19 FATHER, , Onset:50's - 60 G8 SISTER, Onset:Unknown FH: uterine cancer 19 MOTHER, , Onset:60 years & older No Pertinent Family Hx Sepsis Event Evaluation Height, Weight, BMI Height: 5'5.00" Weight: 137lbs. 6.0oz. 62.672048rs; 22.9 BMI Method:Stated Exam Exam Vital Signs Date Time Temp Pulse Resp B/P (MAP) Pulse Ox O2 Delivery O2 Flow Rate FiO2 03/04/18 06:29 77 100 03/04/18 06:00 82 18 120/69 (86) 100 Nasal Cannula 2.00 03/04/18 05:00 Nasal Cannula 2.00 03/04/18 04:59 83 03/04/18 04:50 99.2 76 25 121/52 (75) 100 Nasal Cannula 2.00 03/04/18 04:37 98.4 75 18 116/61 (79) 100 2.00 03/03/18 22:59 99 Nasal Cannula 2.00 03/03/18 22:25 97 Nasal Cannula 2.00 03/03/18 22:25 96.0 84 20 112/75 (87) 96 Nasal Cannula 2.00 I & O 03/04/18 07:00 Intake Total 1050 ml Output Total 1000 ml Balance 50 ml Height & Weight Height: 5'5.00" Weight: 137lbs. 6.0oz. 62.503224fr; 22.9 BMI Method:Stated Capillary Refill: Less Than 3 Seconds Gastrointestinal: normal bowel sounds, non tender, soft Results Lab Laboratory Tests 03/03/18 22:35 Assessment/Plan Assessment/Plan Hypotension - responded to IVF -No leukocytosis, no fever -IVF COPDAE -SVNS -s/p solumedrol in ED Alocohol intoxication LINDA DELGADO DO Mar 04, 2018 07:45
[2018-03-04] MEDS: CEFEPIME 1 GM/NS 50 ML IV SCH ×6 (08:12→19:56)
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
[2018-03-04] MEDS ORDERED: RT-ALBUTEROL/IPRATROPIUM 3 ML (DUONEB) VIAL INH SCH (10:00)
[2018-03-04] MEDS: RT-ALBUTEROL/IPRATROPIUM 3 ML (DUONEB) VIAL INH SCH ×3 (10:42→19:56)
[2018-03-04] MEDS: NS IV 1000 ML 1,000 ML IV SCH ×2 (12:17→19:57)
--- NOTE | 2018-03-04 13:06 | Diagnostic Imaging Report ---
INDICATION: Septic shock, pneumonia and COPD. Comparison made with prior examination 03/04/2018. FINDINGS: Heart size normal. Lungs are clear. There is no pleural effusion or pneumothorax. Mediastinum is unremarkable. There is air-trapping compatible with COPD. The right internal jugular central venous catheter is in satisfactory position. IMPRESSION: COPD. No other acute cardiopulmonary abnormality. Dictated by: Dictated on workstation # [id number]
[2018-03-04] MEDS ORDERED: MONTELUKAST 10 MG (SINGULAIR) TAB PO SCH (21:00)
[2018-03-04] MEDS ORDERED: SERTRALINE 100 MG (ZOLOFT) TAB PO SCH (21:00)
[2018-03-04] MEDS ORDERED: ASPIRIN E.C. 81 MG (ECOTRIN) TAB PO SCH (21:00)
[2018-03-05] VITALS: BP 128/60
[2018-03-05] MEDS: CEFEPIME 1 GM/NS 50 ML IV SCH ×2 (02:25)
[2018-03-05] MEDS: NS IV 1000 ML 1,000 ML IV SCH (03:22)
[2018-03-05 04:00] VITALS: BP 148/78
[2018-03-05 05:15] LABS: BASOPHILS % (AUTO) 0 % (0-10); EOSINOPHILS # (AUTO) 0.1 10^3/uL (0.0-0.3); EOSINOPHILS % (AUTO) 2 % (0-10); HEMATOCRIT 34 % (35-52); LYMPHOCYTES # (AUTO) 2.5 X 10^3 (1.0-4.0); LYMPHOCYTES % (AUTO) 39 % (12-44); MEAN CORPUSCULAR HEMOGLOBIN 33 PG (25-34); MEAN CORPUSCULAR HGB CONC 32 G/DL (32-36); MEAN CORPUSCULAR VOLUME 104 FL (80-99); MONOCYTES # (AUTO) 0.4 X 10^3 (0.0-1.0); MONOCYTES % (AUTO) 7 % (0-12); NEUTROPHILS # (AUTO) 3.3 X 10^3 (1.8-7.8); NEUTROPHILS % (AUTO) 52 % (42-75); PLATELET COUNT 220 10^3/uL (130-400); RED BLOOD COUNT 3.31 10^6/uL (4.35-5.85); RED CELL DISTRIBUTION WIDTH 13.2 % (10.0-14.5); WHITE BLOOD COUNT 6.4 10^3/uL (4.3-11.0)
[2018-03-05 05:42] LABS: BUN/CREATININE RATIO 11; CALCIUM 8.4 MG/DL (8.5-10.1); CARBON DIOXIDE 23 MMOL/L (21-32); CHLORIDE 108 MMOL/L (98-107); CREATININE SERUM 0.57 MG/DL (0.60-1.30); GFR ESTIMATED > 60; GLUCOSE 83 MG/DL (70-105); POTASSIUM 3.6 MMOL/L (3.6-5.0); SODIUM 140 MMOL/L (135-145)
--- NOTE | 2018-03-05 06:10 | Pulmonary Progress Note ---
Subjective Time Seen by a Provider: 11:08 Subjective/Events-last exam No complications noted. Sepsis Event Evaluation Height, Weight, BMI Height: 5'5.00" Weight: 137lbs. 6.0oz. 62.243676mt; 22.9 BMI Method:Stated Focused Exam Lactate Level 03/03/18 22:35: Lactic Acid Level 1.32 Exam Exam Vital Signs Date Time Temp Pulse Resp B/P (MAP) Pulse Ox O2 Delivery O2 Flow Rate FiO2 03/05/18 00:00 98.6 77 20 128/60 (82) 99 Nasal Cannula 2.00 03/04/18 20:20 98.9 82 18 104/55 (71) 98 Nasal Cannula 2.00 03/04/18 20:00 Nasal Cannula 2.00 03/04/18 19:56 98 Nasal Cannula 2.00 03/04/18 15:35 98.5 67 20 128/60 (82) 98 Nasal Cannula 2.00 03/04/18 15:00 Nasal Cannula 2.00 03/04/18 14:27 99 Nasal Cannula 2.00 03/04/18 12:34 Nasal Cannula 2.00 03/04/18 12:27 97.8 03/04/18 12:21 98.5 Nasal Cannula 2.00 03/04/18 11:00 78 25 126/72 (90) 95 Room Air 03/04/18 10:43 99 Nasal Cannula 2.00 03/04/18 10:00 81 19 131/72 (91) 97 Room Air 03/04/18 09:00 85 27 124/72 (89) 96 Room Air 03/04/18 08:50 Nasal Cannula 2.00 03/04/18 08:15 100.1 Room Air 03/04/18 08:00 88 28 122/72 (89) 96 Nasal Cannula 2.00 03/04/18 07:00 83 03/04/18 07:00 84 18 121/72 (88) 95 Nasal Cannula 2.00 03/04/18 06:29 77 100 I & O 03/05/18 07:00 Intake Total 4035 ml Output Total 2950 ml Balance 1085 ml Height & Weight Height: 5'5.00" Weight: 137lbs. 6.0oz. 62.930346ee; 22.9 BMI Method:Stated Capillary Refill: Less Than 3 Seconds Gastrointestinal: normal bowel sounds, non tender, soft, no organomegaly Results Lab Laboratory Tests 03/03/18 22:35 03/05/18 05:05 Assessment/Plan Assessment/Plan COPDAE- improved -- Doubt infection -D/C abx -SVNS -s/p solumedrol in ED Hypotension - resolved -D/C IVF Alcohol intoxication Pt is ok from pulmonary standpoint for discharge without steroids or Abx. I will see her in my office for f/u. LINDA DELGADO DO Mar 05, 2018 06:09
[2018-03-05] MEDS: RT-ALBUTEROL/IPRATROPIUM 3 ML (DUONEB) VIAL INH SCH ×2 (07:20→10:36)
[2018-03-05 08:00] VITALS: BP 125/87
[2018-03-05] MEDS ORDERED: VANCOMYCIN 1 GM/NS 250 ML IVPB IV SCH ×2 (08:00)
--- NOTE | 2018-03-05 08:10 | Diagnostic Imaging Report ---
INDICATION: Dyspnea. TECHNIQUE: Single view chest 3:55 AM. CORRELATION STUDY: 03/04/2018 FINDINGS: Heart size enlarged with vasculature increasing since prior study. Mildly prominent interstitial markings present as well. Chronic appearing changes of the lung parenchyma. Mildly prominent interstitial markings. Increasing areas of atelectasis or perhaps less likely infiltrate at the lung bases. IMPRESSION: 1. Increasing severity cardiac enlargement with mild vascular congestion. Component of mild interstitial edema. 2. Suspect for increasing areas of atelectasis or less likely infiltrate at the lung bases superimposed on chronic changes of the lung parenchyma. Dictated by: Dictated on workstation # [id number]
--- NOTE | 2018-03-05 11:19 | Discharge Instructions ---
Discharge Inst-[facility] Discharge Medications New, Converted or Re-Newed RX: Other (No new scripts) Continued Medications: Albuterol Sulfate (Ventolin Hfa) 18 Gm Hfa.aer.ad 2 PUFF INH Q4H PRN for SHORTNESS OF BREATH, INHALER Albuterol Sulfate (Albuterol Sulfate) 2.5 Mg/3 Ml Vial.neb 2.5 MG NEB Q4H PRN for SHORTNESS OF BREATH, EA Aspirin (Aspirin EC) 81 Mg Tablet.dr 81 MG PO HS, TAB Budesonide/Formoterol Fumarate (Symbicort 160-4.5 Mcg Inhaler) 10.2 Gm Hfa.aer.ad 2 PUFF INH BID, INHALER Montelukast Sodium (Montelukast Sodium) 10 Mg Tablet 10 MG PO HS, TAB Sertraline HCl (Sertraline HCl) 100 Mg Tablet 100 MG PO HS, TAB Patient Instructions Goal/Follow Up Appt: You have a follow up appt with Ngoc Cadena on 03/10 @ 120 PM Patient Instructions: - Make sure you schedule your breathing treatments for the next 2 days then start using as needed [facility] to [facility]: - Worsening shortness of breath after breathing treatment - Chest pain Activity & Diet Discharge Diet: ADA Diet Activity as Tolerated: Yes Copy Copies To 1: [facility] DAGO Wolff HOLLY R MD Mar 05, 2018 11:19 am
--- NOTE | 2018-03-05 11:31 | Discharge Summary ---
LAURA CARTER MEDICAL STUDENT 03/05/18 1131: Diagnosis/Chief Complaint Date of Admission Mar 04, 2018 at 03:01 Date of Discharge 03/05/18 1127 Admission Diagnosis Admission Diagnosis septic shock AECOPD Discharge Diagnosis septic shock AECOPD Problems/Diagnosis: (1) Septic shock Assessment & Plan: - Patient received IVF 30mg/kg in ER, Central line placed if vasopressors are needed, broadspectrum AB started, Will continue to monitor VS, if they remain stable ok to transfer patient to the floor. Status: Acute (2) COPD (chronic obstructive pulmonary disease) Assessment & Plan: - Steroids, Antibiotics and MAT protocol, Discussed the need for smoking cessation Qualifiers: Qualified Codes: J44.1 - Chronic obstructive pulmonary disease with (acute) exacerbation Status: Acute (3) Alcohol intoxication Assessment & Plan: Alcohol level 207 on admission, will monitor for withdraw Qualifiers: Qualified Codes: F10.920 - Alcohol use, unspecified with intoxication, uncomplicated Status: Acute (4) DVT prophylaxis Assessment & Plan: lovenox Status: Acute Chief Complaint/HPI Chief Complaint/HPI Reviewed above HPI with patient Patient states that she has been coughing for the last 2 months but has got significantly worse the last week. States that she has had chills on and off but denies any fevers. Patient has a long h/o smoking since she was 17 yo and smoke about 1/2 ppd. Discharge Summary-Simple/Stand Consultations Discharge Physical Examination Allergies: Coded Allergies: codeine (Verified Allergy, Severe, Hives and swelling., 09/22/12) Vitals & I&Os Vital Sign - Last 12Hours Date Time Temp Pulse Resp B/P (MAP) Pulse Ox O2 Delivery O2 Flow Rate FiO2 03/05/18 10:36 94 Room Air 03/05/18 08:00 2.00 03/05/18 08:00 99.1 88 18 125/87 (100) Intake and Output 03/05/18 00:00 Intake Total 2935 ml Output Total 2950 ml Balance -15 ml General Appearance: Alert, Oriented X3, Cooperative HEENT: Atraumatic, EOMI Respiratory: Other (expiratory wheezes bilaterally) Cardiovascular: Regular Rate, No Murmurs Abdominal: Normal Bowel Sounds, Soft, No Tenderness Skin: No Rashes Neuro: Normal Speech Hospital Course See final discharge diagnosis. Discussion & Recommendations Pt was admitted from ED for septic shock and AECOPD. Pt was originally on 30ml/ kg IV fluid due to being hypotensive on admission and had central line placed in ED. Pt was started on IV antibiotics and steroids. Pt had no pneumonia on CXR and pulmonology was consulted, it was not suspected that there was any infection so IV abx and steroids were D/C. Pt improved over the course of her stay and pulmonology recommended pt can be discharged without need for Abx or Steroids. Discharge Instructions to patient/family Please see electronic discharge instructions given to patient. Discharge Medications Reviewed and agree with Discharge Medication list on patient's Discharge Instruction sheet Clinical Quality Measures DVT/VTE Risk/Contraindication: Risk Factor Score Per Nursin RFS Level Per Nursing on Admit: 4+=Very High Copy Copies To 1: Ngoc ODOM HOLLY R MD 03/07/182135: Diagnosis/Chief Complaint Admission Diagnosis Admission Diagnosis Septic Shock AECOPD Alcohol Intoxication Discharge Diagnosis See Above Discharge Summary-Simple/Stand Consultations Dr Giang, Pulmonology Discharge Physical Examination Allergies: Coded Allergies: codeine (Verified Allergy, Severe, Hives and swelling., 09/22/12) General Appearance: Alert, Oriented X3, Cooperative HEENT: Atraumatic, EOMI Respiratory: Other (expiratory wheezes bilaterally, normal work of breathing) Cardiovascular: Regular Rate, No Murmurs Abdominal: Normal Bowel Sounds, Soft, No Tenderness Extremities: No Edema, No Tenderness/Swelling Skin: No Rashes Neuro: Normal Speech, Strength at 5/5 X4 Ext, Sensation Intact, Cranial Nerves 3-12 NL Psych/Mental Status: Mental Status NL, Mood NL Discharge Condition at discharge Stable LAURA CARTER MEDICAL STUDENT Mar 05, 2018 11:31 ABI ROBB MD Mar 07, 2018 21:36
[2018-03-05 14:13] VITALS: BP 125/87
== END 2018-03-05 14:07 | disposition home or self-care (01) | DRG 871 ==
LOC: EDUNIT# 22:23 → ER 22:25 → ICU 03-04 03:01 → 4TH 03-04 16:54
PROVIDERS: ADMIT Family Medicine; ATTEND Family Medicine
PROC: 02HV33Z Insertion of Infusion Device into Superior Vena Cava, Percutaneous Approach (ICD-10-PCS; principal; 2018-03-04)
DX: A41.9 Sepsis, unspecified organism (principal); R65.21 Severe sepsis with septic shock; J18.9 Pneumonia, unspecified organism; J43.9 Emphysema, unspecified; F10.129 Alcohol abuse with intoxication, unspecified; F41.9 Anxiety disorder, unspecified; F32.9 Major depressive disorder, single episode, unspecified; M19.91 Primary osteoarthritis, unspecified site; F17.210 Nicotine dependence, cigarettes, uncomplicated; Y90.7 Blood alcohol level of 200-239 mg/100 ml; Z99.81 Dependence on supplemental oxygen
CPT/HCPCS: 36415; 36556; 71045; 71046; 80048; 80053; 80320; 81000; 82805; 83605; 84484; 85025; 85610; 85730; 87040; 87081; 87088; 87804; 94640; 94644; 94760; 99291

== ENCOUNTER 2018-03-20 18:51 | Inpatient (IN) | payer MEDICARE, MEDICAID ==
[~2018-03-20] VITALS: Ht 162.6 cm; Wt 63.5 kg
[2018-03-20] MEDS ORDERED: RT-ALBUTEROL/IPRATROPIUM 3 ML (DUONEB) VIAL ONE (19:02)
--- OUTSIDE RECORDS SUMMARY | 2018-03-20 19:03 | XMS REPORT | Continuity of Care Document ---
Author Author [facility] Address Unknown Phone Unavailable Allergies Active Description Code Type Severity Reaction Onset Reported/Identified Relationship to Patient Clinical Status Yes codeine Drug Allergy 10/11/2008 Yes codeine Drug Allergy N/A N/A 10/11/2008 Yes codeine [id number] Drug Allergy Severe Hives and swell 09/22/2012 [...] APRNNDA S 300.4 DYSTHYMIC DISORDER 10/11/2008 JAMARI DOCENT COORDINATOR, ANDRES S 496 CHRONIC OBSTRUCTIVE PULMONARY DISEASE 10/11/2008 NELLY DOCENT COORDINATOR, BARBARA A 300.4 DYSTHYMIC DISORDER 10/11/2008 NELLY DOCENT COORDINATOR, BARBARA A 496 CHRONIC OBSTRUCTIVE PULMONARY DISEASE 10/11/2008 FRANSISCO KAUFFMAN APRNNDA S 300.4 DYSTHYMIC DISORDER 10/11/2008 JAMARI LOZA ANDRES S 496 CHRONIC OBSTRUCTIVE PULMONARY DISEASE 10/11/2008 JAMARI DOCENT COORDINATOR, ANDRES S 300.4 DYSTHYMIC DISORDER 10/11/2008 JAMARI DOCENT COORDINATOR, ANDRES S 496 CHRONIC OBSTRUCTIVE PULMONARY DISEASE 10/11/2008 JAMARI DOCENT COORDINATOR, ANDRES S 300.4 DYSTHYMIC DISORDER 10/11/2008 JAMARI DOCENT COORDINATOR, ANDRES S 496 CHRONIC OBSTRUCTIVE PULMONARY DISEASE 10/11/2008 JAMARI DOCENT COORDINATOR, ANDRES S 300.4 DYSTHYMIC DISORDER 10/11/2008 JAMARI DOCENT COORDINATOR, ANDRES S 496 CHRONIC OBSTRUCTIVE PULMONARY DISEASE 01/11/2009 PAULINA URBINA MD 372.00 Acute Conjunctivitis Unspecified 01/11/2009 PAULINA URBINA MD 372.00 Acute Conjunctivitis Unspecified 01/11/2009 372.00 Acute Conjunctivitis Unspecified 01/11/2009 372.00 Acute Conjunctivitis Unspecified 01/11/2009 PAULINA URBINA MD 372.00 Acute Conjunctivitis Unspecified 01/11/2009 JAMARI DOCENT COORDINATOR, ANDRES S 372.00 Acute Conjunctivitis Unspecified 01/11/2009 JAMARI DOCENT COORDINATOR, ANDRES S 372.00 Acute Conjunctivitis Unspecified 01/11/2009 NELLY DOCENT COORDINATOR, BARBARA A 372.00 Acute Conjunctivitis Unspecified 01/11/2009 JAMARI DOCENT COORDINATOR, ANDRES S 372.00 Acute Conjunctivitis Unspecified 01/11/2009 JAMARI DOCENT COORDINATOR, ANDRES S 372.00 Acute Conjunctivitis Unspecified 01/11/2009 JAMARI DOCENT COORDINATOR, ANDRES S 372.00 Acute Conjunctivitis Unspecified 01/11/2009 JAMARI DOCENT COORDINATOR, ANDRES S 372.00 Acute Conjunctivitis Unspecified 01/26/2009 [...] 477.0 Allergic Rhinitis - Pollen 01/26/2009 JAMARI LOZA, ANDRES S 494.0 Bronchiectasis 01/26/2009 JAMARI LOZA ANDRES S 272.4 HYPERLIPIDEMIA HYPERLIPOPROTEINEMIAS (Old Classification) 01/26/2009 JAMARI LOZA, ANDRES S 300.9 Psychiatric Disorder Requiring Hospitalization 01/26/2009 JAMARI LOZA, ANDRES S 477.0 Allergic Rhinitis - Pollen 01/26/2009 JAMARI DOCENT COORDINATOR, ANDRES S 494.0 Bronchiectasis 01/26/2009 NELLY DOCENT COORDINATOR, BARBARA A 272.4 HYPERLIPIDEMIA HYPERLIPOPROTEINEMIAS (Old Classification) 01/26/2009 NELLY DOCENT COORDINATOR, BARBARA A 300.9 Psychiatric Disorder Requiring Hospitalization 01/26/2009 NELLY DOCENT COORDINATOR, BARBARA A 477.0 Allergic Rhinitis - Pollen 01/26/2009 NELLY DOCENT COORDINATOR, BARBARA A 494.0 Bronchiectasis 01/26/2009 JAMARITESFAYE LOZA, ANDRES S 272.4 HYPERLIPIDEMIA HYPERLIPOPROTEINEMIAS (Old Classification) 01/26/2009 JAMARI DOCENT COORDINATOR, ANDRES S 300.9 Psychiatric Disorder Requiring Hospitalization 01/26/2009 JMAARI DOCENT COORDINATOR, ANDRES S 477.0 Allergic Rhinitis - Pollen 01/26/2009 JAMARI DOCENT COORDINATOR, ANDRES S 494.0 Bronchiectasis 01/26/2009 JAMARI DOCENT COORDINATOR, ANDRES S 272.4 HYPERLIPIDEMIA HYPERLIPOPROTEINEMIAS (Old Classification) 01/26/2009 JAMARI DOCENT COORDINATOR, ANDRES S 300.9 Psychiatric Disorder Requiring Hospitalization 01/26/2009 JAMARI DOCENT COORDINATOR, ANDRES S 477.0 Allergic Rhinitis - Pollen 01/26/2009 JAMARI DOCENT COORDINATOR, ANDRES S 494.0 Bronchiectasis 01/26/2009 JAMARI DOCENT COORDINATOR, ANDRES S 272.4 HYPERLIPIDEMIA HYPERLIPOPROTEINEMIAS (Old Classification) 01/26/2009 JAMARI DOCENT COORDINATOR, ANDRES S 300.9 Psychiatric Disorder Requiring Hospitalization 01/26/2009 JAMARI DOCENT COORDINATOR, ANDRES S 477.0 Allergic Rhinitis - Pollen 01/26/2009 JAMARI DOCENT COORDINATOR, ANDRES S 494.0 Bronchiectasis 01/26/2009 JAMARI DOCENT COORDINATOR, ANDRES S 272.4 HYPERLIPIDEMIA HYPERLIPOPROTEINEMIAS (Old Classification) 01/26/2009 JAMARI DOCENT COORDINATOR, ANDRES S 300.9 Psychiatric Disorder Requiring Hospitalization 01/26/2009 JAMARI DOCENT COORDINATOR, ANDRES S 477.0 Allergic Rhinitis - Pollen 01/26/2009 JAMARI DOCENT COORDINATOR, ANDRES S 494.0 Bronchiectasis 08/29/2009 PAULINA URBINA [...] Due To Plants [except Food] 08/29/2009 JAMARI DOCENT COORDINATOR, ANDRES S 692.6 Contact Dermatitis And Other Eczema, Due To Plants [except Food] 08/29/2009 NOEMY VILLEGAS APRNIDI A 692.6 Contact Dermatitis And Other Eczema, Due To Plants [except Food] 08/29/2009 JAMARI DOCENT COORDINATOR, ANDRES S 692.6 Contact Dermatitis And Other Eczema, Due To Plants [except Food] 08/29/2009 JAMARI DOCENT COORDINATOR, ANDRES S 692.6 Contact Dermatitis And Other Eczema, Due To Plants [except Food] 08/29/2009 JAMARI DOCENT COORDINATOR, ANDRES S 692.6 Contact Dermatitis And Other Eczema, Due To Plants [except Food] 08/29/2009 JAMARI DOCENT COORDINATOR, ANDRES S 692.6 Contact Dermatitis And Other Eczema, Due To Plants [except Food] 10/19/2009 CARLITOS COON, PAULINA V70.0 General Medical Exam, Routine, At [...] Routine, At Health Care Facility 10/19/2009 JAMARI DOCENT COORDINATOR, ANDRES S V70.0 General Medical Exam, Routine, At Health Care Facility 10/19/2009 JAMARI DOCENT COORDINATOR, ANDRES S V70.0 General Medical Exam, Routine, At Health Care Facility 10/19/2009 JAMARI DOCENT COORDINATOR, ANDRES S V70.0 General Medical Exam, Routine, At Health Care Facility 10/19/2009 JAMARI DOCENT COORDINATOR, ANDRES S V70.0 General Medical Exam, Routine, [...] Screening Examination For Pulmonary Tuberculosis 10/30/2010 JAMARI DOCENT COORDINATOR, ANDRES S V74.1 Screening Examination For Pulmonary Tuberculosis 10/30/2010 JAMARI DOCENT COORDINATOR, ANDRES S V74.1 Screening Examination For Pulmonary Tuberculosis 11/08/2010 CARLITOS COON, PAULINA V70.3 Sports/school Exam 11/08/2010 CARLITOS COON, PAULINA V70.3 Sports/school Exam 11/08/2010 V70.3 Sports/school Exam 11/08/2010 V70.3 Sports/school Exam 11/08/2010 CARLITOS COON, PAULINA V70.3 Sports/school Exam 11/08/2010 JAMARI DOCENT COORDINATOR, ANDRES S V70.3 Sports/school Exam 11/08/2010 JAMARI DOCENT COORDINATOR, ANDRES S V70.3 Sports/school Exam 11/08/2010 NELLY LOZA, BARBARA A V70.3 Sports/school Exam 11/08/2010 JAMARI DOCENT COORDINATOR, ANDRES S V70.3 Sports/school Exam 11/08/2010 JAMARI DOCENT COORDINATOR, ANDRES S V70.3 Sports/school Exam 11/08/2010 JAMARI DOCENT COORDINATOR, ANDRES S V70.3 Sports/school Exam 11/08/2010 JAMARI DOCENT COORDINATOR, ANDRES S V70.3 Sports/school Exam 11/20/2010 Ot 373.11 HORDEOLUM EXTERNUM 11/20/2010 Ot 379.91 PAIN IN OR AROUND EYE 11/30/2010 CARLITOS COON, PAULINA V72.31 Manager Transportation Planning Exam, Routine 11/30/2010 CARLITOS COON, PAULINA V72.31 Manager Transportation Planning Exam, Routine 11/30/2010 V72.31 Manager Transportation Planning Exam, Routine 11/30/2010 V72.31 Manager Transportation Planning Exam, Routine 11/30/2010 PAULINA URBINA MD V72.31 Manager Transportation Planning Exam, Routine 11/30/2010 JAMARI DOCENT COORDINATORFRANSISCO EvansNDA S V72.31 Manager Transportation Planning Exam, Routine 11/30/2010 JAMARI LOZA ANDRES S V72.31 Manager Transportation Planning Exam, Routine 11/30/2010 BARBARA VILLEGAS APRN A V72.31 Manager Transportation Planning Exam, Routine 11/30/2010 FRANSISCO KAUFFMAN APRNNDA S V72.31 Manager Transportation Planning Exam, Routine 11/30/2010 FRANSISCO KAUFFMAN APRNNDA S V72.31 Manager Transportation Planning Exam, Routine 11/30/2010 ANDRES KAUFFMAN APRN S V72.31 Manager Transportation Planning Exam, Routine 11/30/2010 ANDRES KAUFFMAN APRN S V72.31 Manager Transportation Planning Exam, Routine 03/22/2011 Ot 112.0 THRUSH 03/22/2011 [...] 530.81 ESOPHAGEAL REFLUX 06/14/2011 786.2 COUGH 06/14/2011 PAULIAN URBINA MD 307.42 PERSISTENT DISORDER OF INITIATING [...] BRONCHITIS - WITH ACUTE EXACERBATION 02/12/2012 JAMARI DOCENT COORDINATOR, ANDRES S 786.50 CHEST PAIN OR DISCOMFORT 02/12/2012 NELLY DOCENT COORDINATOR, BARBARA A 491.21 CHRONIC BRONCHITIS - WITH ACUTE EXACERBATION 02/12/2012 NELLY DOCENT COORDINATOR, BARBARA A 786.50 CHEST PAIN OR DISCOMFORT 02/12/2012 FRANSISCO KAUFFMAN APRNNDA S 491.21 CHRONIC BRONCHITIS - WITH ACUTE EXACERBATION 02/12/2012 FRANSISCO KAUFFMAN APRNNDA S 786.50 CHEST PAIN OR DISCOMFORT 02/12/2012 FRANSISCO KAUFFMAN APRNNDA S 491.21 CHRONIC BRONCHITIS - WITH ACUTE EXACERBATION 02/12/2012 JAMARI DOCENT COORDINATOR, ANDRES S 786.50 CHEST PAIN OR DISCOMFORT [...] URBINA MD V74.1 TB SCREENING 08/05/2012 JAMARI DOCENT COORDINATOR, ANDRES S V74.1 TB SCREENING 08/05/2012 GRICEL [...] COUNSELING 01/05/2014 NOEMY VILLEGAS APRNIDI A V72.31 TEMPERING MACHINE OPERATOR EXAM, ROUTINE 01/05/2014 NELLY LOZA BARBARA A V76.10 BREAST CANCER SCREENING 01/05/2014 NOEMY VILLEGAS APRNIDI A V76.51 COLON CANCER SCREENING 01/05/2014 ANDRES KAUFFMAN APRN S V65.42 COUNSELING - SMOKING CESSATION 01/05/2014 JAMARI DOCENT COORDINATOR, ANDRES S V65.49 OTHER SPECIFIED COUNSELING 01/05/2014 JAMARI DOCENT COORDINATOR, ANDRES S V72.31 TEMPERING MACHINE OPERATOR EXAM, ROUTINE 01/05/2014 JAMARI DOCENT COORDINATOR, ANDRES S V76.10 BREAST CANCER SCREENING 01/05/2014 JAMARI DOCENT COORDINATOR, ANDRES S V76.51 COLON CANCER SCREENING 01/05/2014 JAMARI DOCENT COORDINATOR, ANDRES S V65.42 COUNSELING - SMOKING CESSATION 01/05/2014 JAMARI DOCENT COORDINATOR, ANDRES S V65.49 OTHER SPECIFIED COUNSELING 01/05/2014 JAMARI DOCENT COORDINATOR, ANDRES S V72.31 TEMPERING MACHINE OPERATOR EXAM, ROUTINE 01/05/2014 JAMARI DOCENT COORDINATOR, ANDRES S V76.10 BREAST CANCER SCREENING 01/05/2014 JAMARI DOCENT COORDINATOR, ANDRES S V76.51 COLON CANCER SCREENING 01/05/2014 JAMARI DOCENT COORDINATOR, ANDRES S V65.42 COUNSELING - SMOKING CESSATION 01/05/2014 JAMARI DOCENT COORDINATOR, ANDRES S V65.49 OTHER SPECIFIED COUNSELING 01/05/2014 JAMARI DOCENT COORDINATOR, ANDRES S V72.31 TEMPERING MACHINE OPERATOR EXAM, ROUTINE 01/05/2014 JAMARI DOCENT COORDINATOR, ANDRES S V76.10 BREAST CANCER SCREENING 01/05/2014 JAMARI DOCENT COORDINATOR, ANDRES S V76.51 COLON CANCER SCREENING 01/05/2014 JAMARI DOCENT COORDINATOR, ANDERS S V65.42 COUNSELING - SMOKING CESSATION 01/05/2014 JAMARI DOCENT COORDINATOR, ANDRES S V65.49 OTHER SPECIFIED COUNSELING 01/05/2014 JAMARI DOCENT COORDINATOR, ANDRES S V72.31 TEMPERING MACHINE OPERATOR EXAM, ROUTINE 01/05/2014 JAMARI DOCENT COORDINATOR, ANDRES S V76.10 BREAST CANCER SCREENING 01/05/2014 JAMARI DOCENT COORDINATOR, ANDRES S V76.51 COLON CANCER SCREENING 03/01/2014 JAMARI DOCENT COORDINATOR, ANDRES S 211.9 POLYP- GI 03/01/2014 JAMARI DOCENT COORDINATOR, ANDRES S 211.9 POLYP- GI 03/01/2014 JAMARI DOCENT COORDINATOR, ANDRES S 211.9 POLYP- GI 03/01/2014 JESSICA COON, KWAKU Mcguire Ot 211.3 BENIGN NEOPLASM LG BOWEL 03/01/2014 JESSICA COON, KWAKU Mcguire Ot 211.4 BENIGN NEOPL RECTUM/ANUS 03/03/2014 BARBARA VILLEGAS APRN Ot V76.12 06/02/2014 ANDRES KAUFFMAN APRN 465.9 UPPER RESPIRATORY INFECTION 10/05/2014 DEAJ PERDOMO MD Ot 305.00 ALCOHOL ABUSE-UNSPEC 10/05/2014 [...] KWAKU Mcguire Ot V72.84 03/22/2015 JESSICA COON, WKAKU Mcguire Ot V72.84 03/22/2015 Ot 496 03/22/2015 Ot V76.12 03/22/2015 BARBARA VILLEGAS APRN Ot V76.12 03/22/2015 JESSICA COON, KWAKU Mcguire Ot V72.84 03/22/2015 JESSICA COON, KWAKU Mcguire Ot V72.84 04/14/2015 DARRELL GOLDBERG APRN Ot Z12.31 04/19/2015 DARRELL GOLDBERG APRN Ot Z12.31 04/19/2015 DARRELL GOLDBERG APRN Ot Z12.31 04/11/2016 DARRELL GOLDBERG DOCENT COORDINATOR Ot Z12.31 ENCNTR SCREEN MAMMOGRAM FOR MALIGNANT NE 04/11/2016 Ot V76.12 OTH SCREEN MAMMO-MALIGN NEOPLASM OF TARA 04/11/2016 BARBARA VILLEGAS Ana Cristina DOCENT COORDINATOR Ot V76.12 OTH SCREEN MAMMO-MALIGN NEOPLASM OF TARA 04/11/2016 JESSICA COON, KWAKU M Ot V72.84 EXAM PRE-OPERATIVE NOS 04/11/2016 JESSICA COON, KWAKU Mcguire Ot V72.84 EXAM PRE-OPERATIVE NOS 04/11/2016 DARRELL GOLDBERG DOCENT COORDINATOR Ot Z12.31 ENCNTR SCREEN MAMMOGRAM FOR MALIGNANT NE 05/09/2016 ALMA ALLEN RESEARCH AND DEVELOPMENT ENGINEER Ot M75.42 IMPINGEMENT SYNDROME OF LEFT SHOULDER 05/21/2016 ALMA ALLEN RESEARCH AND DEVELOPMENT ENGINEER Ot M75.42 IMPINGEMENT SYNDROME OF LEFT [...] MD Ot H26.9 UNSPECIFIED CATARACT 01/23/2017 TERESA HERANNDEZ MD Ot H91.90 UNSPECIFIED HEARING LOSS, UNSPECIFIED [...] BREATH 09/09/2017 MARCO A PETEP Ot Z79.82 LONGTERM (CURRENT) USE OF ASPIRIN 09/09/2017 MARCO A PETEP Ot Z87.59 PERSONAL HISTORY OF COMP OF PREG, CHLDBR 09/09/2017 MARCO A PETEP Ot Z88.5 ALLERGY STATUS TO NARCOTIC AGENT STATUS 09/09/2017 MARCO A PETE RESEARCH AND DEVELOPMENT ENGINEER Ot Z99.81 DEPENDENCE ON SUPPLEMENTAL OXYGEN [...] 09/11/2017 JUAN RMARCO A Avila Ot Z79.82 PUNCH OPERATOR (CURRENT) USE OF ASPIRIN 09/11/2017 JUAN RMARCO [...] OBSTRUCTIVE PULMONARY DISEASE, U 11/05/2017 BOB BERNARD DOCENT COORDINATOR Ot J44.9 CHRONIC OBSTRUCTIVE PULMONARY DISEASE, U 11/05/2017 BOB BERNARD DOCENT COORDINATOR Ot J45.909 UNSPECIFIED ASTHMA, UNCOMPLICATED 11/05/2017 BOB BERNARD DOCENT COORDINATOR Ot R06.00 DYSPNEA, UNSPECIFIED 11/08/2017 LINDA DELGADO DO Ot 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 11/08/2017 LINDA DELGADO DO Ot F17.200 NICOTINE DEPENDENCE, UNSPECIFIED, UNCOMP 11/08/2017 LINDA DELGADO DO M Ot I70.0 ATHEROSCLEROSIS OF AORTA 11/08/2017 LINDA DELGADO DO Ot J44.9 CHRONIC OBSTRUCTIVE PULMONARY DISEASE, U 11/08/2017 LINDA DELGADO DO Ot 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 11/08/2017 LINDA DELGADO DO Ot F17.200 NICOTINE DEPENDENCE, UNSPECIFIED, UNCOMP 11/08/2017 LINDA DELGADO DO M Ot I70.0 ATHEROSCLEROSIS OF AORTA 11/08/2017 LINDA DELGADO DO Ot J44.9 CHRONIC OBSTRUCTIVE PULMONARY DISEASE, U 01/17/2018 DARRELL GOLDBERG DOCENT COORDINATOR Ot Z12.31 ENCNTR SCREEN MAMMOGRAM FOR MALIGNANT NE 01/17/2018 LINDA DELGADO DO Ot 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 01/17/2018 LINDA DELGADO DO M Ot F17.200 NICOTINE DEPENDENCE, UNSPECIFIED, UNCOMP 01/17/2018 LINDA DELGADO DO M Ot I70.0 ATHEROSCLEROSIS OF AORTA 01/17/2018 LINDA DELGADO DO Ot J44.9 CHRONIC OBSTRUCTIVE PULMONARY DISEASE, U 01/17/2018 BOB BERNARD DOCENT COORDINATOR Ot J44.9 CHRONIC OBSTRUCTIVE PULMONARY DISEASE, U 01/17/2018 BOB BERNARD DOCENT COORDINATOR Ot J45.909 UNSPECIFIED ASTHMA, UNCOMPLICATED 01/17/2018 BOB BERNARD DOCENT COORDINATOR Ot R06.00 DYSPNEA, UNSPECIFIED 03/05/2018 ABI ROBB MD Ot A41.9 SEPSIS, UNSPECIFIED ORGANISM 03/05/2018 ABI ROBB MD Ot F10.129 ALCOHOL ABUSE WITH INTOXICATION, UNSPECI 03/05/2018 ABI ROBB MD, Ot F17.210 NICOTINE DEPENDENCE, CIGARETTES, UNCOMPL 03/05/2018 ABI ROBB MD, Ot F32.9 MAJOR DEPRESSIVE DISORDER, SINGLE EPISOD 03/05/2018 ABI ROBB MD, Ot F41.9 ANXIETY DISORDER, UNSPECIFIED 03/05/2018 ABI ROBB MD, Ot J18.9 PNEUMONIA, UNSPECIFIED ORGANISM 03/05/2018 ABI ROBB MD, Ot J43.9 EMPHYSEMA, UNSPECIFIED 03/05/2018 ABI ROBB MD, Ot M19.91 PRIMARY OSTEOARTHRITIS, UNSPECIFIED SITE 03/05/2018 ABI ROBB MD, Ot R65.21 SEVERE SEPSIS WITH SEPTIC SHOCK 03/05/2018 ABI ROBB MD, Ot Y90.7 BLOOD ALCOHOL LEVEL OF 200-239 MG/100 ML 03/05/2018 ABI ROBB MD, Ot Z99.81 DEPENDENCE ON SUPPLEMENTAL OXYGEN Procedures Code Description Performed By Performed On 37.22 LEFT HEART CARDIAC CATH 02/13/2012 88.53 LT HEART ANGIOCARDIOGRAM 02/13/2012 88.56 CORONAR ARTERIOGR-2 CATH 02/13/2012 37324 TB TEST INTRADERMAL 08/05/2012 23819 ROUTINE VENIPUNCTURE 12/22/2013 26440 CBC 12/22/2013 76463 CMP 12/22/2013 09588 LIPID PANEL 12/22/2013 8692161 GFR CALC (RESULT ONLY) 12/22/2013 31794 MAMMOGRAM, SCREENING 01/05/2014 General Kwaku Pena 01/19/2014 10461 HEMOCCULT 01/19/2014 00234 HEMOCCULT 01/19/2014 45523 OXIMETRY 04/06/2014 [id number] INSERTION OF INFUSION DEV INTO SUP VENA 03/04/2018 Results Test Result Range Complete urinalysis with [...] - 01/08/17 22:10 Bacterial blood culture NG NR Blood lactic acid measurement (moles/volume) - 01/08/17 22:15 Blood lactic acid measurement (moles/volume) 1.34 mmol/L 0.50-2.00 Bacterial blood culture - 01/08/17 22:15 Bacterial blood culture NG NRG Streptococcus pyogenes antigen detection - 01/08/17 22:19 Streptococcus pyogenes antigen detection NEGATIVE NEGATIVE Influenza virus A and B antigen detection - 01/08/17 22:19 FLU RESULT NEGATIVE FOR INFLUENZA A AND B ANTIGENS BY IA NRG Bacterial throat culture - 01/08/17 22:19 Bacterial throat culture NBS NRG Sputum Gram stain - 01/08/17 22:19 GRAM STAIN SPUTUM SCANT GPC NRG Bacterial sputum culture - 01/08/17 22:19 QUANTITY OF GROWTH Moderate Growth NRG Bacterial sputum culture [id number] [facility] Complete blood count (CBC) with automated white [...] culture - 01/22/17 19:45 Bacterial throat culture [facility] Blood lactic acid measurement (moles/volume) - 01/22/17 19:46 Blood lactic acid measurement (moles/volume) 0.96 mmol/L 0.50-2.00 Bacterial blood culture - 01/22/17 19:46 Bacterial blood culture [facility] Arterial blood gas measurement - 01/22/17 19:58 [...] GROWTH Moderate Growth NRG Bacterial sputum culture [id number] NRG Bacterial blood culture - 09/09/17 20:40 [...] plasma ethanol measurement (mass/volume) 207 mg/dL <10 Bacterial blood culture - 03/03/18 22:35 Bacterial blood culture NG NRG Arterial blood gas measurement - 03/03/18 22:50 [...] NRG Measurement of body temperature 96.0 NRG Bacterial blood culture - 03/03/18 22:57 Bacterial blood culture NG NRG Complete urinalysis [...] urinalysis with reflex to culture NO NRG Bacterial urine culture - 03/04/18 00:16 Bacterial urine culture NG NRG Methicillin resistant Staphylococcus aureus (MRSA) screening culture - 04:55 Methicillin resistant Staphylococcus aureus (MRSA) screening culture NEG NRG Serum or plasma troponin i.cardiac measurement (mass/volume) - 03/04/18 08:40 Serum or plasma troponin i.cardiac measurement (mass/volume) < ng/ mL <0.30 Complete blood count (CBC) with automated white blood cell (WBC) differential - 03/05/18 05:05 Blood leukocytes automated count (number/volume) 6.4 10*3/uL 4.3-11.0 Blood erythrocytes automated count (number/volume) 3.31 10*6/uL 4.35-5.85 Venous blood hemoglobin measurement (mass/volume) 11.0 g/dL 11.5-16.0 Blood hematocrit (volume fraction) 34 % 35-52 Automated erythrocyte mean corpuscular volume 104 [foz_us] 80-99 Automated erythrocyte mean corpuscular hemoglobin (mass per erythrocyte) 33 pg 25-34 Automated erythrocyte mean corpuscular hemoglobin concentration measurement ( mass/volume) 32 g/dL 32-36 Automated erythrocyte distribution width ratio 13.2 % 10.0-14.5 Automated blood platelet count (count/volume) 220 10*3/uL 130-400 Automated blood platelet mean volume measurement 10.0 [foz_us] 7.4-10.4 Automated blood neutrophils/100 leukocytes 52 % 42-75 Automated blood lymphocytes/100 leukocytes 39 % 12-44 Blood monocytes/100 leukocytes 7 % 0-12 Automated blood eosinophils/100 leukocytes 2 % 0-10 Automated blood basophils/100 leukocytes 0 % 0-10 Blood neutrophils automated count (number/volume) 3.3 10*3 1.8-7.8 Blood lymphocytes automated count (number/volume) 2.5 10*3 1.0-4.0 Blood monocytes automated count (number/volume) 0.4 10*3 0.0-1.0 Automated eosinophil count 0.1 10*3/uL 0.0-0.3 Automated blood basophil count (count/volume) 0.0 10*3/uL 0.0-0.1 Whole blood basic metabolic panel - 03/05/18 05:05 Serum or plasma sodium measurement (moles/volume) 140 mmol/L 135-145 Serum or plasma potassium measurement (moles/volume) 3.6 mmol/L 3.6-5.0 Serum or plasma chloride measurement (moles/volume) 108 mmol/L 98-107 Carbon dioxide 23 mmol/L 21-32 Serum or plasma anion gap determination (moles/volume) 9 mmol/L 5-14 Serum or plasma urea nitrogen measurement (mass/volume) 6 mg/dL 7-18 Serum or plasma creatinine measurement (mass/volume) 0.57 mg/dL 0.60-1.30 Serum or plasma urea nitrogen/creatinine mass ratio 11 NRG Serum or plasma creatinine measurement with calculation of estimated glomerular filtration rate > NRG Serum or plasma glucose measurement (mass/volume) 83 mg/dL 70-105 Serum or plasma calcium measurement (mass/volume) 8.4 mg/dL 8.5-10.1 Encounters ACCT No. Visit Date/Time Discharge Status Pt. Type Provider Facility Loc./Unit Complaint [id number] 06/02/2014 14:37:00 06/02/2014 23:59:59 CLS Outpatient ANDRES KAUFFMAN APRN [id number] 04/06/2014 13:56:00 04/06/2014 23:59:59 CLS Outpatient ANDRES KAUFFMAN APRN [id number] 01/19/2014 09:15:00 01/19/2014 23:59:59 CLS Outpatient ANDRES KAUFFMAN APRN [id number] 01/19/2014 09:15:00 01/19/2014 23:59:59 CLS Outpatient ANDRES KAUFFMAN APRN [id number] 01/05/2014 10:49:00 01/05/2014 23:59:59 CLS Outpatient BARBARA VILLEGAS APRN [id number] 12/22/2013 08:36:00 12/22/2013 23:59:59 CLS Outpatient ANDRES KAUFFMAN APRN [id number] 04/28/2013 14:11:00 04/28/2013 23:59:59 CLS Outpatient JAMARITESFAYE LOZA ANDRES Kaur [id number] 10/14/2012 17:32:00 10/14/2012 23:59:59 [place] [id number] 02/12/2012 10:45:00 02/12/2012 23:59:59 CLS Outpatient PAULINA URBINA MD [id number] 02/11/2012 00:00:00 02/11/2012 23:59:59 CLS Outpatient PAULINA URBINA MD [id number] 02/13/2011 16:04:00 02/13/2011 23:59:59 CLS Outpatient [id number] 08/05/2012 11:36:00 Document Registration [id number] 10/05/2014 01:59:04 ACT Document Registration [id number] 03/10/2018 13:20:00 03/10/2018 23:59:59 CLS Outpatient [facility] [id number] 03/04/2018 03:01:00 03/05/2018 14:07:00 DIS Inpatient CLARISSE COON, ABI [place] [facility] 4TH SEPTIC SHOCK,PNA,COPD [id number] 10/14/2017 15:20:00 10/14/2017 23:59:59 CLS Outpatient BOB BERNARD APRN [facility] RT COPD [id number] 10/11/2017 11:14:00 10/11/2017 23:59:59 CLS Outpatient LINDA DELGADO DO [facility] RAD SMOKING HISTORY,SOB [id number] 10/07/2017 14:15:00 10/07/2017 23:59:59 CLS Preadmit BOB BERNARD APRN [facility] RT ASTHMA,COPD,DYSPNEA [id number] 09/09/2017 19:42:00 09/09/2017 23:17:00 DIS Emergency MARCO A PETE [facility] ER SOB [id number] 01/22/2017 21:41:00 01/25/2017 14:22:00 DIS Inpatient TERESA HERNANDEZ MD [facility] 4TH COPD EXACERBATION/ASTHMA EXACERBATION;CP R/O ACS [id number] 01/08/2017 22:59:00 01/10/2017 13:15:00 DIS Inpatient PRABHAKAR BULL MD [facility] 4TH RESPIRATORY DISTRESS [id number] 05/02/2016 14:08:00 05/21/2016 09:38:00 DIS Outpatient ALMA ALLEN [facility] REHAB IMPINGEMENT SYNDROME, SHOULDER, LEFT [id number] 03/22/2015 13:04:00 03/22/2015 23:59:59 CLS Outpatient DARRELL GOLDBERG APRN [facility] RAD ROUTINE SCREENING MAMMOGRAM [id number] 10/05/2014 01:57:00 10/05/2014 04:11:00 DIS Emergency DEJA PERDOMO MD [facility] ER ETOH,FALL,ARM PAIN [id number] 03/01/2014 08:02:00 03/01/2014 10:20:00 DIS Outpatient KWAKU LOPEZ MD [facility] SDC BLOOD IN STOOL [id number] 02/24/2014 07:12:00 02/24/2014 23:59:59 CLS Outpatient KWAKU LOPEZ MD [facility] PREOP POSITIVE OCCULT BLOOD IN STOOLS [id number] 02/03/2014 07:26:00 02/03/2014 23:59:59 CLS Outpatient KWAKU LOPEZ MD [facility] PREOP BLOOD IN STOOL [id number] 01/29/2014 10:45:00 01/29/2014 23:59:59 CLS Outpatient BARBARA VILLEGAS APRN [facility] RAD ROUTINE [id number] 09/22/2012 03:08:00 09/24/2012 16:15:00 DIS Inpatient MARTINE GUTIERREZ MD [facility] 4TH ACUTE COPD EXACERBATION [id number] 05/15/2012 15:00:00 Document Registration [id number] 04/10/2012 13:00:00 Document Registration [id number] 02/12/2012 12:30:00 Document Registration [id number] 01/09/2012 19:16:00 Document Registration [id number] 01/02/2012 20:18:00 Document Registration [id number] 09/11/2011 00:30:00 Document Registration [id number] 08/27/2011 23:54:00 Document Registration [id number] 06/05/2011 20:05:00 Document Registration [id number] 03/21/2011 01:05:00 Document Registration [id number] 12/07/2010 14:03:00 Document Registration [id number] 11/20/2010 21:28:00 Document Registration [id number] 07/13/2010 14:24:00 Document Registration [id number] 07/07/2010 01:20:00 Document Registration
[2018-03-20] MEDS ORDERED: RT-ALBUTEROL SULF 2.5 MG/3 ML PRE-MIX VIAL ONE (19:04)
[2018-03-20] MEDS ORDERED: methylPREDNISolone 125 MG (Solu-MEDROL) VIAL IV STA (19:11)
[2018-03-20] MEDS ORDERED: RT-ALBUTEROL SULF 2.5 MG/3 ML PRE-MIX VIAL INH STA ×2 (19:11)
[2018-03-20] MEDS ORDERED: methylPREDNISolone 125 MG (Solu-MEDROL) VIAL ONE (19:12)
[2018-03-20] MEDS ORDERED: RT-ALBUTEROL/IPRATROPIUM 3 ML (DUONEB) VIAL INH ONE (19:15)
[2018-03-20] MEDS ORDERED: RT-IPRATROPIUM (ATROVENT) 0.5MG/2.5ML AMP IH ONE (19:15)
[2018-03-20 19:21] LABS: BASOPHILS % (AUTO) 0 % (0-10); EOSINOPHILS # (AUTO) 0.4 10^3/uL (0.0-0.3); EOSINOPHILS % (AUTO) 5 % (0-10); HEMATOCRIT 41 % (35-52); HEMOGLOBIN 13.5 G/DL (11.5-16.0); LYMPHOCYTES # (AUTO) 3.5 X 10^3 (1.0-4.0); LYMPHOCYTES % (AUTO) 48 % (12-44); MEAN CORPUSCULAR HEMOGLOBIN 34 PG (25-34); MEAN CORPUSCULAR HGB CONC 33 G/DL (32-36); MEAN CORPUSCULAR VOLUME 103 FL (80-99); MONOCYTES # (AUTO) 0.5 X 10^3 (0.0-1.0); MONOCYTES % (AUTO) 7 % (0-12); NEUTROPHILS # (AUTO) 2.9 X 10^3 (1.8-7.8); NEUTROPHILS % (AUTO) 40 % (42-75); PLATELET COUNT 330 10^3/uL (130-400); RED BLOOD COUNT 3.95 10^6/uL (4.35-5.85); RED CELL DISTRIBUTION WIDTH 12.8 % (10.0-14.5); WHITE BLOOD COUNT 7.3 10^3/uL (4.3-11.0)
[2018-03-20 19:33] LABS: BUN/CREATININE RATIO 15; CARBON DIOXIDE 29 MMOL/L (21-32); CHLORIDE 102 MMOL/L (98-107); CREATININE SERUM 0.67 MG/DL (0.60-1.30); POTASSIUM 4.2 MMOL/L (3.6-5.0); SODIUM 141 MMOL/L (135-145)
[2018-03-20 19:34] LABS: ALANINE AMINOTRANSFERASE 16 U/L (0-55); ALBUMIN 4.3 GM/DL (3.2-4.5); ALKALINE PHOSPHATASE 62 U/L (40-136); BILIRUBIN,TOTAL 0.2 MG/DL (0.1-1.0); CALCIUM 9.3 MG/DL (8.5-10.1); GFR ESTIMATED > 60; GLUCOSE 90 MG/DL (70-105); MAGNESIUM 2.7 MG/DL (1.8-2.4); TOTAL PROTEIN 7.6 GM/DL (6.4-8.2)
--- NOTE | 2018-03-20 19:49 | ED Respiratory ---
General Chief Complaint: Respiratory Problems Stated Complaint: SOB Nursing Triage Note: PT STARTED HAVING SOB THREE DAYS AGO AND PT STATED THAT IT GETS WORSE AT NIGHT. AT ARRIVAL, PT WAS WHEELED TO ROOM. PT SHOWED SIGNS OF DIFFICULTY BREATHING. PT SPO2 WAS AT 78% ON 3 LITERS VIA NC. PT WAS PLACED ON NON-REBREATHER AT 10 LITERS INCREASING SPO2 TO 98%. PT HAS EXPIRATORY WHEEZES WITH MINIMIAL MOVEMENT. PT DOES SMOKE, BUT HAS NOT SMOKED IN 3 DAYS PT STATED. Source: patient Exam Limitations: no limitations History of Present Illness Date Seen by Provider: Mar 20, 2018 Time Seen by Provider: 19:07 Initial Comments Here with report of shortness of air that has been worsening over the last 3 days and quite significant today. Arrives with O2 sats 78 percent on 3 L. She is one-word sentences currently and has significant difficulty in managing her breath. Denies fevers or vomiting. Does have chest tightness but not pain. She has tried her home meds and they are not helping. She does smoke but hasn' t minimal smoking 3 days because of the shortness of breath. Timing/Duration: getting worse, other (3 days) Severity: severe Prior Episodes/Possible Cause: occasional episodes, frequent episodes Modifying Factors: Improves With Albuterol Nebulizer, Improves With Oxygen, Improves With Rest Associated Symptoms: cough, shortness of breath, wheezing Allergies and Home Medications Allergies Coded Allergies: codeine (Verified Allergy, Severe, Hives and swelling., 09/22/12) Home Medications Albuterol Sulfate 18 Gm Hfa.aer.ad, 2 PUFF INH Q4H PRN for SHORTNESS OF BREATH, (Reported) Albuterol Sulfate 2.5 Mg/3 Ml Vial.neb, 2.5 MG NEB Q4H PRN for SHORTNESS OF BREATH, (Reported) Aspirin 81 Mg Tablet.dr, 81 MG PO HS, (Reported) Budesonide/Formoterol Fumarate 10.2 Gm Hfa.aer.ad, 2 PUFF INH BID, (Reported) Montelukast Sodium 10 Mg Tablet, 10 MG PO HS, (Reported) Sertraline HCl 100 Mg Tablet, 100 MG PO HS, (Reported) Patient Home Medication List Home Medication List Reviewed: Yes Review of Systems Review of Systems Constitutional: see HPI; No chills, No fever EENTM: No nose congestion, No throat pain Respiratory: dyspnea on exertion, short of breath, wheezing Cardiovascular: No chest pain, No palpitations Gastrointestinal: No abdominal pain, No diarrhea, No nausea, No vomiting Genitourinary: no symptoms reported Musculoskeletal: no symptoms reported Skin: no symptoms reported All Other Systems Reviewed Negative Unless Noted: Yes Past Kzvdewd-Khfhxb-Ekkbcf Hx Past Med/Social Hx: Reviewed Nursing Past Med/Soc Hx Patient Social History Alcohol Use: Occasionally Uses Number of Drinks Today: BB Alcohol Beverage of Choice: Beer, [place] Recreational Drug Use: No Smoking Status: Current Everyday Smoker Type Used: Cigarettes 2nd Hand Smoke Exposure: Yes Recent Foreign Travel: No Contact w/Someone Who Travel: No Recent Infectious Disease Expo: No Recent Hopitalizations: No Physical Abuse: No (as child and adult) Sexual Abuse: No (aS child and adult) Mistreated: No Fear: No Immunizations Up To Date Tetanus Booster (TDap): Unknown PED Vaccines UTD: No Date of Pneumonia Vaccine: Dec 14, 2013 Date of Influenza Vaccine: Jan 13, 2017 Seasonal Allergies Seasonal Allergies: No Past Medical History Surgeries: Yes (c-sections and ear, teeth removed) Respiratory: Yes (COPD;ASTHMA, EMPHYSEMA) Asthma, COPD, Emphysema Currently Using CPAP: No Currently Using BIPAP: No Cardiac: Yes Neurological: No Reproductive Disorders: No Female Reproductive Disorders: Denies Sexually Transmitted Disease: No HIV/AIDS: No Genitourinary: No Gastrointestinal: No Musculoskeletal: Yes (ARTHRITIS) Arthritis Endocrine: No Cataract Hearing Impairment: Hard of Hearing Cancer: No Psychosocial: Yes Anxiety, Depression Integumentary: No Blood Disorders: No Adverse Reaction/Blood Tranf: No Family Medical History Reviewed Nursing Family Hx Arthritis 19 FATHER, , Onset:50's - 60 Cardiovascular disease G8 BROTHER, Onset:Unknown Diabetes mellitus G8 BROTHER, Onset:60 years & older FH: COPD (chronic obstructive pulmonary disease) 19 FATHER, , Onset:50's - 60 G8 SISTER, Onset:Unknown FH: uterine cancer 19 MOTHER, , Onset:60 years & older No Pertinent Family Hx Physical Exam Vital Signs - First Documented 03/20/18 03/20/18 18:58 19:23 Temp 98.7 Pulse 95 Resp 27 B/P (MAP) 114/92 (99) Pulse Ox 98 O2 Delivery Non Rebreather O2 Flow Rate 10.00 FiO2 98 Capillary Refill : Greater Than 3 Seconds Height: 5'4.00" Weight: 130lbs. 6.0oz. 58.777412uk; 22.9 BMI Method:Stated General Appearance: WD/WN, no apparent distress HEENT: PERRL/EOMI, pharynx normal Neck: full range of motion, supple Respiratory: respiratory distress (severe), decreased breath sounds, accessory muscle use, wheezing, expiration Cardiovascular: no murmur, tachycardia Gastrointestinal: non tender, soft Extremities: non-tender, normal inspection Neurologic/Psychiatric: alert, normal mood/affect, oriented x 3 Skin: normal color, warm/dry Procedures/Interventions Patient Education: Explained Benefits, Explained Risks Breath Sounds per Auscultation: Clear Heart Sounds per Auscultation: Regular Airway Exam: Mouth opens >2 fingers, Neck Full Range of Motion, Visulation of Uvula Sedation Adminstration Time: 219 Re-examination Time: 244 Progress/Results/Core Measures Suspected Sepsis Recent Fever Within 48 Hours: No Infection Criteria Present: None New/Unexplained Altered Menta: No Sepsis Screen: No Definite Risk SIRS Temperature:98.7 Pulse: 95 Respiratory Rate: 27 Laboratory Tests 03/20/18 19:00: White Blood Count 7.3 Blood Pressure 114 /92 Mean: 99 Laboratory Tests 03/20/18 19:00: Creatinine 0.67, Platelet Count 330, Total Bilirubin 0.2 Results/Orders Lab Results Laboratory Tests Test 03/20/18 19:00 03/20/18 19:49 Range/Units White Blood Count 7.3 4.3-11.0 10^3/uL Red Blood Count 3.95 L 4.35-5.85 10^6/uL Hemoglobin 13.5 11.5-16.0 G/DL Hematocrit 41 35-52 % Mean Corpuscular Volume 103 H 80-99 FL Mean Corpuscular Hemoglobin 34 25-34 PG Mean Corpuscular Hemoglobin Concent 33 32-36 G/DL Red Cell Distribution Width 12.8 10.0-14.5 % Platelet Count 330 130-400 10^3/uL Mean Platelet Volume 10.0 7.4-10.4 FL Neutrophils (%) (Auto) 40 L 42-75 % Lymphocytes (%) (Auto) 48 H 12-44 % Monocytes (%) (Auto) 7 0-12 % Eosinophils (%) (Auto) 5 0-10 % Basophils (%) (Auto) 0 0-10 % Neutrophils # (Auto) 2.9 1.8-7.8 X 10^3 Lymphocytes # (Auto) 3.5 1.0-4.0 X 10^3 Monocytes # (Auto) 0.5 0.0-1.0 X 10^3 Eosinophils # (Auto) 0.4 H 0.0-0.3 10^3/uL Basophils # (Auto) 0.0 0.0-0.1 10^3/uL Sodium Level 141 135-145 MMOL/L Potassium Level 4.2 3.6-5.0 MMOL/L Chloride Level 102 98-107 MMOL/L Carbon Dioxide Level 29 21-32 MMOL/L Anion Gap 10 5-14 MMOL/L Blood Urea Nitrogen 10 7-18 MG/DL Creatinine 0.67 0.60-1.30 MG/DL Estimat Glomerular Filtration Rate > 60 BUN/Creatinine Ratio 15 Glucose Level 90 70-105 MG/DL Calcium Level 9.3 8.5-10.1 MG/DL Corrected Calcium 9.1 8.5-10.1 MG/DL Magnesium Level 2.7 H 1.8-2.4 MG/DL Total Bilirubin 0.2 0.1-1.0 MG/DL Aspartate Amino Transf (AST/SGOT) 19 5-34 U/L Alanine Aminotransferase (ALT/SGPT) 16 0-55 U/L Alkaline Phosphatase 62 40-136 U/L Troponin I < 0.30 <0.30 NG/ML Total Protein 7.6 6.4-8.2 GM/DL Albumin 4.3 3.2-4.5 GM/DL Blood Gas Puncture Site RT RAD Blood Gas Patient Temperature 98.4 Arterial Blood pH 7.31 *L 7.37-7.43 Arterial Blood Partial Pressure CO2 60 H 35-45 MMHG Arterial Blood Partial Pressure O2 98 H 79-93 MMHG Arterial Blood HCO3 29 H 23-27 MMOL/L Arterial Blood Total CO2 31.0 21.0-31.0 MMOL/L Arterial Blood Oxygen Saturation 98 94-100 % Arterial Blood Base Excess 3.3 H -2.5-2.5 MMOL/L Kendrick Test YES-POS Blood Gas Ventilator Setting NO Blood Gas Inspired Oxygen 10 L My Orders Orders - DEJA PERDOMO MD Albuterol/Ipra Inhalation Soln (Duoneb I (03/20/18 19:02) Albuterol Pre-Mix Nebs (Rt) (Proventil (03/20/18 19:04) Cbc With Automated Diff (03/20/18 19:11) Comprehensive Metabolic Panel (03/20/18 19:11) Magnesium (03/20/18 19:11) Troponin I (03/20/18 19:11) Saline Lock/Iv-Start (03/20/18 19:11) Ekg Tracing (03/20/18 19:11) O2 (03/20/18 19:11) Monitor-Rhythm Ecg Trace Only (03/20/18 19:11) Albuterol Pre-Mix Nebs (Rt) (Proventil (03/20/18 19:11) Albuterol/Ipra Inhalation Soln (Duoneb I (03/20/18 19:15) Svn Small Volume Nebulizer (03/20/18 19:11) Svn Small Volume Nebulizer (03/20/18 19:11) Albuterol Pre-Mix Nebs (Rt) (Proventil (03/20/18 19:11) Ipratropium 0.02% Neb Solution (Atrovent (03/20/18 19:15) Svn Small Volume Nebulizer (03/20/18 19:11) Svn Small Volume Nebulizer (03/20/18 19:11) Methylprednisolone Sod Succ (Solu-Medrol (03/20/18 19:11) Methylprednisolone Sod Succ (Solu-Medrol (03/20/18 19:12) Chest 1 View, Ap/Pa Only (03/20/18 19:30) Arterial Blood Gas (03/20/18 19:49) Lorazepam Injection (Ativan Injection) (03/20/18 20:30) Morphine Injection (Morphine Injection (03/20/18 20:30) Lorazepam Injection (Ativan Injection) (03/20/18 20:32) Ns Iv 1000 Ml (Sodium Chloride 0.9%) (03/20/18 20:48) Ns Iv 1000 Ml (Sodium Chloride 0.9%) (03/20/18 20:52) Medications Given in ED Current Medications Medications Dose Ordered Sig/Antwon Route Start Time Stop Time Status Last Admin Dose Admin Albuterol Sulfate 2.5 mg STK-MED ONCE .ROUTE 03/20/18 19:04 03/20/18 19:08 DC 03/20/18 19:19 2.5 MG Albuterol/ Ipratropium 3 ml STK-MED ONCE .ROUTE 03/20/18 19:02 03/20/18 19:05 DC 03/20/18 19:14 3 ML Lorazepam 0.5 mg ONCE ONCE IVP 03/20/18 20:30 03/20/18 20:32 DC 03/20/18 20:36 0.5 MG Sodium Chloride 1,000 ml @ ud STK-MED ONCE .ROUTE 03/20/18 20:48 03/20/18 20:51 DC 03/20/18 20:52 1,000 MLS/HR Vital Signs/I&O 03/20/18 03/20/18 03/20/18 03/20/18 18:58 19:14 19:19 19:23 Temp 98.7 Pulse 95 Resp 27 B/P (MAP) 114/92 (99) Pulse Ox 98 100 98 98 O2 Delivery Non Rebreather Non Rebreather Non Rebreather Non Rebreather O2 Flow Rate 10.00 10.00 10.00 10.00 FiO2 98 03/20/18 03/20/18 03/20/18 03/20/18 19:26 20:03 20:06 20:44 Pulse 117 Resp 20 Pulse Ox 97 97 97 97 O2 Delivery Non Rebreather Non Rebreather Vapotherm O2 Flow Rate 10.00 10.00 15.00 50.00 FiO2 60 Capillary Refill : Greater Than 3 Seconds Blood Pressure Mean: 99 Progress Note : Progress Note Seen and evaluated. IV, labs, chest x-ray and EKG ordered. DuoNeb and albuterol neb 3 ordered. Patient still in moderate distress. Continuous hour- long treatment ordered. Solu-Medrol 125 mg IV ordered. Monitor patient. 1944 : We will get ABG and add vapor to see if this will help. I did discuss the possibility of intubation with the patient and she states to do whatever is necessary to get her breathing under control. We will continue to monitor. We did initiate Vapotherm to see if that would help. 2029: Vapotherm not improving her symptoms. We have initiated BiPAP. Morphine 4 mg IV and Ativan 0.5 mg IV ordered. 2045: Much more comfortable now although blood pressure is declining intermittently. I do not believe this is related to infectious process. Patient has no indication of pneumonia or infectious process by blood count. We will not pursue that protocol at this time. Normal saline 1 L bolus is been ordered. I discussed the case with Dr. Hua and she accepts patient for admission to the ICU. 2049: I did discuss the case with Dr. Giang and he accepts patient in consult. Agrees with fluids and BiPAP. Blood pressure is improving. Patient is not symptomatic. She overall still feels much better. 2104 blood pressure 99/58 and patient much more comfortable. We will continue ICU admission. Admit, inpatient status. Patient and family agree with plan. ECG Initial ECG Impression Date: Mar 20, 2018 Initial ECG Impression Time: 18:56 Initial ECG Rate: 88 Initial ECG Rhythm: Normal Sinus Comment Sinus rhythm with right axis deviation. No evidence of ST elevation [place]. Similar to previous of 09/09/17. Interpreted by me. Diagnostic Imaging Diagonstic Imaging: Xray Plain Films/CT/US/NM/MRI: chest Comments [facility] [employer] [facility] [place], [place] NAME: CHAR WILSON [facility] REC#: [id number] PT STATUS: REG ER : 1955 PHYSICIAN: DEJA PERDOMO MD ADMIT DATE: 03/20/18/ER Draft Date of Exam:03/20/18 CHEST 1 VIEW, AP/PA ONLY INDICATION: Shortness of breath. Frontal chest obtained at 7:38 p.m. and compared to 03/05/2018. FINDINGS: Heart is mildly enlarged. There is mild central vascular prominence. There is no focal consolidation or pneumothorax or pleural fluid. There is hyperinflation compatible with COPD. IMPRESSION: Hyperinflation compatible with COPD. Mild cardiomegaly and central vascular prominence. No focal consolidation or pneumothorax or pleural fluid. Dictated on workstation # [id number] Dict: 03/20/181945 Trans: 03/20/181947 [id number] Interpreted by: SARAHI AVENDANO MD Electronically signed by: Departure Communication (Admissions) Time/Spoke to Admitting Phy: 20:46 Time/Spoke to Consulting Phy: 20:50 Impression Primary Impression: Chronic obstructive pulmonary disease with (acute) exacerbation Additional Impression: Hypercapnic respiratory failure Qualified Codes: J96.02 - Acute respiratory failure with hypercapnia Disposition: 09 ADMITTED INPATIENT Condition: Stable Admissions Decision to Admit Reason: Admit from ER (General) Decision to Admit/Date: Mar 20, 2018 Time/Decision to Admit Time: 20:46 Departure-Patient Inst. Referrals: [facility] – [place] (PCP/Family) Primary Care Physician DEJA PERDOMO MD Mar 20, 2018 19:49
[2018-03-20 20:10] LABS: ABG BASE EXCESS 3.3 MMOL/L (-2.5-2.5); ABG OXYGEN SATURATION 98 % (94-100); ABG PCO2 60 MMHG (35-45); ABG PO2 98 MMHG (79-93)
[2018-03-20 20:11] LABS: ABG PH 7.31 (7.37-7.43)
[2018-03-20 20:12] LABS: ALLENS TEST YES-POS; INSPIRED O2 10 L; PATIENT TEMP 98.4; VENTILATOR NO
[2018-03-20] MEDS ORDERED: LORazepam INJ 2 MG/ML (ATIVAN) VIAL IVP ONE (20:30)
[2018-03-20] MEDS ORDERED: morphine INJ 10 MG/ML 1ML (SYR OR VIAL) IVP STA (20:30)
[2018-03-20] MEDS ORDERED: LORazepam INJ 2 MG/ML (ATIVAN) VIAL ONE (20:32)
[2018-03-20] MEDS ORDERED: NS IV 1000 ML 1,000 ML ONE (20:48)
[2018-03-20] MEDS ORDERED: NS IV 1000 ML 1,000 ML IV STA (20:52)
--- OUTSIDE RECORDS SUMMARY | 2018-03-20 21:35 | XMS REPORT | Continuity of Care Document ---
Author Author [facility] Address Unknown Phone Unavailable Allergies Active Description Code Type Severity Reaction Onset Reported/Identified Relationship to Patient Clinical Status Yes codeine Drug Allergy 10/11/2008 Yes codeine Drug Allergy N/A N/A 10/11/2008 Yes codeine [id number] Drug Allergy Severe Hives and swell 09/22/2012 [...] APRNNDA S 300.4 DYSTHYMIC DISORDER 10/11/2008 JAMARI PHYSICAL THERAPIST ASSISTANT, ANDRES S 496 CHRONIC OBSTRUCTIVE PULMONARY DISEASE 10/11/2008 NELLY PHYSICAL THERAPIST ASSISTANT, BARBARA A 300.4 DYSTHYMIC DISORDER 10/11/2008 NELLY PHYSICAL THERAPIST ASSISTANT, BARBARA A 496 CHRONIC OBSTRUCTIVE PULMONARY DISEASE 10/11/2008 FRANSISCO KAUFFMAN APRNNDA S 300.4 DYSTHYMIC DISORDER 10/11/2008 JAMARI LOZA ANDRES S 496 CHRONIC OBSTRUCTIVE PULMONARY DISEASE 10/11/2008 JAMARI PHYSICAL THERAPIST ASSISTANT, ANDRES S 300.4 DYSTHYMIC DISORDER 10/11/2008 JAMARI PHYSICAL THERAPIST ASSISTANT, ANDRES S 496 CHRONIC OBSTRUCTIVE PULMONARY DISEASE 10/11/2008 JAMARI PHYSICAL THERAPIST ASSISTANT, ANDRES S 300.4 DYSTHYMIC DISORDER 10/11/2008 JAMARI PHYSICAL THERAPIST ASSISTANT, ANDRES S 496 CHRONIC OBSTRUCTIVE PULMONARY DISEASE 10/11/2008 JAMARI PHYSICAL THERAPIST ASSISTANT, ANDRES S 300.4 DYSTHYMIC DISORDER 10/11/2008 JAMARI PHYSICAL THERAPIST ASSISTANT, ANDRES S 496 CHRONIC OBSTRUCTIVE PULMONARY DISEASE 01/11/2009 PAULINA URBINA MD 372.00 Acute Conjunctivitis Unspecified 01/11/2009 PAULINA URBINA MD 372.00 Acute Conjunctivitis Unspecified 01/11/2009 372.00 Acute Conjunctivitis Unspecified 01/11/2009 372.00 Acute Conjunctivitis Unspecified 01/11/2009 PAULINA URBINA MD 372.00 Acute Conjunctivitis Unspecified 01/11/2009 JAMARI PHYSICAL THERAPIST ASSISTANT, ANDRES S 372.00 Acute Conjunctivitis Unspecified 01/11/2009 JAMARI PHYSICAL THERAPIST ASSISTANT, ANDRES S 372.00 Acute Conjunctivitis Unspecified 01/11/2009 NELLY PHYSICAL THERAPIST ASSISTANT, BARBARA A 372.00 Acute Conjunctivitis Unspecified 01/11/2009 JAMARI PHYSICAL THERAPIST ASSISTANT, ANDRES S 372.00 Acute Conjunctivitis Unspecified 01/11/2009 JAMARI PHYSICAL THERAPIST ASSISTANT, ANDRES S 372.00 Acute Conjunctivitis Unspecified 01/11/2009 JAMARI PHYSICAL THERAPIST ASSISTANT, ANDRES S 372.00 Acute Conjunctivitis Unspecified 01/11/2009 JAMARI PHYSICAL THERAPIST ASSISTANT, ANDRES S 372.00 Acute Conjunctivitis Unspecified 01/26/2009 [...] 477.0 Allergic Rhinitis - Pollen 01/26/2009 JAMARI PHYSICAL THERAPIST ASSISTANT, ANDRES S 494.0 Bronchiectasis 01/26/2009 NELLY PHYSICAL THERAPIST ASSISTANT, BARBARA A 272.4 HYPERLIPIDEMIA HYPERLIPOPROTEINEMIAS (Old Classification) 01/26/2009 NELLY PHYSICAL THERAPIST ASSISTANT, BARBARA A 300.9 Psychiatric Disorder Requiring Hospitalization 01/26/2009 NELLY PHYSICAL THERAPIST ASSISTANT, BARBARA A 477.0 Allergic Rhinitis - Pollen 01/26/2009 NELLY PHYSICAL THERAPIST ASSISTANT, BARBARA A 494.0 Bronchiectasis 01/26/2009 JAMARITESFAYE LOZA, ANDRES S 272.4 HYPERLIPIDEMIA HYPERLIPOPROTEINEMIAS (Old Classification) 01/26/2009 JAMARI PHYSICAL THERAPIST ASSISTANT, ANDRES S 300.9 Psychiatric Disorder Requiring Hospitalization 01/26/2009 JAMARI PHYSICAL THERAPIST ASSISTANT, ANDRES S 477.0 Allergic Rhinitis - Pollen 01/26/2009 JAMARI PHYSICAL THERAPIST ASSISTANT, ANDRES S 494.0 Bronchiectasis 01/26/2009 JAMARI PHYSICAL THERAPIST ASSISTANT, ANDRES S 272.4 HYPERLIPIDEMIA HYPERLIPOPROTEINEMIAS (Old Classification) 01/26/2009 JAMARI PHYSICAL THERAPIST ASSISTANT, ANDRES S 300.9 Psychiatric Disorder Requiring Hospitalization 01/26/2009 JAMARI PHYSICAL THERAPIST ASSISTANT, ANDRES S 477.0 Allergic Rhinitis - Pollen 01/26/2009 JAMARI PHYSICAL THERAPIST ASSISTANT, ANDRES S 494.0 Bronchiectasis 01/26/2009 JAMARI PHYSICAL THERAPIST ASSISTANT, ANDRES S 272.4 HYPERLIPIDEMIA HYPERLIPOPROTEINEMIAS (Old Classification) 01/26/2009 JAMARI PHYSICAL THERAPIST ASSISTANT, ANDRES S 300.9 Psychiatric Disorder Requiring Hospitalization 01/26/2009 JAMARI PHYSICAL THERAPIST ASSISTANT, ANDRES S 477.0 Allergic Rhinitis - Pollen 01/26/2009 JAMARI PHYSICAL THERAPIST ASSISTANT, ANDRES S 494.0 Bronchiectasis 01/26/2009 JAMARI PHYSICAL THERAPIST ASSISTANT, ANDRES S 272.4 HYPERLIPIDEMIA HYPERLIPOPROTEINEMIAS (Old Classification) 01/26/2009 JAMARI PHYSICAL THERAPIST ASSISTANT, ANDRES S 300.9 Psychiatric Disorder Requiring Hospitalization 01/26/2009 JAMARI PHYSICAL THERAPIST ASSISTANT, ANDRES S 477.0 Allergic Rhinitis - Pollen 01/26/2009 JAMARI PHYSICAL THERAPIST ASSISTANT, ANDRES S 494.0 Bronchiectasis 08/29/2009 PAULINA URBINA [...] Due To Plants [except Food] 08/29/2009 JAMARI PHYSICAL THERAPIST ASSISTANT, ANDRES S 692.6 Contact Dermatitis And Other Eczema, Due To Plants [except Food] 08/29/2009 NOEMY VILLEGAS APRNIDI A 692.6 Contact Dermatitis And Other Eczema, Due To Plants [except Food] 08/29/2009 JAMARI PHYSICAL THERAPIST ASSISTANT, ANDRES S 692.6 Contact Dermatitis And Other Eczema, Due To Plants [except Food] 08/29/2009 JAMARI PHYSICAL THERAPIST ASSISTANT, ANDRES S 692.6 Contact Dermatitis And Other Eczema, Due To Plants [except Food] 08/29/2009 JAMARI PHYSICAL THERAPIST ASSISTANT, ANDRES S 692.6 Contact Dermatitis And Other Eczema, Due To Plants [except Food] 08/29/2009 JAMARI PHYSICAL THERAPIST ASSISTANT, ANRDES S 692.6 Contact Dermatitis And Other Eczema, [...] Routine, At Health Care Facility 10/19/2009 JAMARI PHYSICAL THERAPIST ASSISTANT, ANDRES S V70.0 General Medical Exam, Routine, At Health Care Facility 10/19/2009 JAMARI PHYSICAL THERAPIST ASSISTANT, ANDRES S V70.0 General Medical Exam, Routine, At Health Care Facility 10/19/2009 JAMARI PHYSICAL THERAPIST ASSISTANT, ANDRES S V70.0 General Medical Exam, Routine, At Health Care Facility 10/19/2009 JAMARI PHYSICAL THERAPIST ASSISTANT, ANDRES S V70.0 General Medical Exam, Routine, [...] Screening Examination For Pulmonary Tuberculosis 10/30/2010 JAMARI PHYSICAL THERAPIST ASSISTANT, ANDRES S V74.1 Screening Examination For Pulmonary Tuberculosis 10/30/2010 JAMARI PHYSICAL THERAPIST ASSISTANT, ANDRES S V74.1 Screening Examination For Pulmonary Tuberculosis 11/08/2010 CARLITOS COON, PAULINA V70.3 Sports/school Exam 11/08/2010 CARLITOS COON, PAULINA V70.3 Sports/school Exam 11/08/2010 V70.3 Sports/school Exam 11/08/2010 V70.3 Sports/school Exam 11/08/2010 CARLITOS COON, PAULINA V70.3 Sports/school Exam 11/08/2010 JAMARI PHYSICAL THERAPIST ASSISTANT, ANDRES S V70.3 Sports/school Exam 11/08/2010 JAMARI PHYSICAL THERAPIST ASSISTANT, ANDRES S V70.3 Sports/school Exam 11/08/2010 NELLY LOZA, BARBARA A V70.3 Sports/school Exam 11/08/2010 JAMARI PHYSICAL THERAPIST ASSISTANT, ANDRES S V70.3 Sports/school Exam 11/08/2010 JAMARI PHYSICAL THERAPIST ASSISTANT, ANDRES S V70.3 Sports/school Exam 11/08/2010 JAMARI PHYSICAL THERAPIST ASSISTANT, ANDRES S V70.3 Sports/school Exam 11/08/2010 JAMARI PHYSICAL THERAPIST ASSISTANT, ANDRES S V70.3 Sports/school Exam 11/20/2010 Ot 373.11 HORDEOLUM EXTERNUM 11/20/2010 Ot 379.91 PAIN IN OR AROUND EYE 11/30/2010 CARLITOS COON, PAULINA V72.31 Hot Mill Worker Exam, Routine 11/30/2010 CARLITOS COON, PAULINA V72.31 Hot Mill Worker Exam, Routine 11/30/2010 V72.31 Hot Mill Worker Exam, Routine 11/30/2010 V72.31 Hot Mill Worker Exam, Routine 11/30/2010 PAULINA URBINA MD V72.31 Hot Mill Worker Exam, Routine 11/30/2010 JAMARI PHYSICAL THERAPIST ASSISTANTFRANSISCO EvansNDA S V72.31 Hot Mill Worker Exam, Routine 11/30/2010 JAMARI LOZA ANDRES S V72.31 Hot Mill Worker Exam, Routine 11/30/2010 BARBARA VILLEGAS APRN A V72.31 Hot Mill Worker Exam, Routine 11/30/2010 FRANSISCO KAUFFMAN APRNNDA S V72.31 Hot Mill Worker Exam, Routine 11/30/2010 FRANSISCO KAUFFMAN APRNNDA S V72.31 Hot Mill Worker Exam, Routine 11/30/2010 ANDRES KAUFFMAN APRN S V72.31 Hot Mill Worker Exam, Routine 11/30/2010 ANDRES KAUFFMAN APRN S V72.31 Hot Mill Worker Exam, Routine 03/22/2011 Ot 112.0 THRUSH 03/22/2011 [...] OF INITIATING OR MAINTAINING SLEEP 06/14/2011 FRANSISCO AKUFFMAN APRNNDA S 530.81 ESOPHAGEAL REFLUX 06/14/2011 FRANSISCO [...] BRONCHITIS - WITH ACUTE EXACERBATION 02/12/2012 JAMARI PHYSICAL THERAPIST ASSISTANT, ANDRES S 786.50 CHEST PAIN OR DISCOMFORT 02/12/2012 NELLY PHYSICAL THERAPIST ASSISTANT, BARBARA A 491.21 CHRONIC BRONCHITIS - WITH ACUTE EXACERBATION 02/12/2012 NELLY PHYSICAL THERAPIST ASSISTANT, BARBARA A 786.50 CHEST PAIN OR DISCOMFORT 02/12/2012 FRANSISCO KAUFFMAN APRNNDA S 491.21 CHRONIC BRONCHITIS - WITH ACUTE EXACERBATION 02/12/2012 FRANSISCO KAUFFMAN APRNNDA S 786.50 CHEST PAIN OR DISCOMFORT 02/12/2012 FRANSISCO KAUFFMAN APRNNDA S 491.21 CHRONIC BRONCHITIS - WITH ACUTE EXACERBATION 02/12/2012 JAMARI PHYSICAL THERAPIST ASSISTANT, ANDRES S 786.50 CHEST PAIN OR DISCOMFORT [...] URBINA MD V74.1 TB SCREENING 08/05/2012 JAMARI PHYSICAL THERAPIST ASSISTANT, ANDRES S V74.1 TB SCREENING 08/05/2012 GRICEL [...] COUNSELING 01/05/2014 NOEMY VILLEGAS APRNIDI A V72.31 MANAGER EDITORIAL EXAM, ROUTINE 01/05/2014 NELLY LOZA BARBARA A V76.10 BREAST CANCER SCREENING 01/05/2014 NOEMY VILLEGAS APRNIDI A V76.51 COLON CANCER SCREENING 01/05/2014 ANDRES KAUFFMAN APRN S V65.42 COUNSELING - SMOKING CESSATION 01/05/2014 JAMARI PHYSICAL THERAPIST ASSISTANT, ANDRES S V65.49 OTHER SPECIFIED COUNSELING 01/05/2014 JAMARI PHYSICAL THERAPIST ASSISTANT, ANDRES S V72.31 MANAGER EDITORIAL EXAM, ROUTINE 01/05/2014 JAMARI PHYSICAL THERAPIST ASSISTANT, ANDRES S V76.10 BREAST CANCER SCREENING 01/05/2014 JAMARI PHYSICAL THERAPIST ASSISTANT, ANDRES S V76.51 COLON CANCER SCREENING 01/05/2014 JAMARI PHYSICAL THERAPIST ASSISTANT, ANDRES S V65.42 COUNSELING - SMOKING CESSATION 01/05/2014 JAMARI PHYSICAL THERAPIST ASSISTANT, ANDRES S V65.49 OTHER SPECIFIED COUNSELING 01/05/2014 JAMARI PHYSICAL THERAPIST ASSISTANT, ANDRES S V72.31 MANAGER EDITORIAL EXAM, ROUTINE 01/05/2014 JAMARI PHYSICAL THERAPIST ASSISTANT, ANDRES S V76.10 BREAST CANCER SCREENING 01/05/2014 JAMARI PHYSICAL THERAPIST ASSISTANT, ANDRES S V76.51 COLON CANCER SCREENING 01/05/2014 JAMARI PHYSICAL THERAPIST ASSISTANT, ANDRES S V65.42 COUNSELING - SMOKING CESSATION 01/05/2014 JAMARI PHYSICAL THERAPIST ASSISTANT, ANDRES S V65.49 OTHER SPECIFIED COUNSELING 01/05/2014 JAMARI PHYSICAL THERAPIST ASSISTANT, ANDRES S V72.31 MANAGER EDITORIAL EXAM, ROUTINE 01/05/2014 JAMARI PHYSICAL THERAPIST ASSISTANT, ANDRES S V76.10 BREAST CANCER SCREENING 01/05/2014 JAMARI PHYSICAL THERAPIST ASSISTANT, ANDRES S V76.51 COLON CANCER SCREENING 01/05/2014 JAMARI PHYSICAL THERAPIST ASSISTANT, ANDRES S V65.42 COUNSELING - SMOKING CESSATION 01/05/2014 JAMARI PHYSICAL THERAPIST ASSISTANT, ANDRES S V65.49 OTHER SPECIFIED COUNSELING 01/05/2014 JAMARI PHYSICAL THERAPIST ASSISTANT, ANDRES S V72.31 MANAGER EDITORIAL EXAM, ROUTINE 01/05/2014 JAMARI PHYSICAL THERAPIST ASSISTANT, ANDRES S V76.10 BREAST CANCER SCREENING 01/05/2014 JAMARI PHYSICAL THERAPIST ASSISTANT, ANDRES S V76.51 COLON CANCER SCREENING 03/01/2014 JAMARI PHYSICAL THERAPIST ASSISTANT, ANDRES S 211.9 POLYP- GI 03/01/2014 JAMARI PHYSICAL THERAPIST ASSISTANT, ANDRES S 211.9 POLYP- GI 03/01/2014 JAMARI PHYSICAL THERAPIST ASSISTANT, ANDRES S 211.9 POLYP- GI 03/01/2014 JESSICA [...] GOLDBERG APRN Ot Z12.31 04/11/2016 DARRELL GOLDBERG PHYSICAL THERAPIST ASSISTANT Ot Z12.31 ENCNTR SCREEN MAMMOGRAM FOR MALIGNANT NE 04/11/2016 Ot V76.12 OTH SCREEN MAMMO-MALIGN NEOPLASM OF TARA 04/11/2016 BARBARA VILLEGAS Ana Cristina PHYSICAL THERAPIST ASSISTANT Ot V76.12 OTH SCREEN MAMMO-MALIGN NEOPLASM OF TARA 04/11/2016 JESSICA COON, KWAKU M Ot V72.84 EXAM PRE-OPERATIVE NOS 04/11/2016 JESSICA COON, KWAKU Mcguire Ot V72.84 EXAM PRE-OPERATIVE NOS 04/11/2016 DARRELL GOLDBERG PHYSICAL THERAPIST ASSISTANT Ot Z12.31 ENCNTR SCREEN MAMMOGRAM FOR MALIGNANT NE 05/09/2016 ALMA ALLEN CHIEF OF INTERNAL MEDICINE Ot M75.42 IMPINGEMENT SYNDROME OF LEFT SHOULDER 05/21/2016 ALMA ALLEN CHIEF OF INTERNAL MEDICINE Ot M75.42 IMPINGEMENT SYNDROME OF LEFT SHOULDER [...] BREATH 09/09/2017 MARCO A PETEP Ot Z79.82 LONG-TERM (CURRENT) USE OF ASPIRIN 09/09/2017 MARCO A PETEP Ot Z87.59 PERSONAL HISTORY OF COMP OF PREG, CHLDBR 09/09/2017 MARCO A PETEP Ot Z88.5 ALLERGY STATUS TO NARCOTIC AGENT STATUS 09/09/2017 MARCO A PETE CHIEF OF INTERNAL MEDICINE Ot Z99.81 DEPENDENCE ON SUPPLEMENTAL OXYGEN 09/11/2017 [...] 09/11/2017 JUAN RMARCO A Avila Ot Z79.82 DISHWASHER BUSSER (CURRENT) USE OF ASPIRIN 09/11/2017 JUAN RMARCO [...] OBSTRUCTIVE PULMONARY DISEASE, U 11/05/2017 BOB BERNARD PHYSICAL THERAPIST ASSISTANT Ot J44.9 CHRONIC OBSTRUCTIVE PULMONARY DISEASE, U 11/05/2017 BOB BERNARD PHYSICAL THERAPIST ASSISTANT Ot J45.909 UNSPECIFIED ASTHMA, UNCOMPLICATED 11/05/2017 BOB BERNARD PHYSICAL THERAPIST ASSISTANT Ot R06.00 DYSPNEA, UNSPECIFIED 11/08/2017 LINDA DELGADO [...] OBSTRUCTIVE PULMONARY DISEASE, U 01/17/2018 DARRELL GOLDBERG PHYSICAL THERAPIST ASSISTANT Ot Z12.31 ENCNTR SCREEN MAMMOGRAM FOR MALIGNANT NE 01/17/2018 LINDA DELGADO DO Ot 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 01/17/2018 LINDA DELGADO DO M Ot F17.200 NICOTINE DEPENDENCE, UNSPECIFIED, UNCOMP 01/17/2018 LINDA DELGADO DO M Ot I70.0 ATHEROSCLEROSIS OF AORTA 01/17/2018 LINDA DELGADO DO Ot J44.9 CHRONIC OBSTRUCTIVE PULMONARY DISEASE, U 01/17/2018 BOB BERNARD PHYSICAL THERAPIST ASSISTANT Ot J44.9 CHRONIC OBSTRUCTIVE PULMONARY DISEASE, U 01/17/2018 BOB BERNARD PHYSICAL THERAPIST ASSISTANT Ot J45.909 UNSPECIFIED ASTHMA, UNCOMPLICATED 01/17/2018 BOB BERNARD PHYSICAL THERAPIST ASSISTANT Ot R06.00 DYSPNEA, UNSPECIFIED 03/05/2018 ABI ROBB [...] ANGIOCARDIOGRAM 02/13/2012 88.56 CORONAR ARTERIOGR-2 CATH 02/13/2012 63362 TB TEST INTRADERMAL 08/05/2012 42997 ROUTINE VENIPUNCTURE 12/22/2013 97865 CBC 12/22/2013 94364 CMP 12/22/2013 08976 LIPID PANEL 12/22/2013 7262381 GFR CALC (RESULT ONLY) 12/22/2013 60988 MAMMOGRAM, SCREENING 01/05/2014 General Kwaku Pena 01/19/2014 60585 HEMOCCULT 01/19/2014 93490 HEMOCCULT 01/19/2014 32533 OXIMETRY 04/06/2014 [id number] INSERTION OF INFUSION DEV INTO SUP VENA [...] GROWTH Moderate Growth NRG Bacterial sputum culture [id number] [facility] Complete blood count (CBC) with [...] culture - 01/22/17 19:45 Bacterial throat culture [facility] Blood lactic acid measurement (moles/volume) - 01/22/17 19:46 Blood lactic acid measurement (moles/volume) 0.96 mmol/L 0.50-2.00 Bacterial blood culture - 01/22/17 19:46 Bacterial blood culture [facility] Arterial blood gas measurement - 01/22/17 19:58 [...] GROWTH Moderate Growth NRG Bacterial sputum culture [id number] NRG Bacterial blood culture - 09/09/17 20:40 [...] plasma calcium measurement (mass/volume) 8.4 mg/dL 8.5-10.1 Complete blood count (CBC) with automated white blood cell (WBC) differential - 03/20/18 19:00 Blood leukocytes automated count (number/volume) 7.3 10*3/uL 4.3-11.0 Blood erythrocytes automated count (number/volume) 3.95 10*6/uL 4.35-5.85 Venous blood hemoglobin measurement (mass/volume) 13.5 g/dL 11.5-16.0 Blood hematocrit (volume fraction) 41 % 35-52 Automated erythrocyte mean corpuscular volume 103 [foz_us] 80-99 Automated erythrocyte mean corpuscular hemoglobin (mass per erythrocyte) 34 pg 25-34 Automated erythrocyte mean corpuscular hemoglobin concentration measurement ( mass/volume) 33 g/dL 32-36 Automated erythrocyte distribution width ratio 12.8 % 10.0-14.5 Automated blood platelet count (count/volume) 330 10*3/uL 130-400 Automated blood platelet mean volume measurement 10.0 [foz_us] 7.4-10.4 Automated blood neutrophils/100 leukocytes 40 % 42-75 Automated blood lymphocytes/100 leukocytes 48 % 12-44 Blood monocytes/100 leukocytes 7 % 0-12 Automated blood eosinophils/100 leukocytes 5 % 0-10 Automated blood basophils/100 leukocytes 0 % 0-10 Blood neutrophils automated count (number/volume) 2.9 10*3 1.8-7.8 Blood lymphocytes automated count (number/volume) 3.5 10*3 1.0-4.0 Blood monocytes automated count (number/volume) 0.5 10*3 0.0-1.0 Automated eosinophil count 0.4 10*3/uL 0.0-0.3 Automated blood basophil count (count/volume) 0.0 10*3/uL 0.0-0.1 Comprehensive metabolic panel - 03/20/18 19:00 Serum or plasma sodium measurement (moles/volume) 141 mmol/L 135-145 Serum or plasma potassium measurement (moles/volume) 4.2 mmol/L 3.6-5.0 Serum or plasma chloride measurement (moles/volume) 102 mmol/L 98-107 Carbon dioxide 29 mmol/L 21-32 Serum or plasma anion gap determination (moles/volume) 10 mmol/L 5-14 Serum or plasma urea nitrogen measurement (mass/volume) 10 mg/dL 7-18 Serum or plasma creatinine measurement (mass/volume) 0.67 mg/dL 0.60-1.30 Serum or plasma urea nitrogen/creatinine mass ratio 15 NRG Serum or plasma creatinine measurement with calculation of estimated glomerular filtration rate > NRG Serum or plasma glucose measurement (mass/volume) 90 mg/dL 70-105 Serum or plasma calcium measurement (mass/volume) 9.3 mg/dL 8.5-10.1 Serum or plasma total bilirubin measurement (mass/volume) 0.2 mg/dL 0.1-1.0 Serum or plasma alkaline phosphatase measurement (enzymatic activity/volume) 62 U/L 40-136 Serum or plasma aspartate aminotransferase measurement (enzymatic activity/ volume) 19 U/L 5-34 Serum or plasma alanine aminotransferase measurement (enzymatic activity/volume ) 16 U/L 0-55 Serum or plasma protein measurement (mass/volume) 7.6 g/dL 6.4-8.2 Serum or plasma albumin measurement (mass/volume) 4.3 g/dL 3.2-4.5 CALCIUM CORRECTED 9.1 mg/dL 8.5-10.1 Magnesium - 03/20/18 19:00 Magnesium 2.7 mg/dL 1.8-2.4 Serum or plasma troponin i.cardiac measurement (mass/volume) - 03/20/18 19:00 Serum or plasma troponin i.cardiac measurement (mass/volume) < ng/ mL <0.30 Arterial blood gas measurement - 03/20/18 19:49 Blood pCO2 60 mm[Hg] 35-45 Blood pO2 98 mm[Hg] 79-93 Arterial blood bicarbonate measurement (moles/volume) 29 mmol/L 23-27 Arterial blood base excess by calculation 3.3 mmol/L -2.5 -2.5 Arterial blood oxygen saturation measurement 98 % 94-100 * Inhaled oxygen flow rate 10 L NRG Arterial blood pH measurement with patient temperature correction 7.31 7.37-7.43 Arterial blood carbon dioxide, total measurement (moles/volume) 31.0 mmol/L 21.0-31.0 Body site RT RAD NRG Assessment of wrist artery patency prior to arterial puncture YES- POS NRG Setting of ventilation mode NO NRG Measurement of body temperature 98.4 NRG Encounters ACCT No. Visit Date/Time Discharge Status Pt. Type Provider Facility Loc./Unit Complaint [id number] 06/02/2014 14:37:00 06/02/2014 23:59:59 [facility] Outpatient ANDRES KAUFFMAN APRN [id number] 04/06/2014 13:56:00 04/06/2014 23:59:59 [facility] Outpatient ANDRES KAUFFMAN APRN [id number] 01/19/2014 09:15:00 01/19/2014 23:59:59 [facility] Outpatient ANDRES KAUFFMAN APRN [id number] 01/19/2014 09:15:00 01/19/2014 23:59:59 CLS Outpatient ANDRES KAUFFMAN APRN [id number] 01/05/2014 10:49:00 01/05/2014 23:59:59 CLS Outpatient BARBARA VILLEGAS APRN [id number] 12/22/2013 08:36:00 12/22/2013 23:59:59 CLS Outpatient ANDRES KAUFFMAN APRN [id number] 04/28/2013 14:11:00 04/28/2013 23:59:59 CLS Outpatient ANDRES KAUFFMAN APRN [id number] 10/14/2012 17:32:00 10/14/2012 23:59:59 [place] [id number] 02/12/2012 10:45:00 02/12/2012 23:59:59 CLS Outpatient PAULINA URBINA MD [id number] 02/11/2012 00:00:00 02/11/2012 23:59:59 CLS Outpatient PAULINA URBINA MD [id number] 02/13/2011 16:04:00 02/13/2011 23:59:59 CLS Outpatient [id number] 08/05/2012 11:36:00 Document Registration [id number] 10/05/2014 01:59:04 ACT Document Registration [id number] 03/10/2018 13:20:00 03/10/2018 23:59:59 CLS Outpatient ANDRES KAUFFMAN APRN [facility] [id number] 03/04/2018 03:01:00 03/05/2018 14:07:00 DIS Inpatient ABI ROBB MD [facility] 4TH SEPTIC SHOCK,PNA,COPD [id number] 10/14/2017 15:20:00 10/14/2017 23:59:59 CLS Outpatient BOB BERNARD APRN [facility] RT COPD [id number] 10/11/2017 11:14:00 10/11/2017 23:59:59 CLS Outpatient LINDA DELGADO DO [facility] RAD SMOKING HISTORY,SOB [id number] 10/07/2017 14:15:00 10/07/2017 23:59:59 CLS Preadmit BOB BERNARD APRN [facility] RT ASTHMA,COPD,DYSPNEA [id number] 09/09/2017 19:42:00 09/09/2017 23:17:00 DIS Emergency MARCO A PETE [facility] ER SOB [id number] 01/22/2017 21:41:00 01/25/2017 14:22:00 DIS Inpatient TERESA HERNANDEZ MD [facility] 4TH COPD EXACERBATION/ASTHMA EXACERBATION;CP R/O ACS [id number] 01/08/2017 22:59:00 01/10/2017 13:15:00 DIS Inpatient PRABHAKAR BULL MD [facility] 4TH RESPIRATORY DISTRESS [id number] 05/02/2016 14:08:00 05/21/2016 09:38:00 DIS Outpatient ALMA ALLENP [facility] REHAB IMPINGEMENT SYNDROME, SHOULDER, LEFT [id number] 03/22/2015 13:04:00 03/22/2015 23:59:59 CLS Outpatient DARRELL GOLDBERG APRN [facility] RAD ROUTINE SCREENING MAMMOGRAM [id number] 10/05/2014 01:57:00 10/05/2014 04:11:00 DIS Emergency DEJA PERDOMO MD [facility] ER ETOH,FALL,ARM PAIN [id number] 03/01/2014 08:02:00 03/01/2014 10:20:00 DIS Outpatient KWAKU LOPEZ MD [facility] SDC BLOOD IN STOOL [id number] 02/24/2014 07:12:00 02/24/2014 23:59:59 CLS Outpatient KWAKU LOPEZ MD [facility] PREOP POSITIVE OCCULT BLOOD IN STOOLS [id number] 02/03/2014 07:26:00 02/03/2014 23:59:59 CLS Outpatient KWAKU LOPEZ MD [facility] PREOP BLOOD IN STOOL [id number] 01/29/2014 10:45:00 01/29/2014 23:59:59 CLS Outpatient BARBARA VILLEGAS APRN [facility] RAD ROUTINE [id number] 09/22/2012 03:08:00 09/24/2012 16:15:00 DIS Inpatient MARTINE GUTIERREZ MD [facility] 4TH ACUTE COPD EXACERBATION [id number] 03/20/2018 19:21:00 Document Registration [id number] 05/15/2012 15:00:00 Document Registration [id number] 04/10/2012 13:00:00 Document Registration [id number] 02/12/2012 12:30:00 Document Registration [id number] 01/09/2012 19:16:00 Document Registration [id number] 01/02/2012 20:18:00 Document Registration [id number] 09/11/2011 00:30:00 Document Registration [id number] 08/27/2011 23:54:00 Document Registration [id number] 06/05/2011 20:05:00 Document Registration [id number] 03/21/2011 01:05:00 Document Registration [id number] 12/07/2010 14:03:00 Document Registration [id number] 11/20/2010 21:28:00 Document Registration [id number] 07/13/2010 14:24:00 Document Registration [id number] 07/07/2010 01:20:00 Document Registration
[2018-03-20 22:00] VITALS: BP 95/59
[2018-03-20] MEDS ORDERED: morphine INJ 4 MG/ML 1 ML (VIAL/SYRINGE) IV PRN (22:15)
[2018-03-20] MEDS ORDERED: LORazepam INJ 2 MG/ML (ATIVAN) VIAL IV PRN (22:15)
[2018-03-20] MEDS ORDERED: CATHETER FLUSH 10 ML SYR IV PRN (22:15)
[2018-03-20] MEDS: NS IV 1000 ML 1,000 ML IV SCH ×2 (22:29→23:47)
[2018-03-20 23:00] VITALS: BP 89/49
[2018-03-20 23:28] VITALS: BP 89/54
[2018-03-21] VITALS (14 sets, daily range): BP systolic 91–117; BP diastolic 49–77
[2018-03-21] MEDS ORDERED: NS IV 1000 ML 1,000 ML IV SCH
[2018-03-21] MEDS: methylPREDNISolone 125 MG (Solu-MEDROL) VIAL IV SCH ×4 (00:36→18:51)
[2018-03-21] MEDS ORDERED: 1/2 NS IV SOLUTION 1,000 ML IV PRN (02:27)
[2018-03-21] MEDS ORDERED: ONDANSETRON 4 MG (ZOFRAN) ORAL DISSOLVE TAB SL PRN (02:30)
[2018-03-21] MEDS ORDERED: SENNA W/DOCUSATE (SENOKOT S) TABLET PO PRN (02:30)
[2018-03-21] MEDS ORDERED: ANTACID SUSP 30 ML UDC (MYLANTA) PO PRN (02:30)
[2018-03-21] MEDS ORDERED: LORazepam INJ 2 MG/ML (ATIVAN) VIAL IM/IV PRN (02:30)
[2018-03-21] MEDS ORDERED: LORazepam INJ 2 MG/ML (ATIVAN) VIAL IV PRN (02:30)
[2018-03-21] MEDS ORDERED: D5 1/2 NS 1000 ML IV SOLUTION 1,000 ML IV PRN (02:30)
[2018-03-21] MEDS ORDERED: LORazepam 1 MG (ATIVAN) TAB PO PRN (02:30)
[2018-03-21] MEDS ORDERED: ONDANSETRON 4 MG/2 ML (SDV) Z0FRAN IV PRN (02:30)
[2018-03-21] MEDS ORDERED: RT-ALBUTEROL/IPRATROPIUM 3 ML (DUONEB) VIAL ONE (02:34)
[2018-03-21] MEDS: RT-ALBUTEROL/IPRATROPIUM 3 ML (DUONEB) VIAL INH SCH ×5 (02:37→19:18)
[2018-03-21 03:57] LABS: ABG BASE EXCESS -1.9 MMOL/L (-2.5-2.5); ABG OXYGEN SATURATION 99 % (94-100); ABG PCO2 46 MMHG (35-45); ABG PO2 110 MMHG (79-93); ABG TCO2 24.9 MMOL/L (21.0-31.0)
[2018-03-21 04:00] LABS: BASOPHILS % (AUTO) 0 % (0-10); EOSINOPHILS % (AUTO) 0 % (0-10); HEMATOCRIT 36 % (35-52); HEMOGLOBIN 11.4 G/DL (11.5-16.0); LYMPHOCYTES # (AUTO) 0.5 X 10^3 (1.0-4.0); LYMPHOCYTES % (AUTO) 11 % (12-44); MEAN CORPUSCULAR HEMOGLOBIN 33 PG (25-34); MEAN CORPUSCULAR HGB CONC 32 G/DL (32-36); MEAN CORPUSCULAR VOLUME 105 FL (80-99); MONOCYTES % (AUTO) 1 % (0-12); NEUTROPHILS # (AUTO) 4.3 X 10^3 (1.8-7.8); NEUTROPHILS % (AUTO) 88 % (42-75); PLATELET COUNT 265 10^3/uL (130-400); RED BLOOD COUNT 3.43 10^6/uL (4.35-5.85); WHITE BLOOD COUNT 4.8 10^3/uL (4.3-11.0)
[2018-03-21 04:02] LABS: ABG PH 7.32 (7.37-7.43); ALLENS TEST POSITIVE; INSPIRED O2 35% BIPAP; PATIENT TEMP 97.6; VENTILATOR NO
[2018-03-21 04:34] LABS: BUN/CREATININE RATIO 19; CALCIUM 8.4 MG/DL (8.5-10.1); CARBON DIOXIDE 21 MMOL/L (21-32); CHLORIDE 109 MMOL/L (98-107); CREATININE SERUM 0.62 MG/DL (0.60-1.30); GFR ESTIMATED > 60; GLUCOSE 148 MG/DL (70-105); MAGNESIUM 2.1 MG/DL (1.8-2.4); PHOSPHORUS 3.3 MG/DL (2.3-4.7); POTASSIUM 4.5 MMOL/L (3.6-5.0); SODIUM 141 MMOL/L (135-145)
[2018-03-21] MEDS: CATHETER FLUSH 10 ML SYR IV SCH ×3 (04:38→20:38)
--- NOTE | 2018-03-21 04:48 | Pulmonary Consultation ---
LISANDRO DE MED STUDENT 03/21/18 0448: History of Present Illness History of Present Illness Date of Consultation 03/21/18 04:41 Time Seen by Provider: 04:41 History of Present Illness This patient presented to the ED with acutely worsening SOB x3 days. She admitted to chest tightness and some wheezing as well. Her home medications were not successful in alleviating these symptoms which prompted her visit. She is a smoker, but admits to very little cigarette use in the last 3 days due to symptoms. Allergies and Home Medications Allergies Coded Allergies: codeine (Verified Allergy, Severe, Hives and swelling., 09/22/12) Home Medications Albuterol Sulfate 18 Gm Hfa.aer.ad, 2 PUFF INH Q4H PRN for SHORTNESS OF BREATH, (Reported) Albuterol Sulfate 2.5 Mg/3 Ml Vial.neb, 2.5 MG NEB Q4H PRN for SHORTNESS OF BREATH, (Reported) Aspirin 81 Mg Tablet.dr, 81 MG PO HS, (Reported) Budesonide/Formoterol Fumarate 10.2 Gm Hfa.aer.ad, 2 PUFF INH BID, (Reported) Montelukast Sodium 10 Mg Tablet, 10 MG PO HS, (Reported) Sertraline HCl 100 Mg Tablet, 100 MG PO HS, (Reported) Past Plzkdrg-Jdztdj-Fnplnp Hx Past Med/Social Hx: Reviewed Nursing Past Med/Soc Hx Patient Social History Alcohol Use: Regular Use Number of Drinks Today: 12 Alcohol Beverage of Choice: Beer Recreational Drug Use: No Smoking Status: Current Everyday Smoker Type Used: Cigarettes 2nd Hand Smoke Exposure: Yes Recent Foreign Travel: No Contact w/Someone Who Travel: No Recent Infectious Disease Expo: No Recent Hopitalizations: Yes Physical Abuse: No (as child and adult) Sexual Abuse: No (aS child and adult) Mistreated: No Fear: No Immunizations Up To Date Tetanus Booster (TDap): Unknown PED Vaccines UTD: No Date of Pneumonia Vaccine: Dec 14, 2013 Date of Influenza Vaccine: Jan 13, 2017 Seasonal Allergies Seasonal Allergies: No Past Medical History Surgeries: No Respiratory: Yes Emphysema Currently Using CPAP: No Currently Using BIPAP: Yes Cardiac: No Neurological: No Reproductive Disorders: No Female Reproductive Disorders: Denies Sexually Transmitted Disease: No HIV/AIDS: No Genitourinary: No Gastrointestinal: No Musculoskeletal: No Arthritis Endocrine: No HEENT: No Cataract Hearing Impairment: Hard of Hearing Cancer: No Psychosocial: No Anxiety, Depression Integumentary: No Blood Disorders: No Adverse Reaction/Blood Tranf: No Family Medical History Reviewed Nursing Family Hx Arthritis 19 FATHER, , Onset:50's - 60 Cardiovascular disease G8 BROTHER, Onset:Unknown Diabetes mellitus G8 BROTHER, Onset:60 years & older FH: COPD (chronic obstructive pulmonary disease) 19 FATHER, , Onset:50's - 60 G8 SISTER, Onset:Unknown FH: uterine cancer 19 MOTHER, , Onset:60 years & older No Pertinent Family Hx Review of Systems Time Seen by Provider: 04:44 Constitutional: No: Fever Respiratory: Shortness of breath, SOB with excertion, Wheezing, Other (chest "tightness") Sepsis Event Evaluation Height, Weight, BMI Height: 5'4.00" Weight: 134lbs. 2.0oz. 60.069329ri; 23.0 BMI Method:Stated Exam Exam Vital Signs Date Time Temp Pulse Resp B/P (MAP) Pulse Ox O2 Delivery O2 Flow Rate FiO2 03/21/18 04:00 79 20 97/55 (69) 100 NIV Bilevel 35.00 03/21/18 04:00 97.6 NIV Bilevel 35.00 03/21/18 04:00 NIV Bilevel 35 03/21/18 03:00 86 17 96/55 (69) 98 NIV Bilevel 35.00 03/21/18 02:55 NIV Bilevel 35.00 03/21/18 02:37 100 18 100 45.00 03/21/18 02:00 92 17 106/59 (75) 100 03/21/18 01:00 85 03/21/18 01:00 85 20 94/58 (70) 100 03/21/18 00:58 85 19 91/51 (64) 100 03/21/18 00:00 NIV Bilevel 45 03/21/18 00:00 98.2 03/20/18 23:28 97 97 50 03/20/18 23:00 86 17 89/49 (62) 98 03/20/18 22:31 98 03/20/18 22:18 97 20 97 50.00 03/20/18 22:10 96 NIV Bilevel 45 03/20/18 22:00 101 26 95/59 (71) 03/20/18 21:34 97.2 102 22 89/54 (66) 99 NIV Bilevel 03/20/18 20:44 117 20 97 50.00 03/20/18 20:06 97 Vapotherm 15.00 60 03/20/18 20:03 97 Non Rebreather 10.00 03/20/18 19:26 97 Non Rebreather 10.00 03/20/18 19:23 98 Non Rebreather 10.00 98 03/20/18 19:19 98 Non Rebreather 10.00 03/20/18 19:14 100 Non Rebreather 10.00 03/20/18 18:58 98.7 95 27 114/92 (99) 98 Non Rebreather 10.00 I & O 03/21/18 07:00 Intake Total 2000 ml Output Total 200 ml Balance 1800 ml Height & Weight Height: 5'4.00" Weight: 134lbs. 2.0oz. 60.043149gw; 23.0 BMI Method:Stated General Appearance: No Apparent Distress, WD/WN HEENT: Normal ENT Inspection Neck: Normal Inspection, Non Tender, Supple Respiratory: Chest Non Tender, No Accessory Muscle Use, Other (currently using bipap) Cardiovascular: Regular Rate, Rhythm, No Edema, No Murmur Capillary Refill: Greater Than 3 Seconds Gastrointestinal: non tender, soft Extremity: Normal Inspection, Non Tender, No Pedal Edema Skin: Normal Color, Warm/Dry Results Lab Laboratory Tests 03/20/18 19:00 03/21/18 03:41 Assessment/Plan Assessment/Plan COPDAE -Duoneb q4h, solumedrol 60 mg IV q6h, oxygen as required -Currently on Bipap 35 L 35% O2 and sats 100 -CXR consistent with COPD changes, no acute infiltrate noted, doubt pneumonia Respiratory Acidosis -Bipap, oxygen as needed -Improving, continue to monitor Smoker -advise cessation Arthritis Anxiety, Depression Diagnosis/Problems Problems/Diagonsis (1) COPD with acute exacerbation Status: LINDA Hernandez DO 03/21/18 0708: History of Present Illness History of Present Illness Time Seen by Provider: 07:02 History of Present Illness 62yo hx of COPD with home oxygen and current tobacco use presented secondary to worsening SOB and chest tightness over the last 3days. She also has wheezing and NPC. Home inhalers did not improve her SOB or wheezing. SVNs in the ED had minimal improvement in symptoms. Pt is currently requiring noninvasive vent. She has required hospitalization in the past secondary to COPDAE. I am consulted for pulmonary CC management. Allergies and Home Medications Allergies Coded Allergies: codeine (Verified Allergy, Severe, Hives and swelling., 09/22/12) Home Medications Albuterol Sulfate 18 Gm Hfa.aer.ad, 2 PUFF INH Q4H PRN for SHORTNESS OF BREATH, (Reported) Albuterol Sulfate 2.5 Mg/3 Ml Vial.neb, 2.5 MG NEB Q4H PRN for SHORTNESS OF BREATH, (Reported) Aspirin 81 Mg Tablet.dr, 81 MG PO HS, (Reported) Budesonide/Formoterol Fumarate 10.2 Gm Hfa.aer.ad, 2 PUFF INH BID, (Reported) Montelukast Sodium 10 Mg Tablet, 10 MG PO HS, (Reported) Sertraline HCl 100 Mg Tablet, 100 MG PO HS, (Reported) Past Yacjhyn-Mwqggy-Qlcpmx Hx Family Medical History Arthritis 19 FATHER, , Onset:50's - 60 Cardiovascular disease G8 BROTHER, Onset:Unknown Diabetes mellitus G8 BROTHER, Onset:60 years & older FH: COPD (chronic obstructive pulmonary disease) 19 FATHER, , Onset:50's - 60 G8 SISTER, Onset:Unknown FH: uterine cancer 19 MOTHER, , Onset:60 years & older Review of Systems Constitutional: No: Fever Respiratory: Shortness of breath, SOB with excertion, Wheezing, Other (chest "tightness") Gastrointestinal: No: Nausea, Vomiting, Diarrhea Neurological: Weakness, Confusion Exam Exam General Appearance: WD/WN, Anxious, Moderate Distress Neck: Normal Inspection, Non Tender, Supple Respiratory: Chest Non Tender, No Accessory Muscle Use Cardiovascular: Regular Rate, Rhythm, No Edema, No Murmur Gastrointestinal: non tender, soft Extremity: Normal Inspection, Non Tender Skin: Normal Color, Warm/Dry Assessment/Plan Assessment/Plan COPDAE -Duoneb q4h, change solumedrol to 40 mg IV q6h, oxygen as required -PT has improved with vent to mask - will try to arrange home vent to mask Respiratory Acidosis -Noninvasive ventilation oxygen as needed -Improving, continue to monitor Smoker -Education Alcohol use -Education -Pt is currently on Protocol -Last drink 3 days ago -Usually drinks 4 beer and 1-2 glasses of wine daily Arthritis Anxiety, Depression PT appears improved respiratory pablo. Will transfer to 4th floor. LISANDRO DE MED STUDENT Mar 21, 2018 04:48 LINDA DELGADO DO Mar 21, 2018 07:08
[2018-03-21 05:08] LABS: LYMPHOCYTES % (MANUAL) 10 %; NEUTROPHILS % (MANUAL) 90 %
[2018-03-21] MEDS ORDERED: KCL 20 MEQ TAB (K-DUR) PO SCH (06:00)
[2018-03-21] MEDS ORDERED: POTASSIUM CL 10MEQ/50ML IVPB 50 ML IV SCH (06:00)
[2018-03-21] MEDS ORDERED: MAGNESIUM 1 GM/100 ML IVPB 100 ML IV SCH (06:00)
--- NOTE | 2018-03-21 07:21 | Diagnostic Imaging Report ---
INDICATION: Shortness of breath. COMPARISON: 03/20/2018. Single view of the chest demonstrates cardiac enlargement without overt pulmonary edema. There is continued basilar atelectasis. Underlying infiltrate not excluded. There is no large effusion. IMPRESSION: Unchanged basilar atelectasis. Continued followup recommended. Dictated by: Dictated on workstation # [id number]
[2018-03-21] MEDS ORDERED: FLU QUADRIvalent (5+ YOA) 2018-2019 (AFLURIA) 0.5 ML IM ONE (08:00)
[2018-03-21] MEDS ORDERED: SODIUM BICARB 8.4% 50 MEQ/50 ML (ABBOTT) SYR IV NR (08:45)
[2018-03-21] MEDS: THIAMINE 100 MG (VITAMIN B-1) TAB PO SCH (09:11)
[2018-03-21] MEDS: MULTIVIT W/MINERALS TAB (THERAGRAN M) PO SCH (09:11)
[2018-03-21] MEDS: FAMOTIDINE 20MG/2ML IV (PEPCID) IV SCH ×2 (09:11→20:37)
[2018-03-21] MEDS: FOLIC ACID 1 MG TAB PO SCH (09:11)
[2018-03-21] MEDS: LACTATED RINGERS 1,000 ML IV SCH ×2 (09:12→22:11)
--- NOTE | 2018-03-21 12:05 | History & Physicial (CHS) ---
HPI Attending Physician Teresa Hua MD PCP [place] [place] Consult Date of Admission Mar 20, 2018 at 21:00 Home Medications Home Medications Reviewed patient Home Medication Reconciliation performed by pharmacy medication reconciliations compliance field technician and/or nursing. Patients Allergies have been reviewed. Allergies Coded Allergies: codeine (Verified Allergy, Severe, Hives and swelling., 09/22/12) SEL-Zuutbr-Vekgfz Hx Patient Social History Alcohol Use: Regular Use Recreational Drug Use: No Smoking Status: Current Everyday Smoker Type Used: Cigarettes 2nd Hand Smoke Exposure: Yes Recent Foreign Travel: No Contact w/other who traveled: No Recent Hopitalizations: Yes Recent Infectious Disease Expo: No Physical Abuse Screen: No Sexual Abuse: No Immunizations Up To Date Tetanus Booster (TDap): Unknown Date of Pneumonia Vaccine: Dec 14, 2013 Date of Influenza Vaccine: Jan 13, 2017 Past Medical History COPD Family Medical History Significant Family History: No Pertinent Family Hx Family History: Arthritis 19 FATHER, , Onset:50's - 60 Cardiovascular disease G8 BROTHER, Onset:Unknown Diabetes mellitus G8 BROTHER, Onset:60 years & older FH: COPD (chronic obstructive pulmonary disease) 19 FATHER, , Onset:50's - 60 G8 SISTER, Onset:Unknown FH: uterine cancer 19 MOTHER, , Onset:60 years & older Physical Exam-([facility]) Physical Exam Vital Signs VS - Last 72 Hours, by Label 03/20/18 03/20/18 03/20/18 03/20/18 18:58 19:14 19:19 19:23 Temp 98.7 Pulse 95 Resp 27 B/P (MAP) 114/92 (99) Pulse Ox 98 100 98 98 O2 Delivery Non Rebreather Non Rebreather Non Rebreather Non Rebreather O2 Flow Rate 10.00 10.00 10.00 10.00 FiO2 98 03/20/18 03/20/18 03/20/18 03/20/18 19:26 20:03 20:06 20:44 Pulse 117 Resp 20 Pulse Ox 97 97 97 97 O2 Delivery Non Rebreather Non Rebreather Vapotherm O2 Flow Rate 10.00 10.00 15.00 50.00 FiO2 60 03/20/18 03/20/18 03/20/18 03/20/18 21:34 22:00 22:10 22:18 Temp 97.2 Pulse 102 101 97 Resp 22 26 20 B/P (MAP) 89/54 (66) 95/59 (71) Pulse Ox 99 96 97 O2 Delivery NIV Bilevel NIV Bilevel O2 Flow Rate 50.00 FiO2 45 03/20/18 03/20/18 03/20/18 03/21/18 22:31 23:00 23:28 00:00 Temp 98.2 Pulse 98 86 97 Resp 17 B/P (MAP) 89/49 (62) Pulse Ox 98 97 FiO2 50 03/21/18 03/21/18 03/21/18 03/21/18 00:00 00:58 01:00 01:00 Pulse 85 85 85 Resp 19 20 B/P (MAP) 91/51 (64) 94/58 (70) Pulse Ox 100 100 O2 Delivery NIV Bilevel FiO2 45 03/21/18 03/21/18 03/21/18 03/21/18 02:00 02:37 02:55 03:00 Pulse 92 100 86 Resp 17 18 17 B/P (MAP) 106/59 (75) 96/55 (69) Pulse Ox 100 100 98 O2 Delivery NIV Bilevel NIV Bilevel O2 Flow Rate 45.00 35.00 35.00 03/21/18 03/21/18 03/21/18 03/21/18 04:00 04:00 04:00 04:55 Temp 97.6 Pulse 79 73 Resp 20 17 B/P (MAP) 97/55 (69) Pulse Ox 100 100 O2 Delivery NIV Bilevel NIV Bilevel NIV Bilevel O2 Flow Rate 35.00 35.00 35.00 FiO2 35 03/21/18 03/21/18 03/21/18 03/21/18 05:00 06:00 06:42 07:00 Pulse 78 77 105 Resp 18 18 28 B/P (MAP) 111/57 (75) 101/62 (75) 101/49 (66) Pulse Ox 98 100 100 96 O2 Delivery NIV Bilevel NIV Bilevel Nasal Cannula NIV Bilevel O2 Flow Rate 35.00 35.00 2.00 35.00 03/21/18 03/21/18 03/21/18 03/21/18 07:00 07:00 08:00 08:00 Pulse 105 105 104 104 Resp 28 29 29 B/P (MAP) 101/49 (66) 117/74 (88) 117/74 (88) Pulse Ox 96 97 97 O2 Delivery Nasal Cannula NIV Bilevel Nasal Cannula O2 Flow Rate 2.00 35.00 2.00 03/21/18 03/21/18 03/21/18 03/21/18 08:00 08:32 09:00 09:00 Temp 98.9 Pulse 94 94 B/P (MAP) 117/77 (90) 117/77 (90) Pulse Ox 95 95 O2 Delivery Nasal Cannula NIV Bilevel Nasal Cannula O2 Flow Rate 2.00 35.00 2.00 03/21/18 03/21/18 03/21/18 03/21/18 10:00 10:30 12:45 13:00 Temp 98.7 Pulse 106 84 85 Resp 42 24 B/P (MAP) 113/61 (78) 109/59 (76) Pulse Ox 100 97 O2 Delivery Nasal Cannula Nasal Cannula Nasal Cannula O2 Flow Rate 2.00 2.00 2.00 03/21/18 03/21/18 14:21 15:45 Temp 99.2 Pulse 112 Resp 18 B/P (MAP) 114/56 (75) Pulse Ox 100 98 O2 Delivery Nasal Cannula Nasal Cannula O2 Flow Rate 2.00 2.00 Capillary Refill : Greater Than 3 Seconds Clinical Quality Measures DVT/VTE Risk/Contraindication: Risk Factor Score Per Nursin RFS Level Per Nursing on Admit: 4+=Very High TEERSA HUA MD Mar 21, 2018 12:05
[2018-03-21] MEDS ORDERED: PHARMACY TO DOSE SQ SCH (12:15)
[2018-03-21] MEDS: ENOXAPARIN 40 MG/0.4 ML (LOVENOX) SYR SC SCH (14:27)
--- NOTE | 2018-03-21 15:02 | History & Physicial (CHS) ---
HPI History of Present Illness: 62 yo female admitted with severe respiratory distress suspected to be secondary to COPD exacerbation. She states she has had worsening cough and SOA for last several days- went out in the cold at night which is a trigger for her. Taking home inhalers and denies missing medications. Is a smoker, hasn't smoked in 3 days due to not feeling well. Denies fever. Source: patient Date seen by provider: Mar 21, 2018 Time Seen by Provider: 09:42 Attending Physician Teresa Hua MD PCP [place]/[facility] [place] Consult Date of Admission Mar 20, 2018 at 21:00 Home Medications Home Medications Reviewed patient Home Medication Reconciliation performed by pharmacy medication reconciliations oscillograph technician and/or nursing. Patients Allergies have been reviewed. Allergies Coded Allergies: codeine (Verified Allergy, Severe, Hives and swelling., 09/22/12) FKE-Envhmm-Obyrdm Hx Patient Social History Alcohol Use: Regular Use Recreational Drug Use: No Smoking Status: Current Everyday Smoker Type Used: Cigarettes 2nd Hand Smoke Exposure: Yes Recent Foreign Travel: No Contact w/other who traveled: No Recent Hopitalizations: Yes Recent Infectious Disease Expo: No Physical Abuse Screen: No Sexual Abuse: No Immunizations Up To Date Tetanus Booster (TDap): Unknown Date of Pneumonia Vaccine: Dec 14, 2013 Date of Influenza Vaccine: Jan 13, 2017 Past Medical History COPD Anxiety Family Medical History Significant Family History: COPD Family History: Arthritis 19 FATHER, , Onset:50's - 60 Cardiovascular disease G8 BROTHER, Onset:Unknown Diabetes mellitus G8 BROTHER, Onset:60 years & older FH: COPD (chronic obstructive pulmonary disease) 19 FATHER, , Onset:50's - 60 G8 SISTER, Onset:Unknown FH: uterine cancer 19 MOTHER, , Onset:60 years & older Review of Systems ([facility]) Constitutional: No fever EENTM: throat pain; No nose congestion Respiratory: see HPI Cardiovascular: No chest pain Gastrointestinal: No abdominal pain, No constipation, No diarrhea, No nausea, No vomiting Genitourinary: No dysuria Musculoskeletal: joint pain Skin: No rash Psychiatric/Neurological: No Symptoms Reported Reviewed Test Results Reviewed Test Results Lab Laboratory Tests Test 03/20/18 19:00 03/20/18 19:49 03/21/18 03:36 03/21/18 03:41 Range/Units White Blood Count 7.3 4.8 4.3-11.0 10^3/uL Red Blood Count 3.95 L 3.43 L 4.35-5.85 10^6/uL Hemoglobin 13.5 11.4 L 11.5-16.0 G/DL Hematocrit 41 36 35-52 % Mean Corpuscular Volume 103 H 105 H 80-99 FL Mean Corpuscular Hemoglobin 34 33 25-34 PG Mean Corpuscular Hemoglobin Concent 33 32 32-36 G/DL Red Cell Distribution Width 12.8 13.0 10.0-14.5 % Platelet Count 330 265 130-400 10^3/uL Mean Platelet Volume 10.0 10.0 7.4-10.4 FL Neutrophils (%) (Auto) 40 L 88 H 42-75 % Lymphocytes (%) (Auto) 48 H 11 L 12-44 % Monocytes (%) (Auto) 7 1 0-12 % Eosinophils (%) (Auto) 5 0 0-10 % Basophils (%) (Auto) 0 0 0-10 % Neutrophils # (Auto) 2.9 4.3 1.8-7.8 X 10^3 Lymphocytes # (Auto) 3.5 0.5 L 1.0-4.0 X 10^3 Monocytes # (Auto) 0.5 0.0 0.0-1.0 X 10^3 Eosinophils # (Auto) 0.4 H 0.0 0.0-0.3 10^3/uL Basophils # (Auto) 0.0 0.0 0.0-0.1 10^3/uL Sodium Level 141 141 135-145 MMOL/L Potassium Level 4.2 4.5 3.6-5.0 MMOL/L Chloride Level 102 109 H 98-107 MMOL/L Carbon Dioxide Level 29 21 21-32 MMOL/L Anion Gap 10 11 5-14 MMOL/L Blood Urea Nitrogen 10 12 7-18 MG/DL Creatinine 0.67 0.62 0.60-1.30 MG/DL Estimat Glomerular Filtration Rate > 60 > 60 BUN/Creatinine Ratio 15 19 Glucose Level 90 148 H 70-105 MG/DL Calcium Level 9.3 8.4 L 8.5-10.1 MG/DL Corrected Calcium 9.1 8.5-10.1 MG/DL Magnesium Level 2.7 H 2.1 1.8-2.4 MG/DL Total Bilirubin 0.2 0.1-1.0 MG/DL Aspartate Amino Transf (AST/SGOT) 19 5-34 U/L Alanine Aminotransferase (ALT/SGPT) 16 0-55 U/L Alkaline Phosphatase 62 40-136 U/L Troponin I < 0.30 <0.30 NG/ML Total Protein 7.6 6.4-8.2 GM/DL Albumin 4.3 3.2-4.5 GM/DL Blood Gas Puncture Site RT RAD RIGHT RAIDAL Blood Gas Patient Temperature 98.4 97.6 Arterial Blood pH 7.31 *L 7.32 *L 7.37-7.43 Arterial Blood Partial Pressure CO2 60 H 46 H 35-45 MMHG Arterial Blood Partial Pressure O2 98 H 110 H 79-93 MMHG Arterial Blood HCO3 29 H 23 23-27 MMOL/L Arterial Blood Total CO2 31.0 24.9 21.0-31.0 MMOL/L Arterial Blood Oxygen Saturation 98 99 94-100 % Arterial Blood Base Excess 3.3 H -1.9 -2.5-2.5 MMOL/L Kendrick Test YES-POS POSITIVE Blood Gas Ventilator Setting NO NO Blood Gas Inspired Oxygen 10 L 35% BIPAP Neutrophils % (Manual) 90 % Lymphocytes % (Manual) 10 % Phosphorus Level 3.3 2.3-4.7 MG/DL Test 03/21/18 07:40 03/21/18 09:55 Range/Units Lactic Acid Level 3.37 *H 2.32 *H 0.50-2.00 MMOL/L Radiology CXR 03/20: Hyperinflation compatible with COPD. Mild cardiomegaly and central vascular prominence. No focal consolidation or pneumothorax or pleural fluid. Physical Exam-([facility]) Physical Exam Vital Signs VS - Last 72 Hours, by Label 03/20/18 03/20/18 03/20/18 03/20/18 18:58 19:14 19:19 19:23 Temp 98.7 Pulse 95 Resp 27 B/P (MAP) 114/92 (99) Pulse Ox 98 100 98 98 O2 Delivery Non Rebreather Non Rebreather Non Rebreather Non Rebreather O2 Flow Rate 10.00 10.00 10.00 10.00 FiO2 98 03/20/18 03/20/18 03/20/18 03/20/18 19:26 20:03 20:06 20:44 Pulse 117 Resp 20 Pulse Ox 97 97 97 97 O2 Delivery Non Rebreather Non Rebreather Vapotherm O2 Flow Rate 10.00 10.00 15.00 50.00 FiO2 60 03/20/18 03/20/18 03/20/18 03/20/18 21:34 22:00 22:10 22:18 Temp 97.2 Pulse 102 101 97 Resp 22 26 20 B/P (MAP) 89/54 (66) 95/59 (71) Pulse Ox 99 96 97 O2 Delivery NIV Bilevel NIV Bilevel O2 Flow Rate 50.00 FiO2 45 03/20/18 03/20/18 03/20/18 03/21/18 22:31 23:00 23:28 00:00 Temp 98.2 Pulse 98 86 97 Resp 17 B/P (MAP) 89/49 (62) Pulse Ox 98 97 FiO2 50 03/21/18 03/21/18 03/21/18 03/21/18 00:00 00:58 01:00 01:00 Pulse 85 85 85 Resp 19 20 B/P (MAP) 91/51 (64) 94/58 (70) Pulse Ox 100 100 O2 Delivery NIV Bilevel FiO2 45 03/21/18 03/21/18 03/21/18 03/21/18 02:00 02:37 02:55 03:00 Pulse 92 100 86 Resp 17 18 17 B/P (MAP) 106/59 (75) 96/55 (69) Pulse Ox 100 100 98 O2 Delivery NIV Bilevel NIV Bilevel O2 Flow Rate 45.00 35.00 35.00 03/21/18 03/21/18 03/21/18 03/21/18 04:00 04:00 04:00 04:55 Temp 97.6 Pulse 79 73 Resp 20 17 B/P (MAP) 97/55 (69) Pulse Ox 100 100 O2 Delivery NIV Bilevel NIV Bilevel NIV Bilevel O2 Flow Rate 35.00 35.00 35.00 FiO2 35 03/21/18 03/21/18 03/21/18 03/21/18 05:00 06:00 06:42 07:00 Pulse 78 77 105 Resp 18 18 28 B/P (MAP) 111/57 (75) 101/62 (75) 101/49 (66) Pulse Ox 98 100 100 96 O2 Delivery NIV Bilevel NIV Bilevel Nasal Cannula NIV Bilevel O2 Flow Rate 35.00 35.00 2.00 35.00 03/21/18 03/21/18 03/21/18 03/21/18 07:00 08:00 08:00 08:32 Temp 98.9 Pulse 105 104 Resp 29 B/P (MAP) 117/74 (88) Pulse Ox 97 O2 Delivery NIV Bilevel Nasal Cannula O2 Flow Rate 35.00 2.00 03/21/18 03/21/18 03/21/18 03/21/18 09:00 10:30 12:45 14:21 Temp 98.7 Pulse 94 84 Resp 24 B/P (MAP) 117/77 (90) 109/59 (76) Pulse Ox 95 100 97 100 O2 Delivery NIV Bilevel Nasal Cannula Nasal Cannula Nasal Cannula O2 Flow Rate 35.00 2.00 2.00 2.00 Capillary Refill : Greater Than 3 Seconds General Appearance: mild distress Respiratory: wheezing Cardiovascular: regular rate, rhythm, no murmur Gastrointestinal: normal bowel sounds, non tender, soft Extremities: no pedal edema Neurologic/Psychiatric: alert Skin: warm/dry Assessment/Plan Assessment/Plan Admission Status: Inpatient Order (span 2 midnights) Reason for Inpatient Admission: Severe COPD exacerbation requiring bipap, recurrent admissions. (1) Chronic obstructive pulmonary disease with (acute) exacerbation Status: Acute Assessment & Plan: Required bipap overnight, remained somewhat acidotic early this am. Pulmonology consulted, appreciate recommendations, plan to look into vent to mask for home. Encouraged complete smoking cessation. RT. IV solumedrol , decreasing dose today with improved symptoms. No evidence of superimposed infection. (2) DVT prophylaxis Status: Acute Assessment & Plan: SCDs, enoxaparin Clinical Quality Measures DVT/VTE Risk/Contraindication: Risk Factor Score Per Nursin RFS Level Per Nursing on Admit: 4+=Very High TERESA HUA MD Mar 21, 2018 15:02
[2018-03-21] MEDS: RT-ADVAIR HFA 115/21 MCG PER PUFF IH SCH (19:18)
[2018-03-21] MEDS: MONTELUKAST 10 MG (SINGULAIR) TAB PO SCH (20:31)
[2018-03-21] MEDS: ASPIRIN E.C. 81 MG (ECOTRIN) TAB PO SCH (20:31)
[2018-03-21] MEDS: SERTRALINE 100 MG (ZOLOFT) TAB PO SCH (20:32)
[2018-03-21] MEDS ORDERED: NON-FORMULARY MEDICATION 1 EA EA (Budesonide/Formoterol Fumarate (Symbicort 160-4.5 Mcg In INH SCH (21:00)
[2018-03-22] VITALS (7 sets, daily range): BP systolic 108–126; BP diastolic 57–64
[2018-03-22] MEDS: RT-ALBUTEROL/IPRATROPIUM 3 ML (DUONEB) VIAL INH SCH ×7 (00:13→22:17)
[2018-03-22] MEDS: methylPREDNISolone 125 MG (Solu-MEDROL) VIAL IV SCH ×3 (00:25→13:24)
[2018-03-22 03:09] LABS: BASOPHILS % (AUTO) 0 % (0-10); EOSINOPHILS % (AUTO) 0 % (0-10); HEMATOCRIT 35 % (35-52); HEMOGLOBIN 11.5 G/DL (11.5-16.0); LYMPHOCYTES % (AUTO) 7 % (12-44); MEAN CORPUSCULAR HEMOGLOBIN 34 PG (25-34); MEAN CORPUSCULAR HGB CONC 33 G/DL (32-36); MEAN CORPUSCULAR VOLUME 105 FL (80-99); MONOCYTES # (AUTO) 0.2 X 10^3 (0.0-1.0); MONOCYTES % (AUTO) 1 % (0-12); NEUTROPHILS # (AUTO) 13.1 X 10^3 (1.8-7.8); NEUTROPHILS % (AUTO) 92 % (42-75); PLATELET COUNT 278 10^3/uL (130-400); RED BLOOD COUNT 3.36 10^6/uL (4.35-5.85); RED CELL DISTRIBUTION WIDTH 13.2 % (10.0-14.5); WHITE BLOOD COUNT 14.3 10^3/uL (4.3-11.0)
[2018-03-22 03:29] LABS: BUN/CREATININE RATIO 17; CALCIUM 8.8 MG/DL (8.5-10.1); CARBON DIOXIDE 23 MMOL/L (21-32); CHLORIDE 108 MMOL/L (98-107); CREATININE SERUM 0.66 MG/DL (0.60-1.30); GFR ESTIMATED > 60; GLUCOSE 134 MG/DL (70-105); MAGNESIUM 2.3 MG/DL (1.8-2.4); PHOSPHORUS 2.9 MG/DL (2.3-4.7); POTASSIUM 3.9 MMOL/L (3.6-5.0); SODIUM 142 MMOL/L (135-145)
[2018-03-22 03:45] LABS: LYMPHOCYTES % (MANUAL) 3 %; MONOCYTES % (MANUAL) 1 %; NEUTROPHILS % (MANUAL) 96 %
[2018-03-22] MEDS: CATHETER FLUSH 10 ML SYR IV SCH ×3 (05:23→20:39)
[2018-03-22] MEDS: MULTIVIT W/MINERALS TAB (THERAGRAN M) PO SCH (06:38)
[2018-03-22] MEDS: THIAMINE 100 MG (VITAMIN B-1) TAB PO SCH (06:38)
[2018-03-22] MEDS: RT-ADVAIR HFA 115/21 MCG PER PUFF IH SCH ×2 (06:59→19:15)
[2018-03-22] MEDS: FOLIC ACID 1 MG TAB PO SCH (08:20)
[2018-03-22] MEDS: FAMOTIDINE 20MG/2ML IV (PEPCID) IV SCH ×2 (08:25→20:38)
--- NOTE | 2018-03-22 13:18 | Progress Note (SOAP) ---
Subjective Subjective/Events-last exam Feeling better. On baseline O2 (2L nc). Review of Systems Date Seen by Provider: Mar 22, 2018 Time Seen by Provider: 10:00 Focused Exam Lactate Level 03/21/18 07:40: Lactic Acid Level 3.37*H 03/21/18 09:55: Lactic Acid Level 2.32*H 03/22/18 03:01: Lactic Acid Level 1.69 Objective Exam Last Set of Vital Signs Vital Signs Date Time Temp Pulse Resp B/P (MAP) Pulse Ox O2 Delivery O2 Flow Rate FiO2 03/22/18 12:36 98.5 90 14 119/60 (79) 97 Nasal Cannula 2.00 03/21/18 04:00 35 Capillary Refill : Greater Than 3 Seconds I&O Intake and Output 03/22/18 00:00 Intake Total 4590 ml Output Total 2925 ml Balance 1665 ml Intake Oral 2640 ml IV Total 1950 ml Output Urine Total 2925 ml General: Alert, Oriented X3, Cooperative Lungs: Other (decrease BS) Psych/Mental Status: Mood NL Results/Procedures Lab Laboratory Tests 03/22/18 03:01: White Blood Count 14.3H, Red Blood Count 3.36L, Hemoglobin 11.5, Hematocrit 35, Mean Corpuscular Volume 105H, Mean Corpuscular Hemoglobin 34, Mean Corpuscular Hemoglobin Concent 33, Red Cell Distribution Width 13.2, Platelet Count 278, Mean Platelet Volume 10.0, Neutrophils (%) (Auto) 92H, Lymphocytes (%) (Auto) 7L , Monocytes (%) (Auto) 1, Eosinophils (%) (Auto) 0, Basophils (%) (Auto) 0, Neutrophils # (Auto) 13.1H, Lymphocytes # (Auto) 1.0, Monocytes # (Auto) 0.2, Eosinophils # (Auto) 0.0, Basophils # (Auto) 0.0, Neutrophils % (Manual) 96, Lymphocytes % (Manual) 3, Monocytes % (Manual) 1, Dohle Bodies MODERATE, Macrocytosis SLIGHT, Sodium Level 142, Potassium Level 3.9, Chloride Level 108H , Carbon Dioxide Level 23, Anion Gap 11, Blood Urea Nitrogen 11, Creatinine 0.66 , Estimat Glomerular Filtration Rate > 60, BUN/Creatinine Ratio 17, Glucose Level 134H, Lactic Acid Level 1.69, Calcium Level 8.8, Phosphorus Level 2.9, Magnesium Level 2.3 Radiology CXR 03/20: Hyperinflation compatible with COPD. Mild cardiomegaly and central vascular prominence. No focal consolidation or pneumothorax or pleural fluid. Assessment/Plan Assessment/Plan (1) Chronic obstructive pulmonary disease with (acute) exacerbation Status: Acute Assessment & Plan: Required bipap overnight, remained somewhat acidotic early this am. Pulmonology consulted, appreciate recommendations, plan to look into vent to mask for home. Encouraged complete smoking cessation. RT. IV solumedrol , decreasing dose today with improved symptoms. No evidence of superimposed infection. 03/22 - improving, wean steroids; will need vent to mask for home. (2) DVT prophylaxis Status: Acute Assessment & Plan: SCDs, enoxaparin Clinical Quality Measures DVT/VTE Risk/Contraindication: Risk Factor Score Per Nursin RFS Level Per Nursing on Admit: 4+=Very High SHIRA MOSES DO Mar 22, 2018 13:18
[2018-03-22] MEDS: ENOXAPARIN 40 MG/0.4 ML (LOVENOX) SYR SC SCH (13:24)
[2018-03-22] MEDS: methylPREDNISolone 40 MG/ML (Solu-MEDROL) VIAL IV SCH (20:38)
[2018-03-22] MEDS: SERTRALINE 100 MG (ZOLOFT) TAB PO SCH (20:39)
[2018-03-22] MEDS: ASPIRIN E.C. 81 MG (ECOTRIN) TAB PO SCH (20:39)
[2018-03-22] MEDS: MONTELUKAST 10 MG (SINGULAIR) TAB PO SCH (20:39)
[2018-03-23] MEDS: RT-ALBUTEROL/IPRATROPIUM 3 ML (DUONEB) VIAL INH SCH ×3 (01:53→11:23)
[2018-03-23 03:51] LABS: BASOPHILS % (AUTO) 0 % (0-10); EOSINOPHILS % (AUTO) 0 % (0-10); HEMATOCRIT 35 % (35-52); HEMOGLOBIN 11.3 G/DL (11.5-16.0); LYMPHOCYTES # (AUTO) 1.9 X 10^3 (1.0-4.0); LYMPHOCYTES % (AUTO) 20 % (12-44); MEAN CORPUSCULAR HEMOGLOBIN 34 PG (25-34); MEAN CORPUSCULAR HGB CONC 33 G/DL (32-36); MEAN CORPUSCULAR VOLUME 103 FL (80-99); MONOCYTES # (AUTO) 0.4 X 10^3 (0.0-1.0); MONOCYTES % (AUTO) 4 % (0-12); NEUTROPHILS # (AUTO) 7.1 X 10^3 (1.8-7.8); NEUTROPHILS % (AUTO) 76 % (42-75); PLATELET COUNT 271 10^3/uL (130-400); RED BLOOD COUNT 3.36 10^6/uL (4.35-5.85); RED CELL DISTRIBUTION WIDTH 13.2 % (10.0-14.5); WHITE BLOOD COUNT 9.4 10^3/uL (4.3-11.0)
[2018-03-23 04:16] LABS: BUN/CREATININE RATIO 21; CALCIUM 8.6 MG/DL (8.5-10.1); CARBON DIOXIDE 26 MMOL/L (21-32); CHLORIDE 106 MMOL/L (98-107); CREATININE SERUM 0.62 MG/DL (0.60-1.30); GFR ESTIMATED > 60; GLUCOSE 108 MG/DL (70-105); MAGNESIUM 2.5 MG/DL (1.8-2.4); PHOSPHORUS 2.9 MG/DL (2.3-4.7); POTASSIUM 3.9 MMOL/L (3.6-5.0); SODIUM 141 MMOL/L (135-145)
[2018-03-23 04:18] VITALS: BP 115/59
[2018-03-23] MEDS: CATHETER FLUSH 10 ML SYR IV SCH (06:17)
[2018-03-23] MEDS: MULTIVIT W/MINERALS TAB (THERAGRAN M) PO SCH (06:17)
[2018-03-23] MEDS: THIAMINE 100 MG (VITAMIN B-1) TAB PO SCH (06:17)
[2018-03-23] MEDS: RT-ADVAIR HFA 115/21 MCG PER PUFF IH SCH (07:06)
[2018-03-23] MEDS: FAMOTIDINE 20MG/2ML IV (PEPCID) IV SCH (07:43)
[2018-03-23] MEDS: methylPREDNISolone 40 MG/ML (Solu-MEDROL) VIAL IV SCH (07:43)
[2018-03-23] MEDS: FOLIC ACID 1 MG TAB PO SCH (07:43)
[2018-03-23 08:25] VITALS: BP 126/63
[2018-03-23] MEDS ORDERED: PRD10T PO (11:32)
--- NOTE | 2018-03-23 11:35 | Discharge Instructions ---
Discharge [facility] Discharge Medications New, Converted or Re-Newed RX: Transmitted to Pharmacy ([facility]) New Medications: Prednisone (Prednisone) 10 Mg Tab 0 PO as directed for 12 Days, #30 TAB 0 Refills 4 tabs (40mg) daily x3 days 3 tabs (30mg) daily x3 days 2 tabs (20mg) daily x3 days 1 tab (10mg) daily x3 days Continued Medications: Albuterol Sulfate (Ventolin Hfa) 18 Gm Hfa.aer.ad 2 PUFF INH Q4H PRN for SHORTNESS OF BREATH, INHALER Albuterol Sulfate (Albuterol Sulfate) 2.5 Mg/3 Ml Vial.neb 2.5 MG NEB Q4H PRN for SHORTNESS OF BREATH, EA Aspirin (Aspirin EC) 81 Mg Tablet.dr 81 MG PO HS, TAB Budesonide/Formoterol Fumarate (Symbicort 160-4.5 Mcg Inhaler) 10.2 Gm Hfa.aer.ad 2 PUFF INH BID, INHALER Montelukast Sodium (Montelukast Sodium) 10 Mg Tablet 10 MG PO HS, TAB Sertraline HCl (Sertraline HCl) 100 Mg Tablet 100 MG PO HS, TAB Patient Instructions Patient Instructions Vent to Mask ordered through DME Goal/Follow Up Appt: Follow-up with Ngoc Cadena APRN at [facility] on 03/31/18 at 1:[address] Giang's office for follow-up appointment. Activity & Diet Discharge Diet: No Restrictions Orders-Post D/C & Referrals Pneu Vac Indicated: Yes SHIRA MOSES DO Mar 23, 2018 11:34
--- NOTE | 2018-03-23 11:39 | Discharge Summary ---
Diagnosis/Chief Complaint Date of Admission Mar 20, 2018 at 21:00 Date of Discharge Admission Diagnosis Admission Diagnosis Severe COPD exacerbation requiring bipap, recurrent admissions. Discharge Diagnosis See Discharge Diagnosis Problems/Diagnosis: (1) Chronic obstructive pulmonary disease with (acute) exacerbation Assessment & Plan: Required bipap overnight, remained somewhat acidotic early this am. Pulmonology consulted, appreciate recommendations, plan to look into vent to mask for home. Encouraged complete smoking cessation. RT. IV solumedrol , decreasing dose today with improved symptoms. No evidence of superimposed infection. 03/22 - improving, wean steroids; will need vent to mask for home. 03/23 - significantly improved; on baseline oxygen level at 2L. Will DC home on po steroid taper. Vent to mask ordered through DME. Status: Acute (2) Acute and chronic respiratory failure with hypercapnia Assessment & Plan: Initial AGB qualified patient for Vent to Mask due to CO2> 50. Order placed at DC. Status: Acute (3) DVT prophylaxis Assessment & Plan: SCDs, enoxaparin Status: Acute Chief Complaint/HPI Chief Complaint/HPI 62 yo female admitted with severe respiratory distress suspected to be secondary to COPD exacerbation. She states she has had worsening cough and SOA for last several days- went out in the cold at night which is a trigger for her. Taking home inhalers and denies missing medications. Is a smoker, hasn't smoked in 3 days due to not feeling well. Denies fever. Discharge Summary-Simple/Stand Consultations Discharge Physical Examination Allergies: Coded Allergies: codeine (Verified Allergy, Severe, Hives and swelling., 09/22/12) Vitals & I&Os Vital Sign - Last 12Hours Date Time Temp Pulse Resp B/P (MAP) Pulse Ox O2 Delivery O2 Flow Rate FiO2 03/23/18 11:23 97 Room Air 2.00 03/23/18 08:25 97.9 89 16 126/63 (84) 03/21/18 04:00 35 Intake and Output 03/23/18 00:00 Intake Total 3940 ml Output Total 4000 ml Balance -60 ml General Appearance: Alert, Oriented X3, Cooperative Respiratory: Clear to Auscultation, Other (decreased breath sounds) Psych/Mental Status: Mood NL Hospital Course See final discharge diagnosis. Radiology Reviewed CXR 03/20: Hyperinflation compatible with COPD. Mild cardiomegaly and central vascular prominence. No focal consolidation or pneumothorax or pleural fluid. Discharge Instructions to patient/family Please see electronic discharge instructions given to [facility] Discharge Medications New, Converted or Re-Newed RX: Transmitted to Pharmacy ([facility]) New Medications: Prednisone (Prednisone) 10 Mg Tab 0 PO as directed for 12 Days, #30 TAB 0 Refills 4 tabs (40mg) daily x3 days 3 tabs (30mg) daily x3 days 2 tabs (20mg) daily x3 days 1 tab (10mg) daily x3 days Continued Medications: Albuterol Sulfate (Ventolin Hfa) 18 Gm Hfa.aer.ad 2 PUFF INH Q4H PRN for SHORTNESS OF BREATH, INHALER Albuterol Sulfate (Albuterol Sulfate) 2.5 Mg/3 Ml Vial.neb 2.5 MG NEB Q4H PRN for SHORTNESS OF BREATH, EA Aspirin (Aspirin EC) 81 Mg Tablet.dr 81 MG PO HS, TAB Budesonide/Formoterol Fumarate (Symbicort 160-4.5 Mcg Inhaler) 10.2 Gm Hfa.aer.ad 2 PUFF INH BID, INHALER Montelukast Sodium (Montelukast Sodium) 10 Mg Tablet 10 MG PO HS, TAB Sertraline HCl (Sertraline HCl) 100 Mg Tablet 100 MG PO HS, TAB Patient Instructions Patient Instructions Vent to Mask ordered through DME Goal/Follow Up Appt: Follow-up with Ngoc Cadena APRN at [facility] on 03/31/18 at 1:[address] Giang's office for follow-up appointment. Activity & Diet Discharge Diet: No Restrictions Orders-Post D/C & Referrals Pneu Vac Indicated: Yes Discharge Medications Reviewed and agree with Discharge Medication list on patient's Discharge Instruction sheet Clinical Quality Measures DVT/VTE Risk/Contraindication: Risk Factor Score Per Nursin RFS Level Per Nursing on Admit: 4+=Very High SHIRA MOSES DO Mar 23, 2018 11:39
[2018-03-23 12:15] VITALS: BP 121/59
[2018-03-23 14:00] VITALS: BP 121/59
== END 2018-03-23 14:00 | disposition home or self-care (01) | DRG 189 ==
LOC: EDUNIT# 18:51 → ER 18:52 → ICU 21:00 → 4TH 03-21 14:45
PROVIDERS: ADMIT Family Medicine; ATTEND Family Medicine
DX: J96.22 Acute and chronic respiratory failure with hypercapnia (principal); J43.9 Emphysema, unspecified; E87.2 Acidosis; F17.210 Nicotine dependence, cigarettes, uncomplicated; F32.9 Major depressive disorder, single episode, unspecified; F41.9 Anxiety disorder, unspecified; M19.91 Primary osteoarthritis, unspecified site; Z72.89 Other problems related to lifestyle
CPT/HCPCS: 36415; 71045; 80048; 80053; 82805; 83605; 83735; 84100; 84484; 85007; 85025; 85027; 87081; 93005; 93041; 94640; 94644; 94660; 94760; 96361; 96374; 96375

== ENCOUNTER → 2018-06-24 | Outpatient (CLI) | payer MEDICARE, MEDICAID ==
--- NOTE | 2018-06-24 10:00 | Diagnostic Imaging Report ---
INDICATION: Postmenopausal screening for osteoporosis COMPARISON: None FINDINGS: AP Spine L1-L4: [BMD (g/cm2): 1.274] [T-Score: 0.6] [Z-Score: 2.2] [BMD Previous: N/A] [BMD % Change: N/A] LT Hip Neck: [BMD (g/cm2): 1.018] [T-Score: -0.1] [Z-Score: 1.3] LT Hip Total: [BMD (g/cm2):1.111] [T-Score:0.00] [Z-Score: 1.2] [BMD Previous: N/A] [BMD % Change: N/A] RT Hip Neck: [BMD (g/cm2):1.024] [T-Score:-0.1] [Z-Score:1.3] RT Hip Total: [BMD (g/cm2):0.979] [T-score:-0.2] [Z-Score:0.9] [BMD Previous:N/A] [BMD % Change:N/A] *Indicates significant change from prior examination based on 95% confidence level. World Health Organization criteria for BMD interpretation classify patients as Normal (T-score at or above -1.0), Osteopenic (T-score between -1.0 and -2.5) or Osteoporotic (T-score at or below -2.5). LIMITATIONS AND MODIFICATION: None. FRACTURE RISK (FRAX SCORE): The ten year probability of (%): Major Osteoporotic Fracture: [N/A] Hip Fracture: [N/A] IMPRESSION: 1. Normal bone mineral density. 2. Baseline examination. 3. See below National Osteoporosis Foundation guidelines on when to potentially initiate pharmacologic therapy. Based on the National Osteoporosis Foundation Guidelines, pharmacologic treatment should be initiated in any of the following, unless clinical conditions suggest otherwise: * Any patient with prior fragility fracture of the hip or vertebrae. A spine fracture indicates 5X risk for subsequent spine fracture and 2X risk for subsequent hip fracture. * Osteoporosis (T-score <-2.5). * Postmenopausal women and men age 50 and older with low bone mass/osteopenia (T-score between -1.0 and -2.5) by DXA and 10-year major osteoporotic fracture greater than 20% or a 10-year probability of hip fracture greater than 3%. These fracture risks are supplied above in the FRAX score, if applicable. * Clinician judgement and/or patient preferences may indicate treatment for people with 10-year fracture probabilities above or below these levels. Dictated by: Dictated on workstation # [id number]
== END ==
LOC: RAD 09:18
PROVIDERS: ATTEND Nurse Practitioner Community Health
DX: Z13.820 Encounter for screening for osteoporosis (principal); N95.9 Unspecified menopausal and perimenopausal disorder; Z78.0 Asymptomatic menopausal state
CPT/HCPCS: 77080

== ENCOUNTER 2018-07-30 01:08 | Emergency (ER) | payer MEDICARE, MEDICAID ==
[~2018-07-30] VITALS: Ht 162.6 cm; Wt 63.5 kg
[2018-07-30] MEDS ORDERED: methylPREDNISolone 125 MG (Solu-MEDROL) VIAL IVP ONE (01:15)
[2018-07-30] MEDS ORDERED: methylPREDNISolone 125 MG (Solu-MEDROL) VIAL ONE (01:35)
[2018-07-30] MEDS ORDERED: AZITHROMYCIN 250 MG TAB (ZITHROMAX) PO ONE ×2 (02:52→03:11)
[2018-07-30] MEDS ORDERED: cefTRIAXone FOR IV USE 1,000 MG in WATER (STERILE) FOR INJECTION 10 ML IV ONE (02:52)
[2018-07-30] MEDS ORDERED: BENZONATATE 100 MG (TESSALON) CAPSULE PO SCH (02:52)
[2018-07-30] MEDS ORDERED: cefTRIAXone 1,000 MG IV (ROCEPHIN) VIAL ONE (03:11)
[2018-07-30] MEDS ORDERED: BENZONATATE 100 MG (TESSALON) CAPSULE PO ONE (03:11)
[2018-07-30] MEDS ORDERED: WATER (STERILE) FOR INJECTION 10 ML ONE (03:12)
[2018-07-30 03:25] VITALS: BP 110/80
[2018-07-30 03:38] LABS: ABG PCO2 41 MMHG (35-45); ABG PH 7.38 (7.37-7.43)
[2018-07-30 03:39] LABS: ABG BASE EXCESS -0.8 MMOL/L (-2.5-2.5); ABG OXYGEN SATURATION 98 % (94-100); ABG PO2 91 MMHG (79-93); ABG TCO2 24.9 MMOL/L (21.0-31.0); ALLENS TEST YES-POS; INSPIRED O2 3L; PATIENT TEMP 98.1; VENTILATOR NO
[2018-07-30 03:39] LABS: HEMATOCRIT 38 % (35-52); HEMOGLOBIN 12.9 G/DL (11.5-16.0); MEAN CORPUSCULAR HEMOGLOBIN 33 PG (25-34); WHITE BLOOD COUNT 7.1 10^3/uL (4.3-11.0)
[2018-07-30 03:40] LABS: BASOPHILS % (AUTO) 0 % (0-10); EOSINOPHILS # (AUTO) 0.1 10^3/uL (0.0-0.3); EOSINOPHILS % (AUTO) 2 % (0-10); INR 0.9 (0.8-1.4); LYMPHOCYTES # (AUTO) 4.4 X 10^3 (1.0-4.0); LYMPHOCYTES % (AUTO) 62 % (12-44); MEAN CORPUSCULAR HGB CONC 34 G/DL (32-36); MEAN CORPUSCULAR VOLUME 97 FL (80-99); MEAN PLATELET VOLUME 9.5 FL (7.4-10.4); MONOCYTES # (AUTO) 0.4 X 10^3 (0.0-1.0); MONOCYTES % (AUTO) 5 % (0-12); NEUTROPHILS # (AUTO) 2.2 X 10^3 (1.8-7.8); NEUTROPHILS % (AUTO) 31 % (42-75); PLATELET COUNT 282 10^3/uL (130-400); PROTHROMBIN TIME PATIENT 12.3 SEC (12.2-14.7); RED CELL DISTRIBUTION WIDTH 13.5 % (10.0-14.5)
[2018-07-30 03:41] LABS: POTASSIUM 3.3 MMOL/L (3.6-5.0); SODIUM 134 MMOL/L (135-145)
[2018-07-30 03:42] LABS: ALANINE AMINOTRANSFERASE 16 U/L (0-55); ALBUMIN 3.8 GM/DL (3.2-4.5); ALKALINE PHOSPHATASE 55 U/L (40-136); BILIRUBIN,TOTAL 0.2 MG/DL (0.1-1.0); BUN/CREATININE RATIO 11; CALCIUM 8.5 MG/DL (8.5-10.1); CARBON DIOXIDE 21 MMOL/L (21-32); CHLORIDE 100 MMOL/L (98-107); CREATININE SERUM 0.74 MG/DL (0.60-1.30); GFR ESTIMATED > 60; GLUCOSE 140 MG/DL (70-105)
[2018-07-30 04:12] LABS: BILIRUBIN,URINE NEGATIVE (NEGATIVE); CLARITY,URINE CLEAR; COLOR,URINE YELLOW; GLUCOSE, URINE (UA) NEGATIVE (NEGATIVE); KETONES,URINE NEGATIVE (NEGATIVE); LEUKOCYTE ESTERASE ,URINE NEGATIVE (NEGATIVE); NITRITE,URINE NEGATIVE (NEGATIVE); PH,URINE 5 (5-9); PROTEIN,URINE NEGATIVE (NEGATIVE); UROBILINOGEN,URINE NORMAL (NORMAL)
--- NOTE | 2018-07-30 04:19 | ED Respiratory ---
General Chief Complaint: Respiratory Problems Stated Complaint: SOB Source: patient (SOMEWHAT LIMITED HISTORIAN), EMS History of Present Illness Date Seen by Provider: Jul 30, 2018 Time Seen by Provider: 01:07 Initial Comments PT ARRIVES VIA EMS FROM HOME PT STATES SHE WOKE UP JUST PRIOR TO ARRIVAL AND "HAD A TICKLE IN HER THROAT" AND STARTED COUGHING AND IS SHORT OF BREATH BECAUSE OF COUGHING COUGH IS OCCASIONALLY PRODUCTIVE OF GREEN SPUTUM STATES SHE FELT FINE BEFORE SHE WENT TO BED NO FEVER NO CHEST PAIN NO SWELLING IN LEGS/ FEET OR PAIN IN CALVES PT HAS COPD AND IS O2 DEPENDENT AT 3L/NC PT HAD 1 NEB TREATMENT EARLY THIS AFTERNOON EMS IS GIVING [facility] NEB TREATMENT EN ROUTE EMS REPORT THAT O2 SAT WAS 94% ON 4L/NC AT THE SCENE EMS ALSO REPORT THAT PT WAS SMOKING MARIJUANA WHEN THEY ARRIVED. PT ALSO ADMITS TO SMOKING 3 PPD OF CIGARETTES PT ALSO DRINKS DAILY AND CLAIMS SHE HAS HAD "4 BEERS" EARLIER THIS EVENING. 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 Allergies and Home Medications Allergies Coded Allergies: codeine (Verified Allergy, Severe, Hives and swelling., 09/22/12) Home Medications Albuterol Sulfate 18 Gm Hfa.aer.ad, 2 PUFF INH Q4H PRN for SHORTNESS OF BREATH, (Reported) Albuterol Sulfate 2.5 Mg/3 Ml Vial.neb, 2.5 MG NEB Q4H PRN for SHORTNESS OF BREATH, (Reported) Aspirin 81 Mg Tablet.dr, 81 MG PO HS, (Reported) Benzonatate 100 Mg Capsule, 1-2 TAB PO TID Prescribed by: KRISTIN BERNABE on 07/30/18427 Budesonide/Formoterol Fumarate 10.2 Gm Hfa.aer.ad, 2 PUFF INH BID, (Reported) Doxycycline Monohydrate 100 Mg Capsule, 100 MG PO BID Prescribed by: KRISTIN BERNABE on 07/30/18427 Guaifenesin/Dextromethorphan 1 Each Tbmp.12hr, 1 EACH PO BID Prescribed by: KRISTIN BERNABE on 07/30/18427 Methylprednisolone 4 Mg Tab.ds.pk, 4 MG PO UD Prescribed by: KRISTIN BERNABE on 07/30/18427 Montelukast Sodium 10 Mg Tablet, 10 MG PO HS, (Reported) Prednisone 10 Mg Tab, 0 PO as directed 4 tabs (40mg) daily x3 days 3 tabs (30mg) daily x3 days 2 tabs (20mg) daily x3 days 1 tab (10mg) daily x3 days Prescribed by: SHIRA MOSES on 03/23/18 1132 Sertraline HCl 100 Mg Tablet, 100 MG PO HS, (Reported) Patient Home Medication List Home Medication List Reviewed: Yes Review of Systems Review of Systems Constitutional: no symptoms reported EENTM: no symptoms reported Respiratory: see HPI, cough, short of breath Cardiovascular: no symptoms reported Gastrointestinal: no symptoms reported Genitourinary: no symptoms reported Musculoskeletal: no symptoms reported Skin: no symptoms reported Psychiatric/Neurological: Anxiety Hematologic/Lymphatic: No Symptoms Reported Immunological/Allergic: no symptoms reported Past Bfmiwfl-Dakjqt-Ejqlcy Hx Patient Social History Alcohol Use: Regular Use (DRINKS BEER DAILY--"3 OR 4" A DAY) Alcohol Beverage of Choice: Beer Recreational Drug Use: Yes (THC ? ) Smoking Status: Current Everyday Smoker (3 PPD) Type Used: Cigarettes 2nd Hand Smoke Exposure: Yes Recent Foreign Travel: No Contact w/Someone Who Travel: No Recent Hopitalizations: Yes Immunizations Up To Date Tetanus Booster (TDap): Unknown PED Vaccines UTD: No Date of Pneumonia Vaccine: Dec 14, 2013 Date of Influenza Vaccine: Jan 13, 2017 Seasonal Allergies Seasonal Allergies: No Past Medical History Surgeries: Yes (C-SECTIONS X 4; TEETH REMOVED) Appendectomy, Section, Ear Surgery, Tubal Ligation Respiratory: Yes (PT HAS BEEN INTUBATED X 1 IN PAST) Chronic Bronchitis, COPD, Emphysema Currently Using CPAP: No Currently Using BIPAP: No Cardiac: No Neurological: No Reproductive Disorders: No Female Reproductive Disorders: Denies 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 Sexually Transmitted Disease: No HIV/AIDS: No Genitourinary: No Gastrointestinal: No Musculoskeletal: Yes Arthritis Endocrine: No HEENT: Yes Cataract Hearing Impairment: Hard of Hearing Cancer: No Psychosocial: Yes Anxiety, Depression Integumentary: No Blood Disorders: No Adverse Reaction/Blood Tranf: No Family Medical History Arthritis 19 FATHER, , Onset:50's - 60 Cardiovascular disease G8 BROTHER, Onset:Unknown Diabetes mellitus G8 BROTHER, Onset:60 years & older FH: COPD (chronic obstructive pulmonary disease) 19 FATHER, , Onset:50's - 60 G8 SISTER, Onset:Unknown FH: uterine cancer 19 MOTHER, , Onset:60 years & older COPD Physical Exam Capillary Refill : Height: 5'4.00" Weight: 139lbs. 14.4oz. 63.922476dl; 23.0 BMI Method:Stated General Appearance: WD/WN, other (PT VERY DRAMATIC, HARSH/FORCED MOIST COUGH. HAS FORCED "DYSPNEA" AND STATES SHE "CAN'T TALK" --TALKS IN FORCED "STUTTERING" WORDS, BUT THIS BEHAVIOR STOPS IMMEDIATELY AND COMPLETELY WHEN DISTRACTED AND PT TALKS IN NORMAL VOICE AND IN FULL SENTENCES WITHOUT COUGHING OR EVIDENCE OF DYSPNEA. PT REEKS OF ETOH, ALSO STRONG ODOR OF CIGARETTES WELL ODOR OF MARIJUANA. 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 as tested, no motor/sensory deficits, alert, oriented x 3 Skin: normal color, warm/dry Focused Exam Lactate Level 07/30/18 01:11: Lactic Acid Level 1.75 Lactic Acid Level Laboratory Tests Test 07/30/18 01:11 Lactic Acid Level 1.75 MMOL/L (0.50-2.00) Progress/Results/Core Measures Suspected Sepsis SIRS Temperature: Pulse: Respiratory Rate: Laboratory Tests 07/30/18 01:11: White Blood Count 7.1 Blood Pressure / Mean: 07/30/18 01:11: Lactic Acid Level 1.75 Laboratory Tests 07/30/18 01:11: Creatinine 0.74, INR Comment 0.9, Platelet Count 282, Total Bilirubin 0.2 Results/Orders Lab Results Laboratory Tests Test 07/30/18 00:15 07/30/18 01:11 07/30/18 03:10 Range/Units Blood Gas Puncture Site R RAD Blood Gas Patient Temperature 98.1 Arterial Blood pH 7.38 7.37-7.43 Arterial Blood Partial Pressure CO2 41 35-45 MMHG Arterial Blood Partial Pressure O2 91 79-93 MMHG Arterial Blood HCO3 24 23-27 MMOL/L Arterial Blood Total CO2 24.9 21.0-31.0 MMOL/L Arterial Blood Oxygen Saturation 98 94-100 % Arterial Blood Base Excess -0.8 -2.5-2.5 MMOL/L Kendrick Test YES-POS Blood Gas Ventilator Setting NO Blood Gas Inspired Oxygen 3L White Blood Count 7.1 4.3-11.0 10^3/uL Red Blood Count 3.92 L 4.35-5.85 10^6/uL Hemoglobin 12.9 11.5-16.0 G/DL Hematocrit 38 35-52 % Mean Corpuscular Volume 97 80-99 FL Mean Corpuscular Hemoglobin 33 25-34 PG Mean Corpuscular Hemoglobin Concent 34 32-36 G/DL Red Cell Distribution Width 13.5 10.0-14.5 % Platelet Count 282 130-400 10^3/uL Mean Platelet Volume 9.5 7.4-10.4 FL Neutrophils (%) (Auto) 31 L 42-75 % Lymphocytes (%) (Auto) 62 H 12-44 % Monocytes (%) (Auto) 5 0-12 % Eosinophils (%) (Auto) 2 0-10 % Basophils (%) (Auto) 0 0-10 % Neutrophils # (Auto) 2.2 1.8-7.8 X 10^3 Lymphocytes # (Auto) 4.4 H 1.0-4.0 X 10^3 Monocytes # (Auto) 0.4 0.0-1.0 X 10^3 Eosinophils # (Auto) 0.1 0.0-0.3 10^3/uL Basophils # (Auto) 0.0 0.0-0.1 10^3/uL Prothrombin Time 12.3 12.2-14.7 SEC INR Comment 0.9 0.8-1.4 Activated Partial Thromboplast Time 28 24-35 SEC Sodium Level 134 L 135-145 MMOL/L Potassium Level 3.3 L 3.6-5.0 MMOL/L Chloride Level 100 98-107 MMOL/L Carbon Dioxide Level 21 21-32 MMOL/L Anion Gap 13 5-14 MMOL/L Blood Urea Nitrogen 8 7-18 MG/DL Creatinine 0.74 0.60-1.30 MG/DL Estimat Glomerular Filtration Rate > 60 BUN/Creatinine Ratio 11 Glucose Level 140 H 70-105 MG/DL Lactic Acid Level 1.75 0.50-2.00 MMOL/L Calcium Level 8.5 8.5-10.1 MG/DL Corrected Calcium 8.7 8.5-10.1 MG/DL Total Bilirubin 0.2 0.1-1.0 MG/DL Aspartate Amino Transf (AST/SGOT) 18 5-34 U/L Alanine Aminotransferase (ALT/SGPT) 16 0-55 U/L Alkaline Phosphatase 55 40-136 U/L Troponin I < 0.028 <0.028 NG/ML B-Type Natriuretic Peptide 60.7 <100.0 PG/ML Total Protein 6.0 L 6.4-8.2 GM/DL Albumin 3.8 3.2-4.5 GM/DL Serum Alcohol 128 H <10 MG/DL Urine Color YELLOW Urine Clarity CLEAR Urine pH 5 5-9 Urine Specific [place] 1.005 L 1.016-1.022 Urine Protein NEGATIVE NEGATIVE Urine Glucose (UA) NEGATIVE NEGATIVE Urine Ketones NEGATIVE NEGATIVE Urine Nitrite NEGATIVE NEGATIVE Urine Bilirubin NEGATIVE NEGATIVE Urine Urobilinogen NORMAL NORMAL MG/DL Urine Leukocyte Esterase NEGATIVE NEGATIVE Urine RBC (Auto) 2+ H NEGATIVE Urine RBC RARE /HPF Urine WBC RARE /HPF Urine Squamous Epithelial Cells 0-2 /HPF Urine Crystals NONE /LPF Urine Bacteria TRACE /HPF Urine Casts NONE /LPF Urine Mucus NEGATIVE /LPF Urine Culture Indicated NO Urine Opiates Screen NEGATIVE NEGATIVE Urine Oxycodone Screen NEGATIVE NEGATIVE Urine Methadone Screen NEGATIVE NEGATIVE Urine Propoxyphene Screen NEGATIVE NEGATIVE Urine Barbiturates Screen NEGATIVE NEGATIVE Ur Tricyclic Antidepressants Screen NEGATIVE NEGATIVE Urine Phencyclidine Screen NEGATIVE NEGATIVE Urine Amphetamines Screen NEGATIVE NEGATIVE Urine Methamphetamines Screen NEGATIVE NEGATIVE Urine Benzodiazepines Screen NEGATIVE NEGATIVE Urine Cocaine Screen NEGATIVE NEGATIVE Urine Cannabinoids Screen NEGATIVE NEGATIVE Micro Results Microbiology 07/30/18 Influenza Types A,B Antigen ([facility]LEY) - Final, Complete My Orders Orders - KRISTIN BERNABE DO Chest 1 View, Ap/Pa Only (07/30/18 01:40) Arterial Blood Gas (07/30/18 00:15) Cbc With Automated Diff (07/30/18 01:11) Alcohol (07/30/18 01:11) Comprehensive Metabolic Panel (07/30/18 01:11) Troponin I (07/30/18 01:11) BNP (07/30/18 01:11) Protime With Inr (07/30/18 01:11) Partial Thromboplastin Time (07/30/18 01:11) Lactic Acid Analyzer (07/30/18 01:11) Influenza A And B Antigens (07/30/18 01:11) Blood Culture (07/30/18 01:11) Blood Culture (07/30/18 01:40) Arterial Blood Draw (07/30/18 00:15) Ua Culture If Indicated (07/30/18 04:06) Drug Screen Stat (Urine) (07/30/18 03:10) Methylprednisolone Sod Succ (Solu-Medrol (07/30/18 01:15) Ceftriaxone For Iv Use (Rocephin For I (07/30/18 02:52) Water (Sterile) For Injection (Sterile W (07/30/18 04:30) Azithromycin Tablet (Zithromax Tablet) (07/30/18 02:52) Benzonatate Capsule (Tessalon Perles) (07/30/18 02:52) Vital Signs/I&O Capillary Refill : Progress Note : Progress Note NO COUGHING OR DYSPNEA FOR REMAINDER OF ER STAY PT SLEPT FOR REMAINDER OF ER STAY O2 SATS IN UPPER 90'S ON 3L/NC FOR ENTIRE ER STAY. Diagnostic Imaging Comments CXR--COPD CHANGES, NO ACUTE PROCESS, PENDING RADIOLOGIST REVIEW Reviewed: Reviewed by Me Departure Impression Primary Impression: COPD exacerbation Additional Impressions: Alcohol intoxication Very heavy cigarette smoker (40 or more per day) Anxiety Disposition: 01 HOME, SELF-CARE Condition: Improved Departure-Patient Inst. [facility] Primary Care Physician Patient Instructions: Exacerbation of COPD, Quitting Smoking Add. Discharge Instructions: USE YOUR NEBULIZER EVERY 4 HOURS NEEDED FOR BREATHING NO SMOKING OF ANY KIND NO ALCOHOL FOLLOW UP WITH YOUR DR IN 2-3 DAYS FOR FURTHER CARE, RETURN TO ER IF WORSE All discharge instructions reviewed with patient and/or family. Voiced understanding. Scripts Guaifenesin/Dextromethorphan (Mucinex Dm ER 1,200-60 mg Tab) 1 Each Tbmp.12hr 1 EACH PO BID for 10 Days, #30 EA Prov: SRINIVASA,KRISTIN K DO 07/30/18 Methylprednisolone (Medrol) 4 Mg Tab.ds.pk 4 MG PO UD, #1 PKG Prov: SRINIVASA,KRISTIN K DO 07/30/18 Benzonatate (TESSALON PERLES) 100 Mg Capsule 1-2 TAB PO TID for Cough, #30 CAP Prov: KRISTIN BERNABE DO 07/30/18 Doxycycline Monohydrate (Doxycycline Monohydrate) 100 Mg Capsule 100 MG PO BID, #30 CAP Prov: KRISTIN BERNABE DO 07/30/18 KRISTIN BERNABE DO Jul 30, 2018 04:19
[2018-07-30 04:25] LABS: AMPHETAMINE SCREEN, URINE NEGATIVE (NEGATIVE); BACTERIA,URINE TRACE /HPF; BARBITURATE SCREEN URINE NEGATIVE (NEGATIVE); BENZODIAZEPINES SCREEN URINE NEGATIVE (NEGATIVE); CANNABINOID SCREEN, URINE NEGATIVE (NEGATIVE); COCAINE SCREEN URINE NEGATIVE (NEGATIVE); METHADONE STAT NEGATIVE (NEGATIVE); METHAMPHETAMINE SCREEN URINE S NEGATIVE (NEGATIVE); OPIATE SCREEN URINE NEGATIVE (NEGATIVE); OXYCODONE STAT NEGATIVE (NEGATIVE); PROPOXYPHENE STAT NEGATIVE (NEGATIVE); RBC,URINE RARE /HPF; SQUAMOUS EPITHELIAL CELL,UR 0-2 /HPF; TRICYCLIC ANTIDEPRESSANTS SCRE NEGATIVE (NEGATIVE); WBC,URINE RARE /HPF
[2018-07-30] MEDS ORDERED: DOXY100C42 PO (04:28)
[2018-07-30] MEDS ORDERED: BENZ100C18 PO (04:28)
[2018-07-30] MEDS ORDERED: GUAI1TBM19 PO (04:28)
[2018-07-30] MEDS ORDERED: METH4TAB PO (04:28)
[2018-07-30] MEDS ORDERED: WATER (STERILE) FOR INJ 10 ML BTL IV ONE (04:30)
--- NOTE | 2018-07-30 08:27 | Diagnostic Imaging Report ---
INDICATION: SOA. TECHNIQUE: Frontal view of the chest COMPARISON: 03/21/2018 FINDINGS: Lung volumes are large. There are chronic interstitial opacities in the lung bases, likely scarring. No new consolidation is seen. The cardiac silhouette is stable in size. There is no significant pleural effusion or pneumothorax. No acute osseous abnormality is seen. IMPRESSION: Stable chronic findings in the lungs, with no new consolidation seen. Dictated by: Dictated on workstation # [id number]
== END 2018-07-30 03:28 | disposition home or self-care (01) ==
LOC: EDUNIT# 01:08 → ER 01:08
DX: J44.1 Chronic obstructive pulmonary disease with (acute) exacerbation (principal); F10.129 Alcohol abuse with intoxication, unspecified; F41.9 Anxiety disorder, unspecified; J43.9 Emphysema, unspecified; F32.9 Major depressive disorder, single episode, unspecified; F12.10 Cannabis abuse, uncomplicated; F17.210 Nicotine dependence, cigarettes, uncomplicated; Z99.81 Dependence on supplemental oxygen; Z82.49 Family history of ischemic heart disease and other diseases of the circulatory system; Z80.49 Family history of malignant neoplasm of other genital organs; Z88.5 Allergy status to narcotic agent; Z79.82 Long term (current) use of aspirin; Z79.52 Long term (current) use of systemic steroids; Z98.890 Other specified postprocedural states; Z90.49 Acquired absence of other specified parts of digestive tract; Z98.51 Tubal ligation status
CPT/HCPCS: 36415; 36600; 71045; 80053; 80306; 80320; 81000; 82805; 83605; 83880; 84484; 85025; 85610; 85730; 87040; 87804

== ENCOUNTER 2018-07-30 05:40 | Outpatient (CLI) | payer MEDICARE, MEDICAID ==
[~2018-07-30] VITALS: Ht 162.6 cm; Wt 63.5 kg
[~2018-07-30 05:40] MED LIST changes: +BENZ100C18 PO; +DOXY100C42 PO; +GUAI1TBM19 PO; +METH4TAB PO
== END 2018-07-30 11:49 | disposition home or self-care (01) ==
LOC: PREOP 05:40
PROVIDERS: ATTEND Specialist
DX: Z01.818 Encounter for other preprocedural examination (principal)

== ENCOUNTER 2018-08-01 07:47 | Day surgery (SDC) | payer MEDICARE, MEDICAID ==
[~2018-08-01] VITALS: Ht 162.6 cm; Wt 63.5 kg
[2018-08-01 07:50] VITALS: BP 112/57
[2018-08-01] MEDS ORDERED: LIDOCAINE PF 1% 2 ML AMP IR PRN (08:00)
[2018-08-01] MEDS ORDERED: TIMOLOL MALEATE 0.5% 5 ML (TIMOPTIC) BTL OU PRN (08:00)
[2018-08-01] MEDS ORDERED: POVIDONE (BETADINE) OPHTH SOLN 5% 30 ML OP ONE (08:00)
[2018-08-01] MEDS ORDERED: MOXIFLOXACIN OPHTH SOLN 5 MG/ML 0.3 ML SYRINGE OP ONE (08:00)
[2018-08-01] MEDS: TETRACAINE 0.5% OPHTH SOLN 4 ML BTL (SINGLE DOSE ONLY) OU PRN ×4 (08:05→08:26)
[2018-08-01] MEDS: CYCLOPENTOLATE 1% (CYCLOGYL) 2 ML DROPS OP SCH ×3 (08:15→08:26)
[2018-08-01] MEDS: PHENYLEPHRINE 10% OPHTH (NEO-SYN) 5 ML BTL OU SCH ×3 (08:15→08:26)
[2018-08-01] MEDS ORDERED: MIDAZOLAM 2 MG/2 ML (VERSED) VIAL ONE (08:21)
--- NOTE | 2018-08-01 08:38 | Ophthalmologist Pre-Op Note ---
Pre-Operative Progress Note H&P Reviewed The H&P was reviewed, patient examined and no changes noted. Date H&P Reviewed: Aug 01, 2018 Time H&P Reviewed: 08:38 Pre-Op Dx Cataract, Right Eye ABIMBOLA LEROY MD Aug 01, 2018 08:38
--- NOTE | 2018-08-01 09:11 | Ophthalmology Operative Report ---
Cataract removal/placement IOL PREOPERATIVE DIAGNOSIS: Cataract Right Eye POSTOPERATIVE DIAGNOSIS: Cataract Right Eye PROCEDURE: Cataract removal and placement of posterior chamber implant, right eye SURGEON: Simeon Leroy ANESTHESIA: Topical with sedation COMPLICATIONS: None ESTIMATED BLOOD LOSS: Minimal DESCRIPTION OF PROCEDURE: After proper informed consent was obtained, the patient, a 63 female, was taken to the Operating Room and the right eye was anesthetized with tetracaine. The right eye was then prepped and draped in the usual manner. A wire lid speculum was placed. A paracentesis was made at the left hand position. Preservative free lidocaine was injected into the anterior chamber followed by viscoelastic. A clear corneal incision was made in the temporal position. A capsulorrhexis was preformed and the central nuclear and cortical material were removed. The posterior capsule was polished and Constantine 23.5 AU00T0 IOL was placed into the capsular bag. The residual viscoelastic was aspirated and balanced saline solution was injected into the anterior chamber. Moxifloxacin was injected into the anterior chamber. The wound was checked and found to be water tight. The patient tolerated the procedure well without complications. SIMEON LEROY MD Aug 01, 2018 09:11
[2018-08-01 09:30] VITALS: BP 99/52
[2018-08-01] MEDS ORDERED: acetaZOLAMIDE ER 500 MG CAP (DIAMOX SEQUELS) PO ONE (09:30)
--- OUTSIDE RECORDS SUMMARY | 2018-08-01 10:03 | XMS REPORT ---
Author Author Migration, Doctor Organization [facility] Address Unknown Phone Unavailable Care Team Providers Care Principal Scientist Name Role Phone Migration, Doctor Unavailable Unavailable PROBLEMS Type Condition ICD9-CM Code EYR35-HY Code Onset Dates Condition Status SNOMED Code Problem Recurrent major depressive disorder, remission status unspecified F33.9 Active 63061309 Problem H/O esophageal reflux Z87.19 Active 619299193 Problem H/O benign neoplasm of colon Z86.018 Active 847323949 Problem Counseling on substance use and abuse Z71.89 Active 798439857 Problem Chronic obstructive pulmonary disease, unspecified COPD type J44.9 Active 47980945 Problem Anxiety F41.9 Active 72502744 Problem COPD with exacerbation J44.1 Active 009494494 Problem Chest pain, unspecified R07.9 Active 71000815 Problem Menopausal and postmenopausal disorder N95.9 Active 052060218 Problem 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 040598266 Problem Pulmonary emphysema, unspecified emphysema type J43.9 Active 59460608 Problem 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 Active 092381661001 Problem Nicotine dependence, cigarettes, uncomplicated F17.210 Active 051986234 Problem Alcohol abuse F10.10 Active 65387787 ALLERGIES No Information ENCOUNTERS Encounter Location Date Diagnosis [place] [id number] [address] Jul, [place] [address] [address] Jun, [place] [id number] [place] [address]- [address] May, Encounter for Medicare annual wellness exam Z00.00 ; Recurrent major depressive disorder, remission status unspecified F33.9 ; COPD with exacerbation J44.1 ; Pulmonary emphysema, unspecified emphysema type J43.9 ; Menopausal and postmenopausal disorder N95.9 and Vision changes H53.9 [place] [id number] [place] [address]- 9337 Apr, Chronic obstructive pulmonary disease, unspecified COPD type J44.9 and No appetite R63.0 [facility] [id number] [place] [address]88- 2406 Mar, COPD with exacerbation J44.1 [facility] [id number] [place] [address] 63872- 8845 Mar, [place] [address] [address] Mar, [facility] [address] [address] Feb, COPD with exacerbation J44.1 ; Acute left-sided low back pain without sciatica M54.5 and Alcohol abuse F10.[address] [address]- [address] Nov, [place] [address] [address] Sep, Chronic obstructive pulmonary disease, unspecified COPD type J44.9 ; Financial problems Z59.8 and Nicotine dependence, cigarettes, uncomplicated F17.210 [facility] [id number] [place] [address] 12071- 6262 August, Chronic obstructive pulmonary disease with (acute) exacerbation J44.1 ; Nicotine dependence, cigarettes, uncomplicated F17.210 and 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 [facility] [id number] [place] [address]37 -0222 Jun, COPD exacerbation J44.1 [facility] [id number] [place] [address] 18742- 8353 Mar, Flu-like symptoms R68.89 and Chronic obstructive pulmonary disease, unspecified COPD type J44.9 [facility] [id number] [place] [address] 03841- 9572 Jan, Pulmonary emphysema, unspecified emphysema type J43.9 [place] [id number] [place] [id number] Jan, [place] [address] [address] Jan, Chronic obstructive pulmonary disease, unspecified COPD type J44.9 ; Encounter for immunization Z23 ; Thrush B37.0 and Anxiety F41.9 [place] [address] [id number] Dec, [place] [address] [address] Dec, [place] [address] [address]- [address] Sep, Chronic obstructive pulmonary disease, unspecified COPD type J44.9 and Erysipelas A46 [facility] [address] [place] [address]91 -7387 Sep, Irritant contact dermatitis due to other agents L24.89 [facility] [address] [address] Jun, Allergic dermatitis L23.9 and Bug bite, initial encounter W57.[address] [place] [id number] [place] [address] 20642- 4988 May, Shoulder impingement, right M75.41 [place] [address] 7[address]- 2333 08 Mar, 2016 Impingement syndrome, shoulder, left M75.42 [place] [id number] [place] [address] 95634- 3819 Feb, Left arm pain M79.602 [place] [id number] [place] [address] 21998- 5272 14 Jan, 2016 [place] [id number] [place] [address] 13047- 8974 13 Jan, 2016 Left arm pain M79.602 and Acute pain of left shoulder M25.512 [facility] [address] [address]49 Dec, Muscle spasm M62.838 and Cervicalgia M54.2 [place] [address] 21097- 1434 Oct, COPD (chronic obstructive pulmonary disease) J44.9 [place] [address] 58096- 4032 Sep, Chronic obstructive pulmonary disease, unspecified COPD type J44.9 [place] [address] 24072- 36[address] Jun, COPD (chronic obstructive pulmonary disease) J44.9 [facility] [address] [address] May, Chest pain R07.9 ; Epigastric burning sensation R10.13 and Gastritis K29.[address] [address]- [address] Mar, Screening, lipid Z13.[address] [address]90- 4832 Mar, Sebaceous cyst L72.[address] [address]243- 8328 Feb, Encounter for screening for malignant neoplasm of cervix Z12.4 ; Well woman exam Z01.419 ; Depression F32.9 ; History of chest pain Z87.898 ; BMI 25.0-25.9,adult Z68.25 ; Dense breast tissue R92.2 ; Lipid screening Z13.220 and Vaginal lesion N89.[address] [address]78- 2184 24 Feb, 2015 Breast cancer screening Z12.39 ; Encounter for immunization Z23 ; Left arm pain M79.602 ; Chronic obstructive pulmonary disease, unspecified COPD type J44.9 ; Gastroesophageal reflux disease, esophagitis presence not specified K21.9 and Lipid screening Z13.220 [facility] [address] [address] 14 Jul, 2014 [facility] [address] [address] Jul, [facility] [id number] [place] [address] 58441- 9850 May, [facility] [id number] [place] [address] 43814- 1269 May, [facility] [id number] [place] [address] 32905- 6409 Mar, [facility] [id number] [place] [address] 23678- 5425 Mar, [facility] [id number] [place] [address] 34156- 0578 Mar, [facility] [id number] [address] 9251 Mar, [facility] [id number] [place] [address] 15793- 8902 Feb, [facility] [address] [address]- 9091 Feb, [facility] [address] [address]- 0215 Jan, [facility] [address] [facility] [id number] [address]- 2288 Jan, [facility] [address] [address]- 6073 Jan, [facility] [address] [address]- 5913 Jan, [facility] [address] [address]- 3589 Jan, [facility] [place] [facility] [address] [id number] [place] [address]- 9862 14 Jan, 2014 [facility] [place] [facility] [address] [id number] [place] [address]- 9269 14 Jan, 2014 [facility] [place] [facility] [address] [id number] [place] [address]- 0127 14 Jan, 2014 [facility] [place] [facility] [address] [id number] [place] [address]- 2924 14 Jan, 2014 [facility] [place] [facility] [address] [id number] [place] [address]- 8341 07 Jan, 2014 [facility] [place] [facility] [address] [id number] [place] [address]- 1277 07 Jan, 2014 [facility] [place] [facility] [address] [id number] [place] [address]- 2704 24 Dec, 2013 [facility] [place] [facility] [address] [id number] [place] [address]- 0312 24 Dec, 2013 [facility] [place] [facility] [address] [id number] [place] [address]- 7509 23 Dec, 2013 [facility] [place] [facility] [address] [id number] [place] [address]- 5378 23 Dec, 2013 [facility] [place] [facility] [address] [id number] [place] [address]- 4009 12 Dec, 2013 [facility] [place] [facility] [address] [id number] [place] [address]- 5458 Dec, [facility] [place] [facility] [address] [id number] [place] [address]- 1698 Dec, [facility] [place] [facility] [address] [id number] [place] [address]- 1277 Dec, [facility] [place] [facility] [address] [id number] [place] [address]- 3417 August, [facility] [place] [facility] [address] [id number] [place] [address]- 5017 August, [facility] [place] [facility] [address] [id number] [place] [address]- 9147 Jun, [facility] [place] [facility] [address] [id number] [place] [address]- 9842 Jun, [facility] [place] [facility] [address] [id number] [place] [address]- 7419 Apr, [facility] [place] [facility] [address] [id number] [place] [address]- 4592 Apr, [facility] [place] [facility] [address] [id number] [place] [address]- 3858 Apr, [facility] [place] [facility] [address] [id number] [place] [address]- 0472 Apr, [facility] [place] [facility] [address] [id number] [place] [address]- 8419 Apr, [facility] [place] [facility] [address] [id number] [place] [address]- 7141 Apr, [facility] [place] [facility] [address] [id number] [place] [address]- 5272 Jan, [facility] [place] [facility] [address] [id number] [place] [address]- 3107 Jan, [facility] [place] [facility] [address] [id number] [place] [address]- 0136 Jan, [facility] [place] [facility] [address] [id number] [address]- 5605 Nov, [facility] [place] [facility] [address] [id number] [place] [address]- 9577 Oct, [facility] [place] [facility] [address] [id number] [place] [address]- 6863 Sep, [facility] [place] [facility] [address] [id number] [place] [address]- 9263 Sep, [facility] [place] [facility] [address] [id number] [place] [address]- 8562 Sep, [facility] [address] [id number] [place] [address]- 4756 Sep, [facility] [place] [facility] [address] [id number] [place] [address]- 8457 Sep, [facility] [place] [facility] [address] [id number] [place] [address]- 7228 August, [facility] [place] [facility] [address] [id number] [place] [address]- 8609 Jul, [facility] [place] [facility] [address] [id number] [place] [address]- 7774 Jul, [facility] [place] [facility] [address] [id number] [place] [address]- 8871 May, [facility] [place] [facility] [address] [id number] [place] [address]- 1574 Apr, [facility] [place] [facility] [address] [id number] [place] [address]- 7947 Mar, [facility] [place] [facility] [address] [id number] [place] [address]- 9476 Mar, [facility] [place] [facility] [address] [facility] [id number] [place] [address]- 8054 Feb, [facility] [place] [facility] [address] [id number] [place] [address]- 4366 Feb, [facility] [place] [facility] [address] [id number] [place] [address]- 3729 Feb, [facility] [place] [facility] [address] [id number] [place] [address]- 2297 Feb, [facility] [place] [facility] [address] [facility] [id number] [place] 1621 Jan, [facility] [place] [facility] [address] [id number] [place] [address]- 4560 Jan, [facility] [place] [facility] [address] [id number] [place] [address]- 1871 Jan, [facility] [address] [id number] [place] [address] Jan, [facility] [address] [id number] [place] [address]- 8421 Dec, [facility] [place] [facility] [address] [id number] [place] [address]- 9358 Sep, [facility] [address] [id number] [place] [address]- 9380 August, [facility] [address] [id number] [place] [address]- 9358 August, [facility] [address] [id number] [place] [address]85 Jul, [facility] [address] [id number] [place] [address]- 7162 Jun, [facility] [address] [id number] [place] [address]- 9898 Jun, [facility] [address] [id number] [place] [address]- 5963 May, [facility] [address] [id number] [place] [address]38 Mar, [facility] [place] [facility] [address] [id number] [address]- 5442 Mar, [facility] [place] [facility] [address] [id number] [place] [address]- 0766 Mar, [facility] [place] [facility] [address] [id number] [place] [address]- 6137 Feb, [facility] [place] [facility] [address] [id number] [place] [address]- 0746 Feb, [facility] [place] [facility] [address] [id number] [place] [address]- 3362 Feb, [facility] [address] [address]- 5182 Feb, [facility] [address] [address]- 1520 Nov, [facility] [address] [address]- 4863 Mar, [facility] [address] 4[address] Feb, [facility] [address] 3269 Jan, [facility] [address] 1799 August, [facility] [address] [address]- 3053 Mar, [facility] [address] [address]- 5906 Mar, [facility] [address] [address]- 5361 Jan, [facility] [address] [address]- 8698 Jan, [facility] [address] [address]- 5569 Jan, [facility] [address] [address]- 2587 Jan, IMMUNIZATIONS No Known Immunizations SOCIAL HISTORY Never Assessed REASON FOR VISIT EMR-[facility] PLAN OF CARE VITAL SIGNS MEDICATIONS Unknown Medications RESULTS No Results PROCEDURES No Known procedures [...] lung Hospitalization History Acute resp distress, COPD exacerbation-[facility] 01/08/17 Hospitalization History COPD exacerbation-[facility] 01/22/17 Hospitalization History [facility] [place]- SOB 09/09/2017 Hospitalization History COPD/[facility], [facility] 02/2018
--- OUTSIDE RECORDS SUMMARY | 2018-08-01 10:03 | XMS REPORT ---
Author Author Migration, Doctor Organization [facility] Address Unknown Phone Unavailable Care Team Providers Care Assembler Tractor Name Role Phone Migration, Doctor Unavailable Unavailable PROBLEMS Type Condition ICD9-CM Code FEK97-SZ Code Onset Dates Condition Status SNOMED Code Problem Recurrent major depressive disorder, remission status unspecified F33.9 Active 69344757 Problem H/O esophageal reflux Z87.19 Active 286170979 Problem H/O benign neoplasm of colon Z86.018 Active 343099245 Problem Counseling on substance use and abuse Z71.89 Active 948894912 Problem Chronic obstructive pulmonary disease, unspecified COPD type J44.9 Active 11132586 Problem Anxiety F41.9 Active 17491350 Problem COPD with exacerbation J44.1 Active 350141574 Problem Chest pain, unspecified R07.9 Active 58604037 Problem Menopausal and postmenopausal disorder N95.9 Active 963171911 Problem 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 792402498 Problem Pulmonary emphysema, unspecified emphysema type J43.9 Active 79282003 Problem 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 Active 338582342485 Problem Nicotine dependence, cigarettes, uncomplicated F17.210 Active 020479248 Problem Alcohol abuse F10.10 Active 22673761 ALLERGIES No Information ENCOUNTERS Encounter Location Date Diagnosis [place] [address] [address] Jul, [facility] [address], [place] [address] Jul, [place] [address], [place] [address] Jun, [place] [id number] [place] [address] May, Encounter for Medicare annual wellness exam Z00.00 ; Recurrent major depressive disorder, remission status unspecified F33.9 ; COPD with exacerbation J44.1 ; Pulmonary emphysema, unspecified emphysema type J43.9 ; Menopausal and postmenopausal disorder N95.9 and Vision changes H53.9 [place] [address] [place] [id number] [place] [address]- [address]2 Apr, Chronic obstructive pulmonary disease, unspecified COPD type J44.9 and No appetite R63.0 [place] [address] [address] Mar, COPD with exacerbation J44.1 [place] [address] [address]- [address] Mar, [place] [address] [address]- [address] Mar, [place] [address] [address] Feb, COPD with exacerbation J44.1 ; Acute left-sided low back pain without sciatica M54.5 and Alcohol abuse F10.10 [place] [address] [address] Nov, [place] [address] [address] Sep, Chronic obstructive pulmonary disease, unspecified COPD type J44.9 ; Financial problems Z59.8 and Nicotine dependence, cigarettes, uncomplicated F17.210 [place] [address] [place] [id number] [place] [address] 21467- 9083 August, Chronic obstructive pulmonary disease with (acute) exacerbation J44.1 ; Nicotine dependence, cigarettes, uncomplicated F17.210 and 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 [facility] [address] [place] [id number] [place] [address] -7002 Jun, COPD exacerbation J44.1 [place] [address] [place] [id number] [place] [address]286- 8553 Mar, Flu-like symptoms R68.89 and Chronic obstructive pulmonary disease, unspecified COPD type J44.9 [place] [address] [place] [address] Jan, Pulmonary emphysema, unspecified emphysema type J43.9 [place] [address] [id number] Jan, [place] [address] [place] [id number] [place] [address]- [address] Jan, Chronic obstructive pulmonary disease, unspecified COPD type J44.9 ; Encounter for immunization Z23 ; Thrush B37.0 and Anxiety F41.9 [facility] [address] [place] [id number] [place] [id number] Dec, [place] [address] [address]- [address] Dec, [place] [address] [place] [id number] [place] [address]362- 3735 Sep, Chronic obstructive pulmonary disease, unspecified COPD type J44.9 and Erysipelas A46 [facility] [address] [place] [id number] [place] [address] -7717 Sep, Irritant contact dermatitis due to other agents L24.89 [facility] [place] [id number] [place] [address]62 -3751 Jun, Allergic dermatitis L23.9 and Bug bite, initial encounter W57.XXXA [place] [address] [place] [id number] [place] [address] 41267- 2478 May, Shoulder impingement, right M75.41 [place] [address] [place] [id number] [place] [address] 40448- 5460 08 Mar, 2016 Impingement syndrome, shoulder, left M75.42 [place] [address] [place] [id number] [place] [address] 43437- 2442 07 Feb, 2016 Left arm pain M79.602 [place] [address] [place] [id number] [place] [address]6970- 6707 14 Jan, 2016 [place] [address] [place] [id number] [place] [address] 96880- 2326 Jan, Left arm pain M79.602 and Acute pain of left shoulder M25.512 [facility] [address] [place] [address] -[address] Dec, Muscle spasm M62.838 and Cervicalgia M54.[address] [address]- [address] Oct, COPD (chronic obstructive pulmonary disease) J44.[address] 29[address]- 7[address] Sep, Chronic obstructive pulmonary disease, unspecified COPD type J44.9 [place] [address] 43703- 0164 Jun, COPD (chronic obstructive pulmonary disease) J44.9 [facility] [address] [place] [address] -3463 May, Chest pain R07.9 ; Epigastric burning sensation R10.13 and Gastritis K29.[address] [address]- 9[address] 08 Mar, 2015 Screening, lipid Z13.[address] [address]23- 7987 Mar, Sebaceous cyst L72.[address] [address]- 5628 30 Feb, 2015 Encounter for screening for malignant neoplasm of cervix Z12.4 ; Well woman exam Z01.419 ; Depression F32.9 ; History of chest pain Z87.898 ; BMI 25.0-25.9,adult Z68.25 ; Dense breast tissue R92.2 ; Lipid screening Z13.220 and Vaginal lesion N89.[address] [address]- [address]86 24 Feb, 2015 Breast cancer screening Z12.39 ; Encounter for immunization Z23 ; Left arm pain M79.602 ; Chronic obstructive pulmonary disease, unspecified COPD type J44.9 ; Gastroesophageal reflux disease, esophagitis presence not specified K21.9 and Lipid screening Z13.220 [facility] [address] [place] [id number] [place] [address] 31278- 4010 14 Jul, 2014 [facility] [address] [place] [id number] [place] [address] 44137- 1081 Jul, [facility] [address] [place] [id number] [place] [address] 30717- 6424 May, [facility] [address] [place] [id number] [place] [address] 28731- 5458 May, [facility] [address] [place] [id number] [place] [address] 44119- 1788 Mar, [facility] [address] [place] [id number] [place] [address] 42523- 1829 Mar, [facility] [address] [place] [id number] [place] [address]60- 2682 Mar, [facility] [address] [place] [id number] [place] [address]24- 2153 Mar, [facility] [address] [place] [id number] [place] [address] 28781- 8095 Feb, [facility] [address] [place] [id number] [place] [address] 20097- 6356 Feb, [facility] [address] [place] [id number] [place] [address] 45936- 8989 Jan, [facility] [address] [place] [id number] [place] [address] 41967- 8216 Jan, [facility] [address] [place] [id number] [place] [address] 06220- 5174 Jan, [facility] [address] [place] [id number] [place] [address] 04968- 5530 Jan, [facility] [place] [facility] [address] [id number] [place] [address]- 3185 15 Jan, 2014 [facility] [place] [facility] [address] [id number] [place] [address]- 2705 14 Jan, 2014 [facility] [place] [facility] [address] [id number] [place] [address]- 9136 14 Jan, 2014 [facility] [place] [facility] [address] [id number] [place] [address]- 6361 14 Jan, 2014 [facility] [place] [facility] [address] [id number] [place] [address]- 8133 14 Jan, 2014 [facility] [place] [facility] [address] [id number] [place] [address]- 2333 07 Jan, 2014 [facility] [place] [facility] [address] [id number] [place] [address]- 7742 07 Jan, 2014 [facility] [place] [facility] [address] [id number] [place] [address]- 0407 24 Dec, 2013 [facility] [place] [facility] [address] [id number] [place] [address]- 0383 24 Dec, 2013 [facility] [place] [facility] [address] [id number] [place] [address]- 5461 23 Dec, 2013 [facility] [place] [facility] [address] [id number] [place] [address]- 3281 23 Dec, 2013 [facility] [place] [facility] [address] [id number] [place] [address]- 4958 12 Dec, 2013 [facility] [place] [facility] [address] [id number] [place] [address]- 3987 12 Dec, 2013 [facility] [place] [facility] [address] [id number] [place] [address]- 0463 09 Dec, 2013 [facility] [place] [facility] [address] [id number] [place] [address]- 1603 09 Dec, 2013 [facility] [place] [facility] [address] [id number] [place] [address]- 6452 August, [facility] [place] [facility] [address] [id number] [place] [address]- 1684 August, [facility] [place] [facility] [address] [id number] [place] [address]- 4647 Jun, [facility] [place] [facility] [address] [id number] [place] [address]- 4147 Jun, [facility] [place] [facility] [address] [id number] [place] [address]- 7855 Apr, [facility] [place] [facility] [address] [id number] [place] [address]- 8836 Apr, [facility] [place] [facility] [address] [id number] [place] [address]- 5140 Apr, [facility] [place] [facility] [address] [id number] [place] [address]- 0939 Apr, [facility] [place] [facility] [address] [id number] [place] [address]- 5344 Apr, [facility] [place] [facility] [address] [id number] [place] [address]- 9199 Apr, [facility] [place] [facility] [address] [id number] [place] [address]- 2744 Jan, [facility] [place] [facility] [address] [id number], [place] [address]- 1163 Jan, [facility] [place] [facility] [address] [id number], [place] [address]- 6750 Jan, [facility] [place] [facility] [address] [id number] [place] [address]- 2473 Nov, [facility] [place] [facility] [address] [id number], [place] [address]- 5046 Oct, [facility] [place] [facility] [address] [id number] [place] [address]- 9319 Sep, [facility] [place] [facility] [address] [id number] [place] [address]- 8517 27 Sep, 2012 [facility] [place] [facility] [address] [id number] [place] [address]- 5060 Sep, [facility] [place] [facility] [address] [id number] [place] [address]- 9344 Sep, [facility] [place] [facility] [address] [id number] [place] [address]- 2483 Sep, [facility] [place] [facility] [address] [id number] [place] [address]- 7277 August, [facility] [place] [facility] [address] [id number] [place] [address] Jul, [facility] [place] [facility] [address] [id number] [place] [address]- 0285 Jul, [facility] [place] [facility] [address] [id number] [place] [address]- 8426 May, [facility] [place] [facility] [address] [id number] [place] [address]- 5223 Apr, [facility] [place] [facility] [address] [id number] [place] [address]- 8660 Mar, [facility] [place] [facility] [address] [facility] [id number] [place] [address]- 8448 Mar, [facility] [place] [facility] [address] [id number] [place] [address]- 1096 Feb, [facility] [place] [facility] [address] [id number] [place] [address]- 0062 Feb, [facility] [place] [facility] [address] [id number] [place] [address]- 4331 Feb, [facility] [place] [facility] [address] [facility] [id number] [place] [address]- 5719 Feb, [facility] [place] [facility] [address] [id number] [place] [address] 30 Jan, 2012 [facility] [place] [facility] [address] [id number] [place] [address]- 9243 Jan, [facility] [place] [facility] [address] [id number] [place] [address]- 5653 Jan, [facility] [place] [facility] [address] [id number] [place] [address]- 5608 Jan, [facility] [place] [facility] [address] [id number] [place] [address]- 0776 Dec, [facility] [address] [id number] [place] [address]- 3274 Sep, [facility] [place] [facility] [address] [id number] [place] [address]- 6609 August, [facility] [address] [id number] [place] [address]- 8345 August, [facility] [address] [id number] [place] [address]- 8418 Jul, [facility] [place] [facility] [address] [id number] [place] [address]- 2704 Jun, [facility] [place] [facility] [address] [id number] [place] [address]- 1550 Jun, [facility] [place] [facility] [address] [id number] [place] [address]- 2963 May, [facility] [place] [facility] [address] [id number], [place] [address]- 4147 Mar, [facility] [place] [facility] [address] [id number] [place] [address]- 2432 Mar, [facility] [place] [facility] [address] [id number] [place] [address]- 3236 Mar, [facility] [place] [facility] [address] [id number] [place] [address]- 8832 Feb, [facility] [place] [facility] [address] [id number], [place] [address]- 4361 Feb, [facility] [address], [place] [address]- 2534 Feb, [facility] [address], [place] [address]- 2514 Feb, [facility] [address], [place] [address]- 3103 Nov, [facility] [address] Mar, [facility] [id number] [place] [address] 42112- 2062 Feb, [facility] [id number] [place] [address] 945496- 5582 Jan, [facility] [id number] [place] [address] 495593- 5792 August, [facility] [address], [place] [address]- 6289 Mar, [facility] [address], [place] [address]- 0305 Mar, [facility] [address], [place] [address]- 5380 Jan, [facility] [address], [place] [address]- 8598 Jan, [facility] [address], [place] [address]- 3947 Jan, [facility] [address], [place] [address]- 6258 Jan, IMMUNIZATIONS No Known Immunizations SOCIAL HISTORY Never Assessed REASON FOR VISIT [facility] [place] PLAN OF CARE VITAL [...] lung Hospitalization History Acute resp distress, COPD exacerbation-VC 01/08/17 Hospitalization History COPD exacerbation-VC 01/22/17 Hospitalization History [facility] [place]- SOB 09/09/2017 Hospitalization History COPD/SEPTIC SHOCK, PNA 02/2018
--- OUTSIDE RECORDS SUMMARY | 2018-08-01 10:04 | XMS REPORT ---
Author Author Migration, Doctor Organization [facility] Address Unknown Phone Unavailable Care Team Providers Care Qc Manager Name Role Phone Migration, Doctor Unavailable Unavailable PROBLEMS Type Condition ICD9-CM Code [id number] Code Onset Dates Condition Status SNOMED Code Problem Recurrent major depressive disorder, remission status unspecified F33.9 Active 22119206 Problem H/O esophageal reflux Z87.19 Active 749804422 Problem H/O benign neoplasm of colon Z86.018 Active 526682895 Problem Counseling on substance use and abuse Z71.89 Active 444762702 Problem Chronic obstructive pulmonary disease, unspecified COPD type J44.9 Active 34506772 Problem Anxiety F41.9 Active 93496386 Problem COPD with exacerbation J44.1 Active 958272825 Problem Chest pain, unspecified R07.9 Active 92605566 Problem Menopausal and postmenopausal disorder N95.9 Active 023495081 Problem 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 958125545 Problem Pulmonary emphysema, unspecified emphysema type J43.9 Active 14301289 Problem 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 Active 589981208639 Problem Nicotine dependence, cigarettes, uncomplicated F17.210 Active 198136693 Problem Alcohol abuse F10.10 Active 83718425 ALLERGIES No Information ENCOUNTERS Encounter Location Date Diagnosis [place] [id number], [place] [address] Jul, [place] [address], [place] [address] Jun, [place] [id number] [place] [address]- [address] 25 May, 2018 Encounter for Medicare annual wellness exam Z00.00 ; Recurrent major depressive disorder, remission status unspecified F33.9 ; COPD with exacerbation J44.1 ; Pulmonary emphysema, unspecified emphysema type J43.9 ; Menopausal and postmenopausal disorder N95.9 and Vision changes H53.9 [place] [id number] [place] [address] Apr, Chronic obstructive pulmonary disease, unspecified COPD type J44.9 and No appetite R63.0 [facility] [id number] [place] [address]69- 6939 Mar, COPD with exacerbation J44.1 [facility] [id number] [place] [address]- 2725 Mar, [place] [address] [address]- [address] Mar, [facility] [address] [address] Feb, COPD with exacerbation J44.1 ; Acute left-sided low back pain without sciatica M54.5 and Alcohol abuse F10.[address] [address] Nov, [place] [address] [address] Sep, Chronic obstructive pulmonary disease, unspecified COPD type J44.9 ; Financial problems Z59.8 and Nicotine dependence, cigarettes, uncomplicated F17.210 [facility] [id number] [place] [address] 91032- 5665 August, Chronic obstructive pulmonary disease with (acute) exacerbation J44.1 ; Nicotine dependence, cigarettes, uncomplicated F17.210 and 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 [facility] [id number] [place] [address]6332 -9223 Jun, COPD exacerbation J44.1 [facility] [id number] [place] [address] 08149- 0207 Mar, Flu-like symptoms R68.89 and Chronic obstructive pulmonary disease, unspecified COPD type J44.9 [facility] [id number] [place] [address] 48491- 8287 Jan, Pulmonary emphysema, unspecified emphysema type J43.9 [place] [id number] [place] [id number] Jan, [place] [address] [address] Jan, Chronic obstructive pulmonary disease, unspecified COPD type J44.9 ; Encounter for immunization Z23 ; Thrush B37.0 and Anxiety F41.9 [place] [address] [id number] Dec, [place] [address] [address] Dec, [place] [address] [address]- [address] Sep, Chronic obstructive pulmonary disease, unspecified COPD type J44.9 and Erysipelas A46 [facility] [address] [place] [address]10 [address]2563 Sep, Irritant contact dermatitis due to other agents L24.89 [facility] [address] [address] Jun, Allergic dermatitis L23.9 and Bug bite, initial encounter W57.[address] [place] [id number] [place] [address] 21377- 2758 May, Shoulder impingement, right M75.41 [place] [address] [address]- 28[address] 08 Mar, 2016 Impingement syndrome, shoulder, left M75.42 [place] [id number] [place] [address] 94198- 9187 Feb, Left arm pain M79.602 [place] [id number] [place] [address] 59087- 7679 14 Jan, 2016 [place] [id number] [place] [address] 54702- 9730 13 Jan, 2016 Left arm pain M79.602 and Acute pain of left shoulder M25.512 [facility] [address] [address] Dec, Muscle spasm M62.838 and Cervicalgia M54.2 [place] [address] 54794- 5[address] Oct, COPD (chronic obstructive pulmonary disease) J44.9 [place] [address] [address]40- 5331 Sep, Chronic obstructive pulmonary disease, unspecified COPD type J44.9 [place] [address] 09163- 7828 Jun, COPD (chronic obstructive pulmonary disease) J44.9 [facility] [address] [address] May, Chest pain R07.9 ; Epigastric burning sensation R10.13 and Gastritis K29.[address] [address]- [address]71 Mar, Screening, lipid Z13.[address] [address]14- [address] Mar, Sebaceous cyst L72.[address] 99889- 5233 Feb, Encounter for screening for malignant neoplasm of cervix Z12.4 ; Well woman exam Z01.419 ; Depression F32.9 ; History of chest pain Z87.898 ; BMI 25.0-25.9,adult Z68.25 ; Dense breast tissue R92.2 ; Lipid screening Z13.220 and Vaginal lesion N89.[address] [address]- 4475 24 Feb, 2015 Breast cancer screening Z12.39 ; Encounter for immunization Z23 ; Left arm pain M79.602 ; Chronic obstructive pulmonary disease, unspecified COPD type J44.9 ; Gastroesophageal reflux disease, esophagitis presence not specified K21.9 and Lipid screening Z13.220 [facility] [address], [place] [address] 14 Jul, 2014 [facility] [address], [place] [address] Jul, [facility] [id number] [place] [address] 89562- 6085 May, [facility] [id number] [place] [address] 67795- 4935 May, [facility] [id number] [place] [address] 94129- 4773 Mar, [facility] [id number] [place] [address] 25443- 7755 Mar, [facility] [id number] [place] [address] 17628- 2883 Mar, [facility] [id number] [address] 2011 Mar, [facility] [id number] [place] [address] 51485- 2876 Feb, [facility] [address], [place] [address]- 2[address] Feb, [facility] [address], [place] [address] 5236 Jan, [facility] [address] [facility] [id number] [address]- 69[address] Jan, [facility] [address], [place] [address]- 2829 Jan, [facility] [address] [address]- 7622 Jan, [facility] [address], [place] [address]- 8941 Jan, [facility] [place] [facility] [address] [id number] [place] [address]- 8382 14 Jan, 2014 [facility] [place] [facility] [address] [id number] [place] [address]- 0072 14 Jan, 2014 [facility] [place] [facility] [address] [id number] [place] [address]- 2501 14 Jan, 2014 [facility] [place] [facility] [address] [id number] [place] [address]- 3433 14 Jan, 2014 [facility] [place] [facility] [address] [id number] [place] [address]- 9160 07 Jan, 2014 [facility] [place] [facility] [address] [id number] [place] [address]- 0600 07 Jan, 2014 [facility] [place] [facility] [address] [id number] [place] [address]- 0606 24 Dec, 2013 [facility] [place] [facility] [address] [id number] [place] [address]- 9263 24 Dec, 2013 [facility] [place] [facility] [address] [id number] [place] [address]- 2566 23 Dec, 2013 [facility] [place] [facility] [address] [id number] [place] [address]- 4097 23 Dec, 2013 [facility] [place] [facility] [address] [id number] [place] [address]- 3455 12 Dec, 2013 [facility] [place] [facility] [address] [id number] [place] [address]- 6303 Dec, [facility] [place] [facility] [address] [id number] [place] [address]- 3734 Dec, [facility] [place] [facility] [address] [id number] [place] [address]- 8043 Dec, [facility] [place] [facility] [address] [id number] [place] [address]- 5243 August, [facility] [place] [facility] [address] [id number] [place] [address]- 5348 August, [facility] [place] [facility] [address] [id number] [place] [address]- 2319 Jun, [facility] [place] [facility] [address] [id number] [place] [address]- 5744 Jun, [facility] [place] [facility] [address] [id number] [place] [address]- 1927 Apr, [facility] [place] [facility] [address] [id number] [place] [address]- 8843 Apr, [facility] [place] [facility] [address] [id number] [place] [address]- 2517 Apr, [facility] [place] [facility] [address] [id number] [place] [address]- 1563 Apr, [facility] [place] [facility] [address] [id number] [place] [address]- 7651 Apr, [facility] [place] [facility] [address] [id number] [place] [address]- 7263 Apr, [facility] [place] [facility] [address] [id number] [place] [address]- 1708 Jan, [facility] [place] [facility] [address] [id number] [place] [address]- 6967 Jan, [facility] [place] [facility] [address] [id number], [place] [address]- 7413 Jan, [facility] [place] [facility] [address] [id number], [place] [address]- 4293 Nov, [facility] [place] [facility] [address] [id number] [place] [address]- 8704 Oct, [facility] [place] [facility] [address] [id number], [place] [address]- 8052 Sep, [facility] [place] [facility] [address] [id number] [place] [address]- 3858 Sep, [facility] [place] [facility] [address] [id number] [place] [address]- 4830 Sep, [facility] [address] [id number] [place] [address]- 7971 Sep, [facility] [place] [facility] [address] [id number] [place] [address]- 2504 Sep, [facility] [place] [facility] [address] [id number] [place] [address]- 8449 August, [facility] [place] [facility] [address] [id number] [place] [address]- 7501 Jul, [facility] [place] [facility] [address] [id number] [place] [address]- 5976 Jul, [facility] [place] [facility] [address] [id number] [place] [address]- 5746 May, [facility] [place] [facility] [address] [id number] [place] [address]- 4521 Apr, [facility] [place] [facility] [address] [id number] [place] [address]- 2803 Mar, [facility] [place] [facility] [address] [id number] [place] [address]- 5949 Mar, [facility] [place] [facility] [address] [facility] [id number] [place] [address]- 9234 Feb, [facility] [place] [facility] [address] [id number] [place] [address]- 4398 Feb, [facility] [place] [facility] [address] [id number] [place] [address]- 1999 Feb, [facility] [place] [facility] [address] [id number] [place] [address]- 6195 Feb, [facility] [place] [facility] [address] [facility] [id number] [place] [address] Jan, [facility] [place] [facility] [address] [id number] [place] [address]- 7145 Jan, [facility] [place] [facility] [address] [id number] [place] [address]- 9138 Jan, [facility] [address] [id number] [place] [address]874 Jan, [facility] [address] [id number] [place] [address]- 7197 Dec, [facility] [place] [facility] [address] [id number] [place] [address]- 6611 Sep, [facility] [address] [id number] [place] [address]- 7434 August, [facility] [address] [id number] [place] [address]- 2174 August, [facility] [address] [id number] [place] [address]146 Jul, [facility] [address] [id number] [place] [address]- 4739 Jun, [facility] [address] [id number] [place] [address]- 3742 Jun, [facility] [address] [id number] [place] [address]- 6109 May, [facility] [address] [id number] [place] [address] Mar, [facility] [place] [facility] [address] [id number], [place] [address]- 1745 Mar, [facility] [place] [facility] [address] [id number] [place] [address]- 1593 Mar, [facility] [place] [facility] [address] [id number] [place] [address]- 9967 Feb, [facility] [place] [facility] [address] [id number] [place] [address]- 6191 Feb, [facility] [place] [facility] [address] [id number], [place] [address] 2546 Feb, [facility] [address], [place] [address]- 2406 Feb, [facility] [address], [place] [address]- 4886 Nov, [facility] [address], [place] [address]- 8342 14 Mar, 2010 [facility] [address], [place] [address]- 0784 Feb, [facility] [address], [place] [address]- 5595 Jan, [facility] [address], [place] [address]- 1142 August, [facility] [address], [place] [address]- 4601 Mar, [facility] [address], [place] [address]- 6157 Mar, [facility] [address], [place] [address]- 2738 14 Jan, 2009 [facility] [address], [place] [address]- 2022 14 Jan, 2009 [facility] [id number], [place] [address]- 6313 Jan, [facility] [id number] 9416 Jan, IMMUNIZATIONS No Known Immunizations SOCIAL HISTORY Never Assessed REASON FOR VISIT EMR-[facility] [place] PLAN OF CARE VITAL SIGNS MEDICATIONS Medication Instructions Dosage Frequency Start Date End Date Duration Status sertraline 50 mg 1 tablet by Oral route 1 time per day May, Active Levaquin 500 mg 1 tablet by Oral route every 24 hours for 10 days May, Active Albuterol Sulfate 2.5 mg /3 mL (0.083 %) 1 Each by Inhalation route every 6 hours for cough and wheeze PRN for wheezing or cough Apr, Active Symbicort 160-4.5 mcg/actuation inhale 2 puffs by inhalation route 2 times per day in the morning and evening May, Active Tessalon Perles 100 mg 1 capsule by Oral route 3 times per day PRN May, Active Singulair 10 mg 1 tablet by Oral route 1 time per day May, Active RESULTS No Results PROCEDURES No Known [...] lung Hospitalization History Acute resp distress, COPD exacerbation-[facility] 01/08/17 Hospitalization History COPD exacerbation-[facility] 01/22/17 Hospitalization History [facility] [place]- SOB 09/09/2017 Hospitalization History COPD/[facility], [facility] 02/2018
--- OUTSIDE RECORDS SUMMARY | 2018-08-01 10:04 | XMS REPORT ---
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 Name Role Phone ANDRES KAUFFMAN Unavailable PROBLEMS Type Condition ICD9-CM Code CET85-NH Code Onset Dates Condition Status SNOMED Code Problem Chest pain, unspecified R07.9 Active 49266658 Problem Chronic obstructive pulmonary disease, unspecified COPD type J44.9 Active 06901938 Problem Counseling on substance use and abuse Z71.89 Active 732749684 Problem Alcohol abuse F10.10 Active 15152182 Problem COPD with exacerbation J44.1 Active 537292149 Problem Pulmonary emphysema, unspecified emphysema type J43.9 Active 72083068 Problem Anxiety F41.9 Active 09370832 Problem Nicotine dependence, cigarettes, uncomplicated F17.210 Active 333223527 Problem 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 Active 923165575924 Problem Dislocation of left elbow, subsequent encounter V58.89 Active 876898075 Problem H/O benign neoplasm of colon Z86.018 Active 182763012 Problem H/O esophageal reflux Z87.19 Active 453865906 Problem Recurrent major depressive disorder, remission status unspecified F33.9 Active 54499905 Problem 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 145223976 ALLERGIES Substance Reaction Event Type Date Status Codeine Sulfate Unknown Drug Allergy Feb, Active ENCOUNTERS Encounter Location Date Diagnosis [facility] [address] [facility] [id number] [address] Apr, [facility] [address] [id number] [address] Mar, COPD with exacerbation J44.1 [facility] [address] [id number] [address] Mar, [facility] [id number] [place] [address]- 478[address] Mar, [facility] [id number] [place] [address]- 2352 Feb, COPD with exacerbation J44.1 ; Acute left-sided low back pain without sciatica M54.5 and Alcohol abuse F10.10 [facility] [id number] [place] [address]- [address] Nov, [place] [address] [address] Sep, Chronic obstructive pulmonary disease, unspecified COPD type J44.9 ; Financial problems Z59.8 and Nicotine dependence, cigarettes, uncomplicated F17.210 [place] [id number] [place] [address] August, Chronic obstructive pulmonary disease with (acute) exacerbation J44.1 ; Nicotine dependence, cigarettes, uncomplicated F17.210 and 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 [facility] [id number] [place] [address] Jun, COPD exacerbation J44.1 [place] [address] [address] Mar, Flu-like symptoms R68.89 and Chronic obstructive pulmonary disease, unspecified COPD type J44.9 [place] [id number] [place] [address]- 7[address] Jan, Pulmonary emphysema, unspecified emphysema type J43.9 [place] [address] [id number] [place] [id number] Jan, [place] [address] [address] Jan, Chronic obstructive pulmonary disease, unspecified COPD type J44.9 ; Encounter for immunization Z23 ; Thrush B37.0 and Anxiety F41.9 [facility] [address] [id number] Dec, [place] [address] [address] Dec, [place] [address] [address] Sep, Chronic obstructive pulmonary disease, unspecified COPD type J44.9 and Erysipelas A46 [facility] [address] [address] Sep, Irritant contact dermatitis due to other agents L24.89 [facility] [address] [address] Jun, Allergic dermatitis L23.9 and Bug bite, initial encounter W57.XXXA [address] [address] May, Shoulder impingement, right M75.[address] [address]- [address] Mar, Impingement syndrome, shoulder, left M75.42 [place] [address] [address]- 2047 Feb, Left arm pain M79.602 [place] [address] [address]- [address] 14 Jan, [address] [address] 13 Jan, 2016 Left arm pain M79.602 and Acute pain of left shoulder M25.512 [facility] [address] [address] 03 Dec, 2015 Muscle spasm M62.838 and Cervicalgia M54.2 [place] [address] [address]- [address] Oct, COPD (chronic obstructive pulmonary disease) J44.[address] [address]- [address] Sep, Chronic obstructive pulmonary disease, unspecified COPD type J44.9 [facility] [id number] [place] [address]- 58[address] Jun, COPD (chronic obstructive pulmonary disease) J44.9 [facility] [id number] [place] [address] May, Chest pain R07.9 ; Epigastric burning sensation R10.13 and Gastritis K29.70 [facility] [id number] [place] [address]- [address] Mar, Screening, lipid Z13.220 [place] [address] [address] Mar, Sebaceous cyst L72.3 [place] [address] [address]- 69[address] Feb, Encounter for screening for malignant neoplasm of cervix Z12.4 ; Well woman exam Z01.419 ; Depression F32.9 ; History of chest pain Z87.898 ; BMI 25.0-25.9,adult Z68.25 ; Dense breast tissue R92.2 ; Lipid screening Z13.220 and Vaginal lesion N89.8 [facility] [id number] [place] [address]- [address] Feb, Breast cancer screening Z12.39 ; Encounter for immunization Z23 ; Left arm pain M79.602 ; Chronic obstructive pulmonary disease, unspecified COPD type J44.9 ; Gastroesophageal reflux disease, esophagitis presence not specified K21.9 and Lipid screening Z13.220 [facility] [address] [place] [address]29- 42[address] Jul, [facility] [id number] [place] [address]27- 2571 Jul, [place] [id number] [place] [address]- 8698 May, [facility] [address] [address] May, [facility] [place] [facility] [address] [id number] [place] [address]- 45[address] Mar, [facility] [place] [facility] [address] [id number] [address] Mar, [facility] [place] [facility] [address] [id number] [place] [address]- 2070 Mar, [facility] [place] [facility] [address] [id number] [place] [address]- 27[address] Mar, [facility] [place] [facility] [address] [id number] [place] [address]- 130[address] Feb, [facility] [place] [facility] [address] [id number] [place] [address]- 48[address] Feb, [facility] [place] [facility] [address] [id number][place] [address] 24 Jan, 2014 [facility] [place] [facility] [address] [id number], [place] [address] Jan, [facility] [place] [facility] [address] [id number], [place] [address] 23 Jan, 2014 [facility] [place] [facility] [address] [facility] [id number], [place] [address] 15 Jan, 2014 [facility] [place] [facility] [address] [id number][place] [address] 35[address] 15 Jan, 2014 [facility] [place] [facility] [address] [id number][place] [address]- 4466 14 Jan, 2014 [facility] [place] [facility] [address] [id number][place] [address]- 3930 14 Jan, 2014 [facility] [place] [facility] [address] [facility] [id number][place] [address]- 110[address] 14 Jan, 2014 [facility] [place] [facility] [address] [facility] [id number], [place] [address]- 95[address] 14 Jan, 2014 [facility] [place] [facility] [address] [id number] [place] [address] 07 Jan, 2014 [facility] [place] [facility] [address] [id number] [place] [address]- 7709 Jan, [facility] [place] [facility] [address] [id number] [place] [address]- 7185 24 Dec, 2013 [facility] [place] [facility] [address] [id number] [place] [address]- 2905 24 Dec, 2013 [facility] [place] [facility] [address] [id number] [place] [address]- 2394 Dec, [facility] [place] [facility] [address] [id number] [place] [address]- [address] Dec, [facility] [place] [facility] [address] [id number] [place] [address]- 2073 Dec, [facility] [place] [facility] [address] [id number] [place] [address]- 4530 Dec, [facility] [place] [facility] [address] [id number] [place] [address]- 9898 Dec, [facility] [place] [facility] [address] [id number] [place] [address]- 2715 Dec, [facility] [place] [facility] [address] [id number] [place] [address]- 9514 August, [facility] [place] [facility] [address] [id number] [place] [address]- 1218 August, [facility] [place] [facility] [address] [id number] [place] [address]- 7654 Jun, [facility] [place] [facility] [address] [id number] [place] [address]- 2717 Jun, [facility] [place] [facility] [address] [id number] [place] [address]- 9614 Apr, [facility] [place] [facility] [address] [id number] [place] [address]- 0210 Apr, [facility] [place] [facility] [address] [id number] [place] [address]- 1871 Apr, [facility] [place] [facility] [address] [id number] [place] [address]- 4278 Apr, [facility] [place] [facility] [address] [id number] [place] [address]- 7316 Apr, [facility] [place] [facility] [address] [id number] [place] [address]- 9331 Apr, [facility] [place] [facility] [address] [id number] [place] [address]- 3774 Jan, [facility] [place] [facility] [address] [id number] [place] [address]- 4618 Jan, [facility] [place] [facility] [address] [id number] [place] [address]- 4701 Jan, [facility] [place] [facility] [address] [id number], [place] [address]- 9894 Nov, [facility] [place] [facility] [address] [id number] [place] [address]- 1121 Oct, [facility] [place] [facility] [address] [id number] [place] [address]- 8392 Sep, [facility] [place] [facility] [address] [id number], [place] [address]- 4472 Sep, [facility] [place] [facility] [address] [id number][place] [address]- 0660 Sep, [facility] [place] [facility] [address] [id number] [place] [address]- 5082 Sep, [facility] [place] [facility] [address] [id number], [place] [address]- 3972 Sep, [facility] [place] [facility] [address] [id number][place] [address]- 0966 August, [facility] [place] [facility] [address] [id number] [place] [address]- 3506 Jul, [facility] [place] [facility] [address] [id number] [place] [address]- 0343 Jul, [facility] [place] [facility] [address] [id number] [place] [address]- 4713 May, [facility] [place] [facility] [address] [id number] [place] [address]- 5504 Apr, [facility] [place] [facility] [address] [id number] [place] [address]- 8030 Mar, [facility] [place] [facility] [address] [id number] [place] [address]- 3438 Mar, [facility] [place] [facility] [address] [id number] [place] [address]- 3144 Feb, [facility] [place] [facility] [address] [facility] [id number] [place] [address]- 2850 Feb, [facility] [place] [facility] [address] [id number] [place] [address]- 0075 Feb, [facility] [place] [facility] [address] [facility] [id number] [place] [address]- 5233 Feb, [facility] [place] [facility] [address] [facility] [id number] [place] [address]- 7967 Jan, [facility] [place] [facility] [address] [id number] [place] [address]- 3047 Jan, [facility] [place] [facility] [address] [id number] [place] [address]- 8854 Jan, [facility] [place] [facility] [address] [id number] [place] [address]- 6487 Jan, [facility] [place] [facility] [address] [facility] [id number] [place] [address]- 0848 Dec, [facility] [place] [facility] [address] [id number] [place] [address]- 1624 Sep, [facility] [place] [facility] [address] [id number] [place] [address]- 6902 August, [facility] [place] [facility] [address] [id number] [place] [address]- 8238 August, [facility] [place] [facility] [address] [id number] [place] [address]- 9816 Jul, [facility] [place] [facility] [address] [id number] [place] [address]- 5675 Jun, [facility] [address] [id number] [place] [address]- 7145 Jun, [facility] [place] [facility] [address] [id number] [place] [address] May, [facility] [address] [id number] [place] [address]- 1263 Mar, [facility] [address] [id number] [place] [address]- 3132 Mar, [facility] [place] [facility] [address] [id number] [place] [address]- 3696 Mar, [facility] [address] [id number] [place] [address]- 6562 Feb, [facility] [place] [facility] [address] [id number] [place] [address]- 5561 Feb, [facility] [place] [facility] [address] [id number] [place] [address]- 2404 Feb, [facility] [place] [facility] [address] [id number] [place] [address]- 9992 Feb, [facility] [place] [facility] [address] [id number] [place] [address]- 5971 Nov, [facility] [place] [facility] [address] [id number] [place] [address]- 5162 14 Mar, 2010 [facility] [place] [facility] [address] [id number], [place] [address] 2546 Feb, [facility] [address] [address]- [address] Jan, [facility] [address] [address]- 5626 August, [facility] [address] [address]- 7293 Mar, [facility] [address] [address]- 5075 Mar, [facility] [address] [address]- 2145 Jan, [facility] [address] [address]- 3262 Jan, [facility] [address] [address]- 7260 Jan, [facility] [address] [id number] [address]- [address] Jan, IMMUNIZATIONS No Known Immunizations SOCIAL HISTORY Never Assessed REASON FOR VISIT [facility] follow up PLAN OF CARE Activity Details Follow Up prn Reason: VITAL SIGNS Height 65 in 2018-03-10 Weight 132.4 lbs 2018-03-10 Temperature 98.7 degrees Fahrenheit 2018-03-10 Heart Rate 76 bpm 2018-03-10 Respiratory Rate 20 2018-03-10 BMI 22.03 kg/m2 2018-03-10 Blood pressure systolic 104 mmHg 2018-03-10 Blood pressure diastolic 62 mmHg 2018-03-10 MEDICATIONS Medication Instructions Dosage Frequency Start Date End Date Duration Status Mucinex Active Sertraline HCl 100 mg Orally Once a day TAKE ONE TABLET BY MOUTH DAILY 24h 90 days Active Symbicort 160-4.5 INHALE 2 PUFFS BY MOUTH EVERY MORNING AND EVERY EVENING 90 Active Albuterol Sulfate (2.5 MG/3ML) 0.083% Inhalation Three times a day 3 ml 8h Sep, Active Aspirin 81 MG Orally Once a day 1 tablet 24h Active Ventolin HFA 108 (90 Base) MCG/ACT Inhalation every 4 hrs 2 puffs as needed 4h Sep, 30 Active Singulair 10 TAKE ONE TABLET BY MOUTH DAILY 90 Active RESULTS No Results PROCEDURES Procedure Date Ordered Result Body Site [facility] VISIT ESTABLISHED PATIENT Mar 10, 2018 INSTRUCTIONS MEDICATIONS ADMINISTERED No Known Medications MEDICAL (GENERAL) HISTORY Type Description Date Medical History Fx dislocation of left elbow 09/2014 Medical History Dislocation of left elbow, subsequent encounter Medical History COPD Surgical History c- section x 4 Surgical History left ear surgery 1971 Hospitalization History copd Hospitalization History collapsed right lung Hospitalization History Acute resp distress, COPD exacerbation-[facility] 01/08/17 Hospitalization History COPD exacerbation-[facility] 01/22/17 Hospitalization History [facility]- SOB 09/09/2017 Hospitalization History COPD/[facility], [facility] 02/2018
--- OUTSIDE RECORDS SUMMARY | 2018-08-01 10:04 | XMS REPORT ---
Author Author ANDRES KAUFFMAN Organization [facility] Address [address] [place] [address] Care Team Providers Care Skip Tracer Name Role Phone ANDRES KAUFFMAN Unavailable PROBLEMS Type Condition ICD9-CM Code [id number]-OL Code Onset Dates Condition Status SNOMED Code Problem Chest pain, unspecified R07.9 Active 35817582 Problem Chronic obstructive pulmonary disease, unspecified COPD type J44.9 Active 36711321 Problem Counseling on substance use and abuse Z71.89 Active 001273258 Problem Alcohol abuse F10.10 Active 80407097 Problem COPD with exacerbation J44.1 Active 629314710 Problem Pulmonary emphysema, unspecified emphysema type J43.9 Active 01770086 Problem Anxiety F41.9 Active 67460003 Problem Nicotine dependence, cigarettes, uncomplicated F17.210 Active 907071573 Problem 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 Active 601932901091 Problem Dislocation of left elbow, subsequent encounter V58.89 Active 566165694 Problem H/O benign neoplasm of colon Z86.018 Active 433125298 Problem H/O esophageal reflux Z87.19 Active 511476055 Problem Recurrent major depressive disorder, remission status unspecified F33.9 Active 56698074 Problem 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 [id number] [address] Apr, [facility] [address] [id number] [address] Mar, COPD with exacerbation J44.1 [facility] [address] [id number] [address] Mar, [facility] [id number] [place] [address]- 1206 Mar, [facility] [id number] [place] [address]88- 5026 Feb, COPD with exacerbation J44.1 ; Acute left-sided low back pain without sciatica M54.5 and Alcohol abuse F10.10 [facility] [id number] [place] [address]- [address]290 Nov, [place] [address] [address] Sep, Chronic obstructive pulmonary disease, unspecified COPD type J44.9 ; Financial problems Z59.8 and Nicotine dependence, cigarettes, uncomplicated F17.210 [place] [id number] [place] [address]- [address] August, Chronic obstructive pulmonary disease with (acute) exacerbation J44.1 ; Nicotine dependence, cigarettes, uncomplicated F17.210 and 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 [facility] [id number] [place] [address]658 Jun, COPD exacerbation J44.1 [place] [address] [address] Mar, Flu-like symptoms R68.89 and Chronic obstructive pulmonary disease, unspecified COPD type J44.9 [place] [id number] [place] [address] 74[address]- 9156 Jan, Pulmonary emphysema, unspecified emphysema type J43.9 [place] [address] [id number] [place] [id number] Jan, [place] [address] [address] Jan, Chronic obstructive pulmonary disease, unspecified COPD type J44.9 ; Encounter for immunization Z23 ; Thrush B37.0 and Anxiety F41.9 [facility] [address] [id number] Dec, [place] [address] [address] Dec, [place] [address] [address] Sep, Chronic obstructive pulmonary disease, unspecified COPD type J44.9 and Erysipelas A46 [facility] [address] [address] Sep, Irritant contact dermatitis due to other agents L24.89 [facility] [address] [address] Jun, Allergic dermatitis L23.9 and Bug bite, initial encounter W57.XXXA [address] [address] May, Shoulder impingement, right M75.[address] [address] Mar, Impingement syndrome, shoulder, left M75.42 [place] [address] [address] Feb, Left arm pain M79.602 [place] [address] [address]- [address] 14 Jan, [address] [address] 13 Jan, 2016 Left arm pain M79.602 and Acute pain of left shoulder M25.512 [facility] [address] [address] 03 Dec, 2015 Muscle spasm M62.838 and Cervicalgia M54.2 [place] [address] [address] Oct, COPD (chronic obstructive pulmonary disease) J44.[address] [address] Sep, Chronic obstructive pulmonary disease, unspecified COPD type J44.9 [facility] [id number] [place] [address]71- 7146 Jun, COPD (chronic obstructive pulmonary disease) J44.9 [facility] IN [facility] [id number] [place] [address] May, Chest pain R07.9 ; Epigastric burning sensation R10.13 and Gastritis K29.70 [facility] [id number] [place] [address]58- 9332 Mar, Screening, lipid Z13.220 [place] [address] [address] Mar, Sebaceous cyst L72.3 [place] [address] [address]- 119[address] Feb, Encounter for screening for malignant neoplasm of cervix Z12.4 ; Well woman exam Z01.419 ; Depression F32.9 ; History of chest pain Z87.898 ; BMI 25.0-25.9,adult Z68.25 ; Dense breast tissue R92.2 ; Lipid screening Z13.220 and Vaginal lesion N89.8 [facility] [id number] [place] [address]- 8007 Feb, Breast cancer screening Z12.39 ; Encounter for immunization Z23 ; Left arm pain M79.602 ; Chronic obstructive pulmonary disease, unspecified COPD type J44.9 ; Gastroesophageal reflux disease, esophagitis presence not specified K21.9 and Lipid screening Z13.220 [facility] [address] [place] [address]60- 7514 Jul, [facility] [id number] [place] [address] 38[address]- 9943 Jul, [place] [id number] [place] [address]- 8614 May, [facility] [address] [address] May, [facility] [place] [facility] [address] [id number] [place] [address] Mar, [facility] [place] [facility] [address] [id number] [address] Mar, [facility] [place] [facility] [address] [id number] [place] [address]- 8531 Mar, [facility] [place] [facility] [address] [id number] [place] [address]- 4400 Mar, [facility] [place] [facility] [address] [id number] [place] [address]- 5075 Feb, [facility] [place] [facility] [address] [id number] [place] [address]- 4557 Feb, [facility] [place] [facility] [address] [id number], [place] [address] 24 Jan, 2014 [facility] [place] [facility] [address] [id number], [place] [address] 93[address] Jan, [facility] [place] [facility] [address] [id number], [place] [address] 23 Jan, 2014 [facility] [place] [facility] [address] [facility] [id number], [place] [address] 39[address] 15 Jan, 2014 [facility] [place] [facility] [address] [id number], [place] [address]- 356[address] 15 Jan, 2014 [facility] [place] [facility] [address] [id number], [place] [address]- 3[address] 14 Jan, 2014 [facility] [place] [facility] [address] [id number][place] [address] 14 Jan, 2014 [facility] [place] [facility] [address] [facility] [id number], [place] [address]- 9980 14 Jan, 2014 [facility] [place] [facility] [address] [facility] [id number][place] [address] 5633 14 Jan, 2014 [facility] [place] [facility] [address] [id number] [place] [address] 07 Jan, 2014 [facility] [place] [facility] [address] [id number] [place] [address]- 6319 Jan, [facility] [place] [facility] [address] [id number] [place] [address]- 4067 24 Dec, 2013 [facility] [place] [facility] [address] [id number] [place] [address]- 9185 24 Dec, 2013 [facility] [place] [facility] [address] [id number] [place] [address]- 8603 Dec, [facility] [place] [facility] [address] [id number] [place] [address]- 0311 Dec, [facility] [place] [facility] [address] [id number] [place] [address]- 8517 Dec, [facility] [place] [facility] [address] [id number] [place] [address]- 3803 Dec, [facility] [place] [facility] [address] [id number] [place] [address]- 1191 Dec, [facility] [place] [facility] [address] [id number] [place] [address]- 9888 Dec, [facility] [place] [facility] [address] [id number] [place] [address]- 9472 August, [facility] [place] [facility] [address] [id number] [place] [address]- 9089 August, [facility] [place] [facility] [address] [id number] [place] [address]- 4951 Jun, [facility] [place] [facility] [address] [id number] [place] [address]- 7562 Jun, [facility] [place] [facility] [address] [id number] [place] [address]- 4828 Apr, [facility] [place] [facility] [address] [id number] [place] [address]- 7974 Apr, [facility] [place] [facility] [address] [id number] [place] [address]- 6540 Apr, [facility] [place] [facility] [address] [id number] [place] [address]- 6740 Apr, [facility] [place] [facility] [address] [id number] [place] [address]- 3372 Apr, [facility] [place] [facility] [address] [id number] [place] [address]- 1570 Apr, [facility] [place] [facility] [address] [id number] [place] [address]- 2072 Jan, [facility] [place] [facility] [address] [id number] [place] [address]- 7784 Jan, [facility] [place] [facility] [address] [id number] [place] [address]- 7422 Jan, [facility] [place] [facility] [address] [id number], [place] [address]- 6121 Nov, [facility] [place] [facility] [address] [id number] [place] [address]- 2911 Oct, [facility] [place] [facility] [address] [id number] [place] [address]- 6963 Sep, [facility] [place] [facility] [address] [id number], [place] [address]- 4570 Sep, [facility] [place] [facility] [address] [id number], [place] [address]- 3175 Sep, [facility] [place] [facility] [address] [id number] [place] [address]- 1561 Sep, [facility] [place] [facility] [address] [id number], [place] [address]- 7625 Sep, [facility] [place] [facility] [address] [id number], [place] [address]- 5332 August, [facility] [place] [facility] [address] [id number] [place] [address]- 5523 Jul, [facility] [place] [facility] [address] [id number] [place] [address]- 7995 Jul, [facility] [place] [facility] [address] [id number] [place] [address]- 6921 May, [facility] [place] [facility] [address] [id number] [place] [address]- 8163 Apr, [facility] [place] [facility] [address] [id number] [place] [address]- 6638 Mar, [facility] [place] [facility] [address] [id number] [place] [address]- 8334 Mar, [facility] [place] [facility] [address] [id number] [place] [address]- 5869 Feb, [facility] [place] [facility] [address] [facility] [id number] [place] [address]- 9287 Feb, [facility] [place] [facility] [address] [id number] [place] [address]- 5482 Feb, [facility] [place] [facility] [address] [facility] [id number] [place] [address]- 5203 Feb, [facility] [place] [facility] [address] [facility] [id number] [place] [address]- 5473 Jan, [facility] [place] [facility] [address] [id number] [place] [address]- 6273 Jan, [facility] [place] [facility] [address] [id number] [place] [address]- 6060 Jan, [facility] [place] [facility] [address] [id number] [place] [address]- 4079 Jan, [facility] [place] [facility] [address] [facility] [id number] [place] [address]- 1745 Dec, [facility] [place] [facility] [address] [id number] [place] [address]- 1025 Sep, [facility] [place] [facility] [address] [id number] [place] [address]- 6260 August, [facility] [place] [facility] [address] [id number] [place] [address]- 4671 August, [facility] [place] [facility] [address] [id number] [place] [address]- 1496 Jul, [facility] [place] [facility] [address] [id number] [place] [address]- 4375 Jun, [facility] [address] [id number] [place] [address]- 0361 Jun, [facility] [place] [facility] [address] [id number] [place] [address] May, [facility] [address] [id number] [place] [address]- 8544 Mar, [facility] [address] [id number] [place] [address]- 7697 Mar, [facility] [place] [facility] [address] [id number] [place] [address]- 0835 Mar, [facility] [address] [id number] [place] [address]- 6274 Feb, [facility] [place] [facility] [address] [id number] [place] [address]- 0189 Feb, [facility] [place] [facility] [address] [id number] [place] [address]- 4972 Feb, [facility] [place] [facility] [address] [id number] [place] [address]- 8467 Feb, [facility] [place] [facility] [address] [id number] [place] [address]- 5366 Nov, [facility] [place] [facility] [address] [id number] [place] [address]- 7978 14 Mar, 2010 [facility] [place] [facility] [address] [id number], [place] [address]- 4056 Feb, [facility] [address] [address]- 0[address] Jan, [facility] [address] [address]- 8001 August, [facility] [address] [address] Mar, [facility] [address] [place] [address]- 7390 Mar, [facility] [id number] [place] [address] 29578- 1771 Jan, [facility] [address] [place] [address] 1939[address]- 6982 Jan, [facility] [address] [address] Jan, [facility] [address] [address]- 3791 Jan, IMMUNIZATIONS No Known Immunizations SOCIAL HISTORY Never Assessed REASON FOR VISIT Hospital DC 03/23/18; COPD Exacerbation Pt in for hospital follow up, states she stays at home mostly to help with the breathing AVELINA Najera PLAN OF CARE Activity Details Follow Up 4 Weeks Reason:COPD VITAL SIGNS Height 65 in 2018-03-31 Weight 135.8 lbs 2018-03-31 Temperature 98.2 degrees Fahrenheit 2018-03-31 Heart Rate 113 bpm 2018-03-31 Respiratory Rate 22 2018-03-31 Oximetry on room air:91 % 2018-03-31 BMI 22.60 kg/m2 2018-03-31 MEDICATIONS Medication Instructions Dosage Frequency Start Date End Date Duration Status Sertraline HCl 100 mg Orally Once a day TAKE ONE TABLET BY MOUTH DAILY 24h 90 days Active PredniSONE 10 MG Orally Once a day Taper: 40 mg daily x3 d; 30 mg daily x3 d , 20 mg daily x3 d; 10 mg daily x3 d 24h Mar, 30 day(s) Active Mucinex Active Albuterol Sulfate (2.5 MG/3ML) 0.083% Inhalation Three times a day 3 ml 8h Sep, Active Symbicort 160-4.5 INHALE 2 PUFFS BY MOUTH EVERY MORNING AND EVERY EVENING 90 Active Singulair 10 TAKE ONE TABLET BY MOUTH DAILY 90 Active Ventolin HFA 108 (90 Base) MCG/ACT Inhalation every 4 hrs 2 puffs as needed 4h Sep, 30 Active Aspirin 81 MG Orally Once a day 1 tablet 24h Active RESULTS No Results PROCEDURES Procedure Date Ordered Result Body Site [facility] VISIT ESTABLISHED PATIENT Mar 31, 2018 INSTRUCTIONS MEDICATIONS ADMINISTERED No Known Medications MEDICAL (GENERAL) HISTORY Type Description Date Medical History Fx dislocation of left elbow 09/2014 Medical History Dislocation of left elbow, subsequent encounter Medical History COPD Surgical History c- section x 4 Surgical History left ear surgery 1971 Hospitalization History copd Hospitalization History collapsed right lung Hospitalization History Acute resp distress, COPD exacerbation-[facility] 01/08/17 Hospitalization History COPD exacerbation-[facility] 01/22/17 Hospitalization History [facility]- SOB 09/09/2017 Hospitalization History COPD/[facility], [facility] 02/2018
--- OUTSIDE RECORDS SUMMARY | 2018-08-01 10:05 | XMS REPORT ---
Author Author ANDRES KAUFFMAN Organization [facility] Address [address] [place] [address] Care Team Providers Care Software Tester Name Role Phone ANDRES KAUFFMAN Unavailable PROBLEMS Type Condition ICD9-CM Code YRI31-RZ Code Onset Dates Condition Status SNOMED Code Problem Chest pain, unspecified R07.9 Active 62198037 Problem Chronic obstructive pulmonary disease, unspecified COPD type J44.9 Active 92998629 Problem Counseling on substance use and abuse Z71.89 Active 489717795 Problem Alcohol abuse F10.10 Active 27602708 Problem COPD with exacerbation J44.1 Active 884163866 Problem Pulmonary emphysema, unspecified emphysema type J43.9 Active 70889954 Problem Anxiety F41.9 Active 28398813 Problem Nicotine dependence, cigarettes, uncomplicated F17.210 Active 908550817 Problem 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 Active 353113984708 Problem Dislocation of left elbow, subsequent encounter V58.89 Active 578314406 Problem H/O benign neoplasm of colon Z86.018 Active 370250313 Problem H/O esophageal reflux Z87.19 Active 367394387 Problem Recurrent major depressive disorder, remission status unspecified F33.9 Active 41501466 Problem 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 215266703 ALLERGIES No Information ENCOUNTERS Encounter Location Date Diagnosis [facility] [id number] [address] Mar, [facility] [id number] [place] [address] Mar, [place] [id number] [place] [address]- [address] Feb, COPD with exacerbation J44.1 ; Acute left-sided low back pain without sciatica M54.5 and Alcohol abuse F10.10 [place] [id number] [place] [address] 1996 Nov, [facility] [id number] [place] [address]- 1833 Sep, Chronic obstructive pulmonary disease, unspecified COPD type J44.9 ; Financial problems Z59.8 and Nicotine dependence, cigarettes, uncomplicated F17.210 [place] [address] [address] August, Chronic obstructive pulmonary disease with (acute) exacerbation J44.1 ; Nicotine dependence, cigarettes, uncomplicated F17.210 and 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 [facility] [address] [address] Jun, COPD exacerbation J44.1 [place] [address] [address] Mar, Flu-like symptoms R68.89 and Chronic obstructive pulmonary disease, unspecified COPD type J44.9 [place] [id number] [place] [address]- 2080 Jan, Pulmonary emphysema, unspecified emphysema type J43.9 [place] [address] [id number] Jan, [place] [id number] [place] [address] Jan, Chronic obstructive pulmonary disease, unspecified COPD type J44.9 ; Encounter for immunization Z23 ; Thrush B37.0 and Anxiety F41.9 [place] [id number] [place] [id number] Dec, [place] [address] [address] Dec, [facility] [id number] [place] [address]- 0920 Sep, Chronic obstructive pulmonary disease, unspecified COPD type J44.9 and Erysipelas A46 [facility] [address] [address] Sep, Irritant contact dermatitis due to other agents L24.89 [facility] [address] [address] Jun, Allergic dermatitis L23.9 and Bug bite, initial encounter W57.XXXA [address] [address] May, Shoulder impingement, right M75.[address] [address] Mar, Impingement syndrome, shoulder, left M75.[address] [address]- [address] Feb, Left arm pain M79.[address] [address]- [address] 14 Jan, [address] [address]- [address] 13 Jan, 2016 Left arm pain M79.602 and Acute pain of left shoulder M25.512 [facility] [address] [address] Dec, Muscle spasm M62.838 and Cervicalgia M54.[address] [address] Oct, COPD (chronic obstructive pulmonary disease) J44.[address] [address] Sep, Chronic obstructive pulmonary disease, unspecified COPD type J44.9 [place] [address] [address] Jun, COPD (chronic obstructive pulmonary disease) J44.9 [facility] [address] [address] May, Chest pain R07.9 ; Epigastric burning sensation R10.13 and Gastritis K29.70 [place] [address] [address]- [address] Mar, Screening, lipid Z13.220 [place] [address] [address] Mar, Sebaceous cyst L72.3 [place] [address] [address] 30 Feb, 2015 Encounter for screening for malignant neoplasm of cervix Z12.4 ; Well woman exam Z01.419 ; Depression F32.9 ; History of chest pain Z87.898 ; BMI 25.0-25.9,adult Z68.25 ; Dense breast tissue R92.2 ; Lipid screening Z13.220 and Vaginal lesion N89.8 [place] [address] [address]- [address] Feb, Breast cancer screening Z12.39 ; Encounter for immunization Z23 ; Left arm pain M79.602 ; Chronic obstructive pulmonary disease, unspecified COPD type J44.9 ; Gastroesophageal reflux disease, esophagitis presence not specified K21.9 and Lipid screening Z13.220 [place] [address] [address] Jul, [place] [id number] [place] [address]- [address] Jul, [place] [address] [address]- [address] May, [place] [address] [address]- [address] May, [place] [address] [address] Mar, [place] [address] [address] Mar, [place] [address] [facility] [id number] [place] [address] Mar, [facility] [place] [facility] [address] [id number] [place] [address]- [address] Mar, [facility] [place] [facility] [address] [id number] [place] [address]- 5899 Feb, [facility] [place] [facility] [address] [id number] [place] [address]- 8[address] Feb, [facility] [place] [facility] [address] [id number] [place] [address]- 9[address] Jan, [facility] [place] [facility] [address] [id number] [place] [address]- 57[address] Jan, [facility] [place] [facility] [address] [id number] [place] [address]- 9246 Jan, [facility] [place] [facility] [address] [id number] [place] [address]- 7348 15 Jan, 2014 [facility] [place] [facility] [address] [id number] [place] [address]- 5307 15 Jan, 2014 [facility] [place] [facility] [address] [id number] [place] [address]- 2186 14 Jan, 2014 [facility] [place] [facility] [address] [id number] [place] [address]- 1874 14 Jan, 2014 [facility] [place] [facility] [address] [id number] [place] [address]- 4328 14 Jan, 2014 [facility] [place] [facility] [address] [id number] [place] [address]- 3488 14 Jan, 2014 [facility] [place] [facility] [address] [id number] [place] [address]- 6843 Jan, [facility] [place] [facility] [address] [id number] [place] [address]- 8986 Jan, [facility] [place] [facility] [address] [id number] [place] [address]- 0588 Dec, [facility] [place] [facility] [address] [id number] [place] [address]- 1395 24 Dec, 2013 [facility] [place] [facility] [address] [id number] [place] [address]- 6298 Dec, [facility] [place] [facility] [address] [id number] [place] [address]- 9253 Dec, [facility] [place] [facility] [address] [id number] [place] [address]- 5015 Dec, [facility] [place] [facility] [address] [id number] [place] [address]- 8906 Dec, [facility] [place] [facility] [address] [id number] [place] [address]- 5701 Dec, [facility] [place] [facility] [address] [id number] [place] [address]- 9984 Dec, [facility] [place] [facility] [address] [id number] [place] [address]- 3417 August, [facility] [place] [facility] [address] [id number] [place] [address]- 4197 August, [facility] [place] [facility] [address] [id number] [place] [address]- 2655 Jun, [facility] [place] [facility] [address] [id number] [place] [address]- 6708 Jun, [facility] [place] [facility] [address] [id number] [address]- 8[address] Apr, [facility] [place] [facility] [address] [id number] [place] [address]- 9975 Apr, [facility] [place] [facility] [address] [id number] [place] [address]- 4295 Apr, [facility] [place] [facility] [address] [id number] [place] [address]- 0094 Apr, [facility] [place] [facility] [address] [id number] [place] [address]- 7712 Apr, [facility] [address] [id number] [place] [address]- 4937 Apr, [facility] [place] [facility] [address] [id number] [place] [address]- 3857 Jan, [facility] [place] [facility] [address] [id number] [place] [address]- 8443 Jan, [facility] [place] [facility] [address] [id number] [place] [address]- 6706 Jan, [facility] [place] [facility] [address] [id number] [place] [address]- 7469 Nov, [facility] [place] [facility] [address] [id number] [place] [address]- 8517 Oct, [facility] [place] [facility] [address] [id number] [place] [address]- 0350 Sep, [facility] [place] [facility] [address] [id number] [place] [address]- 1856 Sep, [facility] [place] [facility] [address] [id number] [place] [address]- 3946 Sep, [facility] [place] [facility] [address] [id number] [place] [address]- 3071 Sep, [facility] [place] [facility] [address] [id number] [place] [address]- 7940 Sep, [facility] [place] [facility] [address] [id number] [place] [address]- 1332 August, [facility] [place] [facility] [address] [id number] [place] [address]- 2778 Jul, [facility] [place] [facility] [address] [id number] [place] [address]- 4960 Jul, [facility] [place] [facility] [address] [id number] [place] [address]- 9636 May, [facility] [place] [facility] [address] [id number] [place] [address]- 8673 Apr, [facility] [place] [facility] [address] [id number] [place] [address]- 2135 Mar, [facility] [place] [facility] [address] [id number] [place] [address]- 9721 Mar, [facility] [place] [facility] [address] [id number] [place] [address]- 7256 Feb, [facility] [place] [facility] [address] [id number] [place] [address]- 6705 Feb, [facility] [place] [facility] [address] [id number] [place] [address]- 2096 Feb, [facility] [place] [facility] [address] [id number] [place] [address]- 5374 Feb, [facility] [place] [facility] [address] [id number] [place] [address]- 0219 Jan, [facility] [place] [facility] [address] [id number] [place] [address]- 2678 Jan, [facility] [place] [facility] [address] [id number] [place] [address]- 2220 Jan, [facility] [place] [facility] [address] [id number] [place] [address]- 6055 Jan, [facility] [place] [facility] [address] [id number] [place] [address]- 2593 Dec, [facility] [place] [facility] [address] [id number] [place] [address]- 0517 Sep, [facility] [place] [facility] [address] [id number] [place] [address]- 3802 August, [facility] [place] [facility] [address] [id number] [place] [address]- 5139 August, [facility] [place] [facility] [address] [id number] [place] [address]- 6576 Jul, [facility] [address] [id number] [place] [address] Jun, [facility] [place] [facility] [address] [id number] [place] [address]- 5146 Jun, [facility] [place] [facility] [address] [id number] [place] [address]- 1741 May, [facility] [place] [facility] [address] [id number] [place] [address]- 3387 Mar, [facility] [place] [facility] [address] [id number] [place] [address] Mar, [facility] [place] [facility] [address] [id number] [place] [address]- 0017 Mar, [facility] [place] [facility] [address] [id number] [place] [address] Feb, [facility] [place] [facility] [address] [id number] [place] [address]- 9340 Feb, [facility] [place] [facility] [address] [id number] [place] [address]- 1398 Feb, [facility] [place] [facility] [address] [id number] [place] [address]- 3521 Feb, [facility] [place] [facility] [address] [id number] [place] [address]- 6419 Nov, [facility] [place] [facility] [address] [id number] [place] [address]- 5945 Mar, [facility] [place] [facility] [address] [id number] [place] [address]- 5206 Feb, [facility] [place] [facility] [address] [id number] [place] [address]- 2630 Jan, [facility] [place] [facility] [address] [id number] [place] [address]- 1673 August, [facility] [place] [facility] [id number] Mar, [facility] [id number] Mar, [facility] [address] Jan, [facility] [address] Jan, [facility] [address] [place] [address]- 0[address] Jan, [facility] [address] [address]- 9124 Jan, IMMUNIZATIONS No Known Immunizations SOCIAL HISTORY Never Assessed REASON FOR VISIT TCM call PLAN OF CARE VITAL SIGNS MEDICATIONS Medication Instructions Dosage Frequency Start Date End Date Duration Status Aspirin 81 MG Orally Once a day 1 tablet 24h Active PredniSONE 10 MG Orally Once a day Taper: 40 mg daily x3 d; 30 mg daily x3 d , 20 mg daily x3 d; 10 mg daily x3 d 24h Mar, 30 day(s) Active Sertraline HCl 100 mg Orally Once a day TAKE ONE TABLET BY MOUTH DAILY 24h 90 days Active Albuterol Sulfate (2.5 MG/3ML) 0.083% Inhalation Three times a day 3 ml 8h Sep, Active Mucinex Active Ventolin HFA 108 (90 Base) MCG/ACT [...] lung Hospitalization History Acute resp distress, COPD exacerbation-[facility] 01/08/17 Hospitalization History COPD exacerbation-[facility] 01/22/17 Hospitalization History [facility] [place]- SOB 09/09/2017 Hospitalization History COPD/[facility] 02/2018
--- NOTE | 2018-08-01 12:12 | Anesthesia-General Post-Op ---
MAC Patient Condition Mental Status/LOC: Same as Preop Cardiovascular: Satisfactory Nausea/Vomiting: Absent Respiratory: Satisfactory Pain: Controlled Complications: Absent Post Op Complications Complications None Follow Up Care/Instructions Patient Instructions None needed. Anesthesiology Discharge Order Discharge Order Patient is doing well, no complaints, stable vital signs, no apparent adverse anesthesia problems. No complications reported per nursing. ALPHONSO SEN CRNA Aug 01, 2018 12:12
== END 2018-08-01 09:30 | disposition home or self-care (01) ==
LOC: SDC 07:47
PROVIDERS: ATTEND Specialist
DX: H25.11 Age-related nuclear cataract, right eye (principal); J44.9 Chronic obstructive pulmonary disease, unspecified; F17.210 Nicotine dependence, cigarettes, uncomplicated; Z79.899 Other long term (current) drug therapy

== ENCOUNTER → 2018-08-11 | Outpatient (CLI) | payer MEDICARE, MEDICAID ==
--- NOTE | 2018-08-11 12:17 | Diagnostic Imaging Report ---
INDICATION: Screening. COMPARISON: 03/22/2015 and 01/29/2014. TECHNIQUE: Bilateral CC and MLO 3D mammography was performed. The current study was also evaluated with a Computer Aided Detection (CAD) system. FINDINGS: There are scattered fibroglandular densities bilaterally. There are vascular and benign type calcifications. There is no new dominant mass, spiculated lesion, or suspicious calcifications identified. The skin, nipples, and axillae are unremarkable. IMPRESSION: Benign findings. ACR BI-RADS Category 2: Benign findings. Result letter will be mailed to the patient. Note: At least 10% of breast cancer is not imaged by mammography. Dictated by: Dictated on workstation # [id number]
== END ==
LOC: RAD 10:41
PROVIDERS: ATTEND Nurse Practitioner Community Health
DX: Z12.31 Encounter for screening mammogram for malignant neoplasm of breast (principal)
CPT/HCPCS: 77067

== ENCOUNTER 2018-08-12 06:53 | Outpatient (CLI) | payer MEDICARE, MEDICAID ==
[~2018-08-12] VITALS: Ht 162.6 cm; Wt 63.5 kg
== END 2018-08-13 09:35 ==
LOC: PREOP 06:53
PROVIDERS: ATTEND Specialist
DX: Z01.818 Encounter for other preprocedural examination (principal)

== ENCOUNTER 2018-08-15 07:55 | Day surgery (SDC) | payer MEDICARE, MEDICAID ==
[~2018-08-15] VITALS: Ht 162.6 cm; Wt 63.5 kg
[2018-08-15 08:00] VITALS: BP 124/83
[2018-08-15] MEDS ORDERED: LIDOCAINE PF 1% 2 ML AMP IR PRN (08:00)
[2018-08-15] MEDS ORDERED: MOXIFLOXACIN OPHTH SOLN 5 MG/ML 0.3 ML SYRINGE OP ONE (08:00)
[2018-08-15] MEDS ORDERED: POVIDONE (BETADINE) OPHTH SOLN 5% 30 ML OP ONE (08:00)
[2018-08-15] MEDS ORDERED: TIMOLOL MALEATE 0.5% 5 ML (TIMOPTIC) BTL OU PRN (08:00)
--- OUTSIDE RECORDS SUMMARY | 2018-08-15 08:01 | XMS REPORT ---
Author Author Migration, Doctor Organization [facility] Address Unknown Phone Unavailable Care Team Providers Care Branch Billing Payroll Clerk Name Role Phone Migration, Doctor Unavailable Unavailable PROBLEMS Type Condition ICD9-CM Code UZS20-ZZ Code Onset Dates Condition Status SNOMED Code Problem Recurrent major depressive disorder, remission status unspecified F33.9 Active 61175439 Problem H/O esophageal reflux Z87.19 Active 433152305 Problem H/O benign neoplasm of colon Z86.018 Active 806271246 Problem Counseling on substance use and abuse Z71.89 Active 918082294 Problem Chronic obstructive pulmonary disease, unspecified COPD type J44.9 Active 77134801 Problem Anxiety F41.9 Active 84896360 Problem COPD with exacerbation J44.1 Active 239699019 Problem Chest pain, unspecified R07.9 Active 83386134 Problem Menopausal and postmenopausal disorder N95.9 Active 808210682 Problem 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 296269549 Problem Pulmonary emphysema, unspecified emphysema type J43.9 Active 07531411 Problem 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 Active 782383395176 Problem Nicotine dependence, cigarettes, uncomplicated F17.210 Active 525425933 Problem Alcohol abuse F10.10 Active 56953891 ALLERGIES No Information ENCOUNTERS Encounter Location Date Diagnosis [place] [address] [address] Jul, [facility] [address], [place] [address] Jul, [place] [address], [place] [address] Jun, [place] [id number] [place] [address]36- [address] May, Encounter for Medicare annual wellness exam Z00.00 ; Recurrent major depressive disorder, remission status unspecified F33.9 ; COPD with exacerbation J44.1 ; Pulmonary emphysema, unspecified emphysema type J43.9 ; Menopausal and postmenopausal disorder N95.9 and Vision changes H53.9 [place] [address] [place] [id number] [place] [address] 27890- 9375 Apr, Chronic obstructive pulmonary disease, unspecified COPD type J44.9 and No appetite R63.0 [place] [address] [address]- [address] Mar, COPD with exacerbation J44.1 [place] [address] [address]- [address] Mar, [place] [address] [address]- [address] Mar, [place] [address] [address]- [address] Feb, COPD with exacerbation J44.1 ; Acute left-sided low back pain without sciatica M54.5 and Alcohol abuse F10.10 [place] [address] [address] Nov, [place] [address] [address] Sep, Chronic obstructive pulmonary disease, unspecified COPD type J44.9 ; Financial problems Z59.8 and Nicotine dependence, cigarettes, uncomplicated F17.210 [place] [address] [place] [id number] [place] [address] 23309- 2344 August, Chronic obstructive pulmonary disease with (acute) exacerbation J44.1 ; Nicotine dependence, cigarettes, uncomplicated F17.210 and 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 [facility] [address] [place] [id number] [place] [address] 59572 -9257 Jun, COPD exacerbation J44.1 [place] [address] [place] [id number] [place] [address] 82521- 9817 Mar, Flu-like symptoms R68.89 and Chronic obstructive pulmonary disease, unspecified COPD type J44.9 [place] [address] [place] [address] Jan, Pulmonary emphysema, unspecified emphysema type J43.9 [place] [address] [id number] Jan, [place] [address] [place] [id number] [place] [address] 22700- 6742 Jan, Chronic obstructive pulmonary disease, unspecified COPD type J44.9 ; Encounter for immunization Z23 ; Thrush B37.0 and Anxiety F41.9 [facility] [address] [place] [id number] [place] [address] [id number] Dec, [place] [address] [address]- [address] Dec, [place] [address] [place] [id number] [place] [address] 75304- 5869 Sep, Chronic obstructive pulmonary disease, unspecified COPD type J44.9 and Erysipelas A46 [facility] [address] [place] [id number] [place] [address] 91512 -8582 Sep, Irritant contact dermatitis due to other agents L24.89 [facility] [place] [id number] [place] [address] 80052 -3771 Jun, Allergic dermatitis L23.9 and Bug bite, initial encounter W57.XXXA [place] [address] [place] [id number] [place] [address] 76835- 3138 May, Shoulder impingement, right M75.41 [place] [address] [place] [id number] [place] [address] 98015- 2788 08 Mar, 2016 Impingement syndrome, shoulder, left M75.42 [place] [address] [place] [id number] [place] [address] 38996- 8814 07 Feb, 2016 Left arm pain M79.602 [place] [address] [place] [id number] [place] [address] 78115- 9305 14 Jan, 2016 [place] [address] [place] [id number] [place] [address] 41758- 3351 Jan, Left arm pain M79.602 and Acute pain of left shoulder M25.512 [facility] [address] [place] [address] -[address]86 Dec, Muscle spasm M62.838 and Cervicalgia M54.[address] [address]- [address] Oct, COPD (chronic obstructive pulmonary disease) J44.[address] [address]- [address] Sep, Chronic obstructive pulmonary disease, unspecified COPD type J44.9 [place] [address] [address]- 8[address] Jun, COPD (chronic obstructive pulmonary disease) J44.9 [facility] [address] [place] [address] 26380 -5677 May, Chest pain R07.9 ; Epigastric burning sensation R10.13 and Gastritis K29.[address] 7[address]28- 0387 08 Mar, 2015 Screening, lipid Z13.[address] 21804- 4458 Mar, Sebaceous cyst L72.[address] 84174- 4245 30 Feb, 2015 Encounter for screening for malignant neoplasm of cervix Z12.4 ; Well woman exam Z01.419 ; Depression F32.9 ; History of chest pain Z87.898 ; BMI 25.0-25.9,adult Z68.25 ; Dense breast tissue R92.2 ; Lipid screening Z13.220 and Vaginal lesion N89.[address] 16702- 4840 24 Feb, 2015 Breast cancer screening Z12.39 ; Encounter for immunization Z23 ; Left arm pain M79.602 ; Chronic obstructive pulmonary disease, unspecified COPD type J44.9 ; Gastroesophageal reflux disease, esophagitis presence not specified K21.9 and Lipid screening Z13.220 [facility] [address] [place] [id number] [place] [address] 32008- 4317 14 Jul, 2014 [facility] [address] [place] [id number] [place] [address] 53656- 3962 Jul, [facility] [address] [place] [id number] [place] [address] 07077- 5491 May, [facility] [address] [place] [id number] [place] [address] 93696- 4406 May, [facility] [address] [place] [id number] [place] [address] 32720- 6106 Mar, [facility] [address] [place] [id number] [place] [address] 11237- 4877 Mar, [facility] [address] [place] [id number] [place] [address] 53460- 1298 Mar, [facility] [address] [place] [id number] [place] [address] 94637- 4042 Mar, [facility] [address] [place] [id number] [place] [address] 62155- 7931 Feb, [facility] [address] [place] [id number] [place] [address] 44975- 2665 Feb, [facility] [address] [place] [id number] [place] [address] 65512- 3300 Jan, [facility] [address] [place] [id number] [place] [address] 47270- 2119 Jan, [facility] [address] [place] [id number] [place] [address] 60670- 9196 Jan, [facility] [address] [place] [id number] [place] [address] 55356- 8073 Jan, [facility] [place] [facility] [address] [id number] [place] [address]- 6055 15 Jan, 2014 [facility] [place] [facility] [address] [id number] [place] [address]- 6593 14 Jan, 2014 [facility] [place] [facility] [address] [id number] [place] [address]- 3998 14 Jan, 2014 [facility] [place] [facility] [address] [id number] [place] [address]- 0678 14 Jan, 2014 [facility] [place] [facility] [address] [id number] [place] [address]- 5087 14 Jan, 2014 [facility] [place] [facility] [address] [id number] [place] [address]- 3736 07 Jan, 2014 [facility] [place] [facility] [address] [id number] [place] [address]- 4267 07 Jan, 2014 [facility] [place] [facility] [address] [id number] [place] [address]- 4067 24 Dec, 2013 [facility] [place] [facility] [address] [id number] [place] [address]- 7072 24 Dec, 2013 [facility] [place] [facility] [address] [id number] [place] [address]- 6694 23 Dec, 2013 [facility] [place] [facility] [address] [id number] [place] [address]- 6395 23 Dec, 2013 [facility] [place] [facility] [address] [id number] [place] [address]- 1609 12 Dec, 2013 [facility] [place] [facility] [address] [id number] [place] [address]- 1221 12 Dec, 2013 [facility] [place] [facility] [address] [id number] [place] [address]- 4069 09 Dec, 2013 [facility] [place] [facility] [address] [id number] [place] [address]- 4914 09 Dec, 2013 [facility] [place] [facility] [address] [id number] [place] [address]- 8956 August, [facility] [place] [facility] [address] [id number] [place] [address]- 1317 August, [facility] [place] [facility] [address] [id number] [place] [address]- 3490 Jun, [facility] [place] [facility] [address] [id number] [place] [address]- 9933 Jun, [facility] [place] [facility] [address] [id number] [place] [address]- 3341 Apr, [facility] [place] [facility] [address] [id number] [place] [address]- 7542 Apr, [facility] [place] [facility] [address] [id number] [place] [address]- 0001 Apr, [facility] [place] [facility] [address] [id number] [place] [address]- 1437 Apr, [facility] [place] [facility] [address] [id number] [place] [address]- 7299 Apr, [facility] [place] [facility] [address] [id number] [place] [address]- 8200 Apr, [facility] [place] [facility] [address] [id number] [place] [address]- 9821 Jan, [facility] [place] [facility] [address] [id number], [place] [address]- 0384 Jan, [facility] [place] [facility] [address] [id number], [place] [address]- 9272 Jan, [facility] [place] [facility] [address] [id number] [place] [address]- 0000 Nov, [facility] [place] [facility] [address] [id number], [place] [address]- 5936 Oct, [facility] [place] [facility] [address] [id number] [place] [address]- 0704 Sep, [facility] [place] [facility] [address] [id number] [place] [address]- 4545 27 Sep, 2012 [facility] [place] [facility] [address] [id number] [place] [address]- 6416 Sep, [facility] [place] [facility] [address] [id number] [place] [address]- 8733 Sep, [facility] [place] [facility] [address] [id number] [place] [address]- 1943 Sep, [facility] [place] [facility] [address] [id number] [place] [address]- 7314 August, [facility] [place] [facility] [address] [id number] [place] [address] Jul, [facility] [place] [facility] [address] [id number] [place] [address]- 3069 Jul, [facility] [place] [facility] [address] [id number] [place] [address]- 5535 May, [facility] [place] [facility] [address] [id number] [place] [address]- 2676 Apr, [facility] [place] [facility] [address] [id number] [place] [address]- 9661 Mar, [facility] [place] [facility] [address] [facility] [id number] [place] [address]- 5190 Mar, [facility] [place] [facility] [address] [id number] [place] [address]- 8438 Feb, [facility] [place] [facility] [address] [id number] [place] [address]- 6127 Feb, [facility] [place] [facility] [address] [id number] [place] [address]- 2812 Feb, [facility] [place] [facility] [address] [facility] [id number] [place] [address]- 7999 Feb, [facility] [place] [facility] [address] [id number] [place]- 4794 30 Jan, 2012 [facility] [place] [facility] [address] [id number] [place] [address]- 8189 Jan, [facility] [place] [facility] [address] [id number] [place] [address]- 1997 Jan, [facility] [place] [facility] [address] [id number] [place] [address]- 0575 Jan, [facility] [place] [facility] [address] [id number] [place] [address]- 5449 Dec, [facility] [address] [id number] [place] [address]- 7269 Sep, [facility] [place] [facility] [address] [id number] [place] [address]- 8489 August, [facility] [address] [id number] [place] [address]- 8183 August, [facility] [address] [id number] [place] [address]- 1160 Jul, [facility] [place] [facility] [address] [id number] [place] [address]- 4475 Jun, [facility] [place] [facility] [address] [id number] [place] [address]- 4089 Jun, [facility] [place] [facility] [address] [id number] [place] [address]- 6464 May, [facility] [place] [facility] [address] [id number], [place] [address]- 3288 Mar, [facility] [place] [facility] [address] [id number] [place] [address]- 3865 Mar, [facility] [place] [facility] [address] [id number] [place] [address]- 7936 Mar, [facility] [place] [facility] [address] [id number] [place] [address]- 3543 Feb, [facility] [place] [facility] [address] [id number], [place] [address]- 6706 Feb, [facility] [address], [place] [address]- 9669 Feb, [facility] [address], [place] [address]- 4753 Feb, [facility] [address], [place] [address]- 7623 Nov, [facility] [address] 1052 Mar, [facility] [address] [place] [address] 01817- 7637 Feb, [facility] [address] [place] [address] 895177- 6417 Jan, [facility] [address] [place] [address] 070504- 6130 August, [facility] [address], [place] [address]- 5113 Mar, [facility] [address], [place] [address]- 0372 Mar, [facility] [address], [place] [address]- 9040 Jan, [facility] [address], [place] [address]- 5221 Jan, [facility] [address], [place] [address]- 6165 Jan, [facility] [address], [place] [address]- 0490 Jan, IMMUNIZATIONS No Known Immunizations SOCIAL HISTORY Never Assessed REASON FOR VISIT [facility] [place] PLAN OF CARE [...] COPD exacerbation-VC 01/22/17 Hospitalization History [facility]- SOB 09/09/2017 Hospitalization History COPD/SEPTIC SHOCK, PNA 02/2018
--- OUTSIDE RECORDS SUMMARY | 2018-08-15 08:01 | XMS REPORT ---
Author Author Migration, Doctor Organization [facility] Address Unknown Phone Unavailable Care Team Providers Care Chha Name Role Phone Migration, Doctor Unavailable Unavailable PROBLEMS Type Condition ICD9-CM Code JMS82-QG Code Onset Dates Condition Status SNOMED Code Problem Recurrent major depressive disorder, remission status unspecified F33.9 Active 42787233 Problem H/O esophageal reflux Z87.19 Active 636092683 Problem H/O benign neoplasm of colon Z86.018 Active 624137085 Problem Counseling on substance use and abuse Z71.89 Active 205543678 Problem Chronic obstructive pulmonary disease, unspecified COPD type J44.9 Active 20248274 Problem Anxiety F41.9 Active 69656311 Problem COPD with exacerbation J44.1 Active 101704608 Problem Chest pain, unspecified R07.9 Active 06735721 Problem Menopausal and postmenopausal disorder N95.9 Active 493425132 Problem 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 496347890 Problem Pulmonary emphysema, unspecified emphysema type J43.9 Active 33664078 Problem 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 Active 779715807650 Problem Nicotine dependence, cigarettes, uncomplicated F17.210 Active 454932088 Problem Alcohol abuse F10.10 Active 15831052 ALLERGIES No Information ENCOUNTERS Encounter Location Date Diagnosis [place] [address] [address] Jul, [facility] [address] [address] Jul, [place] [address] [address] Jun, [place] [id number] [place] [address]857- 49[address] May, Encounter for Medicare annual wellness exam Z00.00 ; Recurrent major depressive disorder, remission status unspecified F33.9 ; COPD with exacerbation J44.1 ; Pulmonary emphysema, unspecified emphysema type J43.9 ; Menopausal and postmenopausal disorder N95.9 and Vision changes H53.9 [place] [address] [place] [id number] [place] [address]68- 2361 Apr, Chronic obstructive pulmonary disease, unspecified COPD type J44.9 and No appetite R63.0 [place] [address] [address] Mar, COPD with exacerbation J44.1 [place] [address] [address]177- [address] Mar, [place] [address] 47899- [address] Mar, [place] [address] [address]- [address] Feb, COPD with exacerbation J44.1 ; Acute left-sided low back pain without sciatica M54.5 and Alcohol abuse F10.10 [place] [address] [address] Nov, [place] [address] [address]- [address] Sep, Chronic obstructive pulmonary disease, unspecified COPD type J44.9 ; Financial problems Z59.8 and Nicotine dependence, cigarettes, uncomplicated F17.210 [place] [address] [place] [id number] [place] [address] 41527- 5[address] August, Chronic obstructive pulmonary disease with (acute) exacerbation J44.1 ; Nicotine dependence, cigarettes, uncomplicated F17.210 and 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 [facility] [address] [id number] [place] [address]7845 -9004 Jun, COPD exacerbation J44.1 [place] [address] [place] [id number] [place] [address] 28564- 4743 Mar, Flu-like symptoms R68.89 and Chronic obstructive pulmonary disease, unspecified COPD type J44.9 [place] [address] [place] [address] Jan, Pulmonary emphysema, unspecified emphysema type J43.9 [place] [address] [id number] Jan, [place] [address] [place] [id number] [place] [address] 15344- 1798 Jan, Chronic obstructive pulmonary disease, unspecified COPD type J44.9 ; Encounter for immunization Z23 ; Thrush B37.0 and Anxiety F41.9 [facility] [address] [place] [id number] [place] [id number] Dec, [place] [address] [address]65- [address] Dec, [place] [address] [place] [id number] [place] [address] 30462- 6041 Sep, Chronic obstructive pulmonary disease, unspecified COPD type J44.9 and Erysipelas A46 [facility] [address] [id number] [place] [address] 18810 -3175 Sep, Irritant contact dermatitis due to other agents L24.89 [facility] [place] [id number] [place] [address] 42690 -3273 Jun, Allergic dermatitis L23.9 and Bug bite, initial encounter W57.XXXA [place] [address] [place] [id number] [place] [address] 10003- 5127 May, Shoulder impingement, right M75.41 [place] [address] [place] [id number] [place] [address] 67491- 6013 08 Mar, 2016 Impingement syndrome, shoulder, left M75.42 [place] [address] [place] [id number] [place] [address] 19310- 2511 07 Feb, 2016 Left arm pain M79.602 [place] [address] [place] [id number] [place] [address] 40031- 8791 14 Jan, 2016 [place] [address] [place] [id number] [place] [address] 57386- 8685 Jan, Left arm pain M79.602 and Acute pain of left shoulder M25.512 [facility] [address] [place] [address] 76724 -2472 Dec, Muscle spasm M62.838 and Cervicalgia M54.[address] [address]65- 6766 Oct, COPD (chronic obstructive pulmonary disease) J44.[address] 15339- 2481 Sep, Chronic obstructive pulmonary disease, unspecified COPD type J44.9 [place] [address] 08396- 3886 Jun, COPD (chronic obstructive pulmonary disease) J44.9 [facility] [address] [place] [address] 26266 -4664 May, Chest pain R07.9 ; Epigastric burning sensation R10.13 and Gastritis K29.[address] 69774- 7347 08 Mar, 2015 Screening, lipid Z13.[address] 27581- 5976 Mar, Sebaceous cyst L72.[address] 94725- 6835 30 Feb, 2015 Encounter for screening for malignant neoplasm of cervix Z12.4 ; Well woman exam Z01.419 ; Depression F32.9 ; History of chest pain Z87.898 ; BMI 25.0-25.9,adult Z68.25 ; Dense breast tissue R92.2 ; Lipid screening Z13.220 and Vaginal lesion N89.[address] 21675- 6894 24 Feb, 2015 Breast cancer screening Z12.39 ; Encounter for immunization Z23 ; Left arm pain M79.602 ; Chronic obstructive pulmonary disease, unspecified COPD type J44.9 ; Gastroesophageal reflux disease, esophagitis presence not specified K21.9 and Lipid screening Z13.220 [facility] [address] [place] [id number] [place] [address] 62600- 2823 14 Jul, 2014 [facility] [address] [place] [id number] [place] [address] 88082- 2511 Jul, [facility] [address] [place] [id number] [place] [address] 41772- 9320 May, [facility] [address] [place] [id number] [place] [address] 34640- 6343 May, [facility] [address] [place] [id number] [place] [address] 26853- 2525 Mar, [facility] [address] [place] [id number] [place] [address] 68381- 9985 Mar, [facility] [address] [place] [id number] [place] [address] 17213- 3509 Mar, [facility] [address] [place] [id number] [place] [address] 40641- 5350 Mar, [facility] [address] [place] [id number] [place] [address] 77518- 2696 Feb, [facility] [address] [place] [id number] [place] [address] 15150- 0593 Feb, [facility] [address] [place] [id number] [place] [address] 74513- 7689 Jan, [facility] [address] [place] [id number] [place] [address] 85951- 1618 Jan, [facility] [address] [place] [id number] [place] [address] 47770- 9440 Jan, [facility] [address] [place] [id number] [place] [address] 36787- 2621 Jan, [facility] [place] [facility] [address] [id number] [place] [address]- 7520 15 Jan, 2014 [facility] [place] [facility] [address] [id number] [place] [address]- 6629 14 Jan, 2014 [facility] [place] [facility] [address] [id number] [place] [address]- 8906 14 Jan, 2014 [facility] [place] [facility] [address] [id number] [place] [address]- 4260 14 Jan, 2014 [facility] [place] [facility] [address] [id number] [place] [address]- 2438 14 Jan, 2014 [facility] [place] [facility] [address] [id number] [place] [address]- 4416 07 Jan, 2014 [facility] [place] [facility] [address] [id number] [place] [address]- 8603 07 Jan, 2014 [facility] [place] [facility] [address] [id number] [place] [address]- 4953 24 Dec, 2013 [facility] [place] [facility] [address] [id number] [place] [address]- 1826 24 Dec, 2013 [facility] [place] [facility] [address] [id number] [place] [address]- 8763 23 Dec, 2013 [facility] [place] [facility] [address] [id number] [place] [address]- 0943 23 Dec, 2013 [facility] [place] [facility] [address] [id number] [place] [address]- 7962 12 Dec, 2013 [facility] [place] [facility] [address] [id number] [place] [address]- 1796 12 Dec, 2013 [facility] [place] [facility] [address] [id number] [place] [address]- 5714 09 Dec, 2013 [facility] [place] [facility] [address] [id number] [place] [address]- 0768 09 Dec, 2013 [facility] [place] [facility] [address] [id number] [place] [address]- 9509 August, [facility] [place] [facility] [address] [id number] [place] [address]- 6893 August, [facility] [place] [facility] [address] [id number] [place] [address]- 5724 Jun, [facility] [place] [facility] [address] [id number] [place] [address]- 6643 Jun, [facility] [place] [facility] [address] [id number] [place] [address]- 8302 Apr, [facility] [place] [facility] [address] [id number] [place] [address]- 2620 Apr, [facility] [place] [facility] [address] [id number] [place] [address]- 7178 Apr, [facility] [place] [facility] [address] [id number] [place] [address]- 6780 Apr, [facility] [place] [facility] [address] [id number] [place] [address]- 8833 Apr, [facility] [place] [facility] [address] [id number] [place] [address]- 8959 Apr, [facility] [place] [facility] [address] [id number] [place] [address]- 5974 Jan, [facility] [place] [facility] [address] [id number] [address]- 1327 Jan, [facility] [place] [facility] [address] [id number] [address]- 9405 Jan, [facility] [place] [facility] [address] [id number] [place] [address]- 6276 Nov, [facility] [place] [facility] [address] [id number] [address]- 0976 Oct, [facility] [place] [facility] [address] [id number] [place] [address]- 6624 Sep, [facility] [place] [facility] [address] [id number] [place] [address]- 3178 27 Sep, 2012 [facility] [place] [facility] [address] [id number] [place] [address]- 0301 Sep, [facility] [place] [facility] [address] [id number] [place] [address]- 2690 Sep, [facility] [place] [facility] [address] [id number] [place] [address]- 0582 Sep, [facility] [place] [facility] [address] [id number] [place] [address]- 2049 August, [facility] [place] [facility] [address] [id number] [place] 7663 Jul, [facility] [place] [facility] [address] [id number] [place] [address]- 6750 Jul, [facility] [place] [facility] [address] [id number] [place] [address]- 3714 May, [facility] [place] [facility] [address] [id number] [place] [address]- 7971 Apr, [facility] [place] [facility] [address] [id number] [place] [address]- 8310 Mar, [facility] [place] [facility] [address] [facility] [id number] [place] [address]- 0090 Mar, [facility] [place] [facility] [address] [id number] [place] [address]- 7750 Feb, [facility] [place] [facility] [address] [id number] [place] [address]- 1075 Feb, [facility] [place] [facility] [address] [id number] [place] [address]- 0834 Feb, [facility] [place] [facility] [address] [facility] [id number] [place] [address]- 0759 Feb, [facility] [place] [facility] [address] [id number] [place]- [address]397 30 Jan, 2012 [facility] [place] [facility] [address] [id number] [place] [address]- 7643 Jan, [facility] [place] [facility] [address] [id number] [place] [address]- 5369 Jan, [facility] [place] [facility] [address] [id number] [place] [address]- 0451 Jan, [facility] [place] [facility] [address] [id number] [place] [address]- 1478 Dec, [facility] [address] [id number] [place] [address]- 5196 Sep, [facility] [place] [facility] [address] [id number] [place] [address]- 1179 August, [facility] [address] [id number] [place] [address]- 2802 August, [facility] [address] [id number] [place] [address]- 1155 Jul, [facility] [place] [facility] [address] [id number] [place] [address]- 8139 Jun, [facility] [place] [facility] [address] [id number] [place] [address]- 6321 Jun, [facility] [place] [facility] [address] [id number] [place] [address]- 6298 May, [facility] [place] [facility] [address] [id number] [place] [address]- 7029 Mar, [facility] [place] [facility] [address] [id number] [place] [address]- 5377 Mar, [facility] [place] [facility] [address] [id number] [place] [address]- 0816 Mar, [facility] [place] [facility] [address] [id number] [place] [address]- 3338 Feb, [facility] [place] [facility] [address] [id number] [place] [address]- 1569 Feb, [facility] [address] [address]- 1657 Feb, [facility] [address] [address]- 2267 Feb, [facility] [address] [address]- 5248 Nov, [facility] [address] [address]49 Mar, [facility] [address] [place] [address] 37499- 8956 Feb, [facility] [address] [place] [address] 699282- 4078 Jan, [facility] [address] [place] [address] 235405- 1101 August, [facility] [address] [address]- 3450 Mar, [facility] [address] [address]- 5438 Mar, [facility] [address] [address]- 4508 Jan, [facility] [address] [address]- 8888 Jan, [facility] [address] [address]- 5859 Jan, [facility] [address] [address]- 8881 Jan, IMMUNIZATIONS No Known Immunizations SOCIAL HISTORY Never Assessed REASON FOR VISIT [facility] PLAN OF CARE VITAL SIGNS MEDICATIONS Unknown [...] COPD exacerbation-VC 01/22/17 Hospitalization History [facility] [place]- SOB 09/09/2017 Hospitalization History COPD/SE[facility], PNA 02/2018
[2018-08-15] MEDS: TETRACAINE 0.5% OPHTH SOLN 4 ML BTL (SINGLE DOSE ONLY) OU PRN ×4 (08:11→08:35)
[2018-08-15] MEDS: PHENYLEPHRINE 10% OPHTH (NEO-SYN) 5 ML BTL OU SCH ×3 (08:20→08:35)
[2018-08-15] MEDS: CYCLOPENTOLATE 1% (CYCLOGYL) 2 ML DROPS OP SCH ×3 (08:20→08:35)
[2018-08-15] MEDS ORDERED: MIDAZOLAM 2 MG/2 ML (VERSED) VIAL ONE (08:38)
--- NOTE | 2018-08-15 09:22 | Ophthalmology Operative Report ---
Cataract removal/placement IOL PREOPERATIVE DIAGNOSIS: Cataract Left Eye POSTOPERATIVE DIAGNOSIS: Cataract Left Eye PROCEDURE: Cataract removal and placement of posterior chamber implant, left eye SURGEON: Simeon Leroy ANESTHESIA: Topical with sedation COMPLICATIONS: None ESTIMATED BLOOD LOSS: Minimal DESCRIPTION OF PROCEDURE: After proper informed consent was obtained, the patient, a 63 female, was taken to the Operating Room and the left eye was anesthetized with tetracaine. The left eye was then prepped and draped in the usual manner. A wire lid speculum was placed. A paracentesis was made at the left hand position. Preservative free lidocaine was injected into the anterior chamber followed by viscoelastic. A clear corneal incision was made in the temporal position. A capsulorrhexis was preformed and the central nuclear and cortical material were removed. The posterior capsule was polished and an Constantine 23.0 [id number] was placed into the capsular bag. The residual viscoelastic was aspirated and balanced saline solution was injected into the anterior chamber. Moxifloxacin was injected into the anterior chamber. The wound was checked and found to be water tight. The patient tolerated the procedure well without complications. SIMEON LEROY MD August 15, 2018 09:22
--- NOTE | 2018-08-15 09:22 | Ophthalmologist Pre-Op Note ---
Pre-Operative Progress Note H&P Reviewed The H&P was reviewed, patient examined and no changes noted. Date H&P Reviewed: August 15, 2018 Time H&P Reviewed: 08:56 Pre-Op Dx Cataract, Left Eye ABIMBOLA LEROY MD August 15, 2018 09:22
--- NOTE | 2018-08-15 09:23 | Ophthalmologist Pre-Op Note ---
Pre-Operative Progress Note H&P Reviewed The H&P was reviewed, patient examined and no changes noted. Date H&P Reviewed: August 15, 2018 Time H&P Reviewed: 09:23 Pre-Op Dx Cataract, Left Eye ABIMBOLA LEROY MD August 15, 2018 09:23
[2018-08-15 09:28] VITALS: BP 109/66
[2018-08-15] MEDS ORDERED: acetaZOLAMIDE ER 500 MG CAP (DIAMOX SEQUELS) PO ONE (09:30)
--- NOTE | 2018-08-15 10:39 | Anesthesia-General Post-Op ---
MAC Patient Condition Mental Status/LOC: Same as Preop Cardiovascular: Satisfactory Nausea/Vomiting: Absent Respiratory: Satisfactory Pain: Controlled Complications: Absent Post Op Complications Complications None Follow Up Care/Instructions Patient Instructions None needed. Anesthesiology Discharge Order Discharge Order Patient was seen after the procedure and she was doing well, no complaints, stable vital signs, no apparent adverse anesthesia problems. VALERIANO SIMS DO August 15, 2018 10:39
== END 2018-08-15 09:28 | disposition home or self-care (01) ==
LOC: SDC 07:55
PROVIDERS: ATTEND Specialist
DX: H25.12 Age-related nuclear cataract, left eye (principal); J44.9 Chronic obstructive pulmonary disease, unspecified; F17.210 Nicotine dependence, cigarettes, uncomplicated; Z79.899 Other long term (current) drug therapy

== ENCOUNTER 2018-11-12 23:04 | Inpatient (IN) | payer MEDICARE, MEDICAID | END 2018-11-16 13:35 | disposition home or self-care (01) | LOC: ICU 11-13 00:25 → 4TH 11-14 12:00 → ER 23:04 ==

== ENCOUNTER 2018-11-26 13:56 | Outpatient (RCR) | payer MEDICARE, MEDICAID ==
[~2018-11-26 13:56] MED LIST changes: +FLUT1BLS3 INH
[2018-12-02 14:30] VITALS: BP 92/56
[2018-12-02 15:30] VITALS: BP 90/56
[2018-12-04 14:20] VITALS: BP 112/70
[2018-12-04 15:25] VITALS: BP 108/60
[2018-12-08] MEDS ORDERED: BUDE10.2 PO (10:31)
[2018-12-08] MEDS ORDERED: ASPI-586 PO (10:31)
[2018-12-08] MEDS ORDERED: CARB15DR2 OP (10:35)
[2018-12-10] MEDS ORDERED: BENZ100C18 PO (11:15)
[2018-12-10] MEDS ORDERED: PRED10TA22 PO (11:15)
[2018-12-10] MEDS ORDERED: LORA10TA7 PO (11:15)
[2018-12-25 14:30] VITALS: BP 97/70
[2018-12-25 15:33] VITALS: BP 90/60
[2018-12-30 14:10] VITALS: BP 130/56
[2018-12-30 15:25] VITALS: BP 120/50
[2019-01-01 14:28] VITALS: BP 100/50
[2019-01-01 15:22] VITALS: BP 100/60
[2019-01-15 14:25] VITALS: BP 100/60
[2019-01-15 15:30] VITALS: BP 100/64
[2019-01-20 14:30] VITALS: BP 100/62
[2019-01-20 16:01] VITALS: BP 100/60
[2019-02-03 14:27] VITALS: BP 118/60
[2019-02-03 15:33] VITALS: BP 124/62
[2019-02-05 14:30] VITALS: BP 132/64
[2019-02-05 15:39] VITALS: BP 118/60
[2019-02-10 14:20] VITALS: BP 106/62
[2019-02-10 15:35] VITALS: BP 82/64
[2019-02-12 14:00] VITALS: BP 118/48
[2019-02-12 15:04] VITALS: BP 102/60
[2019-02-17 14:00] VITALS: BP 106/60
[2019-02-17 15:45] VITALS: BP 103/68
[2019-02-24 14:15] VITALS: BP 143/60
[2019-02-24 15:10] VITALS: BP 122/60
[2019-02-26 14:20] VITALS: BP 130/60
[2019-02-26 15:20] VITALS: BP 112/55
== END 2019-02-24 | disposition home or self-care (01) ==
LOC: PULM 13:56
PROVIDERS: ATTEND Nurse Practitioner Family
DX: J96.20 Acute and chronic respiratory failure, unspecified whether with hypoxia or hypercapnia (principal); J44.9 Chronic obstructive pulmonary disease, unspecified; R63.4 Abnormal weight loss; F17.200 Nicotine dependence, unspecified, uncomplicated
CPT/HCPCS: 99211

== ENCOUNTER 2018-12-07 17:54 | Inpatient (IN) | payer MEDICARE, MEDICAID ==
[~2018-12-07] VITALS: Ht 162.6 cm; Wt 70.4 kg
[~2018-12-07 17:54] MED LIST changes: +RT-ALBUTEROL SULF 2.5 MG/3 ML PRE-MIX VIAL ONE; +RT-ALBUTEROL/IPRATROPIUM 3 ML (DUONEB) VIAL ONE
[2018-12-07 18:05] VITALS: BP 110/78
[2018-12-07] MEDS ORDERED: LACTATED RINGERS 1,000 ML IV ONE (18:09)
[2018-12-07] MEDS ORDERED: RT-ALBUTEROL SULF 2.5 MG/3 ML PRE-MIX VIAL INH STA (18:09)
[2018-12-07] MEDS ORDERED: RT-ALBUTEROL/IPRATROPIUM 3 ML (DUONEB) VIAL INH ONE (18:15)
[2018-12-07 18:18] LABS: BASOPHILS % (AUTO) 0 % (0-10); EOSINOPHILS # (AUTO) 0.4 10^3/uL (0.0-0.3); EOSINOPHILS % (AUTO) 5 % (0-10); HEMATOCRIT 42 % (35-52); HEMOGLOBIN 13.8 G/DL (11.5-16.0); LYMPHOCYTES # (AUTO) 4.3 X 10^3 (1.0-4.0); LYMPHOCYTES % (AUTO) 51 % (12-44); MEAN CORPUSCULAR HEMOGLOBIN 33 PG (25-34); MEAN CORPUSCULAR HGB CONC 33 G/DL (32-36); MEAN CORPUSCULAR VOLUME 101 FL (80-99); MEAN PLATELET VOLUME 10.2 FL (7.4-10.4); MONOCYTES # (AUTO) 0.6 X 10^3 (0.0-1.0); MONOCYTES % (AUTO) 7 % (0-12); NEUTROPHILS # (AUTO) 3.2 X 10^3 (1.8-7.8); NEUTROPHILS % (AUTO) 37 % (42-75); PLATELET COUNT 324 10^3/uL (130-400); RED CELL DISTRIBUTION WIDTH 13.5 % (10.0-14.5); WHITE BLOOD COUNT 8.5 10^3/uL (4.3-11.0)
--- NOTE | 2018-12-07 18:18 | ED General ---
General Chief Complaint: Respiratory Problems Stated Complaint: ASTHMA/SOB Source of Information: Patient Exam Limitations: No Limitations History of Present Illness Date Seen by Provider: Dec 07, 2018 Time Seen by Provider: 18:00 Initial Comments Here with report of increasing shortness of breath and weakness as well as left arm pain. She tried her albuterol nebulizers at home and that did not work. Ultimately called EMS. EMS noted initial O2 sat 81% on her typical 2 L via nasal cannula. She states she was only able to smoke 2 cigarettes today although she is trying to quit. Denies nausea or vomiting. Overall feels weak. Previous hospitalization for similar. Timing/Duration: 12-24 Hours Severity: Moderate Associated Systoms: Chest Pain, Cough; No Fever/Chills, No Nausea/Vomiting; Shortness of Air, Weakness Allergies and Home Medications Allergies Coded Allergies: codeine (Verified Allergy, Severe, Hives and swelling., 09/22/12) Home Medications Albuterol Sulfate 18 Gm Hfa.aer.ad, 2 PUFF INH Q4H PRN for SHORTNESS OF BREATH, (Reported) Albuterol Sulfate 2.5 Mg/3 Ml Vial.neb, 2.5 MG NEB Q4H PRN for SHORTNESS OF BREATH, (Reported) Aspirin 81 Mg Tablet.dr, 81 MG PO HS, (Reported) Fluticasone/Umeclidin/Vilanter 1 Each Blst.w.dev, 1 PUFF INH DAILY, (Reported) THIS IS TO REPLACE SYMBICORT (HAS NOT PICEKD UP BUT IS READY AND WAITING AT [facility]) Montelukast Sodium 10 Mg Tablet, 10 MG PO HS, (Reported) Prednisone 20 Mg Tab, 40 MG PO DAILY, (Reported) FILLED 11-12-18 BUT NOT PICKED UP YET, NEEDS TO KNOW IF SHE SHOULD TAKE AFTER DISCHARGE. Sertraline HCl 100 Mg Tablet, 100 MG PO HS, (Reported) Patient Home Medication List Home Medication List Reviewed: Yes Review of Systems Review of Systems Constitutional: see HPI; No chills, No fever; weakness EENTM: nose congestion; No throat pain Respiratory: cough, short of breath, wheezing Cardiovascular: chest pain (left-sided and left arm); No edema Gastrointestinal: No abdominal pain, No nausea, No vomiting Genitourinary: no symptoms reported Musculoskeletal: no symptoms reported Skin: no symptoms reported Psychiatric/Neurological: No Symptoms Reported All Other Systems Reviewed Negative Unless Noted: Yes Past Dhsexbh-Ptiuqf-Galkxv Hx Past Med/Social Hx: Reviewed Nursing Past Med/Soc Hx Patient Social History Alcohol Use: Occasionally Uses Alcohol Beverage of Choice: Beer Recreational Drug Use: No Drug of Choice: THC Smoking Status: Current Someday Smoker Type Used: Cigarettes 2nd Hand Smoke Exposure: Yes Recent Foreign Travel: No Contact w/Someone Who Travel: No Recent Hopitalizations: Yes Physical Abuse: No Sexual Abuse: No Immunizations Up To Date Tetanus Booster (TDap): Unknown PED Vaccines UTD: No Date of Pneumonia Vaccine: Dec 14, 2013 Date of Influenza Vaccine: Jan 13, 2017 Seasonal Allergies Seasonal Allergies: No Past Medical History Surgeries: Yes (C-SECTIONS X 4; TEETH REMOVED) Appendectomy, Section, Ear Surgery, Tubal Ligation Respiratory: Yes (COPD, ) Chronic Bronchitis, COPD, Emphysema Currently Using CPAP: No Currently Using BIPAP: No Cardiac: No Neurological: No Reproductive Disorders: No 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 Sexually Transmitted Disease: No HIV/AIDS: No Genitourinary: No Gastrointestinal: No Musculoskeletal: Yes Arthritis Endocrine: No HEENT: Yes Cataract Hearing Impairment: Hard of Hearing Cancer: No Psychosocial: Yes Anxiety, Depression Integumentary: No Blood Disorders: No Adverse Reaction/Blood Tranf: No Family Medical History Reviewed Nursing Family Hx Arthritis 19 FATHER, , Onset:50's - 60 Cardiovascular disease G8 BROTHER, Onset:Unknown Diabetes mellitus G8 BROTHER, Onset:60 years & older FH: COPD (chronic obstructive pulmonary disease) 19 FATHER, , Onset:50's - 60 G8 SISTER, Onset:Unknown FH: uterine cancer 19 MOTHER, , Onset:60 years & older COPD Physical Exam-Suspected Sepsis Physical Exam Vital Signs Vital Signs - First Documented 12/07/18 12/07/18 17:57 18:05 Temp 99.0 Pulse 87 Resp 34 B/P (MAP) 125/84 (98) Pulse Ox 99 O2 Delivery NIV CPAP O2 Flow Rate 40.00 Capillary Refill : Height, Weight, BMI Height: 5'4.00" Weight: 149lbs. 2.0oz. 72.163557kp; 25.6 BMI Method:Stated General Appearance: No Apparent Distress, WD/WN HEENT: PERRL/EOMI, Pharynx Normal Neck: Non Tender, Supple Respiratory: Accessory Muscle Use, Expiration, Respiratory Distress, Wheezing Cardiovascular: Regular Rate, Rhythm, No Murmur Gastrointestinal: Non Tender, Soft Back: Normal Inspection, No CVA Tenderness, No Vertebral Tenderness Extremity: Normal Range of Motion, Non Tender Neurologic/Psychiatric: Alert, Oriented x3, No Motor/Sensory Deficits Skin: normal color, warm/dry Focused Exam Lactate Level 12/07/18 18:25: Lactic Acid Level 0.74 Lactic Acid Level Laboratory Tests Test 12/07/18 18:25 Lactic Acid Level 0.74 MMOL/L (0.50-2.00) Progress/Results/Core Measures Suspected Sepsis SIRS Temperature: Pulse: Respiratory Rate: Laboratory Tests 12/07/18 18:02: White Blood Count 8.5 Blood Pressure / Mean: 12/07/18 18:25: Lactic Acid Level 0.74 Laboratory Tests 12/07/18 18:02: Creatinine 0.74, INR Comment 1.2, Platelet Count 324, Total Bilirubin 0.3 Results/Orders Lab Results Laboratory Tests Test 12/07/18 18:02 12/07/18 18:25 12/07/18 18:30 Range/Units White Blood Count 8.5 4.3-11.0 10^3/uL Red Blood Count 4.14 L 4.35-5.85 10^6/uL Hemoglobin 13.8 11.5-16.0 G/DL Hematocrit 42 35-52 % Mean Corpuscular Volume 101 H 80-99 FL Mean Corpuscular Hemoglobin 33 25-34 PG Mean Corpuscular Hemoglobin Concent 33 32-36 G/DL Red Cell Distribution Width 13.5 10.0-14.5 % Platelet Count 324 130-400 10^3/uL Mean Platelet Volume 10.2 7.4-10.4 FL Neutrophils (%) (Auto) 37 L 42-75 % Lymphocytes (%) (Auto) 51 H 12-44 % Monocytes (%) (Auto) 7 0-12 % Eosinophils (%) (Auto) 5 0-10 % Basophils (%) (Auto) 0 0-10 % Neutrophils # (Auto) 3.2 1.8-7.8 X 10^3 Lymphocytes # (Auto) 4.3 H 1.0-4.0 X 10^3 Monocytes # (Auto) 0.6 0.0-1.0 X 10^3 Eosinophils # (Auto) 0.4 H 0.0-0.3 10^3/uL Basophils # (Auto) 0.0 0.0-0.1 10^3/uL Prothrombin Time 15.3 H 12.2-14.7 SEC INR Comment 1.2 0.8-1.4 Activated Partial Thromboplast Time 27 24-35 SEC Sodium Level 140 135-145 MMOL/L Potassium Level 4.5 3.6-5.0 MMOL/L Chloride Level 104 98-107 MMOL/L Carbon Dioxide Level 23 21-32 MMOL/L Anion Gap 13 5-14 MMOL/L Blood Urea Nitrogen 13 7-18 MG/DL Creatinine 0.74 0.60-1.30 MG/DL Estimat Glomerular Filtration Rate > 60 BUN/Creatinine Ratio 18 Glucose Level 92 70-105 MG/DL Calcium Level 9.3 8.5-10.1 MG/DL Corrected Calcium 9.1 8.5-10.1 MG/DL Total Bilirubin 0.3 0.1-1.0 MG/DL Aspartate Amino Transf (AST/SGOT) 17 5-34 U/L Alanine Aminotransferase (ALT/SGPT) 16 0-55 U/L Alkaline Phosphatase 67 40-136 U/L Troponin I < 0.028 <0.028 NG/ML Total Protein 7.9 6.4-8.2 GM/DL Albumin 4.3 3.2-4.5 GM/DL Lactic Acid Level 0.74 0.50-2.00 MMOL/L Urine Color YELLOW Urine Clarity CLEAR Urine pH 5 5-9 Urine Specific [place] 1.020 1.016-1.022 Urine Protein NEGATIVE NEGATIVE Urine Glucose (UA) NEGATIVE NEGATIVE Urine Ketones NEGATIVE NEGATIVE Urine Nitrite NEGATIVE NEGATIVE Urine Bilirubin NEGATIVE NEGATIVE Urine Urobilinogen NORMAL NORMAL MG/DL Urine Leukocyte Esterase NEGATIVE NEGATIVE Urine RBC (Auto) 4+ H NEGATIVE Urine RBC 2-5 H /HPF Urine WBC NONE /HPF Urine Crystals NONE /LPF Urine Bacteria NONE /HPF Urine Casts NONE /LPF Urine Mucus TRACE /LPF Urine Culture Indicated CULTURE PENDING My Orders Orders - DEJA PERDOMO MD Cbc With Automated Diff (12/07/18 18:09) Comprehensive Metabolic Panel (12/07/18 18:09) Blood Culture (12/07/18 18:09) Sputum Culture (12/07/18 18:09) Urinalysis (12/07/18 18:09) Urine Culture (12/07/18 18:09) Protime With Inr (12/07/18 18:09) Partial Thromboplastin Time (12/07/18 18:09) Chest 1 View, Ap/Pa Only (12/07/18 18:09) Ed Iv/Invasive Line Start (12/07/18 18:09) Troponin I (12/07/18 18:09) Vital Signs Adult Sepsis Patie Q15M (12/07/18 18:09) O2 (12/07/18 18:09) Remove Rings In Anticipation O (12/07/18 18:09) Lactic Acid Analyzer (12/07/18 18:09) Albuterol Pre-Mix Nebs (Rt) (Proventil (12/07/18 18:09) Albuterol/Ipra Inhalation Soln (Duoneb I (12/07/18 18:15) Svn Small Volume Nebulizer (12/07/18 18:09) Ed Iv/Invasive Line Start (12/07/18 18:09) Lactated Ringers (Lr 1000 Ml Iv Solution (12/07/18 18:09) Arterial Blood Gas (12/07/18 19:10) Medications Given in ED Current Medications Medications Dose Ordered Sig/Antwon Route Start Time Stop Time Status Last Admin Dose Admin Albuterol/ Ipratropium 3 ml ONCE ONCE INH 12/07/18 18:15 12/07/18 18:16 DC 12/07/18 18:05 3 ML Lactated Ringer's 1,000 ml @ 0 mls/hr Q0M ONCE IV 12/07/18 18:09 12/07/18 18:11 DC 12/07/18 18:29 1,000 MLS/HR Vital Signs/I&O 12/07/18 12/07/18 12/07/18 17:57 17:57 18:05 Temp 99.0 Pulse 87 86 Resp 34 33 B/P (MAP) 125/84 (98) Pulse Ox 99 99 100 O2 Delivery NIV CPAP NIV/CPAP O2 Flow Rate 40.00 Capillary Refill : Progress Note : Progress Note Seen and evaluated. IV by EMS, labs, EKG, chest x-ray, continuous 1 hour breathing treatment ordered, BiPAP due to respiratory distress, blood cultures and lactic acid ordered. We will check ABG after 30 minutes. Monitor patient. 191: ABG pending. I discussed the case with Dr. Dillard. Patient is in acute exacerbation of her COPD. There does not appear to be pneumonia. EKG is negative and troponin is negative. I believe the chest pain is likely related to her coughing and respiratory distress. Aspirin will be given. Dr. Dillard accepts patient for admission, inpatient status for [facility]. Patient and family agree with plan. ECG Initial ECG Impression Date: Dec 07, 2018 Initial ECG Impression Time: 18:03 Initial ECG Rate: 84 Initial ECG Rhythm: Normal Sinus Comment Sinus rhythm with left atrial abnormality and right axis deviation. Similar to previous of 11/12/18. No evidence of ST elevation [place]. Interpreted by me. Diagnostic Imaging Diagonstic Imaging: Xray Plain Films/CT/US/NM/MRI: chest Comments [facility] [place], [place] NAME: CHAR WILSON [facility] REC#: [id number] PT STATUS: REG ER : 1955 PHYSICIAN: DEJA PERDOMO MD ADMIT DATE: 12/07/18/ER Draft Date of Exam:12/07/18 CHEST 1 VIEW, AP/PA ONLY EXAM: Chest 1 view, AP/PA only. INDICATION: Shortness of breath. COMPARISON: 11/14/2018. FINDINGS: Normal heart size and pulmonary vascularity. Hyperinflation with mild scattered scarring. No dense consolidation, pleural effusion or pneumothorax. No acute osseous findings. IMPRESSION: 1. COPD. 2. No acute cardiopulmonary findings. Dictated on workstation # [id number] Dict: 12/07/18 1847 Trans: 12/07/18 1901 [facility] [id number] Interpreted by: MARGARITA SIFUENTES MD Electronically signed by: Departure Communication (Admissions) Time/Spoke to Admitting Phy: 19:11 Impression Primary Impression: COPD exacerbation Disposition: ADMITTED INPATIENT Condition: Stable Admissions Decision to Admit Reason: Admit from ER (General) Decision to Admit/Date: Dec 07, 2018 Time/Decision to Admit Time: 19:11 Departure-Patient Inst. Referrals: [facility] [place] (PCP/Family) Primary Care Physician DEJA PERDOMO MD Dec 07, 2018 18:18
[2018-12-07 18:32] LABS: ALANINE AMINOTRANSFERASE 16 U/L (0-55); ALBUMIN 4.3 GM/DL (3.2-4.5); ALKALINE PHOSPHATASE 67 U/L (40-136); BILIRUBIN,TOTAL 0.3 MG/DL (0.1-1.0); BUN/CREATININE RATIO 18; CALCIUM 9.3 MG/DL (8.5-10.1); CARBON DIOXIDE 23 MMOL/L (21-32); CHLORIDE 104 MMOL/L (98-107); CREATININE SERUM 0.74 MG/DL (0.60-1.30); GFR ESTIMATED > 60; GLUCOSE 92 MG/DL (70-105); POTASSIUM 4.5 MMOL/L (3.6-5.0); SODIUM 140 MMOL/L (135-145); TOTAL PROTEIN 7.9 GM/DL (6.4-8.2)
[2018-12-07 18:39] LABS: BILIRUBIN,URINE NEGATIVE (NEGATIVE); CLARITY,URINE CLEAR; COLOR,URINE YELLOW; GLUCOSE, URINE (UA) NEGATIVE (NEGATIVE); KETONES,URINE NEGATIVE (NEGATIVE); LEUKOCYTE ESTERASE ,URINE NEGATIVE (NEGATIVE); NITRITE,URINE NEGATIVE (NEGATIVE); PH,URINE 5 (5-9); PROTEIN,URINE NEGATIVE (NEGATIVE); UROBILINOGEN,URINE NORMAL (NORMAL)
[2018-12-07 18:44] LABS: INR 1.2 (0.8-1.4); PROTHROMBIN TIME PATIENT 15.3 SEC (12.2-14.7)
--- NOTE | 2018-12-07 19:02 | Diagnostic Imaging Report ---
EXAM: Chest 1 view, AP/PA only. INDICATION: Shortness of breath. COMPARISON: 11/14/2018. FINDINGS: Normal heart size and pulmonary vascularity. Hyperinflation with mild scattered scarring. No dense consolidation, pleural effusion or pneumothorax. No acute osseous findings. IMPRESSION: 1. COPD. 2. No acute cardiopulmonary findings. Dictated by: Dictated on workstation # [id number]
--- NOTE | 2018-12-07 19:11 | NUR ---
called house sup for bed
[2018-12-07] MEDS ORDERED: ASPIRIN 81 MG CHEW (CHILDREN'S ASA) PO STA (19:28)
[2018-12-07 19:32] LABS: ABG BASE EXCESS -12.2 MMOL/L (-2.5-2.5); ABG OXYGEN SATURATION 80 % (94-100); ABG PCO2 26 MMHG (35-45); ABG PO2 48 MMHG (79-93); ABG TCO2 13.5 MMOL/L (21.0-31.0)
[2018-12-07 19:34] LABS: ABG PH 7.31 (7.37-7.43)
[2018-12-07 19:37] LABS: INSPIRED O2 100%; VENTILATOR NO
--- NOTE | 2018-12-07 19:53 | NUR ---
REPORT RECEIVED FROM SANIA KHAN RN.
[2018-12-07 19:59] LABS: ABG BASE EXCESS 2.1 MMOL/L (-2.5-2.5); ABG OXYGEN SATURATION 71 % (94-100); ABG PCO2 48 MMHG (35-45); ABG PH 7.37 (7.37-7.43); ABG PO2 41 MMHG (79-93); ABG TCO2 28.3 MMOL/L (21.0-31.0); ALLENS TEST YES-POS; INSPIRED O2 40%; PATIENT TEMP 98.9; VENTILATOR NO
--- NOTE | 2018-12-07 20:07 | NUR ---
Char Juarez admitted to room 419-1, with an admitting diagnosis of COPD exacerbation , on 12/07/18 from ED via bed, accompanied by staff. CHAR JUAREZ introduced to surroundings, call light, bed controls, phone, TV, temperature control, lights, meal times, smoking policy, visitor policy, side rail policy, bathrooms and showers. Patient Rights given to patient in the handbook.CHAR JUAREZ verbalizes understanding that [facility] is not responsible for the loss or damage to any personal effects or valuables that are kept in the patients posession during their hospitalization.
[2018-12-07] MEDS ORDERED: ONDANSETRON 4 MG/2 ML (SDV) Z0FRAN IV PRN (20:45)
[2018-12-07] MEDS ORDERED: NS IV 1000 ML 1,000 ML IV SCH (20:45)
[2018-12-07 20:50] VITALS: BP 106/59
[2018-12-07 21:53] VITALS: BP 106/59
[2018-12-08] VITALS (7 sets, daily range): BP systolic 104–126; BP diastolic 54–66
[2018-12-08] MEDS: methylPREDNISolone 40 MG/ML (Solu-MEDROL) VIAL IV SCH ×4 (01:31→19:47)
--- NOTE | 2018-12-08 04:27 | NUR ---
ORDERS FROM ADMITTING PHYSICIANS STATED IV FLUIDS TO RUN AT 50ML/HR AND SCHEDULED Q20H. THIS RN SET IV PUMP TO RUN AT 150ML/HR. AFTER IDENTIFYING THIS, THIS RN CALLED DR. MOSES ([facility] PHYSICAL MEDICINE SPECIALIST) AND ASKED HER IF SHE WANTED THIS RN TO HANG ANOTHER BAG OF IV FLUIDS OR TO PUT THEM ON HOLD AND INFORMED HER THAT PT HAS NOT CARDIAC HISTORY. ORDERS OBTAINED TO RUN NS AT 80ML/HR. ORDER PLACED BY THIS RN.
[2018-12-08] MEDS: NS IV 1000 ML 1,000 ML IV SCH ×2 (04:42→16:41)
[2018-12-08 05:38] LABS: BASOPHILS % (AUTO) 0 % (0-10); EOSINOPHILS % (AUTO) 0 % (0-10); HEMATOCRIT 37 % (35-52); HEMOGLOBIN 12.1 G/DL (11.5-16.0); LYMPHOCYTES # (AUTO) 0.7 X 10^3 (1.0-4.0); LYMPHOCYTES % (AUTO) 15 % (12-44); MEAN CORPUSCULAR HEMOGLOBIN 33 PG (25-34); MEAN CORPUSCULAR HGB CONC 33 G/DL (32-36); MEAN CORPUSCULAR VOLUME 101 FL (80-99); MEAN PLATELET VOLUME 9.9 FL (7.4-10.4); MONOCYTES % (AUTO) 1 % (0-12); NEUTROPHILS # (AUTO) 3.8 X 10^3 (1.8-7.8); NEUTROPHILS % (AUTO) 84 % (42-75); PLATELET COUNT 277 10^3/uL (130-400); RED CELL DISTRIBUTION WIDTH 13.3 % (10.0-14.5); WHITE BLOOD COUNT 4.5 10^3/uL (4.3-11.0)
[2018-12-08 06:03] LABS: ALANINE AMINOTRANSFERASE 15 U/L (0-55); ALBUMIN 3.8 GM/DL (3.2-4.5); ALKALINE PHOSPHATASE 47 U/L (40-136); BILIRUBIN,TOTAL 0.3 MG/DL (0.1-1.0); BUN/CREATININE RATIO 16; CALCIUM 8.5 MG/DL (8.5-10.1); CARBON DIOXIDE 23 MMOL/L (21-32); CHLORIDE 106 MMOL/L (98-107); CREATININE SERUM 0.64 MG/DL (0.60-1.30); GFR ESTIMATED > 60; GLUCOSE 154 MG/DL (70-105); SODIUM 139 MMOL/L (135-145); TOTAL PROTEIN 6.6 GM/DL (6.4-8.2)
--- NOTE | 2018-12-08 06:29 | NUR ---
PER ADMISSION ORDERS, THIS RN CALLED DR. DELGADO TO INFORM HIM OF A CONSULT ON THIS PT FOR AN ACUTE EXACERBATION OF COPD. DR. DELGADO CONFIRMED CONSULT.
[2018-12-08] MEDS: RT-ALBUTEROL/IPRATROPIUM 3 ML (DUONEB) VIAL INH SCH ×5 (06:46→22:00)
--- NOTE | 2018-12-08 06:55 | NUR ---
When RT entered the patients room she was on 3 L NC and RT decreased O2 to 2 L, which is what patient uses at home. She states she has had a non-productive cough.
--- NOTE | 2018-12-08 09:18 | Pulmonary Consultation ---
History of Present Illness History of Present Illness Date of Consultation 12/08/18 09:11 Time Seen by Provider: 09:11 Date of Admission History of Present Illness [id number] hx of multiple hospitalizations, COPD, and current tobacco use presented to ED secondary to worsening SOB and weakness. Pt was using home SVNs however her SOB continued to worsen. Upon EMS arrival Sp02 was 81% on her home 02 at 2 liters. I am consulted for pulmonary management. Allergies and Home Medications Allergies Coded Allergies: codeine (Verified Allergy, Severe, Hives and swelling., 09/22/12) Home Medications Albuterol Sulfate 18 Gm Hfa.aer.ad, 2 PUFF INH Q4H PRN for SHORTNESS OF BREATH, (Reported) Albuterol Sulfate 2.5 Mg/3 Ml Vial.neb, 2.5 MG NEB Q4H PRN for SHORTNESS OF BREATH, (Reported) Aspirin 81 Mg Tablet.dr, 81 MG PO HS, (Reported) Budesonide/Formoterol Fumarate 10.2 Gm Hfa.aer.ad, 2 PUFF PO BID, (Reported) Carboxymethylcellulos/Glycerin 15 Ml Drops, 1 DROP OP TID PRN for DRY EYES, (Reported) Montelukast Sodium 10 Mg Tablet, 10 MG PO HS, (Reported) Sertraline HCl 100 Mg Tablet, 100 MG PO HS, (Reported) Past Ikhomhs-Dovjup-Zzcmdk Hx Past Med/Social Hx: Reviewed Nursing Past Med/Soc Hx Patient Social History Alcohol Use: Occasionally Uses Number of Drinks Today: AA Alcohol Beverage of Choice: Beer Recreational Drug Use: No Drug of Choice: THC Smoking Status: Current Someday Smoker Type Used: Cigarettes 2nd Hand Smoke Exposure: Yes Recent Foreign Travel: No Contact w/Someone Who Travel: No Recent Infectious Disease Expo: No Recent Hopitalizations: Yes Physical Abuse: No Sexual Abuse: No Immunizations Up To Date Tetanus Booster (TDap): Unknown PED Vaccines UTD: No Date of Pneumonia Vaccine: Dec 14, 2013 Date of Influenza Vaccine: Jan 13, 2017 Seasonal Allergies Seasonal Allergies: No Past Medical History Surgeries: Yes (C-SECTIONS X 4; TEETH REMOVED) Appendectomy, Section, Ear Surgery, Tubal Ligation Respiratory: Yes (COPD, ) Chronic Bronchitis, COPD, Emphysema Currently Using CPAP: No Currently Using BIPAP: No Cardiac: No Neurological: No Reproductive Disorders: No 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 Sexually Transmitted Disease: No HIV/AIDS: No Genitourinary: No Gastrointestinal: No Musculoskeletal: Yes Arthritis Endocrine: No HEENT: Yes Cataract Hearing Impairment: Hard of Hearing Cancer: No Psychosocial: Yes Anxiety, Depression Integumentary: No Blood Disorders: No Adverse Reaction/Blood Tranf: No Family Medical History Reviewed Nursing Family Hx Arthritis 19 FATHER, , Onset:50's - 60 Cardiovascular disease G8 BROTHER, Onset:Unknown Diabetes mellitus G8 BROTHER, Onset:60 years & older FH: COPD (chronic obstructive pulmonary disease) 19 FATHER, , Onset:50's - 60 G8 SISTER, Onset:Unknown FH: uterine cancer 19 MOTHER, , Onset:60 years & older COPD Review of Systems Time Seen by Provider: 07:12 Constitutional: Weakness, Malaise; No: Fever, Chills, Sweats, Other ENT: Nose congestion Respiratory: Cough, Shortness of breath, Wheezing, Sputum; No: Hemoptysis, Pleuritic Pain Cardiovascular: Paroxysmal Noc. Dyspnea, Lt Headedness; No: Palpitations, Edema Gastrointestinal: No: Nausea, Vomiting, Abdominal Pain, Diarrhea, Constipation, Melena, Hematochezia, Other Sepsis Event Evaluation Height, Weight, BMI Height: 5'4.00" Weight: 153lbs. 1.6oz. 69.172353bm; 26.0 BMI Method:Stated Exam Exam Vital Signs Date Time Temp Pulse Resp B/P (MAP) Pulse Ox O2 Delivery O2 Flow Rate FiO2 12/08/18 06:46 93 Nasal Cannula 3.00 12/08/18 04:53 97.6 74 18 104/61 (75) 97 Nasal Cannula 3.50 12/08/18 01:35 94 Nasal Cannula 4.00 12/08/18 00:25 98.2 81 20 106/65 (79) 99 Nasal Cannula 3.50 12/07/18 21:53 84 95 12/07/18 20:50 84 22 106/59 95 Nasal Cannula 3.50 12/07/18 20:07 Nasal Cannula 3.00 12/07/18 19:59 99.0 87 22 111/65 (80) 93 Nasal Cannula 3.00 12/07/18 19:29 96 Nasal Cannula 3.00 12/07/18 18:05 86 33 100 40.00 12/07/18 17:57 99.0 87 34 125/84 (98) 99 NIV/CPAP 12/07/18 17:57 99 NIV CPAP I & O 12/08/18 07:00 Intake Total 1810 ml Output Total 1000 ml Balance 810 ml Height & Weight Height: 5'4.00" Weight: 153lbs. 1.6oz. 69.620132ak; 26.0 BMI Method:Stated General Appearance: No Apparent Distress, WD/WN HEENT: PERRL/EOMI, Pharynx Normal Neck: Non Tender, Supple Respiratory: Accessory Muscle Use, Expiration, Respiratory Distress, Wheezing Cardiovascular: Regular Rate, Rhythm, No Murmur Capillary Refill: Less Than 3 Seconds Extremity: Normal Range of Motion, Non Tender Neurologic/Psychiatric: Alert, Oriented x3, No Motor/Sensory Deficits Skin: Normal Color, Warm/Dry Lymphatic: No Adenopathy Results Lab Laboratory Tests 12/07/18 18:02 12/08/18 05:23 Assessment/Plan Assessment/Plan COPDAE/asthmaAE -SVNs -SOlumedrol -Currently requiring 3 liters of oxygen -Last PFT 10/30 shows moderate COPD with asthma Allergic rhinitis -Add Advair, Singulair and Claritin Tobacco use -Education LINDA DELGADO DO Dec 08, 2018 09:18
[2018-12-08] MEDS ORDERED: BUDE10.2 PO (10:31)
[2018-12-08] MEDS ORDERED: ASPI-586 PO (10:31)
[2018-12-08] MEDS ORDERED: CARB15DR2 OP (10:35)
--- NOTE | 2018-12-08 10:35 | NUR ---
SPOKE WITH PT WELL GOING THRU THE EXT MED HISTORY TO COMPLETE THE MED REC. PT WAS ABLE TO VERIFY ALL MEDS AND THE DIRECTIONS. OTC MEDS: ASPIRIN 81 M HS REFRESH EYE DROPS: 1 DROP IN EACH EYE TID PRN
--- NOTE | 2018-12-08 11:41 | History & Physical-Hospitalist ---
[facility] 12/08/18 1141: History of Present Illness HPI/Chief Complaint C/C: Shortness of breath, left shoulder pain HPI: Dinah is a 63 year old female that presented with shortness of breath and left shoulder and arm pain. Patient was stating in the low 80s when she was brought in. She lives at [facility]. She is a current smoker and requires oxygen at home. Patient has had pain in her arm like this before and pain that is in the middle of the back that she states radiates to the back in between her shoulders. Patients coughing has continued to get worse. Date Seen 12/08/18 Time Seen by a Provider: 08:15 Attending Physician Ramos Dillard MD [facility] Referring Physician Date of Admission Dec 07, 2018 at 19:33 Home Medications & Allergies Home Medications Reviewed patient Home Medication Reconciliation performed by pharmacy medication reconciliations research technician and/or nursing. Patients Allergies have been reviewed. Allergies Allergies Coded Allergies codeine (Verified Allergy, Severe, Hives and swelling., 09/22/12) Patient has no food or environmental allergies. Past Znczjmz-Wyskdn-Bgsdcc Hx Past Med/Social Hx: Reviewed Nursing Past Med/Soc Hx Patient Social History Marrital Status: single Number of Children: 4 Number of living children: 3 Employed/Student: retired Alcohol Use: Occasionally Uses (Patient states she has 2-4 beers per night and wine on social occasions ) Number of Drinks Today: AA Alcohol Beverage of Choice: Beer Recreational Drug Use: No Drug of Choice: THC Smoking Status: Current Someday Smoker Type Used: Cigarettes 2nd Hand Smoke Exposure: Yes Physical Abuse Screen: No (as child and adult) Sexual Abuse: No (aS child and adult) Recent Foreign Travel: No Contact w/other who traveled: No Recent Hopitalizations: Yes Recent Infectious Disease Expo: No Social History Patient is a current smoker for over 50 years, she drinks 2-4 beers per night and wine on occasion. She does not exercise and walks only short distances. 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 Immunizations Up To Date Tetanus Booster (TDap): Unknown Pediatric: No Date of Pneumonia Vaccine: Dec 14, 2013 Date of Influenza Vaccine: Jan 13, 2017 Seasonal Allergies Seasonal Allergies: No Past Medical History Surgeries: Appendectomy, Section, Ear Surgery, Tubal Ligation Respiratory: Asthma, COPD, Emphysema Currently Using CPAP: No Currently Using BIPAP: No Reproductive: No Sexually Transmitted Disease: No HIV/AIDS: No Female Reproductive Disorders: Denies Menopausal Musculoskeletal: Arthritis HEENT: Cataract Hearing Impairment: Hard of Hearing Psychosocial: Anxiety, Depression History of Blood Disorders: No Adverse Reaction to Blood Caban: No Family History Reviewed Nursing Family Hx Arthritis 19 FATHER, , Onset:50's - 60 Cardiovascular disease G8 BROTHER, Onset:Unknown Diabetes mellitus G8 BROTHER, Onset:60 years & older FH: COPD (chronic obstructive pulmonary disease) 19 FATHER, , Onset:50's - 60 G8 SISTER, Onset:Unknown FH: uterine cancer 19 MOTHER, , Onset:60 years & older COPD Mother at 98, had hx of heart issues and uterine cancer Father at 54 from pneumonia One child shortly after Review of Systems Constitutional: dizziness (When she gets coughing ) EENTM: no symptoms reported, vision loss, dental problems (Patinet has no teeth and dentures are too small); No ear pain Respiratory: cough, short of breath Cardiovascular: chest pain Gastrointestinal: no symptoms reported Genitourinary: no symptoms reported Musculoskeletal: joint pain Skin: no symptoms reported Physical Exam Physical Exam Vital Signs Vital Signs - First Documented 12/07/18 12/07/18 17:57 18:05 Temp 99.0 Pulse 87 Resp 34 B/P (MAP) 125/84 (98) Pulse Ox 99 O2 Delivery NIV CPAP O2 Flow Rate 40.00 Capillary Refill : Less Than 3 SecondsLess Than 3 Seconds Height, Weight, BMI Height: 5'4.00" Weight: 153lbs. 1.6oz. [id number]; 26.0 BMI Method:Stated General Appearance: No Apparent Distress, WD/WN Eyes: Bilateral Eye Normal Inspection HEENT: Normal ENT Inspection, Pharynx Normal Neck: Full Range of Motion, Normal Inspection, Non Tender, Supple; No JVD Respiratory: No Respiratory Distress, Wheezing Cardiovascular: Regular Rate, Rhythm, No Edema, No JVD, Normal Peripheral Pulses Gastrointestinal: Normal Bowel Sounds, Tenderness (RUQ on deep palpation. ), Other (Possible heart sound/bruits LUQ ) Back: Normal Inspection Extremity: Normal Capillary Refill, No Calf Tenderness; No Calf Tenderness, No Inflammation, No Pedal Edema Neurologic/Psychiatric: Alert, Oriented x3, coin box collector II-XII Norm as Tested (Loss of vision and hard of hearing, remainder intact ) Skin: Normal Color, Warm/Dry Results Results/Procedures Labs Laboratory Tests 12/07/18 18:02 12/08/18 05:23 Patient resulted labs reviewed. Assessment/Plan Assessment and Plan Assessment: 1. COPD exacerbation 2. Pneumonia 3. Pulmonary HTN 4. HF 5. Angina (unstable) 6. Lung cancer 7. AAA or Renal Artery Aneurysm (less likely). 8. Cholelithiasis Plan: 1. continue Pulmonary care 2. Continue to monitor labs and vitals 3. Continue breathing treatments and NC 4. Consult Cardio 5. Continue ABx regimen 6. Medication for Cough 7. PT and OT as Tolerated 8. Social work for patient. Patient may need evaluation for more O2 at home. 8. DVT prevention protocol 9. Continue to Monitor patient glucose 10. Follow up on imaging 11. Possible GI consult if pain that is in RUQ and abdomen that radiates to the center of the back continues. 12. Alcohol withdraw protocol Clinical Quality Measures DVT/VTE Risk/Contraindication: Risk Factor Score Per Nursin RFS Level Per Nursing on Admit: 4+=Very High COOPEREMERY FRANCOISAdriana BLUE 12/08/18 2017: History of Present Illness HPI/Chief Complaint CC: SOB HPI: This is a 63yoWF known to have COPD, oxygen dependent, was admitted placed on IV steroids and nebulizer treatments with oxygen supplementation. Dr. Giang has been consulted today she has B/L wheezing and ronchi on her lungs. Labs were reviewed all within normal limits but she continues to smoke, we talked about that and overall having significant problems due to the cough. Source: patient Exam Limitations: no limitations Past Dauprvj-Orjazy-Fcdapi Hx Past Med/Social Hx: Reviewed Nursing Past Med/Soc Hx, Reviewed and Corrections made Patient Social History Marrital Status: single Alcohol Use: Occasionally Uses (Patient states she has 2-4 beers per night and wine on social occasions ) Smoking Status: Current Someday Smoker Past Medical History Respiratory: Asthma, COPD, Emphysema Family History Arthritis 19 FATHER, , Onset:50's - 60 Cardiovascular disease G8 BROTHER, Onset:Unknown Diabetes mellitus G8 BROTHER, Onset:60 years & older FH: COPD (chronic obstructive pulmonary disease) 19 FATHER, , Onset:50's - 60 G8 SISTER, Onset:Unknown FH: uterine cancer 19 MOTHER, , Onset:60 years & older Review of Systems Constitutional: see HPI Respiratory: cough, dyspnea on exertion Physical Exam Physical Exam General Appearance: No Apparent Distress, WD/WN, Anxious, Chronically ill Respiratory: No Accessory Muscle Use, No Respiratory Distress, Crackles, Decreased Breath Sounds, Wheezing Assessment/Plan Admission Diagnosis Assessment: AECOPD Smoker Depression Plan: Monitor lungs Appreciate Dr Giang Admission Status: Inpatient Order (span 2 midnights) Reason for Inpatient Admission: Severe resp status will require 3 days Diagnosis/Problems Diagnosis/Problems (1) COPD exacerbation Status: Acute (2) Very heavy cigarette smoker (40 or more per day) Status: Chronic (3) BiPAP (biphasic positive airway pressure) dependence Status: Acute (4) Anxiety Status: Chronic (5) Acute and chronic respiratory failure with hypercapnia Status: Acute Supervisory-Addendum Brief Verification & Attestation Participated in pt care: history, MDM, physical Personally performed: exam, history, MDM, supervision of care Care discussed with: Medical Student Procedures: n/a Results interpretation: Verified all documentation Verification and Attestation of Medical Student E/M Service A medical student performed and documented this service in my presence. I reviewed and verified all information documented by the medical student and made modifications to such information, when appropriate. I personally performed the physical exam and medical decision making. Coretta Cooper, Dec 08, 2018,20:17 [facility] Dec 08, 2018 11:41 CORETTA COOPER DO Dec 08, 2018 20:17
--- NOTE | 2018-12-08 15:02 | NUR ---
CM/SS, initial review. Patient resides independently in her apartment. She has two daughters, Ebony Valero ([place]) and Niurka White ([place]). She has a son in the area. DME: Has home O2 from [facility], BiPap, nebulizer. Patient ambulates independently, she has no walker. She drives and performs all ADLs on her own. Smokes heavily reportedly 40> daily. No needs anticipated, but will follow for care plan.
--- NOTE | 2018-12-08 15:15 | NUR ---
Initial visit: pt shared that she was in the hospital earlier this month and had another COPD attack after smoking a cigarette with her friend, Shadi. The pt is 4 years, is close to her two daughters but not with her son whom she says "has allot of growing up to do." She engaged in reflection about her 's , raising her children, and now coping with COPD.
[2018-12-08] MEDS: RT-ADVAIR HFA 115/21 MCG PER PUFF IH SCH (19:46)
[2018-12-08] MEDS: MONTELUKAST 10 MG (SINGULAIR) TAB PO SCH (19:47)
[2018-12-08] MEDS ORDERED: CALCIUM CARBONATE 500 MG (TUMS) TAB.CHEW PO PRN (20:15)
[2018-12-08] MEDS ORDERED: ONDANSETRON 4 MG/2 ML (SDV) Z0FRAN IVP PRN (20:15)
[2018-12-08] MEDS ORDERED: NON-FORMULARY MEDICATION 1 EA EA (Carboxymethylcellulos/Glycerin (Refresh Optive Eye Drops OP PRN (20:15)
[2018-12-08] MEDS ORDERED: MELATONIN 3 MG TABLET PO PRN (20:15)
[2018-12-08] MEDS ORDERED: ALPRAZolam 0.25 MG (XANAX) TAB PO PRN (20:15)
[2018-12-08] MEDS ORDERED: DOCUSATE SODIUM 100 MG (COLACE) CAP PO PRN (20:15)
[2018-12-08] MEDS ORDERED: ACETAMINOPHEN 500 MG TAB (TYLENOL) PO PRN (20:15)
[2018-12-08] MEDS ORDERED: ARTIFICAL TEARS 0.4 ML UNIT DOSE (REFRESH PLUS) OU PRN (20:30)
[2018-12-08] MEDS ORDERED: NON-FORMULARY MEDICATION 1 EA EA (Aspirin (Aspir 81) 81 MG) PO SCH (21:00)
[2018-12-08] MEDS ORDERED: HYDROCODONE/CHLOR 10MG/5 ML (TUSSIONEX SUSP) 5ML UDC PO SCH (21:00)
[2018-12-08] MEDS: SERTRALINE 100 MG (ZOLOFT) TAB PO SCH (22:00)
[2018-12-08] MEDS: BENZONATATE 100 MG (TESSALON) CAPSULE PO SCH (22:00)
[2018-12-08] MEDS: ASPIRIN E.C. 81 MG (ECOTRIN) TAB PO SCH (22:00)
[2018-12-08] MEDS: SENNA W/DOCUSATE (SENOKOT S) TABLET PO SCH (22:00)
[2018-12-09] MEDS: methylPREDNISolone 40 MG/ML (Solu-MEDROL) VIAL IV SCH (02:35)
[2018-12-09] MEDS: RT-ALBUTEROL/IPRATROPIUM 3 ML (DUONEB) VIAL INH SCH ×6 (02:37→23:34)
[2018-12-09 04:12] VITALS: BP 103/57
[2018-12-09] MEDS: NS IV 1000 ML 1,000 ML IV SCH (05:37)
[2018-12-09 06:36] LABS: BASOPHILS % (AUTO) 0 % (0-10); EOSINOPHILS % (AUTO) 0 % (0-10); HEMATOCRIT 36 % (35-52); HEMOGLOBIN 11.3 G/DL (11.5-16.0); LYMPHOCYTES # (AUTO) 0.9 X 10^3 (1.0-4.0); LYMPHOCYTES % (AUTO) 7 % (12-44); MEAN CORPUSCULAR HEMOGLOBIN 32 PG (25-34); MEAN CORPUSCULAR HGB CONC 31 G/DL (32-36); MEAN CORPUSCULAR VOLUME 103 FL (80-99); MONOCYTES # (AUTO) 0.1 X 10^3 (0.0-1.0); MONOCYTES % (AUTO) 1 % (0-12); NEUTROPHILS # (AUTO) 11.2 X 10^3 (1.8-7.8); NEUTROPHILS % (AUTO) 92 % (42-75); PLATELET COUNT 305 10^3/uL (130-400); RED CELL DISTRIBUTION WIDTH 13.9 % (10.0-14.5); WHITE BLOOD COUNT 12.2 10^3/uL (4.3-11.0)
[2018-12-09 07:11] LABS: ALANINE AMINOTRANSFERASE 11 U/L (0-55); ALBUMIN 3.6 GM/DL (3.2-4.5); ALKALINE PHOSPHATASE 51 U/L (40-136); BILIRUBIN,TOTAL 0.2 MG/DL (0.1-1.0); BUN/CREATININE RATIO 15; CALCIUM 8.5 MG/DL (8.5-10.1); CARBON DIOXIDE 20 MMOL/L (21-32); CHLORIDE 110 MMOL/L (98-107); CREATININE SERUM 0.59 MG/DL (0.60-1.30); GFR ESTIMATED > 60; GLUCOSE 125 MG/DL (70-105); POTASSIUM 4.3 MMOL/L (3.6-5.0); SODIUM 141 MMOL/L (135-145); TOTAL PROTEIN 6.3 GM/DL (6.4-8.2)
--- NOTE | 2018-12-09 07:16 | Pulmonary Progress Note ---
Subjective Time Seen by a Provider: 07:15 Subjective/Events-last exam PT appears to be doing better. Sepsis Event Evaluation Height, Weight, BMI Height: 5'4.00" Weight: 154lbs. 4.0oz. [id number]; 26.0 BMI Method:Stated Focused Exam Lactate Level 12/07/18 18:25: Lactic Acid Level 0.74 Exam Exam Vital Signs Date Time Temp Pulse Resp B/P (MAP) Pulse Ox O2 Delivery O2 Flow Rate FiO2 12/09/18 04:12 96.8 84 18 103/57 (72) 97 Nasal Cannula 2.00 12/09/18 02:38 95 Nasal Cannula 2.00 12/08/18 23:30 98.3 98 20 113/62 (79) 96 Nasal Cannula 2.00 12/08/18 22:01 94 Nasal Cannula 2.00 12/08/18 20:00 Nasal Cannula 2.00 12/08/18 19:54 Nasal Cannula 2.00 12/08/18 19:47 94 Nasal Cannula 2.00 12/08/18 19:28 98.8 99 20 116/66 (83) 95 Nasal Cannula 2.00 12/08/18 15:21 97.4 90 16 111/54 (73) 97 Nasal Cannula 2.00 12/08/18 14:09 95 Nasal Cannula 2.00 12/08/18 12:00 97.9 103 20 126/57 (80) 94 Nasal Cannula 3.50 12/08/18 11:12 92 Nasal Cannula 2.00 12/08/18 08:00 Nasal Cannula 2.00 12/08/18 08:00 98.1 107 18 123/58 (79) 92 Nasal Cannula 3.50 I & O 12/09/18 07:00 Intake Total 2750 ml Output Total 4800 ml Balance -2050 ml Height & Weight Height: 5'4.00" Weight: 154lbs. 4.0oz. 69.801305cz; 26.0 BMI Method:Stated General Appearance: No Apparent Distress, WD/WN HEENT: PERRL/EOMI, Pharynx Normal Neck: Non Tender, Supple Respiratory: Accessory Muscle Use, Expiration, Respiratory Distress, Wheezing Cardiovascular: Regular Rate, Rhythm, No Murmur Capillary Refill: Less Than 3 Seconds Extremity: Normal Range of Motion, Non Tender Neurologic/Psychiatric: Alert, Oriented x3, No Motor/Sensory Deficits Skin: Normal Color, Warm/Dry Lymphatic: No Adenopathy Results Lab Laboratory Tests 12/07/18 18:02 12/08/18 05:23 12/09/18 06:11 Assessment/Plan Assessment/Plan COPDAE/asthmaAE -SVNs -SOlumedrol -- Change to prednisone taper -Last PFT 10/30 shows moderate COPD with asthma Allergic rhinitis -Denise Elizalde and LINDA Merino DO Dec 09, 2018 07:16
[2018-12-09] MEDS: RT-ADVAIR HFA 115/21 MCG PER PUFF IH SCH ×2 (07:25→18:53)
[2018-12-09 07:53] LABS: LYMPHOCYTES % (MANUAL) 12 %; NEUTROPHILS % (MANUAL) 88 %; RBC MORPH NORMAL
[2018-12-09 08:00] VITALS: BP 122/56
--- NOTE | 2018-12-09 08:00 | NUR ---
IVF DC'D PER ORDER.
[2018-12-09] MEDS: LORATADINE (CLARITIN) 10 MG TAB PO SCH (08:09)
[2018-12-09] MEDS: BENZONATATE 100 MG (TESSALON) CAPSULE PO SCH ×3 (08:09→20:40)
[2018-12-09] MEDS: SENNA W/DOCUSATE (SENOKOT S) TABLET PO SCH ×2 (08:09→20:40)
[2018-12-09] MEDS ORDERED: FLEET ENEMA ADULT 1 EA BTL PR PRN (09:45)
[2018-12-09] MEDS ORDERED: BISACODYL 10 MG SUPP (DULCOLAX) PR ONE (09:45)
--- NOTE | 2018-12-09 09:54 | NUR ---
SPOKE WITH PT ABOUT DULCOLAX SUPP AND/OR FLEETS ENEMA. REFUSED BOTH. STATES SHE HAD BM YESTERDAY.
--- NOTE | 2018-12-09 10:54 | Progress Note - Hospitalist ---
[facility] 12/09/18 1054: Subjective HPI/CC On Admission Date Seen by Provider: Dec 09, 2018 Time Seen by Provider: 08:00 CC: SOB HPI: This is a 63yoWF known to have COPD, oxygen dependent, was admitted placed on IV steroids and nebulizer treatments with oxygen supplementation. Dr. Giang has been consulted today she has B/L wheezing and ronchi on her lungs. Labs were reviewed all within normal limits but she continues to smoke, we talked about that and overall having significant problems due to the cough. Subjective/Events-last exam Pt was alert and oriented and in no acute distress Pt has been sleeping better and coughing has decreased Patient is eating and drinking but is not moving around Has been urinating but has not had a bowel movement yet ROS: patient denies chest pain, SOB, N/V, F/V and abdominal pain Heart: HRRR Lungs: Breath sounds are still wheezy but improved from yesterday. Abdomen: no pain on palpation, bowels sounds present Labs; stable Vitals: Stable Plan: Have patient up and moving around with PT and patient needs to have a BM, work with director social service to get at home equipment organized. Anticipated DC for 12/10 Focused Exam Lactate Level 12/07/18 18:25: Lactic Acid Level 0.74 Respiratory: Chest Non Tender, No Accessory Muscle Use, No Respiratory Distress, Wheezing Cardiovascular: Regular Rate, Rhythm, No Edema, No JVD Peripheral Pulses: 2+ Radial Pulses (R), 2+ Radial Pulses (L) Skin: normal color, warm/dry Objective Exam Vital Signs Vital Signs Date Time Temp Pulse Resp B/P (MAP) Pulse Ox O2 Delivery O2 Flow Rate FiO2 12/09/18 08:00 98.4 101 20 122/56 (78) 95 Nasal Cannula 2.00 Capillary Refill : Less Than 3 SecondsLess Than 3 Seconds Neck: Full Range of Motion, Normal Inspection, Non Tender Respiratory: Chest Non Tender, No Accessory Muscle Use, No Respiratory Distress, Wheezing Cardiovascular: Regular Rate, Rhythm, No Edema, No JVD Gastrointestinal: Normal Bowel Sounds, No Organomegaly, Non Tender Extremity: Normal Capillary Refill Neurologic/Psychiatric: Alert, Oriented x3 Skin: Normal Color, Warm/Dry Results/Procedures Lab Laboratory Tests 12/09/18 06:11 Patient resulted labs reviewed. Assessment/Plan Assessment and Plan Assess & Plan/Chief Complaint Assessment: 1. COPD exacerbation 2. Pneumonia 3. Pulmonary HTN 4. HF 5. Angina (unstable) 6. Lung cancer 7. AAA or Renal Artery Aneurysm (less likely). 8. Cholelithiasis Plan: 1. continue Pulmonary care 2. Continue to monitor labs and vitals 3. Continue breathing treatments and NC 4. Consult Cardio 5. Continue ABx regimen 6. Medication for Cough 7. PT and OT as Tolerated 8. Social work for patient. Patient may need evaluation for more O2 at home. 8. DVT prevention protocol 9. Continue to Monitor patient glucose 10. Follow up on imaging 11. Possible GI consult if pain that is in RUQ and abdomen that radiates to the center of the back continues. 12. Alcohol withdraw protocol 13. Continue to monitor patients progress with PT, bowel movements and social work for anticipated DC on 12/10 Clinical Quality Measures DVT/VTE Risk/Contraindication: Risk Factor Score Per Nursin RFS Level Per Nursing on Admit: 4+=Very High CORETTA FERMIN DO 12/09/181947: Subjective Subjective/Events-last exam IV fluids will be discontinued. Solumedrol IV will be discontinued, placed on Prednisone. Will evaluate home Oxygen evaluation, she does get her oxygen from [facility] out of [place] so will get that set up for portable oxygen. No BM yet so will increase meds including a suppository. PT and OT will be ordered. Getting close to discharge, still a little bit wheezy so will make sure this is a strong discharge for tomorrow to decrease the chance of rebound. Review of Systems General: Fatigue Gastrointestinal: Constipation Objective Exam General Appearance: No Apparent Distress, WD/WN Respiratory: Chest Non Tender, No Accessory Muscle Use, No Respiratory Distress, Crackles, Decreased Breath Sounds, Wheezing Cardiovascular: Regular Rate, Rhythm, No Edema, No Gallop, No JVD, No Murmur, Normal Peripheral Pulses Neurologic/Psychiatric: Alert, Oriented x3, No Motor/Sensory Deficits, Normal Mood/Affect Assessment/Plan Assessment and Plan Assess & Plan/Chief Complaint DC planned for tomorrow BM regimen PT/OT HLIV PO steroids Nebs Home O2 Diagnosis/Problems Diagnosis/Problems (1) Acute and chronic respiratory failure with hypercapnia Status: Acute (2) Very heavy cigarette smoker (40 or more per day) Status: Chronic (3) BiPAP (biphasic positive airway pressure) dependence Status: Acute (4) COPD exacerbation Status: Acute (5) Anxiety Status: Chronic Supervisory-Addendum Brief Verification & Attestation Participated in pt care: history, MDM, physical Personally performed: exam, history, MDM, supervision of care Care discussed with: Medical Student Procedures: n/a Results interpretation: Verified all documentation Verification and Attestation of Medical Student E/M Service A medical student performed and documented this service in my presence. I reviewed and verified all information documented by the medical student and made modifications to such information, when appropriate. I personally performed the physical exam and medical decision making. Coretta Fermin, Dec 09, 2018,19:48 [facility] Dec 09, 2018 10:54 CORETTA FERMIN DO Dec 09, 2018 19:48
--- NOTE | 2018-12-09 11:11 | NUR ---
patient oxygen sat did not drop below 90% during the 6 min. walk Addendum: 12/09/18 at 1111 by PEARL CORBIN RT Amended: Links added.
--- NOTE | 2018-12-09 11:47 | Occupational Therapy Eval ---
OT Evaluation-General/PLF Medical Diagnosis Admission Date Dec 07, 2018 at 19:33 Medical Diagnosis: COPD exacerbation Onset Date: Dec 09, 2018 Therapy Diagnosis Therapy Diagnosis: impaired ADLS and mobility Height/Weight Height (Feet): 5 Height (Inches): 4.00 Weight (Pounds): 154 Weight (Ounces): 4.0 Precautions Precautions/Isolations: Standard Precautions Safety Interventions: None Weight Bear Status Weight Bearing Restriction: Weight Bearing/Tolerated Referral Referral Reason: Activity Tolerance, Self Care, Evaluation/Treatment, Strengthening/ROM Medical History Additional Medical History per h&P: "HPI: Dinah is a 63 year old female that presented with shortness of breath and left shoulder and arm pain. Patient was stating in the low 80s when she was brought in. She lives at [facility]. She is a current smoker and requires oxygen at home. Patient has had pain in her arm like this before and pain that is in the middle of the back that she states radiates to the back in between her shoulders. Patients coughing has continued to get worse." Current History Surgeries: Appendectomy, Section, Ear Surgery, Tubal Ligation Respiratory: Asthma, COPD, Emphysema Currently Using CPAP: No Currently Using BIPAP: No Reproductive: No Sexually Transmitted Disease: No HIV/AIDS: No Female Reproductive Disorders: Denies Menopausal Musculoskeletal: Arthritis HEENT: Cataract Hearing Impairment: Hard of Hearing Psychosocial: Anxiety, Depression History of Blood Disorders: No Adverse Reaction to Blood Caban: No Reviewed History: Yes Social History Home: Apartment ([facility] ) Current Living Status: Alone Entry Into Home: Level Entry ADL-Prior Level of Function Therapy Code Descriptions/Definitions Functional [place] Measure: 0=Not Assessed/NA 4=Minimal Assistance 1=Total Assistance 5=Supervision or Setup 2=Maximal Assistance 6=Modified [place] 3=Moderate Assistance 7=Complete [place] Therapy Quality Codes: 6 Independent with activity with or without an assistive device 5 Patient requires set up or clean up by helper. Patient completes activity by themselves 4 Supervision or touching assist (CGA). [place] provide cues , steadying assist 3 The helper provides less than half the effort to complete the activity 2 The helper provides more than half the effort to complete the activity 1 Dependent. The helper does all the effort to complete an activity 7 Patient refused to complete or attempt activity 9 The patient did not perform the activity before the current illness or injury 88 Not attempted due to Medical conditions or safety concerns Functional Abilities and Goals: Independent: Patient completed the activities by him/herself, with or without an assistive device, with no assistance from a helper. Needed Some Help: Patient needed partial assistance from another person to complete activities. Dependent: A helper completed the activities for the patient. Unknown: Not Applicable: ADL PLOF Comments pt indep PLOF using no AD taking care of her dog. Self Care: Independent Functional Cognition: Independent DME/Equipment: Bath Chair, Shower Drive Self: Yes OT Current Status Subjective pt sitting EOB upon OT arrival. pt reports no pain. pt agreed to OT evaluation session. Pain Numeric Pain Scale: 0-No Pain Mental Status/Objective Patient Orientation: Person, Place, Time, Situation, Normal For Age Attachments: Oxygen (2 L at home PRN. intermiit wore here. ) Current Glasses/Contacts: Yes Hearing Aids: No Dentures/Partials: Yes Hand Dominance: Right Upper Extremity ROM WNL Upper Extremity Coordination finger to nose WNL opposition: WNL Upper Extremity Sensation light touch: WNL Upper Extremity Strength 5/5MMT ADL-Treatment Therapy Code Descriptions/Definitions Functional [place] Measure: 0=Not Assessed/NA 4=Minimal Assistance 1=Total Assistance 5=Supervision or Setup 2=Maximal Assistance 6=Modified [place] 3=Moderate Assistance 7=Complete [place] Therapy Quality Codes: 6 Independent with activity with or without an assistive device 5 Patient requires set up or clean up by helper. Patient completes activity by themselves 4 Supervision or touching assist (CGA). [place] provide cues , steadying assist 3 The helper provides less than half the effort to complete the activity 2 The helper provides more than half the effort to complete the activity 1 Dependent. The helper does all the effort to complete an activity 7 Patient refused to complete or attempt activity 9 The patient did not perform the activity before the current illness or injury 88 Not attempted due to Medical conditions or safety concerns Eating (FIM): 6 Grooming (FIM): 7 Bathing (FIM): 7 Upper Body Dressing (FIM): 7 Lower Body Dressing (FIM): 7 Toileting (FIM): 7 Transfers (B, C, W/C) (FIM): 7 Toilet/Commode Transfer (FIM): 7 based on evaluation. clinical judgement pt is indep with all ADLS. NSG confirm pt is indep. pt is ad ana maria in room. pt ambulated using no AD 150 ft indep'ly. post OT evaluation session, pt laying in bed, call light within reach, all needs met. OT Short Term Goals Short Term Goals 1=Demonstrate adherence to instructed precautions during ADL tasks. 2=Patient will verbalize/demonstrate understanding of assistive devices/modifications for ADL. 3=Patient will improve strength/tolerance for activity to enable patient to perform ADL's. OT Financial Aid Coordinator Goals Financial Aid Coordinator Goals 1=Demonstrate adherence to instructed precautions during ADL tasks. 2=Patient will verbalize/demonstrate understanding of assistive devices/modifications for ADL. 3=Patient will improve strength/tolerance for activity to enable patient to perform ADL's. OT Education/Plan Problem List/Assessment Assessment: No Skilled OT Needs ID'd pt indep with all ADL/ Functional mobility using no AD with good safety awareness. pt wears 2L NC PRN at home. pt did not wear O2 during evaluation and O2 saturation remained above 94%. HR 105 BPM. NSG is aware of O2 and HR. pt does not required OT Services secondary to functioning at baseline. d/c OT at this time. Discharge Recommendations Plan/Recommendations: Discontinue OT Treatment Plan/Plan of Care Treatment,Training & Education: Yes Treatment Duration: Dec 09, 2018 Frequency: 1 time per week (eval only ) Estimated Hrs Per Day: Other (eval only ) Agreement: Yes Rehab Potential: Good Time/GCodes Start Time: 10:35 Stop Time: 10:50 Billed Treatment Time EVL 15 minutes GEN MONTES OT Dec 09, 2018 11:47
[2018-12-09 12:00] VITALS: BP 111/52
[2018-12-09] MEDS: predniSONE 10 MG TAB PO SCH (12:03)
--- NOTE | 2018-12-09 12:11 | Physical Therapy Evaluation ---
PT Evaluation-General Medical Diagnosis Admission Date Dec 07, 2018 at 19:33 Medical Diagnosis: COPD exacerbation Onset Date: Dec 09, 2018 Therapy Diagnosis Therapy Diagnosis: debility Height/Weight Height (Feet): 5 Height (Inches): 4.00 Weight (Pounds): 154 Weight (Ounces): 4.0 Precautions Precautions/Isolations: Standard Precautions Referral Physician: Zander Reason for Referral: Evaluation/Treatment Medical History Pertinent Medical History: COPD, Smoking Current History ER with SOA Reviewed History: Yes Social History Home: Apartment (senior apt ) Current Living Status: Alone Entry Into Home: Level Entry Prior/Core FIM Prior Level of Function Therapy Code Descriptions/Definitions Functional [place] Measure: 0=Not Assessed/NA 4=Minimal Assistance 1=Total Assistance 5=Supervision or Setup 2=Maximal Assistance 6=Modified [place] 3=Moderate Assistance 7=Complete [place] Therapy Quality Codes: 6 Independent with activity with or without an assistive device 5 Patient requires set up or clean up by helper. Patient completes activity by themselves 4 Supervision or touching assist (CGA). [place] provide cues , steadying assist 3 The helper provides less than half the effort to complete the activity 2 The helper provides more than half the effort to complete the activity 1 Dependent. The helper does all the effort to complete an activity 7 Patient refused to complete or attempt activity 9 The patient did not perform the activity before the current illness or injury 88 Not attempted due to Medical conditions or safety concerns Functional Abilities and Goals: Independent: Patient completed the activities by him/herself, with or without an assistive device, with no assistance from a helper. Needed Some Help: Patient needed partial assistance from another person to complete activities. Dependent: A helper completed the activities for the patient. Unknown: Not Applicable: Bed Mobility: 7 Transfers (B,C,W/C) (FIM): 7 Gait: 7 Stairs: 7 Indoor Mobility (Ambulation): Independent Stairs: Independent Prior Devices Use: None PT Evaluation-Current Subjective Patient reports she is going home tomorrow. Objective Patient Orientation: Normal For Age Problem Solving: Good ROM/Strength ROM Lower Extremities bilateral LE WFL Strength Lower Extremities 5/5 grossly bilateral LE Integumentary/Posture Integumentary refer to nursing notes Bowel Incontinence: No Bladder Incontinence: No Posture WFL Neuromuscular (Tone, Coordination, Reflexes) grossly intact Sensory Vision: Functional Hearing: Functional Hand Dominance: Right Sensation Right Lower Extremit: Intact Sensation Left Lower Extremity: Intact Transfers Therapy Code Descriptions/Definitions Functional [place] Measure: 0=Not Assessed/NA 4=Minimal Assistance 1=Total Assistance 5=Supervision or Setup 2=Maximal Assistance 6=Modified [place] 3=Moderate Assistance 7=Complete [place] Transfers (B, C, W/C) (FIM): 7 Scootin Rollin Supine to/from Sit: 7 Sit to/from Stand: 7 Gait Mode of Locomotion: Walk Anticipated Mode of Locomotion: Walk Gait (FIM): 7 Distance (FIM): 3=150 ft Distance: >1000' Gait Level of Assist: 7 Gait Assistive Device: None Comments/Gait Description safe and functional with no deviation Balance Sitting Static: Normal Sitting Dynamic: Normal Standing Static: Normal Standing Dynamic: Normal Assessment/Needs 63 y.o. female, is currently at [facility] with all gross motor skills and does not require skilled therapy intervention. Rehab Potential: Fair PT Plan Treatment/Plan Treatment Plan: Discontinue PT, goals met Treatment Plan: Other Treatment Duration: Dec 09, 2018 Frequency: 1 time per week Estimated Hrs Per Day: .25 hour per day Patient and/or Family Agrees t: Yes Discharge Recommendations Therapy D/C Recommendations: Home Independently Time/GCodes Time In: 1201 Time Out: 1209 Total Billed Treatment Time: 8 Total Billed Treatment 1 visit EVLowC 8 min ATIYA MCCONNELL PT Dec 09, 2018 12:11
[2018-12-09 15:23] VITALS: BP 112/59
[2018-12-09] MEDS: SERTRALINE 100 MG (ZOLOFT) TAB PO SCH (20:41)
[2018-12-09] MEDS: MONTELUKAST 10 MG (SINGULAIR) TAB PO SCH (20:41)
[2018-12-09] MEDS: ASPIRIN E.C. 81 MG (ECOTRIN) TAB PO SCH (20:41)
[2018-12-09 20:55] VITALS: BP 113/65
[2018-12-10 00:30] VITALS: BP 112/55
[2018-12-10] MEDS: RT-ALBUTEROL/IPRATROPIUM 3 ML (DUONEB) VIAL INH SCH ×3 (02:21→10:29)
[2018-12-10 03:40] VITALS: BP 113/62
[2018-12-10 05:56] LABS: BASOPHILS % (AUTO) 0 % (0-10); EOSINOPHILS % (AUTO) 0 % (0-10); HEMATOCRIT 38 % (35-52); HEMOGLOBIN 12.1 G/DL (11.5-16.0); LYMPHOCYTES # (AUTO) 3.8 X 10^3 (1.0-4.0); LYMPHOCYTES % (AUTO) 37 % (12-44); MEAN CORPUSCULAR HEMOGLOBIN 33 PG (25-34); MEAN CORPUSCULAR HGB CONC 32 G/DL (32-36); MEAN CORPUSCULAR VOLUME 103 FL (80-99); MEAN PLATELET VOLUME 9.9 FL (7.4-10.4); MONOCYTES # (AUTO) 0.6 X 10^3 (0.0-1.0); MONOCYTES % (AUTO) 5 % (0-12); NEUTROPHILS # (AUTO) 5.8 X 10^3 (1.8-7.8); NEUTROPHILS % (AUTO) 57 % (42-75); PLATELET COUNT 317 10^3/uL (130-400); RED CELL DISTRIBUTION WIDTH 13.9 % (10.0-14.5); WHITE BLOOD COUNT 10.2 10^3/uL (4.3-11.0)
[2018-12-10 06:21] LABS: ALANINE AMINOTRANSFERASE 15 U/L (0-55); ALBUMIN 3.9 GM/DL (3.2-4.5); ALKALINE PHOSPHATASE 52 U/L (40-136); BILIRUBIN,TOTAL 0.2 MG/DL (0.1-1.0); BUN/CREATININE RATIO 19; CALCIUM 8.6 MG/DL (8.5-10.1); CARBON DIOXIDE 26 MMOL/L (21-32); CHLORIDE 107 MMOL/L (98-107); CREATININE SERUM 0.62 MG/DL (0.60-1.30); GFR ESTIMATED > 60; GLUCOSE 77 MG/DL (70-105); POTASSIUM 3.7 MMOL/L (3.6-5.0); SODIUM 142 MMOL/L (135-145); TOTAL PROTEIN 6.5 GM/DL (6.4-8.2)
[2018-12-10] MEDS: predniSONE 10 MG TAB PO SCH (06:43)
[2018-12-10] MEDS: RT-ADVAIR HFA 115/21 MCG PER PUFF IH SCH (06:45)
--- NOTE | 2018-12-10 07:21 | Pulmonary Progress Note ---
Sepsis Event Evaluation Height, Weight, BMI Height: 5'4.00" Weight: 155lbs. 2.0oz. 70.317658kt; 26.0 BMI Method:Stated Focused Exam Lactate Level 12/07/18 18:25: Lactic Acid Level 0.74 Exam Exam Vital Signs Date Time Temp Pulse Resp B/P (MAP) Pulse Ox O2 Delivery O2 Flow Rate FiO2 12/10/18 06:46 95 Room Air 12/10/18 06:46 94 Room Air 12/10/18 03:40 98.0 76 19 113/62 (79) 96 Room Air 3.50 12/10/18 02:20 94 Room Air 12/10/18 00:30 98.7 93 20 112/55 (74) 94 Room Air 12/09/18 20:55 98.6 89 20 113/65 (81) 96 Room Air 12/09/18 20:00 Nasal Cannula 2.00 12/09/18 18:53 95 Room Air 12/09/18 15:23 99.8 105 20 112/59 (76) 94 Nasal Cannula 3.50 12/09/18 14:43 93 Room Air 2.00 12/09/18 12:00 98.0 97 20 111/52 (71) 95 Nasal Cannula 3.50 12/09/18 11:11 92 Room Air 2.00 12/09/18 08:00 Nasal Cannula 2.00 12/09/18 08:00 98.4 101 20 122/56 (78) 95 Nasal Cannula 2.00 12/09/18 07:28 Nasal Cannula 2.00 12/09/18 07:27 96 Nasal Cannula 2.00 I & O 12/10/18 07:00 Intake Total 3590 ml Output Total 3500 ml Balance 90 ml Height & Weight Height: 5'4.00" Weight: 155lbs. 2.0oz. 70.156688ml; 26.0 BMI Method:Stated General Appearance: No Apparent Distress, WD/WN HEENT: PERRL/EOMI, Pharynx Normal Neck: Full Range of Motion, Normal Inspection, Non Tender Respiratory: Chest Non Tender, No Accessory Muscle Use, No Respiratory Distress, Crackles, Decreased Breath Sounds, Wheezing Cardiovascular: Regular Rate, Rhythm, No Edema, No Gallop, No JVD, No Murmur, Normal Peripheral Pulses Capillary Refill: Less Than 3 Seconds Peripheral Pulses: 2+ Radial Pulses (R), 2+ Radial Pulses (L) Extremity: Normal Capillary Refill Neurologic/Psychiatric: Alert, Oriented x3, No Motor/Sensory Deficits, Normal Mood/Affect Skin: Normal Color, Warm/Dry Lymphatic: No Adenopathy Results Lab Laboratory Tests 12/09/18 06:11 12/10/18 05:30 Assessment/Plan Assessment/Plan COPDAE/asthmaAE -SVNs - prednisone taper -Last PFT 10/30 shows moderate COPD with asthma Allergic rhinitis -Denise Elizalde and LINDA Merino DO Dec 10, 2018 07:21
[2018-12-10] MEDS: SENNA W/DOCUSATE (SENOKOT S) TABLET PO SCH (08:33)
[2018-12-10] MEDS: BENZONATATE 100 MG (TESSALON) CAPSULE PO SCH (08:33)
[2018-12-10] MEDS: LORATADINE (CLARITIN) 10 MG TAB PO SCH (08:33)
[2018-12-10] MEDS ORDERED: BENZ100C18 PO (11:15)
[2018-12-10] MEDS ORDERED: PRED10TA22 PO (11:15)
[2018-12-10] MEDS ORDERED: LORA10TA7 PO (11:15)
--- NOTE | 2018-12-10 13:07 | Discharge Summary ---
[facility] 12/10/18 1306: Diagnosis/Chief Complaint Date of Admission Dec 07, 2018 at 19:33 Date of Discharge Dec 10 2018 Discharge Date: Dec 10, 2018 Admission Diagnosis Assessment: AE COPD Smoker Depression Plan: Monitor lungs Appreciate [facility] Discharge Diagnosis COPD Exacerbation (1) Acute and chronic respiratory failure with hypercapnia Status: Acute (2) Very heavy cigarette smoker (40 or more per day) Status: Chronic (3) BiPAP (biphasic positive airway pressure) dependence Status: Acute (4) COPD exacerbation Status: Acute (5) Anxiety Status: Chronic Discharge Summary Discharge Physical Exam Allergies: Coded Allergies: codeine (Verified Allergy, Severe, Hives and swelling., 09/22/12) Vitals & I&Os Vital Signs Date Time Temp Pulse Resp B/P (MAP) Pulse Ox O2 Delivery O2 Flow Rate FiO2 12/10/18 10:33 91 Room Air 12/10/18 03:40 98.0 76 19 113/62 (79) 3.50 General Appearance: No Apparent Distress, WD/WN Respiratory: Chest Non Tender, No Accessory Muscle Use, No Respiratory Distress, Wheezing Cardiovascular: Regular Rate, Rhythm, No Edema, No JVD Gastrointestinal: Normal Bowel Sounds, Non Tender Extremity: Normal Capillary Refill Skin: Normal Color, Warm/Dry Neurologic/Psychiatric: Alert, Oriented x3 Hospital Course Was the Problem List Reviewed?: Yes Dinah Juarez Presented to the ER December 07 for Exacerbation of COPD. She is oxygen dependent and received care from Dr. Giang pulmonary and Dr. Cooper Internal medicine. While the patient was at the hospital she underwent a chest x-ray that showed COPD and cultures of both sputum and blood that came back negative. Dinah has PMH of oxygen dependent COPD and is still a current smoker. She has been advised and educated on the benefits of smoking cessation. During her hospital stay her lungs have improved drastically on COPD exacerbation medication protocol. Though wheezing is still present it is better. Patient is able to have an oxygen saturation over 90% and does not drop below 90% when walking per respiratory therapy. She can maintain her oxygen without continuos oxygen at this moment, but it is highly encouraged that she use it at home when she needs and to continue her prior oxygen regimen. The patient participated in PT. She was eating and drinking with no problem and was able to move her bowels and urinate without difficulty. The patient has no complaints and states she feels well enough to go home.The patients labs and vitals are stable and the patient is being discharged in a stable condition. The patient has been informed about follow up visits with her physician and her medication regimen both of which are outlined in her discharge papers. The patient has been in contact with social work to make sure all her necessities are met when discharged. The information mentioned is not all inclusive and for more detailed information please review the notes. Labs (last 24 hrs) Laboratory Tests 12/10/18 05:30: White Blood Count 10.2, Red Blood Count 3.66L, Hemoglobin 12.1, Hematocrit 38, Mean Corpuscular Volume 103H, Mean Corpuscular Hemoglobin 33, Mean Corpuscular Hemoglobin Concent 32, Red Cell Distribution Width 13.9, Platelet Count 317, Mean Platelet Volume 9.9, Neutrophils (%) (Auto) 57, Lymphocytes (%) (Auto) 37, Monocytes (%) (Auto) 5, Eosinophils (%) (Auto) 0, Basophils (%) (Auto) 0, Neutrophils # (Auto) 5.8, Lymphocytes # (Auto) 3.8, Monocytes # (Auto) 0.6, Eosinophils # (Auto) 0.0, Basophils # (Auto) 0.0, Sodium Level 142, Potassium Level 3.7, Chloride Level 107, Carbon Dioxide Level 26, Anion Gap 9, Blood Urea Nitrogen 12, Creatinine 0.62, Estimat Glomerular Filtration Rate > 60, BUN/Creatinine Ratio 19, Glucose Level 77, Calcium Level 8.6, Corrected Calcium 8.7, Total Bilirubin 0.2, Aspartate Amino Transf (AST/SGOT) 10, Alanine Aminotransferase (ALT/SGPT) 15, Alkaline Phosphatase 52, Total Protein 6.5, Albumin 3.9 Microbiology 12/07/18 Blood Culture - Preliminary, Resulted No growth 12/07/18 Urine Culture - Final, Complete NO GROWTH Patient resulted labs reviewed. Pending Labs Laboratory Tests 12/10/18 05:30: White Blood Count 10.2, Red Blood Count 3.66, Hemoglobin 12.1, Hematocrit 38, Mean Corpuscular Volume 103, Mean Corpuscular Hemoglobin 33, Mean Corpuscular Hemoglobin Concent 32, Red Cell Distribution Width 13.9, Platelet Count 317, Mean Platelet Volume 9.9, Neutrophils (%) (Auto) 57, Lymphocytes (%) (Auto) 37, Monocytes (%) (Auto) 5, Eosinophils (%) (Auto) 0, Basophils (%) (Auto) 0, Neutrophils # (Auto) 5.8, Lymphocytes # (Auto) 3.8, Monocytes # (Auto) 0.6, Eosinophils # (Auto) 0.0, Basophils # (Auto) 0.0, Sodium Level 142, Potassium Level 3.7, Chloride Level 107, Carbon Dioxide Level 26, Anion Gap 9, Blood Urea Nitrogen 12, Creatinine 0.62, Estimat Glomerular Filtration Rate > 60, BUN/Creatinine Ratio 19, Glucose Level 77, Calcium Level 8.6, Corrected Calcium 8.7, Total Bilirubin 0.2, Aspartate Amino Transf (AST/SGOT) 10, Alanine Aminotransferase (ALT/SGPT) 15, Alkaline Phosphatase 52, Total Protein 6.5, Albumin 3.9 Discharge Home Medications: Active Scripts Active Prednisone 10 Mg Tab.ds.pk 10 Mg PO DAILY Take 5 tabs(50mg)daily,decrease by 1 tab(10MG)daily. Tessalon Perles (Benzonatate) 100 Mg Capsule 200 Mg PO TID Loratadine 10 Mg Tablet 10 Mg PO DAILY Reported Refresh Optive Eye Drops (Carboxymethylcellulos/Glycerin) 15 Ml Drops 1 Drop OP TID PRN Symbicort 160-4.5 Mcg Inhaler (Budesonide/Formoterol Fumarate) 10.2 Gm Hfa.aer.ad 2 Puff PO BID Aspir 81 (Aspirin) 81 Mg Tablet.dr 81 Mg PO HS Sertraline HCl 100 Mg Tablet 100 Mg PO HS Albuterol Sulfate 2.5 Mg/3 Ml Vial.neb 2.5 Mg NEB Q4H PRN Montelukast Sodium 10 Mg Tablet 10 Mg PO HS Ventolin Hfa (Albuterol Sulfate) 18 Gm Hfa.aer.ad 2 Puff INH Q4H PRN Instructions to patient/family Please see electronic discharge instructions given to patient. Clinical Quality Measures DVT/VTE Risk/Contraindication: Risk Factor Score Per Nursin RFS Level Per Nursing on Admit: 4+=Very High Smoking Cessation Counseling: Counseling-Symptomatic: 3-10 Minutes Other Options Patient was educated on the benefits of smoking cessation and was advised that it would be best if she quit. CORETTA COOPER DO 86: Diagnosis/Chief Complaint Discharge Diagnosis (1) Acute and chronic respiratory failure with hypercapnia Status: Acute (2) Very heavy cigarette smoker (40 or more per day) Status: Chronic (3) BiPAP (biphasic positive airway pressure) dependence Status: Acute (4) COPD exacerbation Status: Acute (5) Anxiety Status: Chronic Discharge Summary Discharge Physical Exam Allergies: Coded Allergies: codeine (Verified Allergy, Severe, Hives and swelling., 09/22/12) General Appearance: No Apparent Distress, WD/WN Respiratory: Chest Non Tender, Lungs Clear, Normal Breath Sounds, No Accessory Muscle Use, No Respiratory Distress Cardiovascular: Regular Rate, Rhythm, No Edema, No Gallop, No JVD, No Murmur, Normal Peripheral Pulses Neurologic/Psychiatric: Alert, Oriented x3, No Motor/Sensory Deficits, Normal Mood/Affect Hospital Course Was the Problem List Reviewed?: Yes Verification and Attestation of Medical Student E/M Service A medical student performed and documented this service in my presence. I reviewed and verified all information documented by the medical student and made modifications to such information, when appropriate. I personally performed the physical exam and medical decision making. Coretta Cooper, Dec 10, 2018,21:46 Hospital Course: Pt had a short hospital course for four days. She was placed in the hospital for exacerbation of COPD, Dr. Giang saw her in consultation and IV steroids were initiated and quickly tapered down to oral Prednisone, initiat ed nebulizer treatments and oxygen supplementation and actually responded very quickly. She was able to participated in PT and OT and bowels were moving. Pt is eating and drinking well and felt really good about going home with close follow up with Dr. Giang. Discussion & Recommendations Discharge Planning: <30 minutes discharge planning Supervisory-Addendum Brief Verification & Attestation Participated in pt care: history, MDM, physical Personally performed: exam, history, MDM, supervision of care Care discussed with: Medical Student Procedures: n/a Results interpretation: Verified all documentation Verification and Attestation of Medical Student E/M Service A medical student performed and documented this service in my presence. I reviewed and verified all information documented by the medical student and made modifications to such information, when appropriate. I personally performed the physical exam and medical decision making. Coretta Cooper, Dec 10, 2018,21:46 [facility] Dec 10, 2018 13:06 CORETTA COOPER DO Dec 10, 2018 21:46
== END 2018-12-10 13:00 | disposition home or self-care (01) | DRG 189 ==
LOC: EDUNIT# 17:54 → ER 17:56 → 4TH 19:33
PROVIDERS: ADMIT Internal Medicine; ATTEND Internal Medicine
DX: J96.22 Acute and chronic respiratory failure with hypercapnia (principal); J44.1 Chronic obstructive pulmonary disease with (acute) exacerbation; F17.210 Nicotine dependence, cigarettes, uncomplicated; J30.9 Allergic rhinitis, unspecified; M19.91 Primary osteoarthritis, unspecified site; F41.9 Anxiety disorder, unspecified; F32.9 Major depressive disorder, single episode, unspecified; Z99.81 Dependence on supplemental oxygen
CPT/HCPCS: 36415; 36600; 51702; 71045; 80053; 81000; 82805; 83605; 84484; 85007; 85025; 85027; 85610; 85730; 87040; 87088; 93005; 94640; 94664; 94760; 94761

== ENCOUNTER 2019-03-03 14:25 | Outpatient (RCR) | payer MEDICARE, MEDICAID ==
[2019-03-03 14:20] VITALS: BP 98/70
[~2019-03-03 14:25] MED LIST changes: +ASPI-586 PO; +BUDE10.2 PO; +CARB15DR2 OP; +LORA10TA7 PO; +PRED10TA22 PO; -RT-ALBUTEROL SULF 2.5 MG/3 ML PRE-MIX VIAL ONE; -RT-ALBUTEROL/IPRATROPIUM 3 ML (DUONEB) VIAL ONE
[2019-03-03 15:25] VITALS: BP 96/62
[2019-03-10 14:14] VITALS: BP 104/58
[2019-03-10 15:28] VITALS: BP 98/62
== END 2019-06-01 | disposition home or self-care (01) ==
LOC: PULM 14:25
PROVIDERS: ATTEND Nurse Practitioner Family
DX: J96.20 Acute and chronic respiratory failure, unspecified whether with hypoxia or hypercapnia (principal); J44.9 Chronic obstructive pulmonary disease, unspecified; R63.4 Abnormal weight loss; F17.200 Nicotine dependence, unspecified, uncomplicated

== ENCOUNTER → 2019-03-17 | Outpatient (CLI) | payer MEDICARE, MEDICAID ==
--- NOTE | 2019-03-17 16:18 | Diagnostic Imaging Report ---
MRI LT UPPER EXT JOINT W/O Technique: Multiplanar, multisequence MR imaging of the left shoulder was performed without contrast. INDICATION: Left shoulder pain. History of fall multiple years ago. COMPARISON: None available. Findings: Rotator cuff: No high-grade partial or full-thickness rotator cuff tear. There is low-grade partial-thickness bursal sided fraying/tearing of the anteriormost insertional fibers of the supraspinatus. The infraspinatus, teres minor and subscapularis remain intact. No rotator cuff muscle atrophy or edema. Glenoid labrum: There may be some degenerative tearing in the posterior aspect of the glenoid labrum. No para-labral cyst. Long head of biceps: Long head of biceps is normally positioned within the bicipital groove. The intracapsular segment is intact. Bones and cartilage: Humeral head is normal in morphology without fracture or focal osseous lesion. No glenohumeral chondromalacia. Mild degenerative arthritis of the acromioclavicular joint is without inferior projecting osteophytes into the subacromial space. Soft tissues: No glenohumeral joint effusion. No MRI findings to suggest adhesive capsulitis. No fluid or inflammatory like signal within the subacromial/subdeltoid space to indicate bursitis. IMPRESSION: 1. Low-grade partial-thickness bursal surface tear of the anterior supraspinatus. 2. Long head of biceps is normal. 3. There may be nondisplaced degenerative intrasubstance tearing in the posterior labrum. Dictated by: Dictated on workstation # [id number]
== END ==
LOC: RAD 15:16
PROVIDERS: ATTEND Nurse Practitioner Community Health
DX: M75.102 Unspecified rotator cuff tear or rupture of left shoulder, not specified as traumatic (principal); Z91.81 History of falling
CPT/HCPCS: 73221

== ENCOUNTER → 2019-05-13 | Outpatient (CLI) | payer MEDICARE, MEDICAID ==
--- NOTE | 2019-05-13 14:29 | Diagnostic Imaging Report ---
EXAMINATION: CT low-dose lung cancer screening. INDICATION: [id number] smoking history. TECHNIQUE: Routine images of the thorax using the CT low-dose lung cancer screening protocol were performed. FINDINGS: There are no prior CT low-dose lung cancer screening exams available for comparison. However, the CT chest exam performed on 10/11/2017 failed to show any sign of an acute abnormality or of a parenchymal lung mass. On this exam, there is still no parenchymal lung mass identified that would suggest a neoplastic process. As noted previously, there is scar formation in both lung bases. There are also mild emphysematous changes involving both lungs. There is no sign of failure, pneumonia, or pleural effusion to indicate an acute abnormality. The heart size is borderline enlarged but stable when compared to the prior exam. Coronary artery calcifications are again noted. The aorta is not abnormally dilated. There is no obvious mediastinal or hilar adenopathy. The thyroid gland is generally unremarkable. 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 The sections through the upper abdomen failed to show any sign of an acute abnormality. The bone windows are unremarkable for a fracture or for a destructive lesion. There is no obvious breast mass. The lymph nodes in the left axilla do seem somewhat more prominent than on the prior exam. There is no enlargement of the lymph nodes to suggest neoplastic disease. Even so, mammography and ultrasound would be recommended for further evaluation. IMPRESSION: 1. There is no evidence for a neoplastic mass in the lung parenchyma. A follow-up low-dose lung cancer screening exam in one year would be recommended for further study. 2. There are emphysematous changes involving both lungs but there is no evidence for an acute cardiopulmonary abnormality. 3. There is borderline cardiomegaly and coronary artery disease. 4. There are a few slightly prominent lymph nodes in the left axilla. These are nonspecific. There is no evidence for malignancy but mammography and/or ultrasound would be recommended for further evaluation. Lung-RADS Category: 1S. Dictated by: Dictated on workstation # [id number]
== END ==
LOC: RAD 12:10
PROVIDERS: ATTEND Nurse Practitioner Family
DX: Z12.2 Encounter for screening for malignant neoplasm of respiratory organs (principal); J96.20 Acute and chronic respiratory failure, unspecified whether with hypoxia or hypercapnia; R63.4 Abnormal weight loss; J43.9 Emphysema, unspecified; I51.7 Cardiomegaly; I25.10 Atherosclerotic heart disease of native coronary artery without angina pectoris; F17.210 Nicotine dependence, cigarettes, uncomplicated

== ENCOUNTER 2019-09-17 09:15 | Outpatient (RCR) | payer MEDICARE, MEDICAID ==
[~2019-09-17] VITALS: Ht 167 cm; Wt 73.6 kg
[~2019-09-17 09:15] MED LIST changes: +ATOR40TA70 PO; -GUAI400T71 PO; +GUAI400T86 PO; -MONT10TA24 PO; +MONT10TA26 PO
== END 2019-09-17 16:14 | disposition home or self-care (01) ==
LOC: PREOP 09:15
PROVIDERS: ATTEND Surgery
DX: Z01.812 Encounter for preprocedural laboratory examination (principal); Z11.59 Encounter for screening for other viral diseases; Z86.010 Personal history of colon polyps
CPT/HCPCS: 87635